=== PATIENT | female | born 1945 | race Caucasian/White ===

== ENCOUNTER 2020-10-09 14:30 | Inpatient (IN) | payer MEDICARE ==
[~2020-10-09] VITALS: Ht 160 cm; Wt 67.8 kg
[2020-10-09] MEDS ORDERED: tiZANidine 4 MG TABLET. PO PRN (15:30)
[2020-10-09] MEDS ORDERED: DENOSUMAB 60 MG/ML DISP.SYRIN. SQ SCH (15:30)
--- NOTE | 2020-10-09 15:45 | NUR ---
Admission Note with Justification for Admission to [facility] Patient admitted to [facility] for protective oversight for emergency stabilization of acute psychiatric crisis. Pt admitted from: Home via [place] [facility] Mode of arrival: EMS Accompanied By: EMS Precipitating behaviors that initiated intake and admission: Patient admitted from home via [place] [facility] for reportedly being paranoid, accusing of sleeping with daughter, eloping from home, stating family members holding her hostage, refusing to eat or bathe, picked up a hammer and made a tool out of wire to defend herself, and accusing family of lying to hospital staff. Description of failure of out patient attempts at stabilization in previous setting list behavior and medication trials: Medication changes and ED visit Behaviors and assessment findings upon admission: Patient is combative, agitated, disorganized, confused, and delusional. She attempted to kick staff during initial assessment and refused to answer questions. She called staff 'lying son of a bitch', 'sadistic pigs', and other names. When asked orientation questions she only answered 'Hell no'. Patient has small abrasions on each great toe, open to air. Plan: Admit for protective oversight for adjustment and stabilization of medications, behaviors and mood. Intense treatment regimen including groups, medication adjustments, therapy, consistent regimen for ADL's, self care, and sleep hygiene. Daily monitoring by Inpatient staff, Psychiatry, and Medical Physician.
[2020-10-09] MEDS ORDERED: CALC625T12 PO (17:04)
[2020-10-09] MEDS ORDERED: OMEP40CA7 PO (17:04)
[2020-10-09] MEDS ORDERED: PRAM0.255 PO (17:04)
[2020-10-09] MEDS ORDERED: LEVO25TA4 PO (17:04)
[2020-10-09] MEDS ORDERED: MULT-245 PO (17:04)
[2020-10-09] MEDS ORDERED: DILT30TA26 PO (17:04)
[2020-10-09] MEDS ORDERED: ASPI-889 PO (17:04)
[2020-10-09] MEDS ORDERED: CHOL10004 PO (17:04)
[2020-10-09] MEDS ORDERED: ATOR10TA60 PO (17:04)
[2020-10-09] MEDS ORDERED: SENN25TA PO (17:04)
[2020-10-09] MEDS ORDERED: TIZA4TAB2 PO (17:04)
[2020-10-09] MEDS ORDERED: DENO60DI SQ (17:04)
[2020-10-09 17:05] VITALS: BP 173/82
[2020-10-09] MEDS ORDERED: METHYL SALICYLATE/MENTHOL TOPICAL OINTMENT 57GM TUBE. TP PRN (17:30)
[2020-10-09] MEDS ORDERED: MAG HYDROX/AL HYDROX/SIMETH 30 ML ORAL.SUSP PO PRN (17:30)
[2020-10-09] MEDS ORDERED: MAGNESIUM HYDROXIDE 2,400 MG/30 ML ORAL.SUSP. PO PRN (17:30)
[2020-10-09] MEDS: dilTIAZem HCL 30 MG TABLET PO SCH (20:32)
[2020-10-09] MEDS: CALCIUM POLYCARBOPHIL 625 MG TABLET PO SCH (20:32)
[2020-10-09] MEDS: ATORVASTATIN CALCIUM 10 MG TABLET. PO SCH (20:32)
[2020-10-09] MEDS: PRAMIPEXOLE 0.5 MG TABLET. PO SCH (20:32)
[2020-10-09] MEDS: SENNOSIDES 8.6 MG TABLET PO SCH (20:32)
--- NOTE | 2020-10-09 22:01 | NUR ---
Nursing Note Pt in her room crying, states that her doesn't love her anymore, that he is cheating on her, that she never knows where he is. States he is sneaking off to cheat and sleep with another woman. I told her to please think rationally about the fact that her memory is failing and her brain is trying to fill in the blanks. She then got really angry telling me I don't know what I'm talking about! Pt spits her words at my angrily then starts crying stating he was the love of her life and now doesn't love her and how would I feel if the only thing I loved didn't love me back....I told her I would try to think things through rationally, she states there is not a rational thought in her head at this point, then cries hysterically. Pt takes po meds willingly. Isolates to room, refuses snacks.
--- NOTE | 2020-10-09 22:02 | PDOC ---
Exam Note: Tex Note: Please also refer to the separate dictated note~for this date of service dictated separately.~Patient seen individually. Discussed the patient with Nursing staff reviewed the chart.~Reviewed interim history and current functioning. Reviewed vital signs,~Labs/ Radiology~and current medications noted below. Continue current treatment with the changes noted in the dictated addendum note Assessment: Vital Signs/I&O: Vital Signs Date Time Temp Pulse Resp B/P (MAP) Pulse Ox O2 Delivery O2 Flow Rate FiO2 10/09/20 20:32 98 173/82 10/09/20 17:05 97.7 20 97 Room Air Current Medications: Meds: Current Medications Medications (Trade) Dose Ordered Sig/Chidi Route PRN Reason Start Time Stop Time Status Last Admin Dose Admin Atorvastatin Calcium (Lipitor) 10 mg QHS PO 10/09/20 21:00 10/09/20 20:32 Calcium Polycarbophil (Fibercon) 1,250 mg BID PO 10/09/20 21:00 10/09/20 20:32 Diltiazem HCl (Cardizem) 30 mg BID PO 10/09/20 21:00 10/09/20 20:32 Pramipexole Dihydrochloride (miraPEX) 1 mg [id number] PO 10/09/20 21:00 10/09/20 20:32 Sennosides (Senna) 25.8 mg HS PO 10/09/20 21:00 10/09/20 20:32 Olanzapine (ZyPREXA ZYDIS) 2.5 mg PRN Q2HRS PRN PO PSYCHOSIS 10/09/20 17:30 10/09/20 20:33 I have reviewed the current psychotropics carefully including drug interactions. Risk benefit ratio favors no change other than as noted in my dictated progress note. Diagnosis: Problems: (1) Major neurocognitive disorder (2) Dementia of the Alzheimer's type with early onset with behavioral disturbance SAEID NUNEZ MD Oct 09, 2020 22:02
[2020-10-10 05:43] VITALS: BP 130/83
[2020-10-10 06:21] LABS: BASO # 0.1 x10^3/uL (0.0-0.2); BASO % 1 % (0-3); EOS # 0.3 x10^3/uL (0.0-0.7); EOS % 4 % (0-3); HEMATOCRIT 42.8 % (36.0-47.0); HEMOGLOBIN 14.4 g/dL (12.0-15.5); LYMPH # 2.5 x10^3/uL (1.0-4.8); LYMPH % 38 % (24-48); MEAN CORPUSCULAR HEMOGLOBIN 31 pg (25-35); MEAN CORPUSCULAR HGB CONC 34 g/dL (31-37); MEAN CORPUSCULAR VOLUME 92 fL (79-100); MONO # 0.8 x10^3/uL (0.0-1.1); MONO % 12 % (0-9); NEUT # 2.9 x10^3uL (1.8-7.7); NEUT % 44 % (31-73); PLATELET COUNT 239 x10^3/uL (140-400); RED BLOOD COUNT 4.66 x10^6/uL (3.50-5.40); RED CELL DISTRIBUTION WIDTH 13.7 % (11.5-14.5); WHITE BLOOD COUNT 6.5 x10^3/uL (4.0-11.0)
[2020-10-10 06:33] LABS: BACTERIA,URINE FEW /HPF (0-FEW); BILIRUBIN,URINE NEG (NEG); CLARITY,URINE CLEAR; COLOR,URINE YELLOW; GLUCOSE,URINE NEG (NEG); NITRITE,URINE NEG (NEG); SQUAMOUS EPITHELIAL CELL,UR MOD /LPF; UROBILINOGEN,URINE 0.2 mg/dL (0.2 mg/dL)
[2020-10-10 06:34] LABS: RBC,URINE OCC /HPF (0-2)
[2020-10-10 06:44] LABS: ALBUMIN 3.8 g/dL (3.4-5.0); ALBUMIN/GLOBULIN RATIO 1.1 (1.0-1.7); CREATININE 0.9 mg/dL (0.6-1.0); GFR 60.9; MAGNESIUM 2.1 mg/dL (1.8-2.4); POTASSIUM 3.6 mmol/L (3.5-5.1); TOTAL BILIRUBIN 0.9 mg/dL (0.2-1.0); TOTAL PROTEIN 7.2 g/dL (6.4-8.2)
[2020-10-10] MEDS: CHOLECALCIFEROL (VITAMIN D3) 1,000 UNIT TABLET PO SCH (08:10)
[2020-10-10] MEDS: PANTOPRAZOLE 40 MG TABLET. PO SCH (08:10)
[2020-10-10] MEDS: LEVOTHYROXINE 25 MCG TABLET. PO SCH (08:11)
[2020-10-10] MEDS: CALCIUM POLYCARBOPHIL 625 MG TABLET PO SCH ×2 (08:11→21:03)
[2020-10-10] MEDS: dilTIAZem HCL 30 MG TABLET PO SCH ×2 (08:11→21:00)
[2020-10-10] MEDS: MULTIVITAMIN with MINERAL TABLET. PO SCH (08:11)
[2020-10-10] MEDS: ASPIRIN ENTERIC COATED 81 MG TABLET.DR. PO SCH (08:11)
[2020-10-10] MEDS: PRAMIPEXOLE 0.5 MG TABLET. PO SCH ×3 (08:11→21:03)
--- NOTE | 2020-10-10 10:47 | NUR ---
NSG NOTE; REFUSED BREAKFAST sat in front of her breakfast tray and wouldn't eat stating that she doesn't eat garbage and that the food looks like vomit
[2020-10-10 14:12] LABS: THYROXINE 6.8 ug/dL (4.5-12.0)
[2020-10-10 16:08] VITALS: BP 152/89
--- NOTE | 2020-10-10 16:54 | NUR ---
nsg note; shift summary pt sat at the meal table for breakfast and lunch, with her arms crossed, a frown on her face, and refused to eat, stating she the food looks like vomit and that she doesn't eat garbage. in the afternoon, she has been more content in the dayroom, talking pleasantly with other patients.
[2020-10-10 17:51] LABS: THYROID STIM HORMONE (TSH) 4.057 uIU/mL (0.358-3.740)
[2020-10-10] MEDS: SENNOSIDES 8.6 MG TABLET PO SCH ×2 (21:03→21:04)
[2020-10-10] MEDS: DOXYCYCLINE HYCLATE 100 MG TABLET PO SCH (21:03)
[2020-10-10] MEDS: ATORVASTATIN CALCIUM 10 MG TABLET. PO SCH (21:05)
--- NOTE | 2020-10-10 21:35 | NUR ---
NURSING NOTE Ambulates in hallway and dayroom without difficulty; pleasant and cooperative, smiling, talkative; takes PO medications without diff; denies any c/o or concerns; resting in bed with eyes closed; no voiced needs at present.
--- NOTE | 2020-10-10 22:39 | PDOC ---
Exam Note: Tex Note: Please also refer to the separate dictated note~for this date of service dictated separately.~Patient seen individually. Discussed the patient with Nursing staff reviewed the chart.~Reviewed interim history and current functioning. Reviewed vital signs,~Labs/ Radiology~and current medications noted below. Continue current treatment with the changes noted in the dictated addendum note Assessment: Vital Signs/I&O: Vital Signs Date Time Temp Pulse Resp B/P (MAP) Pulse Ox O2 Delivery O2 Flow Rate FiO2 10/10/20 21:00 81 152/89 10/10/20 16:08 98.1 16 95 Room Air I & O 10/09/20 10/09/20 10/10/20 14:59 22:59 06:59 Intake Total 360 ml Balance 360 ml Labs: Laboratory Tests Test 10/10/20 05:30 10/10/20 05:52 Urine Collection Type Unknown Urine Color Yellow Urine Clarity Clear Urine pH 5.5 Urine Specific Portal 1.015 Urine Protein Neg (NEG-TRACE) Urine Glucose (UA) Neg mg/dL (NEG) Urine Ketones (Stick) Neg mg/dL (NEG) Urine Blood Trace (NEG) Urine Nitrite Neg (NEG) Urine Bilirubin Neg (NEG) Urine Urobilinogen Dipstick 0.2 mg/dL (0.2 mg/dL) Urine Leukocyte Esterase Neg (NEG) Urine RBC Occ /HPF (0-2) Urine WBC 1-4 /HPF (0-4) Urine Squamous Epithelial Cells Mod /LPF Urine Transitional Epithelial Cells Occ /LPF Urine Bacteria Few /HPF (0-FEW) White Blood Count 6.5 x10^3/uL (4.0-11.0) Red Blood Count 4.66 x10^6/uL (3.50-5.40) Hemoglobin 14.4 g/dL (12.0-15.5) Hematocrit 42.8 % (36.0-47.0) Mean Corpuscular Volume 92 fL (79-100) Mean Corpuscular Hemoglobin 31 pg (25-35) Mean Corpuscular Hemoglobin Concent 34 g/dL (31-37) Red Cell Distribution Width 13.7 % (11.5-14.5) Platelet Count 239 x10^3/uL (140-400) Neutrophils (%) (Auto) 44 % (31-73) Lymphocytes (%) (Auto) 38 % (24-48) Monocytes (%) (Auto) 12 % (0-9) H Eosinophils (%) (Auto) 4 % (0-3) H Basophils (%) (Auto) 1 % (0-3) Neutrophils # (Auto) 2.9 x10^3uL (1.8-7.7) Lymphocytes # (Auto) 2.5 x10^3/uL (1.0-4.8) Monocytes # (Auto) 0.8 x10^3/uL (0.0-1.1) Eosinophils # (Auto) 0.3 x10^3/uL (0.0-0.7) Basophils # (Auto) 0.1 x10^3/uL (0.0-0.2) D-Dimer (Cristel) 1.41 mg/L (0.00-0.50) H Sodium Level 144 mmol/L (136-145) Potassium Level 3.6 mmol/L (3.5-5.1) Chloride Level 109 mmol/L (98-107) H Carbon Dioxide Level 23 mmol/L (21-32) Anion Gap 12 (6-14) Blood Urea Nitrogen 17 mg/dL (7-20) Creatinine 0.9 mg/dL (0.6-1.0) Estimated GFR (Cockcroft-Gault) 60.9 BUN/Creatinine Ratio 19 (6-20) Glucose Level 93 mg/dL (70-99) Calcium Level 9.0 mg/dL (8.5-10.1) Magnesium Level 2.1 mg/dL (1.8-2.4) Iron Level 92 ug/dL (50-170) Total Iron Binding Capacity 271 ug/dL (250-450) Iron Saturation 34 % (15-34) Total Bilirubin 0.9 mg/dL (0.2-1.0) Aspartate Amino Transferase (AST) 19 U/L (15-37) Alanine Aminotransferase (ALT) 23 U/L (14-59) Alkaline Phosphatase 94 U/L (46-116) Total Protein 7.2 g/dL (6.4-8.2) Albumin 3.8 g/dL (3.4-5.0) Albumin/Globulin Ratio 1.1 (1.0-1.7) Triglycerides Level 112 mg/dL (0-150) Cholesterol Level 177 mg/dL (0-200) LDL Cholesterol, Calculated 105 mg/dL (0-100) H VLDL Cholesterol, Calculated 22 mg/dL (0-40) Non-HDL Cholesterol Calculated 127 mg/dL (0-129) HDL Cholesterol 50 mg/dL (40-60) Cholesterol/HDL Ratio 3.0 Vitamin B12 Level 1323 pg/mL (247-911) H 25-Hydroxy Vitamin D Total 28.0 ng/mL (30-100) L Thyroid Stimulating Hormone (TSH) 4.057 uIU/mL (0.358-3.740) Thyroxine (T4) 6.8 ug/dL (4.5-12.0) Total Triiodothyronine (TT3) 72 ng/dL (71-180) Treponema pallidum Antibody Nonreactive (Nonreactive) Current Medications: Meds: Laboratory Tests Test 10/10/20 05:30 10/10/20 05:52 Urine Collection Type Unknown Urine Color Yellow Urine Clarity Clear Urine pH 5.5 Urine Specific Portal 1.015 Urine Protein Neg Urine Glucose (UA) Neg mg/dL Urine Ketones (Stick) Neg mg/dL Urine Blood Trace Urine Nitrite Neg Urine Bilirubin Neg Urine Urobilinogen Dipstick 0.2 mg/dL Urine Leukocyte Esterase Neg Urine RBC Occ /HPF Urine WBC 1-4 /HPF Urine Squamous Epithelial Cells Mod /LPF Urine Transitional Epithelial Cells Occ /LPF Urine Bacteria Few /HPF White Blood Count 6.5 x10^3/uL Red Blood Count 4.66 x10^6/uL Hemoglobin 14.4 g/dL Hematocrit 42.8 % Mean Corpuscular Volume 92 fL Mean Corpuscular Hemoglobin 31 pg Mean Corpuscular Hemoglobin Concent 34 g/dL Red Cell Distribution Width 13.7 % Platelet Count 239 x10^3/uL Neutrophils (%) (Auto) 44 % Lymphocytes (%) (Auto) 38 % Monocytes (%) (Auto) 12 % Eosinophils (%) (Auto) 4 % Basophils (%) (Auto) 1 % Neutrophils # (Auto) 2.9 x10^3uL Lymphocytes # (Auto) 2.5 x10^3/uL Monocytes # (Auto) 0.8 x10^3/uL Eosinophils # (Auto) 0.3 x10^3/uL Basophils # (Auto) 0.1 x10^3/uL D-Dimer (Cristel) 1.41 mg/L Sodium Level 144 mmol/L Potassium Level 3.6 mmol/L Chloride Level 109 mmol/L Carbon Dioxide Level 23 mmol/L Anion Gap 12 Blood Urea Nitrogen 17 mg/dL Creatinine 0.9 mg/dL Estimated GFR (Cockcroft-Gault) 60.9 BUN/Creatinine Ratio 19 Glucose Level 93 mg/dL Calcium Level 9.0 mg/dL Magnesium Level 2.1 mg/dL Iron Level 92 ug/dL Total Iron Binding Capacity 271 ug/dL Iron Saturation 34 % Total Bilirubin 0.9 mg/dL Aspartate Amino Transf (AST/SGOT) 19 U/L Alanine Aminotransferase (ALT/SGPT) 23 U/L Alkaline Phosphatase 94 U/L Total Protein 7.2 g/dL Albumin 3.8 g/dL Albumin/Globulin Ratio 1.1 Triglycerides Level 112 mg/dL Cholesterol Level 177 mg/dL LDL Cholesterol, Calculated 105 mg/dL VLDL Cholesterol, Calculated 22 mg/dL Non-HDL Cholesterol Calculated 127 mg/dL HDL Cholesterol 50 mg/dL Cholesterol/HDL Ratio 3.0 Vitamin B12 Level 1323 pg/mL 25-Hydroxy Vitamin D Total 28.0 ng/mL Thyroid Stimulating Hormone (TSH) 4.057 uIU/mL Thyroxine (T4) 6.8 ug/dL Total Triiodothyronine 72 ng/dL Treponema pallidum Antibody Nonreactive Current Medications Medications (Trade) Dose Ordered Sig/Chidi Route PRN Reason Start Time Stop Time Status Last Admin Dose Admin Aspirin (Aspirin Enteric Coated) 81 mg DAILY PO 10/10/20 09:00 10/10/20 08:11 Atorvastatin Calcium (Lipitor) 10 mg QHS PO 10/09/20 21:00 10/10/20 21:05 Calcium Polycarbophil (Fibercon) 1,250 mg BID PO 10/09/20 21:00 10/10/20 21:03 Vitamin D (Vitamin D3) 50,000 unit WEEKLY PO 10/16/20 09:00 Vitamin D (Vitamin D3) 2,000 unit DAILY PO 10/10/20 09:00 10/10/20 08:10 Denosumab (Prolia) 60 mg 1X SQ 10/09/20 15:30 UNV Diltiazem HCl (Cardizem) 30 mg BID PO 10/09/20 21:00 10/10/20 21:00 Levothyroxine Sodium (Synthroid) 25 mcg DAILY06 PO 10/10/20 07:30 10/10/20 08:11 Pramipexole Dihydrochloride (miraPEX) 1 mg [id number] PO 10/09/20 21:00 10/10/20 21:03 Tizanidine HCl (Zanaflex) 4 mg PRN Q8HRS PRN PO MUSCLE SPASMS 10/09/20 15:30 Multivitamins/ Calcium (Thera-M Plus) 1 tab DAILY PO 10/10/20 09:00 10/10/20 08:11 Pantoprazole Sodium (Protonix) 40 mg DAILY PO 10/10/20 09:00 10/10/20 08:10 Sennosides (Senna) 25.8 mg HS PO 10/09/20 21:00 10/10/20 21:04 Acetaminophen (Tylenol) 650 mg PRN Q6HRS PRN PO MILD PAIN / TEMP > 100.3'F 10/09/20 17:30 Multi-Ingredient Ointment (Analgesic Herrin) 1 ashanti PRN QID PRN TP MUSCLE PAIN 10/09/20 17:30 Al Hydroxide/Mg Hydroxide (Mylanta Plus Xs) 15 ml PRN AFTMEALHC PRN PO DYSPEPSIA 10/09/20 17:30 Magnesium Hydroxide (Milk Of Magnesia) 2,400 mg PRN QHS PRN PO CONSTIPATION 10/09/20 17:30 Olanzapine (ZyPREXA ZYDIS) 2.5 mg PRN Q2HRS PRN PO PSYCHOSIS 10/09/20 17:30 10/09/20 20:33 Doxycycline Hyclate (Vibra-Tab) 100 mg BID PO 10/10/20 21:00 10/19/20 22:00 10/10/20 21:03 Current Medications Medications (Trade) Dose Ordered Sig/Chidi Route PRN Reason Start Time Stop Time Status Last Admin Dose Admin Aspirin (Aspirin Enteric Coated) 81 mg DAILY PO 10/10/20 09:00 10/10/20 08:11 Vitamin D (Vitamin D3) 2,000 unit DAILY PO 10/10/20 09:00 10/10/20 08:10 Levothyroxine Sodium (Synthroid) 25 mcg DAILY06 PO 10/10/20 07:30 10/10/20 08:11 Multivitamins/ Calcium (Thera-M Plus) 1 tab DAILY PO 10/10/20 09:00 10/10/20 08:11 Pantoprazole Sodium (Protonix) 40 mg DAILY PO 10/10/20 09:00 10/10/20 08:10 Doxycycline Hyclate (Vibra-Tab) 100 mg BID PO 10/10/20 21:00 10/19/20 22:00 10/10/20 21:03 I have reviewed the current psychotropics carefully including drug interactions. Risk benefit ratio favors no change other than as noted in my dictated progress note. Diagnosis: Problems: (1) Dementia of the Alzheimer's type with early onset with behavioral disturb ance (2) Major neurocognitive disorder SAEID NUNEZ MD Oct 10, 2020 22:39
[2020-10-11 00:08] LABS: HEMOGLOBIN A1C 5.4 % (4.8-5.6)
[2020-10-11] MEDS: LEVOTHYROXINE 25 MCG TABLET. PO SCH (05:31)
[2020-10-11 06:05] VITALS: BP 154/88
[2020-10-11] MEDS: dilTIAZem HCL 30 MG TABLET PO SCH ×2 (08:41→20:46)
[2020-10-11] MEDS: ASPIRIN ENTERIC COATED 81 MG TABLET.DR. PO SCH (08:41)
[2020-10-11] MEDS: PRAMIPEXOLE 0.5 MG TABLET. PO SCH ×3 (08:41→20:46)
[2020-10-11] MEDS: DOXYCYCLINE HYCLATE 100 MG TABLET PO SCH ×2 (08:42→20:46)
[2020-10-11] MEDS: PANTOPRAZOLE 40 MG TABLET. PO SCH (08:42)
[2020-10-11] MEDS: CHOLECALCIFEROL (VITAMIN D3) 1,000 UNIT TABLET PO SCH (08:42)
[2020-10-11] MEDS: MULTIVITAMIN with MINERAL TABLET. PO SCH (08:42)
[2020-10-11] MEDS: CALCIUM POLYCARBOPHIL 625 MG TABLET PO SCH ×2 (08:42→20:46)
--- NOTE | 2020-10-11 09:24 | CONS ---
DATE OF CONSULTATION: 10/10/2020 HISTORY OF PRESENT ILLNESS: This is a 74-year-old female patient who was admitted to [facility] as a transfer from home via ____ Emergency Department on account of being paranoid, accusing of sleeping with daughter, eloping from home, stating family members holding her hostage, refusing to eat or bathe, picked up a hammer and made a tool out of wire to defend herself, accusing family of lying to the hospital staff, all this in a background of major neurocognitive disorder, vascular Alzheimer with delusion, depression, and behavioral disorder. PAST MEDICAL HISTORY: Significant for chronic obstructive pulmonary disease, DVT, gastroesophageal reflux disease, hypertension, hyperlipidemia, hypothyroidism, syphilis. PAST PSYCHIATRIC HISTORY: Significant for anxiety, depression, bipolar disorder, and personality disorder. PAST SURGICAL HISTORY: Significant for appendectomy, colposcopy, hysterectomy with bilateral oophorectomy, tonsillectomy, total knee arthroplasty, cholecystectomy, left hip replacement and inferior vena cava filter placement. ALLERGIES: She is allergic to SULFA DRUGS, AIR FRESHENER, CAT DANDER, EGGS AND GLUTEN. MEDICATIONS: She is currently on the following medications: She is on tizanidine 4 mg every 8 hours as needed, atorvastatin, calcium 10 mg at bedtime, diltiazem 30 mg twice a day, aspirin 81 mg once a day, Mirapex 0.25 mg 1 tablet 3 times a day, calcium polycarbophil 625 mg 2 tablets twice a day, senna, ____ or Ex-Lax Maximum Relief 25 mg at bedtime, omeprazole 40 mg daily, levothyroxine sodium 25 mcg once a day, cholecalciferol, vitamin D3 50,000 units once weekly and cholecalciferol 25 mcg daily, multivitamin one tablet once a day. She is also on Prolia 60 mg subcutaneously every 6 hours for osteoporosis. FAMILY HISTORY: Noncontributory. SOCIAL HISTORY: She is and lives with her . She has four children. She has never smoked, does not drink alcohol or recreational drugs. 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 PHYSICAL EXAMINATION: GENERAL: When I examined her this afternoon, she was sitting comfortably in chair in no apparent respiratory distress, slightly pale. Not jaundiced, cyanosed. No lymphadenopathy, no thyromegaly, no jugular venous distention. No lower limb edema. VITAL SIGNS: Her heart rate was 98, blood pressure 173/82, temperature was 97.7, respiratory rate 20, and oxygen saturation was 97% on room air. HEAD, EYES, EARS, NOSE, AND THROAT: Normocephalic, atraumatic. NECK: Supple. HEART: Showed normal first and second heart sounds, no gallop, rub or murmur. CHEST: Clear to auscultation, no crepitation or rhonchi. ABDOMEN: Distended, soft, nontender. NEUROLOGIC: She was awake, alert, responding appropriately. All cranial nerves intact. She moves extremities without difficulty. She ambulates without assistance or assistive devices. LABORATORY DATA: Her lab work showed white cell count 6500, hemoglobin 14.4, hematocrit 43.8, MCV 92 and platelet count of 139,000 with normal manual differential. Her D-dimer was 1.41. Her chemistry showed a serum sodium 144, potassium 3.6, chloride 109, bicarbonate 23, anion gap of 12, BUN 17, creatinine 0.9. Estimated GFR was 61 mL per minute. Her glucose was 93, calcium was 9, magnesium was 2.1. Total bilirubin, AST, ALT, alkaline phosphatase were normal. Total protein 7.2, albumin was 3.8. Her total T4 was 6.8, total T3 was 72. Urinalysis is essentially unremarkable. It was negative for nitrite, leukocyte esterase, occasional rbc's, 1-4 wbc's and very few bacteria. ASSESSMENT: In summary, this is a 74-year-old female patient who was admitted on account of being paranoid, accusing of sleeping with daughter, eloping from home, stating family members holding her hostage, refusing to eat or bathe, picked up a hammer and made a tool out of wire to defend herself, accusing family of lying to hospital staff. Medically, the patient has multiple medical problems including chronic obstructive pulmonary disease, deep venous thrombosis, gastroesophageal reflux disease, hypertension, hyperlipidemia, hypothyroidism, syphilis. All in all, the patient seems to be medically stable. She has labile blood pressure, but otherwise all her lab works are well within acceptable range. PLAN: My plan is to continue with all her current medications. I will follow her closely and make any necessary recommendation. Thank you, Dr. Parsons, for allowing me to participate in the care of this patient. AMM/EKT/CHRISTI DR: Colton TID: [id number]
--- NOTE | 2020-10-11 10:03 | HP ---
ADMIT DATE: 10/10/2020 PSYCHIATRIC ADMISSION HISTORY/EVALUATION This is a late entry for date of service 10/10, covers elements not covered in my initial note of 10/10. I met with the patient afternoon of 10/10 on Telehealth rounds due to COVID options. Previously, the day before, discussed the patient with nursing staff and Bethanie Motta, internship coordinator. IDENTIFYING DATA: The patient is a 74-year-old female referred to us from the emergency room at [facility], where she was brought by her family on account of an acute exacerbation of her bipolar disorder with psychotic features and worsening confusion. The patient seen individually on Telehealth rounds, discussed with nursing staff, GRACIA Mosqueda, Reviewed in the chart. CHIEF COMPLAINT: "Yes, I have bipolar disorder. All this has been happening. Maybe, I have been on Depakote in the past. No, I do not remember lithium. Maybe" The patient responded to my direct questioning as above. HISTORY OF PRESENT ILLNESS: The patient reportedly has a history of bipolar disorder, but has not been on any psychotropics for some time. Apparently, the family had gone on a trip to [place]. The patient was getting increasingly paranoid, psychotic. She was accusing her of sleeping with the daughter. She was eloping from the home, stating family members were holding her hostage. She was refusing to eat or bathe. She picked up a hammer and made a tool out of wire to defend herself, accusing family of lying to hospital staff. Reportedly, daughter is the patient's guardian and initiated the visit to the emergency room where she was found to be medically stable and then referred to us for psychiatric stabilization. The patient has had marked sleep disturbance, paranoia, psychosis. As psychotic symptoms worsened in [place], the drove her back in their car. She has been angry, refusing everything, frequently quite animated, grandiose, and agitated. As stated, she has been refusing to eat, stating that the food as "garbage." Reportedly, there has been no psychotropics for her moods, used for some time since she felt she was doing well enough and quite stable. PAST PSYCHIATRIC HISTORY: Past psychiatric records will be obtained including a CT head. Will be completed if not done in the past, but she has a history of bipolar disorder with significant mood swings and psychotic symptoms. Further details will be obtained from the family. PAST MEDICAL HISTORY: Positive for bronchitis, COPD, status post chickenpox, history of DVT, GERD, hypertension, hyperlipidemia, hypothyroidism, history of measles, vena cava filter, history of syphilis, status post appendectomy, colposcopy, hysterectomy, oophorectomy, tonsillectomy, total knee arthroplasty, cholecystectomy, left hip replacement. Accu-Cheks, none. CODE STATUS: Full code. ALLERGIES: CAT DANDER, SULFA, EGGS, GLUTEN, MYSTIC GLADE FRESHENER. DIET: Regular takes medication. Ambulates independently. UA 6:30 is negative. CURRENT PSYCHOTROPICS: Mirapex 1 mg t.i.d. for restless leg syndrome, Zanaflex 4 mg q. 8 hours p.r.n., Zyprexa p.r.n. was added at admission. FAMILY HISTORY: Noncontributory. SOCIAL HISTORY: No history of alcohol, drug abuse, physical, sexual or elder abuse. She is not known to be a perpetrator. REACTION TO HOSPITALIZATION: The patient reluctantly accepting it, but quite paranoid and psychotic. REVIEW OF SYSTEMS: No CV, , pulmonary, eye, ENT system symptoms on review. Reliability poor. MENTAL STATUS EXAM: The patient was seen individually on Telehealth rounds. She is awake, alert, oriented to herself at time and situation. Speech is coherent, somewhat pressured at times. Abstraction fair. Computation impaired. Language function intact. Attention span short. She is quite paranoid, suspicious and psychotic, but seem to remember she might have been on Depakote in the past. Attention span is short. Language function intact. LABORATORY DATA: Reviewed. IMPRESSION: Bipolar disorder, mixed with psychotic features, mild cognitive impairment, anxiety disorder, unspecified; impulse control disorder, unspecified. PLAN: Admit to geropsychiatry unit at [facility]. I will see the patient daily individually from a psychiatric standpoint, medical followup, Dr. Alberto/Dr. Patel. We will have a CT head done to rule out any intracranial lesion accounting for her psychosis, manic symptoms if not done recently and obtain past psychiatric records. We will use Zyprexa p.r.n. for psychosis. Consider Depakote as a mood stabilizer, Risperdal as an atypical antipsychotic. Make further determination post baseline assessment. ESTIMATED LENGTH OF STAY: 10-12 days. DISPOSITION: Discharge back home to outpatient treatment at the [facility] in [place] when stable. BERNY DR: Anusha TID: [id number]
--- NOTE | 2020-10-11 10:23 | NUR ---
Pt dtr, Filomena, participated in treatment team via phone. Pt is eating 100% of meals and sleeping on average 9 hours at night. Pt has displayed mood lability on the unit (e.g. tearfulness, delusional). Pt is being interactive with other peers. Pt knows that she is in the hospital, but does not know where and knows she's here for because she is not stable. Pt has not attend activities as of yet, but did attend one social work group. Pt dtr was able to give a history in which SW will call later this afternoon to get a better psychosocial assessment of pt. Pt has not been on medications for some time; despite previous diagnosis Bipolar D/O. Pt was doing all ADL's on her own with the exception of the cooking, cleaning and finances as pt cares for that. Pt was having some lability but the family felt it was more manageable. Pt confusion started years ago as pt. Pt will need records received from [facility] and the Head CT results at the hospital.
--- NOTE | 2020-10-11 11:55 | NUR ---
WEEKLY ACTIVITY THERAPY NOTE Date of Admission: 10/09/20 Date of AT Assessment: TBD Precipitating behaviors that initiated intake and admission: Patient admitted from home via [facility] for reportedly being paranoid, accusing of sleeping with daughter, eloping from home, stating family members holding her hostage, refusing to eat or bathe, picked up a hammer and made a tool out of wire to defend herself, and accusing family of lying to hospital staff. Goal aimed: TBD Initial Goal: TBD Weekly progress towards goal: NA Group participation level: new patient Weekly highlights: arrived on unit Behaviors observed: informs staff of peer needs Plan: meet/assess Pt Beneficial adaptations: TBD
--- NOTE | 2020-10-11 12:52 | RAD ---
Bilateral lower extremity venous duplex study 10/11/2020 11:19 AM Clinical History: Reason: swollen lower extremities and elevated D DIMER / Spl. Instructions: / Hist ory: Comparison: None Technique: Using a combination of real time ultrasound imaging and color-flow and pulse Doppler imagi ng techniques along with graded compression and augmentation, duplex evaluation of the deep venous sy stem of the both lower extremities was performed. Multiple images were obtained. Findings: There is eccentric, echogenic thrombus resulting in partial occlusion of the left peroneal vein. The appearance favors a chronic etiology. Remaining deep veins of the lower extremities demonst rate no evidence of acute deep venous thrombosis. Impression: 1. 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 Otherwise no evidence of acute deep venous thrombosis involving either lower extremity. Electronically signed by: Jeffrey Linton MD (10/11/2020 12:50 PM) [id number]
--- NOTE | 2020-10-11 13:40 | NUR ---
ACTIVITY THERAPY ASSESSMENT completed based on observation, notes, and interview. Pt was sitting in the day room amongst peers. Pt was willing to answer assessment questions. AT explained activities that are offered on [facility] and expressed interest. Pt said that she enjoys embroidery, making shirts, sewing, needlepoint, pete, arts/crafts and romance novels. 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 Pt was able to recall her birthday but could not determine the year or her age. Pt said that she has a strong mu-ism and it proud of her job. AT asked about her family and pt said that she was to the most handsome man. Pt said that they had not been very long and it was less than two years. AT asked if she had children and pt struggled to count the number of children she had. AT asked pt if she felt stress and she said no. Pt said to cope with stress she watches tv and does embroidery. Pt talked about making clothing items and tablecloths for her family and friends. AT asked pt if she ambulates well or had any pain. Pt said that she gets around great and has no pain. Pt said that she came from a facility prior to admission. Pt also talked about a trip to [place] last year and said that she loved it. Per notes pt has been name calling, refusing meals,and kicking at staff. Initial gaol aimed to increase stress management and relaxation skills. Pt will participate in at least five individual or group Activity Therapy session per week.
--- NOTE | 2020-10-11 14:05 | NUR ---
PSYCHOSOCIAL ASSESSMENT ADMISSION DATE: 10/09/20 CONTACT INFORMATION: DPOA/Guardian Contact Name: Filomena Armas Contact Address: [place] [address] Contact Phone #: ETHNIC ORIGIN: REASONS FOR ADMISSION: Confusion/Disoriented Suspicious/paranoid ADDITIONAL ADMISSION COMMENTS: According to the intake, pt is paranoid and accusing of sleeping with dtr in another room. Pt picked up a hammer to defend herself when she doesn't recognize people, poor self-care within the last week, running off, poor meal intake, wishing she was , delusional, anxious. REASON FOR ADMISSION IN PATIENT/FAMILY'S OWN WORDS: Can manage the mood swings but the paranoia and wandering is new PATIENT/FAMILY EXPECTATIONS FOR ADMISSION: Medication and behavioral management; goal is to return home. LIVING SITUATION: Patient lives with: Spouse Other living arrangements: Lives at home with Contact Name: Donnell Armas Contact Address: [address] [place] [address]; [place] [address] Contact Phone #: FAMILY RELATIONS: Marital Status: # of Marriages: 2 # of Children: 4 [facility] Family Support: Concerned Cooperative Involved in DC Planning Additional Comments r/t Family: Pt had been her first , Emre, right out of high school at 16 and shortly ended up . Pt and Emre had 3 children: Bibiana, Filomena and Gualberto. Pt and Emre as he was cheating on pt. Emre left pt for "the other woman", who was also the same time pt was. Pt then met her Donnell at [employer], where he was a Field Applications Specialist. Donnell "chased" pt who was reluctant as she could not understand how someone "could want a woman who had 3 kids". Pt and Donnell have been for 52 years. Donnell and pt had a dtr [place]; Donnell then went through the court system and adopted pt 3 children as his own. SIGNIFICANT PSYCHIATRIC/MEDICAL HISTORY: Psychiatric/Treatment History: This is pt [facility] psychiatric [facility]. Pt has had outpt services through the [facility] with a hx of Bipolar D/O. Pertinent Family History: There is a maternal history of Bipolar D/O as well as ADHD and Anxiety D/O. HISTORICAL DATA: Childhood Environment: Stressful Other-see below Childhood Environment Additional Comments: Pt was born and raised in [place]. Pt grew up in what started as a chicken shed and her father converted it to a cabin. Pt is one of 6 children: 3 brother (2 have passed) and 2 sisters (both living). Pt father moved them to [place] and pt has lived here since then. 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 service: N Adventist background: Pt grew up in the Worship restorationist. As of late, the family has been attending the [employer] in [place]. Sexual orientation: Heterosexual. Educational Level: Pt graduated high school (12th grade) Past/Present Interests/Hobbies: Sewing, needlepoint, pete, romance novels and Old Gospel Music Financial support/resources: Social Security Monthly income: Person handling finances: Pt handles all finances. Do you have a history of legal problems: N Cultural considerations: None SOCIAL RELATIONSHIPS-CURRENT/PAST: Psychiatrist: None currently PCP: Zabrina Pascual Counselor/Therapist: None Veterans[facility] Administration: None Support Group: None [employer]Hospital Sales Representative: None Other relationships: None STRENGTHS & WEAKNESSES: Patient's strengths: Good family support Good verbal skills Ambulatory Approachable Other patient strengths: Patient's weaknesses: Impulsive Health problems Verbally Aggressive Other patient weaknesses: PRELIMINARY PLAN OF TREATMENT: Preliminary plan: Dec. Hallucination/Delus Promote Coping Skill Medication Stabilization Dec. Outbursts Other preliminary treatment comments: DISCHARGE PLANNING: Discharge planning/disposition: Current Living Arrange. Additional discharge needs identified: continued psychiatric services ADDITIONAL INFORMATION: Other Pertinent Data: SW was able to complete PSA with pt mickierFilomena. Pt dtr reports that the paranoia and wandering is new for pt. They are used to seeing the amparo for pt and feels it can be handled at home. In the hospital pt was not able to remember their names and even mentioned a nice man visited her in the hospital, which was her . Pt dtr is very hopeful to have pt home if possible. They are open to all options for care at home unless it is recommended that it is not safe for pt to be there. SW did mention that Depakote was going to be started; however, [facility]. SW to continue to work with pt family re: discharge planning.
--- NOTE | 2020-10-11 14:25 | TX PLAN ---
Interdisciplinary Tx Plan Admission Information Oct 09, 2020 at 16:45 Legal Status (on Admission): Voluntary DPOA/Guardian Name: Filomena Armas Contact Other Contact Name: Donnell Armas Other Contact Verified Code Status: Full Code Allergies: Coded Allergies: Sulfa (Sulfonamide Antibiotics) (Verified Allergy, Unknown, 10/09/20) cat dander (Verified Allergy, Unknown, 10/09/20) egg (Verified Allergy, Unknown, 10/09/20) gluten (Verified Allergy, Unknown, 10/09/20) Uncoded Allergies: air freshener (Allergy, Severe, Rash, 10/09/20) Diagnoses Primary Diagnosis: Major Neurocognitive D/O, vascular Alzheimers with delusions, depression 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 Pt picked up a hammer to defend herself when she doesn't recognize people, poor self-care within the last week, running off, poor meal intake, wishing she was , delusional, anxious. Problems Active Problems: labile delusional Inactive Problems: medication compliant Pt Strengths/Limitations Ability for [place]: Fair Cognitive Functioning/Ability: Poor Communication Skills/Ability: Fair Financial Resources: Fair Insight/Judgement: Poor Intellectual Ability: Fair Physical Health: Poor Social Skills: Fair Stability in Family: Good Stability in School/Work: Poor Verbal Skills: Fair Discharge Criteria Discharge Criteria: Adequate arrangements @DC, Improved behavior, Improved mood/thought Preliminary Discharge Plan Preliminary DC Plan: Current Living Arrange. Special Precautions Fall Risk: Low Initial D/C Plan Pt to return back home with Identified Discharge Needs: continued psychiatric services Currently Utilized Resources Currently Utilized Resources/P: Primary Care Physician Referrals Community Resources: Psychiatric services Identified Problems/Hx/Goals Objectives/Short-Term Goals Short Term Goals: Dec. Hallucination/Delus, Dec. Outbursts, Medication Stabilization, Promote Coping Skill Short Term Goals in Patient's: N/A Interventions/Frequency Staff Interventions/Frequency&: Psychiatrist to assess pt at least 3x per week for medication management. Social Work to assess pt at least 2x per week to identify barriers to care and discharge planning goals. Nursing to assess medication effects, behavior modification and completion of 15 minute checks. Encourage participation in group activities (if applicable) or 1:1 interaction based off Activity Dept goals. 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 Education: Pt graduated high school (12th grade) Community Follow-up PCP Mental Health follow-up Treatment Plan Explained Patient/Blood Bank Booking Clerk had this treatment plan explained to him/her as indicated by the signature below and has been given the opportunity to ask questions and make suggestions: Date: Patient/Blood Bank Booking Clerk Signature: Patient/Blood Bank Booking Clerk Decline: No (Pt family active in pt care) INDER DANIEL Oct 11, 2020 14:25
--- NOTE | 2020-10-11 15:43 | NUR ---
Nursing note: Pt has been pleasant and med compliant this shift. PRN given this AM in preparation for ultrasound and pt had increased anxiety at that time and was refusing to cooperate. PRN had good effect. She has been social in the day room and has been walking around the unit with other pt's. She is currently sitting quietly in the day room. Will continue to monitor.
[2020-10-11 16:22] VITALS: BP 126/84
[2020-10-11] MEDS: DIVALPROEX ER 500 MG TAB.ER.24H PO SCH (20:46)
[2020-10-11] MEDS: ATORVASTATIN CALCIUM 10 MG TABLET. PO SCH (20:46)
--- NOTE | 2020-10-11 21:57 | PDOC ---
Exam Note: Tex Note: Please also refer to the separate dictated note~for this date of service dictated separately.~Patient seen individually. Discussed the patient with Nursing staff reviewed the chart.~Reviewed interim history and current functioning. Reviewed vital signs,~Labs/ Radiology~and current medications noted below. Continue current treatment with the changes noted in the dictated addendum note Assessment: Vital Signs/I&O: Vital Signs Date Time Temp Pulse Resp B/P (MAP) Pulse Ox O2 Delivery O2 Flow Rate FiO2 10/11/20 20:46 85 126/84 10/11/20 16:22 97.5 18 97 Room Air I & O 10/10/20 10/10/20 10/11/20 15:00 23:00 07:00 Intake Total 240 ml 360 ml Balance 240 ml 360 ml Current Medications: Meds: Current Medications Medications (Trade) Dose Ordered Sig/Cihdi Route PRN Reason Start Time Stop Time Status Last Admin Dose Admin Aspirin (Aspirin Enteric Coated) 81 mg DAILY PO 10/10/20 09:00 10/11/20 08:41 Atorvastatin Calcium (Lipitor) 10 mg QHS PO 10/09/20 21:00 10/11/20 20:46 Calcium Polycarbophil (Fibercon) 1,250 mg BID PO 10/09/20 21:00 10/11/20 20:46 Vitamin D (Vitamin D3) 50,000 unit WEEKLY PO 10/16/20 09:00 Vitamin D (Vitamin D3) 2,000 unit DAILY PO 10/10/20 09:00 10/11/20 08:42 Denosumab (Prolia) 60 mg 1X SQ 10/09/20 15:30 UNV Diltiazem HCl (Cardizem) 30 mg BID PO 10/09/20 21:00 10/11/20 20:46 Levothyroxine Sodium (Synthroid) 25 mcg DAILY06 PO 10/10/20 07:30 10/11/20 05:31 Pramipexole Dihydrochloride (miraPEX) 1 mg [id number] PO 10/09/20 21:00 10/11/20 20:46 Tizanidine HCl (Zanaflex) 4 mg PRN Q8HRS PRN PO MUSCLE SPASMS 10/09/20 15:30 Multivitamins/ Calcium (Thera-M Plus) 1 tab DAILY PO 10/10/20 09:00 10/11/20 08:42 Pantoprazole Sodium (Protonix) 40 mg DAILY PO 10/10/20 09:00 10/11/20 08:42 Sennosides (Senna) 25.8 mg HS PO 10/09/20 21:00 10/10/20 21:04 Acetaminophen (Tylenol) 650 mg PRN Q6HRS PRN PO MILD PAIN / TEMP > 100.3'F 10/09/20 17:30 Multi-Ingredient Ointment (Analgesic [place]) 1 ashanti PRN QID PRN TP MUSCLE PAIN 10/09/20 17:30 Al Hydroxide/Mg Hydroxide (Mylanta Plus Xs) 15 ml PRN AFTMEALHC PRN PO DYSPEPSIA 10/09/20 17:30 Magnesium Hydroxide (Milk Of Magnesia) 2,400 mg PRN QHS PRN PO CONSTIPATION 10/09/20 17:30 Olanzapine (ZyPREXA ZYDIS) 2.5 mg PRN Q2HRS PRN PO PSYCHOSIS 10/09/20 17:30 10/11/20 11:18 Doxycycline Hyclate (Vibra-Tab) 100 mg BID PO 10/10/20 21:00 10/19/20 22:00 10/11/20 20:46 Divalproex Sodium (Depakote Er) 500 mg QHS PO 10/11/20 21:00 10/11/20 20:46 Current Medications Medications (Trade) Dose Ordered Sig/Chidi Route PRN Reason Start Time Stop Time Status Last Admin Dose Admin Divalproex Sodium (Depakote Er) 500 mg QHS PO 10/11/20 21:00 10/11/20 20:46 I have reviewed the current psychotropics carefully including drug interactions. Risk benefit ratio favors no change other than as noted in my dictated progress note. Diagnosis: Problems: (1) Bipolar disorder, current episode mixed, severe, with psychotic features (2) Mild cognitive impairment (3) Anxiety disorder, unspecified (4) Impulse control disorder, unspecified SAEID NUNEZ MD Oct 11, 2020 21:57
[2020-10-12 05:58] VITALS: BP 159/94
[2020-10-12] MEDS: PANTOPRAZOLE 40 MG TABLET. PO SCH (06:15)
[2020-10-12] MEDS: LEVOTHYROXINE 25 MCG TABLET. PO SCH (06:15)
[2020-10-12] MEDS: DOXYCYCLINE HYCLATE 100 MG TABLET PO SCH ×2 (08:04→21:22)
[2020-10-12] MEDS: MULTIVITAMIN with MINERAL TABLET. PO SCH (08:04)
[2020-10-12] MEDS: ASPIRIN ENTERIC COATED 81 MG TABLET.DR. PO SCH (08:04)
[2020-10-12] MEDS: CHOLECALCIFEROL (VITAMIN D3) 1,000 UNIT TABLET PO SCH (08:04)
[2020-10-12] MEDS: CALCIUM POLYCARBOPHIL 625 MG TABLET PO SCH ×2 (08:05→21:21)
[2020-10-12] MEDS: dilTIAZem HCL 30 MG TABLET PO SCH ×2 (08:05→21:22)
[2020-10-12] MEDS: PRAMIPEXOLE 0.5 MG TABLET. PO SCH ×3 (08:05→21:21)
--- NOTE | 2020-10-12 14:56 | NUR ---
NURSING NOTE Alert to self et general location. Confused to all other. Ambulates independently. Denies pain in any location. Some wandering noted, but appears to prefer to nap in dayroom or patient room between meals. Does not exhibit exit seeking behaviors. Compliant with medication et cares today. Plays role of brilliandeer lopper/leader for a more confused patient. No disruptive behaviors this shift. Startles when woken, but settles quickly once becomes oriented to situation.
--- NOTE | 2020-10-12 14:59 | NUR ---
NURSING NOTE Alert to self et location, but not situation. She takes a leader role with a small group of ladies that follow her around the unit, et sit together at meals. She was very agitated this morning 2/2 petersen catheter bag and wheelchair use. After repeatedly disconnecting bag from indwelling portion of petersen, pt was changed to leg bag and has been more compliant. She has been encouraged to use wheelchair for mobility 2/2 very recent partial amputation of toes, but insists on walking and does not take appreciable periods of rest. She rates pain low, et declines any pain control for surgically altered areas of feet. Dressings are dry et intact. [facility] unit with group of women, but is not exit seeking. No disruptive behaviors exhibited this shift once catheter bag change made. Addendum: 10/12/20 at 1506 by CHERELLE SALAZAR RN DISREGARD THIS NOTE, MADE ON WRONG PATIENT
[2020-10-12 16:01] VITALS: BP 113/65
[2020-10-12 21:20] VITALS: BP 122/84
[2020-10-12] MEDS: ATORVASTATIN CALCIUM 10 MG TABLET. PO SCH (21:20)
[2020-10-12] MEDS: DIVALPROEX ER 500 MG TAB.ER.24H PO SCH (21:22)
[2020-10-12] MEDS: SENNOSIDES 8.6 MG TABLET PO SCH (21:23)
--- NOTE | 2020-10-12 22:27 | PDOC ---
Exam Note: Tex Note: This note is a late entry for 10/11/2020 covers elements not covered in my initial note. Subjective: The patient was reviewed on telehealth rounds in the morning of 10/11/2020 as an option during the COVID-19 pandemic period for a treatment team meeting with Bethanie Rain, Maria G Esteves (social media designer), Ifrah, activity therapy and Danya FAGAN, discussed and reviewed the chart. The patients daughter Lala attended the treatment team meeting. We discussed the patients diagnoses, progress, current psychotropics, reviewed drug interactions, risk-benefit ratio of current psychotropics. She slept 6 hours previous night. Appetite is 100%. She has a significant history of bipolar disorder, recent short-term memory deficits. No psychotropics for the bipolar disorder for quite some time. CT head was done at [facility] emergency room and report is awaited. At times she has had statements she wishes she was . No active suicidal ideation. Review of Systems: No CV, , pulmonary, eye, ENT system symptoms on review. Mental Status Exam: The patient is alert and oriented to herself and situation. Speech has some latency, coherent. Abstraction fair. Computation impaired, somewhat paranoid, dismissive as I met with her. Attention span short. Mood and affect labile. No suicidal or homicidal ideation. Laboratory Data: Reviewed. Impression: Bipolar disorder mixed with psychotic features. Anxiety disorder unspecified. Impulse control disorder unspecified. Mild cognitive impairment versus dementia Alzheimer, vascular with delusion and depression. Plan: Continue current psychotropics. Start Depakote ER 500 mg h.s. Check CBC, CMP, valproic acid level in 3 days. Rest unchanged for now. Assessment: Vital Signs/I&O: Vital Signs Date Time Temp Pulse Resp B/P (MAP) Pulse Ox O2 Delivery O2 Flow Rate FiO2 10/12/20 21:22 90 122/84 10/12/20 16:01 97.2 17 96 10/11/20 16:22 Room Air I & O 10/11/20 10/11/20 10/12/20 15:00 23:00 07:00 Intake Total 480 ml 480 ml Balance 480 ml 480 ml Current Medications: Meds: Current Medications Medications (Trade) Dose Ordered Sig/Chidi Route PRN Reason Start Time Stop Time Status Last Admin Dose Admin Aspirin (Aspirin Enteric Coated) 81 mg DAILY PO 10/10/20 09:00 10/12/20 08:04 Atorvastatin Calcium (Lipitor) 10 mg QHS PO 10/09/20 21:00 10/12/20 21:20 Calcium Polycarbophil (Fibercon) 1,250 mg BID PO 10/09/20 21:00 10/12/20 21:21 Vitamin D (Vitamin D3) 50,000 unit WEEKLY PO 10/16/20 09:00 Vitamin D (Vitamin D3) 2,000 unit DAILY PO 10/10/20 09:00 10/12/20 08:04 Denosumab (Prolia) 60 mg 1X SQ 10/09/20 15:30 UNV Diltiazem HCl (Cardizem) 30 mg BID PO 10/09/20 21:00 10/12/20 21:22 Levothyroxine Sodium (Synthroid) 25 mcg DAILY06 PO 10/10/20 07:30 10/12/20 06:15 Pramipexole Dihydrochloride (miraPEX) 1 mg [id number] PO 10/09/20 21:00 10/12/20 21:21 Tizanidine HCl (Zanaflex) 4 mg PRN Q8HRS PRN PO MUSCLE SPASMS 10/09/20 15:30 Multivitamins/ Calcium (Thera-M Plus) 1 tab DAILY PO 10/10/20 09:00 10/12/20 08:04 Pantoprazole Sodium (Protonix) 40 mg DAILY PO 10/10/20 09:00 10/12/20 06:15 Sennosides (Senna) 25.8 mg HS PO 10/09/20 21:00 10/12/20 21:23 Acetaminophen (Tylenol) 650 mg PRN Q6HRS PRN PO MILD PAIN / TEMP > 100.3'F 10/09/20 17:30 Multi-Ingredient Ointment (Analgesic [place]) 1 ashanti PRN QID PRN TP MUSCLE PAIN 10/09/20 17:30 Al Hydroxide/Mg Hydroxide (Mylanta Plus Xs) 15 ml PRN AFTMEALHC PRN PO DYSPEPSIA 10/09/20 17:30 Magnesium Hydroxide (Milk Of Magnesia) 2,400 mg PRN QHS PRN PO CONSTIPATION 10/09/20 17:30 Olanzapine (ZyPREXA ZYDIS) 2.5 mg PRN Q2HRS PRN PO PSYCHOSIS 10/09/20 17:30 10/11/20 11:18 Doxycycline Hyclate (Vibra-Tab) 100 mg BID PO 10/10/20 21:00 10/19/20 22:00 10/12/20 21:22 Divalproex Sodium (Depakote Er) 500 mg QHS PO 10/11/20 21:00 10/12/20 21:22 I have reviewed the current psychotropics carefully including drug interactions. Risk benefit ratio favors no change other than as noted in my dictated progress note. Diagnosis: Problems: (1) Dementia of the Alzheimer's type with early onset with behavioral disturbance (2) Major neurocognitive disorder (3) Impulse control disorder, unspecified (4) Mild cognitive impairment (5) Anxiety disorder, unspecified (6) Bipolar disorder, current episode mixed, severe, with psychotic features SAEID NUNEZ MD Oct 12, 2020 22:27
--- NOTE | 2020-10-12 22:39 | NUR ---
Nursing note: Pt alert to self and is aware she is in a hospital. Compliant and pleasant with cares. Believes roommate is her mother, was trying to assist with decreasing agitation/anxiety in roommate with staff.
--- NOTE | 2020-10-12 22:49 | PDOC ---
Exam Note: Tex Note: Please also refer to the separate dictated note~for this date of service dictated separately.~Patient seen individually. Discussed the patient with Nursing staff reviewed the chart.~Reviewed interim history and current functioning. Reviewed vital signs,~Labs/ Radiology~and current medications noted below. Continue current treatment with the changes noted in the dictated addendum note Assessment: Vital Signs/I&O: Vital Signs Date Time Temp Pulse Resp B/P (MAP) Pulse Ox O2 Delivery O2 Flow Rate FiO2 10/12/20 21:22 90 122/84 10/12/20 16:01 97.2 17 96 10/11/20 16:22 Room Air I & O 10/11/20 10/11/20 10/12/20 15:00 23:00 07:00 Intake Total 480 ml 480 ml Balance 480 ml 480 ml Current Medications: I have reviewed the current psychotropics carefully including drug interactions. Risk benefit ratio favors no change other than as noted in my dictated progress note. Diagnosis: Problems: (1) Dementia of the Alzheimer's type with early onset with behavioral disturbance (2) Major neurocognitive disorder (3) Impulse control disorder, unspecified (4) Mild cognitive impairment (5) Anxiety disorder, unspecified (6) Bipolar disorder, current episode mixed, severe, with psychotic features SAEID NUNEZ MD Oct 12, 2020 22:49
[2020-10-13 03:26] VITALS: BP 122/84
[2020-10-13] MEDS: LEVOTHYROXINE 25 MCG TABLET. PO SCH (05:09)
[2020-10-13 05:53] VITALS: BP 134/80
[2020-10-13] MEDS: ASPIRIN ENTERIC COATED 81 MG TABLET.DR. PO SCH (08:08)
[2020-10-13] MEDS: DOXYCYCLINE HYCLATE 100 MG TABLET PO SCH ×2 (08:08→20:19)
[2020-10-13] MEDS: CALCIUM POLYCARBOPHIL 625 MG TABLET PO SCH ×2 (08:08→20:18)
[2020-10-13] MEDS: MULTIVITAMIN with MINERAL TABLET. PO SCH (08:08)
[2020-10-13] MEDS: PANTOPRAZOLE 40 MG TABLET. PO SCH (08:08)
[2020-10-13] MEDS: PRAMIPEXOLE 0.5 MG TABLET. PO SCH ×3 (08:08→20:18)
[2020-10-13] MEDS: dilTIAZem HCL 30 MG TABLET PO SCH ×2 (08:08→20:18)
[2020-10-13] MEDS: CHOLECALCIFEROL (VITAMIN D3) 1,000 UNIT TABLET PO SCH (08:08)
[2020-10-13 15:36] VITALS: BP 127/81
[2020-10-13] MEDS: SENNOSIDES 8.6 MG TABLET PO SCH (20:19)
[2020-10-13] MEDS: DIVALPROEX ER 500 MG TAB.ER.24H PO SCH (20:19)
[2020-10-13] MEDS: ATORVASTATIN CALCIUM 10 MG TABLET. PO SCH (20:19)
--- NOTE | 2020-10-13 22:27 | PDOC ---
Exam Note: Tex Note: Please also refer to the separate dictated note~for this date of service dictated separately.~Patient seen individually. Discussed the patient with Nursing staff reviewed the chart.~Reviewed interim history and current functioning. Reviewed vital signs,~Labs/ Radiology~and current medications noted below. Continue current treatment with the changes noted in the dictated addendum note Assessment: Vital Signs/I&O: Vital Signs Date Time Temp Pulse Resp B/P (MAP) Pulse Ox O2 Delivery O2 Flow Rate FiO2 10/13/20 20:18 71 127/81 10/13/20 15:36 96.7 18 96 10/13/20 05:53 Room Air I & O 10/12/20 10/12/20 10/13/20 15:00 23:00 07:00 Intake Total 720 ml 360 ml Balance 720 ml 360 ml Current Medications: I have reviewed the current psychotropics carefully including drug interactions. Risk benefit ratio favors no change other than as noted in my dictated progress note. Diagnosis: Problems: (1) Impulse control disorder, unspecified (2) Mild cognitive impairment (3) Anxiety disorder, unspecified (4) Bipolar disorder, current episode mixed, severe, with psychotic features SAEID NUNEZ MD Oct 13, 2020 22:27
--- NOTE | 2020-10-13 23:28 | NUR ---
Pt sitting calmly in dayroom this evening interacting with female peers. A/O to name and . Pt became defensive and somewhat irritable when unable to answer remaining assessment questions. Compliant with whole medications.
[2020-10-14 05:43] VITALS: BP 114/66
[2020-10-14] MEDS: LEVOTHYROXINE 25 MCG TABLET. PO SCH (05:59)
[2020-10-14 07:24] LABS: BASO % 1 % (0-3); EOS # 0.2 x10^3/uL (0.0-0.7); EOS % 4 % (0-3); HEMATOCRIT 40.8 % (36.0-47.0); HEMOGLOBIN 13.7 g/dL (12.0-15.5); LYMPH # 2.3 x10^3/uL (1.0-4.8); LYMPH % 38 % (24-48); MEAN CORPUSCULAR HEMOGLOBIN 31 pg (25-35); MEAN CORPUSCULAR HGB CONC 34 g/dL (31-37); MEAN CORPUSCULAR VOLUME 92 fL (79-100); MONO # 0.8 x10^3/uL (0.0-1.1); MONO % 13 % (0-9); NEUT # 2.6 x10^3uL (1.8-7.7); NEUT % 44 % (31-73); PLATELET COUNT 226 x10^3/uL (140-400); RED BLOOD COUNT 4.46 x10^6/uL (3.50-5.40); RED CELL DISTRIBUTION WIDTH 14.2 % (11.5-14.5)
[2020-10-14 07:48] LABS: ALBUMIN 3.4 g/dL (3.4-5.0); ALK PHOS 85 U/L (46-116); ALT (SGPT) 18 U/L (14-59); ANION GAP 10 (6-14); AST (SGOT) 17 U/L (15-37); BLOOD UREA NITROGEN 19 mg/dL (7-20); BUN/CREATININE RATIO 19 (6-20); CARBON DIOXIDE 26 mmol/L (21-32); CHLORIDE 108 mmol/L (98-107); GFR 53.9; GLUCOSE 97 mg/dL (70-99); SODIUM 144 mmol/L (136-145); TOTAL BILIRUBIN 0.6 mg/dL (0.2-1.0); TOTAL PROTEIN 6.7 g/dL (6.4-8.2)
[2020-10-14 08:03] LABS: VAL ACID 55 mcg/mL (50-100)
[2020-10-14] MEDS: PANTOPRAZOLE 40 MG TABLET. PO SCH (08:42)
[2020-10-14] MEDS: dilTIAZem HCL 30 MG TABLET PO SCH ×2 (08:42→19:57)
[2020-10-14] MEDS: CHOLECALCIFEROL (VITAMIN D3) 1,000 UNIT TABLET PO SCH (08:42)
[2020-10-14] MEDS: PRAMIPEXOLE 0.5 MG TABLET. PO SCH ×3 (08:42→19:56)
[2020-10-14] MEDS: DOXYCYCLINE HYCLATE 100 MG TABLET PO SCH ×2 (08:43→19:56)
[2020-10-14] MEDS: MULTIVITAMIN with MINERAL TABLET. PO SCH (08:43)
[2020-10-14] MEDS: ASPIRIN ENTERIC COATED 81 MG TABLET.DR. PO SCH (08:43)
[2020-10-14] MEDS: CALCIUM POLYCARBOPHIL 625 MG TABLET PO SCH ×2 (08:43→19:56)
--- NOTE | 2020-10-14 09:15 | PDOC ---
Exam Note: Tex Note: This note is a late entry for 10/12/2020 covers elements not covered in my initial note. Subjective: The patient was seen on telehealth rounds in the afternoon of 10/12/2020 as an option during the COVID-19 pandemic period with Arcelia FAGAN, discussed and reviewed the chart. She slept 6-3/4 hours previous night. She has been confused. At times she gets a little agitated, was swinging at staff. Appetite is fair. She seems to take naps. Review of Systems: No CV, , pulmonary, eye, ENT system symptoms on review. Mental Status Exam: The patient is alert and oriented to herself and situation. Speech has some latency, coherent. Abstraction fair. Computation impaired Attention span short. Mood and affect labile. No suicidal or homicidal ideation. Laboratory Data: Reviewed. Impression: Bipolar disorder mixed with psychotic features. Anxiety disorder unspecified. Impulse control disorder unspecified. Mild cognitive impairment versus dementia Alzheimer, vascular with delusion and depression. Plan: Continue current psychotropics. We are adjusting her Depakote. Next set of labs are due on 10/14 with valproic acid level. We will adjust further as clinically indicated. Assessment: Vital Signs/I&O: Vital Signs Date Time Temp Pulse Resp B/P (MAP) Pulse Ox O2 Delivery O2 Flow Rate FiO2 10/14/20 08:42 77 114/66 10/14/20 05:43 97.8 16 95 10/13/20 05:53 Room Air I & O 10/13/20 10/13/20 10/14/20 15:00 23:00 07:00 Intake Total 840 ml 600 ml Balance 840 ml 600 ml Labs: Laboratory Tests Test 10/14/20 06:40 White Blood Count 6.0 x10^3/uL (4.0-11.0) Red Blood Count 4.46 x10^6/uL (3.50-5.40) Hemoglobin 13.7 g/dL (12.0-15.5) Hematocrit 40.8 % (36.0-47.0) Mean Corpuscular Volume 92 fL (79-100) Mean Corpuscular Hemoglobin 31 pg (25-35) Mean Corpuscular Hemoglobin Concent 34 g/dL (31-37) Red Cell Distribution Width 14.2 % (11.5-14.5) Platelet Count 226 x10^3/uL (140-400) Neutrophils (%) (Auto) 44 % (31-73) Lymphocytes (%) (Auto) 38 % (24-48) Monocytes (%) (Auto) 13 % (0-9) H Eosinophils (%) (Auto) 4 % (0-3) H Basophils (%) (Auto) 1 % (0-3) Neutrophils # (Auto) 2.6 x10^3uL (1.8-7.7) Lymphocytes # (Auto) 2.3 x10^3/uL (1.0-4.8) Monocytes # (Auto) 0.8 x10^3/uL (0.0-1.1) Eosinophils # (Auto) 0.2 x10^3/uL (0.0-0.7) Basophils # (Auto) 0.0 x10^3/uL (0.0-0.2) Sodium Level 144 mmol/L (136-145) Potassium Level 4.0 mmol/L (3.5-5.1) Chloride Level 108 mmol/L (98-107) H Carbon Dioxide Level 26 mmol/L (21-32) Anion Gap 10 (6-14) Blood Urea Nitrogen 19 mg/dL (7-20) Creatinine 1.0 mg/dL (0.6-1.0) Estimated GFR (Cockcroft-Gault) 53.9 BUN/Creatinine Ratio 19 (6-20) Glucose Level 97 mg/dL (70-99) Calcium Level 9.0 mg/dL (8.5-10.1) Total Bilirubin 0.6 mg/dL (0.2-1.0) Aspartate Amino Transferase (AST) 17 U/L (15-37) Alanine Aminotransferase (ALT) 18 U/L (14-59) Alkaline Phosphatase 85 U/L (46-116) Ammonia 12 mcmol/L (11-34) Total Protein 6.7 g/dL (6.4-8.2) Albumin 3.4 g/dL (3.4-5.0) Albumin/Globulin Ratio 1.0 (1.0-1.7) Valproic Acid Level 55 mcg/mL (50-100) Valproic Acid Last Dose Date 10/13/20 Valproic Acid Last Dose Time 2100 Current Medications: Meds: Laboratory Tests Test 10/14/20 06:40 White Blood Count 6.0 x10^3/uL Red Blood Count 4.46 x10^6/uL Hemoglobin 13.7 g/dL Hematocrit 40.8 % Mean Corpuscular Volume 92 fL Mean Corpuscular Hemoglobin 31 pg Mean Corpuscular Hemoglobin Concent 34 g/dL Red Cell Distribution Width 14.2 % Platelet Count 226 x10^3/uL Neutrophils (%) (Auto) 44 % Lymphocytes (%) (Auto) 38 % Monocytes (%) (Auto) 13 % Eosinophils (%) (Auto) 4 % Basophils (%) (Auto) 1 % Neutrophils # (Auto) 2.6 x10^3uL Lymphocytes # (Auto) 2.3 x10^3/uL Monocytes # (Auto) 0.8 x10^3/uL Eosinophils # (Auto) 0.2 x10^3/uL Basophils # (Auto) 0.0 x10^3/uL Sodium Level 144 mmol/L Potassium Level 4.0 mmol/L Chloride Level 108 mmol/L Carbon Dioxide Level 26 mmol/L Anion Gap 10 Blood Urea Nitrogen 19 mg/dL Creatinine 1.0 mg/dL Estimated GFR (Cockcroft-Gault) 53.9 BUN/Creatinine Ratio 19 Glucose Level 97 mg/dL Calcium Level 9.0 mg/dL Total Bilirubin 0.6 mg/dL Aspartate Amino Transf (AST/SGOT) 17 U/L Alanine Aminotransferase (ALT/SGPT) 18 U/L Alkaline Phosphatase 85 U/L Ammonia 12 mcmol/L Total Protein 6.7 g/dL Albumin 3.4 g/dL Albumin/Globulin Ratio 1.0 Valproic Acid (Depakene) Level 55 mcg/mL Valproic Acid Last Dose Date 10/13/20 Valproic Acid Last Dose Time 2100 Current Medications Medications (Trade) Dose Ordered Sig/Chidi Route PRN Reason Start Time Stop Time Status Last Admin Dose Admin Aspirin (Aspirin Enteric Coated) 81 mg DAILY PO 10/10/20 09:00 10/14/20 08:43 Atorvastatin Calcium (Lipitor) 10 mg QHS PO 10/09/20 21:00 10/13/20 20:19 Calcium Polycarbophil (Fibercon) 1,250 mg BID PO 10/09/20 21:00 10/14/20 08:43 Vitamin D (Vitamin D3) 50,000 unit WEEKLY PO 10/16/20 09:00 Vitamin D (Vitamin D3) 2,000 unit DAILY PO 10/10/20 09:00 10/14/20 08:42 Denosumab (Prolia) 60 mg 1X SQ 10/09/20 15:30 UNV Diltiazem HCl (Cardizem) 30 mg BID PO 10/09/20 21:00 10/14/20 08:42 Levothyroxine Sodium (Synthroid) 25 mcg DAILY06 PO 10/10/20 07:30 10/14/20 05:59 Pramipexole Dihydrochloride (miraPEX) 1 mg [id number] PO 10/09/20 21:00 10/14/20 08:42 Tizanidine HCl (Zanaflex) 4 mg PRN Q8HRS PRN PO MUSCLE SPASMS 10/09/20 15:30 Multivitamins/ Calcium (Thera-M Plus) 1 tab DAILY PO 10/10/20 09:00 10/14/20 08:43 Pantoprazole Sodium (Protonix) 40 mg DAILY PO 10/10/20 09:00 10/14/20 08:42 Sennosides (Senna) 25.8 mg HS PO 10/09/20 21:00 10/13/20 20:19 Acetaminophen (Tylenol) 650 mg PRN Q6HRS PRN PO MILD PAIN / TEMP > 100.3'F 10/09/20 17:30 Multi-Ingredient Ointment (Analgesic [place]) 1 ashanti PRN QID PRN TP MUSCLE PAIN 10/09/20 17:30 Al Hydroxide/Mg Hydroxide (Mylanta Plus Xs) 15 ml PRN AFTMEALHC PRN PO DYSPEPSIA 10/09/20 17:30 Magnesium Hydroxide (Milk Of Magnesia) 2,400 mg PRN QHS PRN PO CONSTIPATION 10/09/20 17:30 Olanzapine (ZyPREXA ZYDIS) 2.5 mg PRN Q2HRS PRN PO PSYCHOSIS 10/09/20 17:30 10/11/20 11:18 Doxycycline Hyclate (Vibra-Tab) 100 mg BID PO 10/10/20 21:00 10/19/20 22:00 10/14/20 08:43 Divalproex Sodium (Depakote Er) 500 mg QHS PO 10/11/20 21:00 10/13/20 20:19 Lactobacillus Rhamnosus (Culturelle) 1 cap BID PO 10/14/20 21:00 I have reviewed the current psychotropics carefully including drug interactions. Risk benefit ratio favors no change other than as noted in my dictated progress note. Diagnosis: Problems: (1) Impulse control disorder, unspecified (2) Mild cognitive impairment (3) Anxiety disorder, unspecified (4) Bipolar disorder, current episode mixed, severe, with psychotic features SAEID NUNEZ MD Oct 14, 2020 09:15
--- NOTE | 2020-10-14 09:43 | PDOC ---
Exam Note: Tex Note: This note is a late entry for 10/13/2020 covers elements not covered in my initial note. Subjective: The patient was seen on telehealth rounds in the afternoon of 10/13/2020 as an option during the COVID-19 pandemic period with Jaylin FAGAN, discussed and reviewed the chart. She slept 6 hours previous night. The patient had a nap after breakfast. She has been trying to lovingly console some of the other patients. She seems oriented to her name and that she is in the hospital and her date but when I questioned her during telehealth rounds about where she had gone on recent vacation with her family she was unable to recount this for me. She was unable to tell me what kind of work her does and does seem more confused than can be explained by her bipolar disorder with psychotic features. Nevertheless we will continue to stabilize her bipolar disorder and then reassess her cognition at that stage. Labs are due for Depakote in the morning. Review of Systems: No CV, , pulmonary, eye, ENT system symptoms on review. Mental Status Exam: The patient is oriented to herself and situation. Speech has some latency, coherent. Abstraction fair. Computation impaired. Language function intact. Attention span short. Mood and affect somewhat withdrawn. Laboratory Data: Reviewed. Impression: Bipolar disorder mixed with psychotic features. Anxiety disorder unspecified. Impulse control disorder unspecified. Mild cognitive impairment. Plan: We will check labs and valproic acid level on 10/14. Adjust Depakote thereafter. Assessment: Vital Signs/I&O: Vital Signs Date Time Temp Pulse Resp B/P (MAP) Pulse Ox O2 Delivery O2 Flow Rate FiO2 10/14/20 08:42 77 114/66 10/14/20 05:43 97.8 16 95 10/13/20 05:53 Room Air I & O 10/13/20 10/13/20 10/14/20 15:00 23:00 07:00 Intake Total 840 ml 600 ml Balance 840 ml 600 ml Labs: Laboratory Tests Test 10/14/20 06:40 White Blood Count 6.0 x10^3/uL (4.0-11.0) Red Blood Count 4.46 x10^6/uL (3.50-5.40) Hemoglobin 13.7 g/dL (12.0-15.5) Hematocrit 40.8 % (36.0-47.0) Mean Corpuscular Volume 92 fL (79-100) Mean Corpuscular Hemoglobin 31 pg (25-35) Mean Corpuscular Hemoglobin Concent 34 g/dL (31-37) Red Cell Distribution Width 14.2 % (11.5-14.5) Platelet Count 226 x10^3/uL (140-400) Neutrophils (%) (Auto) 44 % (31-73) Lymphocytes (%) (Auto) 38 % (24-48) Monocytes (%) (Auto) 13 % (0-9) H Eosinophils (%) (Auto) 4 % (0-3) H Basophils (%) (Auto) 1 % (0-3) Neutrophils # (Auto) 2.6 x10^3uL (1.8-7.7) Lymphocytes # (Auto) 2.3 x10^3/uL (1.0-4.8) Monocytes # (Auto) 0.8 x10^3/uL (0.0-1.1) Eosinophils # (Auto) 0.2 x10^3/uL (0.0-0.7) Basophils # (Auto) 0.0 x10^3/uL (0.0-0.2) Sodium Level 144 mmol/L (136-145) Potassium Level 4.0 mmol/L (3.5-5.1) Chloride Level 108 mmol/L (98-107) H Carbon Dioxide Level 26 mmol/L (21-32) Anion Gap 10 (6-14) Blood Urea Nitrogen 19 mg/dL (7-20) Creatinine 1.0 mg/dL (0.6-1.0) Estimated GFR (Cockcroft-Gault) 53.9 BUN/Creatinine Ratio 19 (6-20) Glucose Level 97 mg/dL (70-99) Calcium Level 9.0 mg/dL (8.5-10.1) Total Bilirubin 0.6 mg/dL (0.2-1.0) Aspartate Amino Transferase (AST) 17 U/L (15-37) Alanine Aminotransferase (ALT) 18 U/L (14-59) Alkaline Phosphatase 85 U/L (46-116) Ammonia 12 mcmol/L (11-34) Total Protein 6.7 g/dL (6.4-8.2) Albumin 3.4 g/dL (3.4-5.0) Albumin/Globulin Ratio 1.0 (1.0-1.7) Valproic Acid Level 55 mcg/mL (50-100) Valproic Acid Last Dose Date 10/13/20 Valproic Acid Last Dose Time 2100 Current Medications: Meds: Laboratory Tests Test 10/14/20 06:40 White Blood Count 6.0 x10^3/uL Red Blood Count 4.46 x10^6/uL Hemoglobin 13.7 g/dL Hematocrit 40.8 % Mean Corpuscular Volume 92 fL Mean Corpuscular Hemoglobin 31 pg Mean Corpuscular Hemoglobin Concent 34 g/dL Red Cell Distribution Width 14.2 % Platelet Count 226 x10^3/uL Neutrophils (%) (Auto) 44 % Lymphocytes (%) (Auto) 38 % Monocytes (%) (Auto) 13 % Eosinophils (%) (Auto) 4 % Basophils (%) (Auto) 1 % Neutrophils # (Auto) 2.6 x10^3uL Lymphocytes # (Auto) 2.3 x10^3/uL Monocytes # (Auto) 0.8 x10^3/uL Eosinophils # (Auto) 0.2 x10^3/uL Basophils # (Auto) 0.0 x10^3/uL Sodium Level 144 mmol/L Potassium Level 4.0 mmol/L Chloride Level 108 mmol/L Carbon Dioxide Level 26 mmol/L Anion Gap 10 Blood Urea Nitrogen 19 mg/dL Creatinine 1.0 mg/dL Estimated GFR (Cockcroft-Gault) 53.9 BUN/Creatinine Ratio 19 Glucose Level 97 mg/dL Calcium Level 9.0 mg/dL Total Bilirubin 0.6 mg/dL Aspartate Amino Transf (AST/SGOT) 17 U/L Alanine Aminotransferase (ALT/SGPT) 18 U/L Alkaline Phosphatase 85 U/L Ammonia 12 mcmol/L Total Protein 6.7 g/dL Albumin 3.4 g/dL Albumin/Globulin Ratio 1.0 Valproic Acid (Depakene) Level 55 mcg/mL Valproic Acid Last Dose Date 10/13/20 Valproic Acid Last Dose Time 2100 Current Medications Medications (Trade) Dose Ordered Sig/Chidi Route PRN Reason Start Time Stop Time Status Last Admin Dose Admin Aspirin (Aspirin Enteric Coated) 81 mg DAILY PO 10/10/20 09:00 10/14/20 08:43 Atorvastatin Calcium (Lipitor) 10 mg QHS PO 10/09/20 21:00 10/13/20 20:19 Calcium Polycarbophil (Fibercon) 1,250 mg BID PO 10/09/20 21:00 10/14/20 08:43 Vitamin D (Vitamin D3) 50,000 unit WEEKLY PO 10/16/20 09:00 Vitamin D (Vitamin D3) 2,000 unit DAILY PO 10/10/20 09:00 10/14/20 08:42 Denosumab (Prolia) 60 mg 1X SQ 10/09/20 15:30 UNV Diltiazem HCl (Cardizem) 30 mg BID PO 10/09/20 21:00 10/14/20 08:42 Levothyroxine Sodium (Synthroid) 25 mcg DAILY06 PO 10/10/20 07:30 10/14/20 05:59 Pramipexole Dihydrochloride (miraPEX) 1 mg [id number] PO 10/09/20 21:00 10/14/20 08:42 Tizanidine HCl (Zanaflex) 4 mg PRN Q8HRS PRN PO MUSCLE SPASMS 10/09/20 15:30 Multivitamins/ Calcium (Thera-M Plus) 1 tab DAILY PO 10/10/20 09:00 10/14/20 08:43 Pantoprazole Sodium (Protonix) 40 mg DAILY PO 10/10/20 09:00 10/14/20 08:42 Sennosides (Senna) 25.8 mg HS PO 10/09/20 21:00 10/13/20 20:19 Acetaminophen (Tylenol) 650 mg PRN Q6HRS PRN PO MILD PAIN / TEMP > 100.3'F 10/09/20 17:30 Multi-Ingredient Ointment (Analgesic [place]) 1 ashanti PRN QID PRN TP MUSCLE PAIN 10/09/20 17:30 Al Hydroxide/Mg Hydroxide (Mylanta Plus Xs) 15 ml PRN AFTMEALHC PRN PO DYSPEPSIA 10/09/20 17:30 Magnesium Hydroxide (Milk Of Magnesia) 2,400 mg PRN QHS PRN PO CONSTIPATION 10/09/20 17:30 Olanzapine (ZyPREXA ZYDIS) 2.5 mg PRN Q2HRS PRN PO PSYCHOSIS 10/09/20 17:30 10/11/20 11:18 Doxycycline Hyclate (Vibra-Tab) 100 mg BID PO 10/10/20 21:00 10/19/20 22:00 10/14/20 08:43 Divalproex Sodium (Depakote Er) 500 mg QHS PO 10/11/20 21:00 10/13/20 20:19 Lactobacillus Rhamnosus (Culturelle) 1 cap BID PO 10/14/20 21:00 I have reviewed the current psychotropics carefully including drug interactions. Risk benefit ratio favors no change other than as noted in my dictated progress note. Diagnosis: Problems: (1) Impulse control disorder, unspecified (2) Mild cognitive impairment (3) Anxiety disorder, unspecified (4) Bipolar disorder, current episode mixed, severe, with psychotic features SAEID NUNEZ MD Oct 14, 2020 09:43
--- NOTE | 2020-10-14 10:16 | EKG ---
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
--- NOTE | 2020-10-14 11:20 | NUR ---
Nursing Note Pt pleasantly confused, but cooperative and compliant. Smiles on approach, social at breakfast with peers.
[2020-10-14 16:32] VITALS: BP 120/79
[2020-10-14] MEDS: SENNOSIDES 8.6 MG TABLET PO SCH (19:55)
[2020-10-14] MEDS: LACTOBACILLUS RHAMNOSUS GG 1 CAPSULE. PO SCH (19:55)
[2020-10-14] MEDS: DIVALPROEX ER 500 MG TAB.ER.24H PO SCH (19:56)
[2020-10-14] MEDS: ATORVASTATIN CALCIUM 10 MG TABLET. PO SCH (19:56)
--- NOTE | 2020-10-14 21:56 | PDOC ---
Exam Note: Tex Note: Please also refer to the separate dictated note~for this date of service dictated separately.~Patient seen individually. Discussed the patient with Nursing staff reviewed the chart.~Reviewed interim history and current functioning. Reviewed vital signs,~Labs/ Radiology~and current medications noted below. Continue current treatment with the changes noted in the dictated addendum note Assessment: Vital Signs/I&O: Vital Signs Date Time Temp Pulse Resp B/P (MAP) Pulse Ox O2 Delivery O2 Flow Rate FiO2 10/14/20 19:57 77 120/79 10/14/20 16:32 97.6 18 97 10/13/20 05:53 Room Air I & O 10/13/20 10/13/20 10/14/20 15:00 23:00 07:00 Intake Total 840 ml 600 ml Balance 840 ml 600 ml Labs: Laboratory Tests Test 10/14/20 06:40 White Blood Count 6.0 x10^3/uL (4.0-11.0) Red Blood Count 4.46 x10^6/uL (3.50-5.40) Hemoglobin 13.7 g/dL (12.0-15.5) Hematocrit 40.8 % (36.0-47.0) Mean Corpuscular Volume 92 fL (79-100) Mean Corpuscular Hemoglobin 31 pg (25-35) Mean Corpuscular Hemoglobin Concent 34 g/dL (31-37) Red Cell Distribution Width 14.2 % (11.5-14.5) Platelet Count 226 x10^3/uL (140-400) Neutrophils (%) (Auto) 44 % (31-73) Lymphocytes (%) (Auto) 38 % (24-48) Monocytes (%) (Auto) 13 % (0-9) H Eosinophils (%) (Auto) 4 % (0-3) H Basophils (%) (Auto) 1 % (0-3) Neutrophils # (Auto) 2.6 x10^3uL (1.8-7.7) Lymphocytes # (Auto) 2.3 x10^3/uL (1.0-4.8) Monocytes # (Auto) 0.8 x10^3/uL (0.0-1.1) Eosinophils # (Auto) 0.2 x10^3/uL (0.0-0.7) Basophils # (Auto) 0.0 x10^3/uL (0.0-0.2) Sodium Level 144 mmol/L (136-145) Potassium Level 4.0 mmol/L (3.5-5.1) Chloride Level 108 mmol/L (98-107) H Carbon Dioxide Level 26 mmol/L (21-32) Anion Gap 10 (6-14) Blood Urea Nitrogen 19 mg/dL (7-20) Creatinine 1.0 mg/dL (0.6-1.0) Estimated GFR (Cockcroft-Gault) 53.9 BUN/Creatinine Ratio 19 (6-20) Glucose Level 97 mg/dL (70-99) Calcium Level 9.0 mg/dL (8.5-10.1) Total Bilirubin 0.6 mg/dL (0.2-1.0) Aspartate Amino Transferase (AST) 17 U/L (15-37) Alanine Aminotransferase (ALT) 18 U/L (14-59) Alkaline Phosphatase 85 U/L (46-116) Ammonia 12 mcmol/L (11-34) Total Protein 6.7 g/dL (6.4-8.2) Albumin 3.4 g/dL (3.4-5.0) Albumin/Globulin Ratio 1.0 (1.0-1.7) Valproic Acid Level 55 mcg/mL (50-100) Valproic Acid Last Dose Date 10/13/20 Valproic Acid Last Dose Time 2100 Current Medications: Meds: Laboratory Tests Test 10/14/20 06:40 White Blood Count 6.0 x10^3/uL Red Blood Count 4.46 x10^6/uL Hemoglobin 13.7 g/dL Hematocrit 40.8 % Mean Corpuscular Volume 92 fL Mean Corpuscular Hemoglobin 31 pg Mean Corpuscular Hemoglobin Concent 34 g/dL Red Cell Distribution Width 14.2 % Platelet Count 226 x10^3/uL Neutrophils (%) (Auto) 44 % Lymphocytes (%) (Auto) 38 % Monocytes (%) (Auto) 13 % Eosinophils (%) (Auto) 4 % Basophils (%) (Auto) 1 % Neutrophils # (Auto) 2.6 x10^3uL Lymphocytes # (Auto) 2.3 x10^3/uL Monocytes # (Auto) 0.8 x10^3/uL Eosinophils # (Auto) 0.2 x10^3/uL Basophils # (Auto) 0.0 x10^3/uL Sodium Level 144 mmol/L Potassium Level 4.0 mmol/L Chloride Level 108 mmol/L Carbon Dioxide Level 26 mmol/L Anion Gap 10 Blood Urea Nitrogen 19 mg/dL Creatinine 1.0 mg/dL Estimated GFR (Cockcroft-Gault) 53.9 BUN/Creatinine Ratio 19 Glucose Level 97 mg/dL Calcium Level 9.0 mg/dL Total Bilirubin 0.6 mg/dL Aspartate Amino Transf (AST/SGOT) 17 U/L Alanine Aminotransferase (ALT/SGPT) 18 U/L Alkaline Phosphatase 85 U/L Ammonia 12 mcmol/L Total Protein 6.7 g/dL Albumin 3.4 g/dL Albumin/Globulin Ratio 1.0 Valproic Acid (Depakene) Level 55 mcg/mL Valproic Acid Last Dose Date 10/13/20 Valproic Acid Last Dose Time 2100 Current Medications Medications (Trade) Dose Ordered Sig/Chidi Route PRN Reason Start Time Stop Time Status Last Admin Dose Admin Aspirin (Aspirin Enteric Coated) 81 mg DAILY PO 10/10/20 09:00 10/14/20 08:43 Atorvastatin Calcium (Lipitor) 10 mg QHS PO 10/09/20 21:00 10/14/20 19:56 Calcium Polycarbophil (Fibercon) 1,250 mg BID PO 10/09/20 21:00 10/14/20 19:56 Vitamin D (Vitamin D3) 50,000 unit WEEKLY PO 10/16/20 09:00 Vitamin D (Vitamin D3) 2,000 unit DAILY PO 10/10/20 09:00 10/14/20 08:42 Denosumab (Prolia) 60 mg 1X SQ 10/09/20 15:30 UNV Diltiazem HCl (Cardizem) 30 mg BID PO 10/09/20 21:00 10/14/20 19:57 Levothyroxine Sodium (Synthroid) 25 mcg DAILY06 PO 10/10/20 07:30 10/14/20 05:59 Pramipexole Dihydrochloride (miraPEX) 1 mg [id number] PO 10/09/20 21:00 10/14/20 19:56 Tizanidine HCl (Zanaflex) 4 mg PRN Q8HRS PRN PO MUSCLE SPASMS 10/09/20 15:30 Multivitamins/ Calcium (Thera-M Plus) 1 tab DAILY PO 10/10/20 09:00 10/14/20 08:43 Pantoprazole Sodium (Protonix) 40 mg DAILY PO 10/10/20 09:00 10/14/20 08:42 Sennosides (Senna) 25.8 mg HS PO 10/09/20 21:00 10/14/20 19:55 Acetaminophen (Tylenol) 650 mg PRN Q6HRS PRN PO MILD PAIN / TEMP > 100.3'F 10/09/20 17:30 Multi-Ingredient Ointment (Analgesic [place]) 1 ashanti PRN QID PRN TP MUSCLE PAIN 10/09/20 17:30 Al Hydroxide/Mg Hydroxide (Mylanta Plus Xs) 15 ml PRN AFTMEALHC PRN PO DYSPEPSIA 10/09/20 17:30 Magnesium Hydroxide (Milk Of Magnesia) 2,400 mg PRN QHS PRN PO CONSTIPATION 10/09/20 17:30 Olanzapine (ZyPREXA ZYDIS) 2.5 mg PRN Q2HRS PRN PO PSYCHOSIS 10/09/20 17:30 10/11/20 11:18 Doxycycline Hyclate (Vibra-Tab) 100 mg BID PO 10/10/20 21:00 10/19/20 22:00 10/14/20 19:56 Divalproex Sodium (Depakote Er) 500 mg QHS PO 10/11/20 21:00 10/14/20 19:56 Lactobacillus Rhamnosus (Culturelle) 1 cap BID PO 10/14/20 21:00 10/14/20 19:55 Current Medications Medications (Trade) Dose Ordered Sig/Chidi Route PRN Reason Start Time Stop Time Status Last Admin Dose Admin Lactobacillus Rhamnosus (Culturelle) 1 cap BID PO 10/14/20 21:00 10/14/20 19:55 I have reviewed the current psychotropics carefully including drug interactions. Risk benefit ratio favors no change other than as noted in my dictated progress note. Diagnosis: Problems: (1) Impulse control disorder, unspecified (2) Mild cognitive impairment (3) Anxiety disorder, unspecified (4) Bipolar disorder, current episode mixed, severe, with psychotic features SAEID NUNEZ MD Oct 14, 2020 21:56
--- NOTE | 2020-10-14 22:55 | NUR ---
Pt located in dayroom interacting with female peers. Pt labile; calm one minute and then angry/irritable the next. Pt compliant with whole medications but stated "I hope this is poison and kills me" as she swallowed the medications. Pt tearful at times this evening.
[2020-10-15 05:23] VITALS: BP 130/88
[2020-10-15] MEDS: LEVOTHYROXINE 25 MCG TABLET. PO SCH (05:32)
[2020-10-15] MEDS: dilTIAZem HCL 30 MG TABLET PO SCH ×2 (07:56→20:29)
[2020-10-15] MEDS: PRAMIPEXOLE 0.5 MG TABLET. PO SCH ×3 (07:56→20:29)
[2020-10-15] MEDS: PANTOPRAZOLE 40 MG TABLET. PO SCH (07:57)
[2020-10-15] MEDS: MULTIVITAMIN with MINERAL TABLET. PO SCH (07:57)
[2020-10-15] MEDS: ASPIRIN ENTERIC COATED 81 MG TABLET.DR. PO SCH (07:57)
[2020-10-15] MEDS: CALCIUM POLYCARBOPHIL 625 MG TABLET PO SCH ×2 (07:57→20:29)
[2020-10-15] MEDS: CHOLECALCIFEROL (VITAMIN D3) 1,000 UNIT TABLET PO SCH (07:57)
[2020-10-15] MEDS: LACTOBACILLUS RHAMNOSUS GG 1 CAPSULE. PO SCH ×2 (07:57→20:29)
[2020-10-15] MEDS: DOXYCYCLINE HYCLATE 100 MG TABLET PO SCH ×2 (07:57→20:29)
--- NOTE | 2020-10-15 08:40 | PDOC ---
Exam Note: Tex Note: This note is a late entry for 10/14/2020 covers elements not covered in my initial note. Subjective: The patient was seen individually in the evening of 10/14/2020 with Valery FAGAN, discussed and reviewed the chart. She slept 7-1/2 hours previous night. The patient appeared somewhat manic previous evening, wandering. Valproic acid level is 55, therapeutic. We will repeat it in 2 days. Medically she is managed by Dr. Alberto, started on doxycycline and Doppler has been ordered. The patient was in bed, not very verbally interactive as I met with her. Review of Systems: No CV, , pulmonary, eye, ENT system symptoms on review. Mental Status Exam: The patient is oriented to herself and situation. Speech has some latency, coherent. Abstraction fair. Computation impaired. Language function intact. Attention span short. Mood and affect somewhat withdrawn. Laboratory Data: Reviewed. Impression: Bipolar disorder mixed with psychotic features. Anxiety disorder unspecified. Impulse control disorder unspecified. Mild cognitive impairment. Plan: Continue current psychotropics. Follow labs and Depakote but maintain at current dosage since level is therapeutic. Adjust further as clinically indicated. Assessment: Vital Signs/I&O: Vital Signs Date Time Temp Pulse Resp B/P (MAP) Pulse Ox O2 Delivery O2 Flow Rate FiO2 10/15/20 07:56 89 130/88 10/15/20 05:23 97.9 16 97 10/13/20 05:53 Room Air I & O 10/14/20 10/14/20 10/15/20 15:00 23:00 07:00 Intake Total 480 ml 360 ml Balance 480 ml 360 ml Current Medications: Meds: Current Medications Medications (Trade) Dose Ordered Sig/Chidi Route PRN Reason Start Time Stop Time Status Last Admin Dose Admin Aspirin (Aspirin Enteric Coated) 81 mg DAILY PO 10/10/20 09:00 10/15/20 07:57 Atorvastatin Calcium (Lipitor) 10 mg QHS PO 10/09/20 21:00 10/14/20 19:56 Calcium Polycarbophil (Fibercon) 1,250 mg BID PO 10/09/20 21:00 10/15/20 07:57 Vitamin D (Vitamin D3) 50,000 unit WEEKLY PO 10/16/20 09:00 Vitamin D (Vitamin D3) 2,000 unit DAILY PO 10/10/20 09:00 10/15/20 07:57 Denosumab (Prolia) 60 mg 1X SQ 10/09/20 15:30 UNV Diltiazem HCl (Cardizem) 30 mg BID PO 10/09/20 21:00 10/15/20 07:56 Levothyroxine Sodium (Synthroid) 25 mcg DAILY06 PO 10/10/20 07:30 10/15/20 05:32 Pramipexole Dihydrochloride (miraPEX) 1 mg [id number] PO 10/09/20 21:00 10/15/20 07:56 Tizanidine HCl (Zanaflex) 4 mg PRN Q8HRS PRN PO MUSCLE SPASMS 10/09/20 15:30 Multivitamins/ Calcium (Thera-M Plus) 1 tab DAILY PO 10/10/20 09:00 10/15/20 07:57 Pantoprazole Sodium (Protonix) 40 mg DAILY PO 10/10/20 09:00 10/15/20 07:57 Sennosides (Senna) 25.8 mg HS PO 10/09/20 21:00 10/14/20 19:55 Acetaminophen (Tylenol) 650 mg PRN Q6HRS PRN PO MILD PAIN / TEMP > 100.3'F 10/09/20 17:30 Multi-Ingredient Ointment (Analgesic [place]) 1 ashanti PRN QID PRN TP MUSCLE PAIN 10/09/20 17:30 Al Hydroxide/Mg Hydroxide (Mylanta Plus Xs) 15 ml PRN AFTMEALHC PRN PO DYSPEPSIA 10/09/20 17:30 Magnesium Hydroxide (Milk Of Magnesia) 2,400 mg PRN QHS PRN PO CONSTIPATION 10/09/20 17:30 Olanzapine (ZyPREXA ZYDIS) 2.5 mg PRN Q2HRS PRN PO PSYCHOSIS 10/09/20 17:30 10/11/20 11:18 Doxycycline Hyclate (Vibra-Tab) 100 mg BID PO 10/10/20 21:00 10/19/20 22:00 10/15/20 07:57 Divalproex Sodium (Depakote Er) 500 mg QHS PO 10/11/20 21:00 10/14/20 19:56 Lactobacillus Rhamnosus (Culturelle) 1 cap BID PO 10/14/20 21:00 10/15/20 07:57 Current Medications Medications (Trade) Dose Ordered Sig/Chidi Route PRN Reason Start Time Stop Time Status Last Admin Dose Admin Lactobacillus Rhamnosus (Culturelle) 1 cap BID PO 10/14/20 21:00 7 07:57 I have reviewed the current psychotropics carefully including drug interactions. Risk benefit ratio favors no change other than as noted in my dictated progress note. Diagnosis: Problems: (1) Impulse control disorder, unspecified (2) Mild cognitive impairment (3) Anxiety disorder, unspecified (4) Bipolar disorder, current episode mixed, severe, with psychotic features SAEID NUNEZ MD Oct 15, 2020 08:40
--- NOTE | 2020-10-15 14:27 | NUR ---
nsg note; an has been calm, pleasant and med compliant today. she is awake and alert and spends her time between meals in the dayroom where she converses with staff and other patients. she is very soothing and reassuring to other patients, especially when they are upset.
[2020-10-15 16:07] VITALS: BP 85/64
[2020-10-15 19:42] VITALS: BP 128/69
[2020-10-15] MEDS: ATORVASTATIN CALCIUM 10 MG TABLET. PO SCH (20:29)
[2020-10-15] MEDS: DIVALPROEX ER 500 MG TAB.ER.24H PO SCH (20:29)
[2020-10-15] MEDS: SENNOSIDES 8.6 MG TABLET PO SCH (20:30)
--- NOTE | 2020-10-15 21:55 | PDOC ---
Exam Note: Tex Note: Please also refer to the separate dictated note~for this date of service dictated separately.~Patient seen individually. Discussed the patient with Nursing staff reviewed the chart.~Reviewed interim history and current functioning. Reviewed vital signs,~Labs/ Radiology~and current medications noted below. Continue current treatment with the changes noted in the dictated addendum note Assessment: Vital Signs/I&O: Vital Signs Date Time Temp Pulse Resp B/P (MAP) Pulse Ox O2 Delivery O2 Flow Rate FiO2 10/15/20 20:29 73 128/69 10/15/20 16:07 98.4 16 97 10/13/20 05:53 Room Air I & O 10/14/20 10/14/20 10/15/20 15:00 23:00 07:00 Intake Total 480 ml 360 ml Balance 480 ml 360 ml Current Medications: Meds: Current Medications Medications (Trade) Dose Ordered Sig/Chidi Route PRN Reason Start Time Stop Time Status Last Admin Dose Admin Aspirin (Aspirin Enteric Coated) 81 mg DAILY PO 10/10/20 09:00 10/15/20 07:57 Atorvastatin Calcium (Lipitor) 10 mg QHS PO 10/09/20 21:00 10/15/20 20:29 Calcium Polycarbophil (Fibercon) 1,250 mg BID PO 10/09/20 21:00 10/15/20 20:29 Vitamin D (Vitamin D3) 50,000 unit WEEKLY PO 10/16/20 09:00 Vitamin D (Vitamin D3) 2,000 unit DAILY PO 10/10/20 09:00 10/15/20 07:57 Denosumab (Prolia) 60 mg 1X SQ 10/09/20 15:30 UNV Diltiazem HCl (Cardizem) 30 mg BID PO 10/09/20 21:00 10/15/20 20:29 Levothyroxine Sodium (Synthroid) 25 mcg DAILY06 PO 10/10/20 07:30 10/15/20 05:32 Pramipexole Dihydrochloride (miraPEX) 1 mg [id number] PO 10/09/20 21:00 10/15/20 20:29 Tizanidine HCl (Zanaflex) 4 mg PRN Q8HRS PRN PO MUSCLE SPASMS 10/09/20 15:30 Multivitamins/ Calcium (Thera-M Plus) 1 tab DAILY PO 10/10/20 09:00 10/15/20 07:57 Pantoprazole Sodium (Protonix) 40 mg DAILY PO 10/10/20 09:00 10/15/20 07:57 Sennosides (Senna) 25.8 mg HS PO 10/09/20 21:00 10/15/20 20:30 Acetaminophen (Tylenol) 650 mg PRN Q6HRS PRN PO MILD PAIN / TEMP > 100.3'F 10/09/20 17:30 Multi-Ingredient Ointment (Analgesic [place]) 1 ashanti PRN QID PRN TP MUSCLE PAIN 10/09/20 17:30 Al Hydroxide/Mg Hydroxide (Mylanta Plus Xs) 15 ml PRN AFTMEALHC PRN PO DYSPEPSIA 10/09/20 17:30 Magnesium Hydroxide (Milk Of Magnesia) 2,400 mg PRN QHS PRN PO CONSTIPATION 10/09/20 17:30 Olanzapine (ZyPREXA ZYDIS) 2.5 mg PRN Q2HRS PRN PO PSYCHOSIS 10/09/20 17:30 10/11/20 11:18 Doxycycline Hyclate (Vibra-Tab) 100 mg BID PO 10/10/20 21:00 10/19/20 22:00 10/15/20 20:29 Divalproex Sodium (Depakote Er) 500 mg QHS PO 10/11/20 21:00 10/15/20 20:29 Lactobacillus Rhamnosus (Culturelle) 1 cap BID PO 10/14/20 21:00 10/15/20 20:29 I have reviewed the current psychotropics carefully including drug interactions. Risk benefit ratio favors no change other than as noted in my dictated progress note. Diagnosis: Problems: (1) Impulse control disorder, unspecified (2) Mild cognitive impairment (3) Anxiety disorder, unspecified (4) Bipolar disorder, current episode mixed, severe, with psychotic features SAEID NUNEZ MD Oct 15, 2020 21:55
--- NOTE | 2020-10-15 23:57 | NUR ---
Pt located in her room this evening. Pleasantly confused, becomes tearful when discussing how much she misses her . Compliant with whole medications.
[2020-10-16] MEDS: LEVOTHYROXINE 25 MCG TABLET. PO SCH (05:45)
[2020-10-16 05:49] VITALS: BP 128/69
--- NOTE | 2020-10-16 06:21 | PDOC ---
Exam Note: Tex Note: This note is a late entry for 10/15/2020 covers elements not covered in my initial note. Subjective: The patient was seen individually in the evening of 10/15/2020 with Jaylin FAGAN, discussed and reviewed the chart. She slept 6-3/4 hours previous night. Intake is 75%. Previous evening she was quite labile in her mood, paranoid, sarcastic but doing better today. CBC, CMP, valproic acid level will be checked tomorrow morning. Review of Systems: No CV, , pulmonary, eye, ENT system symptoms on review. Mental Status Exam: The patient is oriented to herself and situation. Speech has some latency, coherent. Abstraction fair. Computation impaired. Language function intact. Attention span short. Mood and affect somewhat withdrawn. Laboratory Data: Reviewed. Impression: Bipolar disorder mixed with psychotic features. Anxiety disorder unspecified. Impulse control disorder unspecified. Mild cognitive impairment. Plan: Continue current psychotropics. We will check labs and valproic acid level in the morning, then adjust Depakote as clinically indicated. Assessment: Vital Signs/I&O: Vital Signs Date Time Temp Pulse Resp B/P (MAP) Pulse Ox O2 Delivery O2 Flow Rate FiO2 10/16/20 05:49 97.4 81 18 128/69 (88) 96 Room Air I & O 0 10/15/20 10/15/20 10/16/20 15:00 23:00 07:00 Intake Total 720 ml 360 ml Balance 720 ml 360 ml Current Medications: Meds: Current Medications Medications (Trade) Dose Ordered Sig/Chidi Route PRN Reason Start Time Stop Time Status Last Admin Dose Admin Aspirin (Aspirin Enteric Coated) 81 mg DAILY PO 10/10/20 09:00 10/15/20 07:57 Atorvastatin Calcium (Lipitor) 10 mg QHS PO 10/09/20 21:00 10/15/20 20:29 Calcium Polycarbophil (Fibercon) 1,250 mg BID PO 10/09/20 21:00 10/15/20 20:29 Vitamin D (Vitamin D3) 50,000 unit WEEKLY PO 10/16/20 09:00 Vitamin D (Vitamin D3) 2,000 unit DAILY PO 10/10/20 09:00 10/15/20 07:57 Denosumab (Prolia) 60 mg 1X SQ 10/09/20 15:30 UNV Diltiazem HCl (Cardizem) 30 mg BID PO 10/09/20 21:00 10/15/20 20:29 Levothyroxine Sodium (Synthroid) 25 mcg DAILY06 PO 10/10/20 07:30 10/16/20 05:45 Pramipexole Dihydrochloride (miraPEX) 1 mg [id number] PO 10/09/20 21:00 10/15/20 20:29 Tizanidine HCl (Zanaflex) 4 mg PRN Q8HRS PRN PO MUSCLE SPASMS 10/09/20 15:30 Multivitamins/ Calcium (Thera-M Plus) 1 tab DAILY PO 10/10/20 09:00 10/15/20 07:57 Pantoprazole Sodium (Protonix) 40 mg DAILY PO 10/10/20 09:00 10/15/20 07:57 Sennosides (Senna) 25.8 mg HS PO 10/09/20 21:00 10/15/20 20:30 Acetaminophen (Tylenol) 650 mg PRN Q6HRS PRN PO MILD PAIN / TEMP > 100.3'F 10/09/20 17:30 Multi-Ingredient Ointment (Analgesic [place]) 1 ashanti PRN QID PRN TP MUSCLE PAIN 10/09/20 17:30 Al Hydroxide/Mg Hydroxide (Mylanta Plus Xs) 15 ml PRN AFTMEALHC PRN PO DYSPEPSIA 10/09/20 17:30 Magnesium Hydroxide (Milk Of Magnesia) 2,400 mg PRN QHS PRN PO CONSTIPATION 10/09/20 17:30 Olanzapine (ZyPREXA ZYDIS) 2.5 mg PRN Q2HRS PRN PO PSYCHOSIS 10/09/20 17:30 10/11/20 11:18 Doxycycline Hyclate (Vibra-Tab) 100 mg BID PO 10/10/20 21:00 10/19/20 22:00 10/15/20 20:29 Divalproex Sodium (Depakote Er) 500 mg QHS PO 10/11/20 21:00 10/15/20 20:29 Lactobacillus Rhamnosus (Culturelle) 1 cap BID PO 10/14/20 21:00 10/15/20 20:29 I have reviewed the current psychotropics carefully including drug interactions. Risk benefit ratio favors no change other than as noted in my dictated progress note. Diagnosis: Problems: (1) Mild cognitive impairment (2) Impulse control disorder, unspecified (3) Anxiety disorder, unspecified (4) Bipolar disorder, current episode mixed, severe, with psychotic features SAEID NUNEZ MD Oct 16, 2020 06:21
[2020-10-16 08:02] LABS: ALBUMIN 3.3 g/dL (3.4-5.0); ALK PHOS 81 U/L (46-116); ALT (SGPT) 18 U/L (14-59); ANION GAP 8 (6-14); AST (SGOT) 16 U/L (15-37); BLOOD UREA NITROGEN 16 mg/dL (7-20); BUN/CREATININE RATIO 16 (6-20); CALCIUM 8.8 mg/dL (8.5-10.1); CARBON DIOXIDE 29 mmol/L (21-32); CHLORIDE 108 mmol/L (98-107); GFR 53.9; GLUCOSE 82 mg/dL (70-99); POTASSIUM 4.1 mmol/L (3.5-5.1); SODIUM 145 mmol/L (136-145); TOTAL BILIRUBIN 0.6 mg/dL (0.2-1.0); TOTAL PROTEIN 6.5 g/dL (6.4-8.2)
[2020-10-16 08:08] LABS: BASO % 1 % (0-3); EOS # 0.2 x10^3/uL (0.0-0.7); EOS % 4 % (0-3); HEMATOCRIT 40.8 % (36.0-47.0); HEMOGLOBIN 13.9 g/dL (12.0-15.5); LYMPH # 2.4 x10^3/uL (1.0-4.8); LYMPH % 43 % (24-48); MEAN CORPUSCULAR HEMOGLOBIN 31 pg (25-35); MEAN CORPUSCULAR HGB CONC 34 g/dL (31-37); MEAN CORPUSCULAR VOLUME 91 fL (79-100); MONO # 0.6 x10^3/uL (0.0-1.1); MONO % 11 % (0-9); NEUT # 2.3 x10^3uL (1.8-7.7); NEUT % 41 % (31-73); PLATELET COUNT 226 x10^3/uL (140-400); RED BLOOD COUNT 4.48 x10^6/uL (3.50-5.40); WHITE BLOOD COUNT 5.5 x10^3/uL (4.0-11.0)
[2020-10-16 08:10] LABS: VAL ACID 64 mcg/mL (50-100)
[2020-10-16] MEDS: ASPIRIN ENTERIC COATED 81 MG TABLET.DR. PO SCH (08:51)
[2020-10-16] MEDS: CALCIUM POLYCARBOPHIL 625 MG TABLET PO SCH ×2 (08:51→20:10)
[2020-10-16] MEDS: PRAMIPEXOLE 0.5 MG TABLET. PO SCH ×3 (08:51→20:11)
[2020-10-16] MEDS: ACETAMINOPHEN 325 MG TABLET PO PRN (08:51)
[2020-10-16] MEDS: CHOLECALCIFEROL (VITAMIN D3) 50,000 UNIT CAPSULE PO SCH (08:51)
[2020-10-16] MEDS: LACTOBACILLUS RHAMNOSUS GG 1 CAPSULE. PO SCH ×2 (08:52→20:11)
[2020-10-16] MEDS: MULTIVITAMIN with MINERAL TABLET. PO SCH (08:52)
[2020-10-16] MEDS: CHOLECALCIFEROL (VITAMIN D3) 1,000 UNIT TABLET PO SCH (08:52)
[2020-10-16] MEDS: PANTOPRAZOLE 40 MG TABLET. PO SCH (08:52)
[2020-10-16] MEDS: dilTIAZem HCL 30 MG TABLET PO SCH ×2 (08:52→20:10)
[2020-10-16] MEDS: DOXYCYCLINE HYCLATE 100 MG TABLET PO SCH ×2 (08:52→20:10)
[2020-10-16 15:48] VITALS: BP 103/64
[2020-10-16] MEDS ORDERED: CHOL500021 PO (17:04)
[2020-10-16] MEDS: DIVALPROEX ER 500 MG TAB.ER.24H PO SCH (20:10)
[2020-10-16] MEDS: SENNOSIDES 8.6 MG TABLET PO SCH (20:11)
[2020-10-16] MEDS: ATORVASTATIN CALCIUM 10 MG TABLET. PO SCH (20:11)
--- NOTE | 2020-10-16 21:58 | PDOC ---
Exam Note: Tex Note: Please also refer to the separate dictated note~for this date of service dictated separately.~Patient seen individually. Discussed the patient with Nursing staff reviewed the chart.~Reviewed interim history and current functioning. Reviewed vital signs,~Labs/ Radiology~and current medications noted below. Continue current treatment with the changes noted in the dictated addendum note Assessment: Vital Signs/I&O: Vital Signs Date Time Temp Pulse Resp B/P (MAP) Pulse Ox O2 Delivery O2 Flow Rate FiO2 10/16/20 20:10 86 103/64 10/16/20 15:48 97.4 16 94 Room Air I & O 10/15/20 10/15/20 10/16/20 15:00 23:00 07:00 Intake Total 720 ml 360 ml Balance 720 ml 360 ml Labs: Laboratory Tests Test 10/16/20 07:00 White Blood Count 5.5 x10^3/uL (4.0-11.0) Red Blood Count 4.48 x10^6/uL (3.50-5.40) Hemoglobin 13.9 g/dL (12.0-15.5) Hematocrit 40.8 % (36.0-47.0) Mean Corpuscular Volume 91 fL (79-100) Mean Corpuscular Hemoglobin 31 pg (25-35) Mean Corpuscular Hemoglobin Concent 34 g/dL (31-37) Red Cell Distribution Width 14.0 % (11.5-14.5) Platelet Count 226 x10^3/uL (140-400) Neutrophils (%) (Auto) 41 % (31-73) Lymphocytes (%) (Auto) 43 % (24-48) Monocytes (%) (Auto) 11 % (0-9) H Eosinophils (%) (Auto) 4 % (0-3) H Basophils (%) (Auto) 1 % (0-3) Neutrophils # (Auto) 2.3 x10^3uL (1.8-7.7) Lymphocytes # (Auto) 2.4 x10^3/uL (1.0-4.8) Monocytes # (Auto) 0.6 x10^3/uL (0.0-1.1) Eosinophils # (Auto) 0.2 x10^3/uL (0.0-0.7) Basophils # (Auto) 0.0 x10^3/uL (0.0-0.2) Sodium Level 145 mmol/L (136-145) Potassium Level 4.1 mmol/L (3.5-5.1) Chloride Level 108 mmol/L (98-107) H Carbon Dioxide Level 29 mmol/L (21-32) Anion Gap 8 (6-14) Blood Urea Nitrogen 16 mg/dL (7-20) Creatinine 1.0 mg/dL (0.6-1.0) Estimated GFR (Cockcroft-Gault) 53.9 BUN/Creatinine Ratio 16 (6-20) Glucose Level 82 mg/dL (70-99) Calcium Level 8.8 mg/dL (8.5-10.1) Total Bilirubin 0.6 mg/dL (0.2-1.0) Aspartate Amino Transferase (AST) 16 U/L (15-37) Alanine Aminotransferase (ALT) 18 U/L (14-59) Alkaline Phosphatase 81 U/L (46-116) Total Protein 6.5 g/dL (6.4-8.2) Albumin 3.3 g/dL (3.4-5.0) L Albumin/Globulin Ratio 1.0 (1.0-1.7) Valproic Acid Level 64 mcg/mL (50-100) Valproic Acid Last Dose Date 10/15/20 Valproic Acid Last Dose Time 2100 Current Medications: Meds: Laboratory Tests Test 10/16/20 07:00 White Blood Count 5.5 x10^3/uL Red Blood Count 4.48 x10^6/uL Hemoglobin 13.9 g/dL Hematocrit 40.8 % Mean Corpuscular Volume 91 fL Mean Corpuscular Hemoglobin 31 pg Mean Corpuscular Hemoglobin Concent 34 g/dL Red Cell Distribution Width 14.0 % Platelet Count 226 x10^3/uL Neutrophils (%) (Auto) 41 % Lymphocytes (%) (Auto) 43 % Monocytes (%) (Auto) 11 % Eosinophils (%) (Auto) 4 % Basophils (%) (Auto) 1 % Neutrophils # (Auto) 2.3 x10^3uL Lymphocytes # (Auto) 2.4 x10^3/uL Monocytes # (Auto) 0.6 x10^3/uL Eosinophils # (Auto) 0.2 x10^3/uL Basophils # (Auto) 0.0 x10^3/uL Sodium Level 145 mmol/L Potassium Level 4.1 mmol/L Chloride Level 108 mmol/L Carbon Dioxide Level 29 mmol/L Anion Gap 8 Blood Urea Nitrogen 16 mg/dL Creatinine 1.0 mg/dL Estimated GFR (Cockcroft-Gault) 53.9 BUN/Creatinine Ratio 16 Glucose Level 82 mg/dL Calcium Level 8.8 mg/dL Total Bilirubin 0.6 mg/dL Aspartate Amino Transf (AST/SGOT) 16 U/L Alanine Aminotransferase (ALT/SGPT) 18 U/L Alkaline Phosphatase 81 U/L Total Protein 6.5 g/dL Albumin 3.3 g/dL Albumin/Globulin Ratio 1.0 Valproic Acid (Depakene) Level 64 mcg/mL Valproic Acid Last Dose Date 10/15/20 Valproic Acid Last Dose Time 2100 Current Medications Medications (Trade) Dose Ordered Sig/Chidi Route PRN Reason Start Time Stop Time Status Last Admin Dose Admin Aspirin (Aspirin Enteric Coated) 81 mg DAILY PO 10/10/20 09:00 10/16/20 08:51 Atorvastatin Calcium (Lipitor) 10 mg QHS PO 10/09/20 21:00 10/16/20 20:11 Calcium Polycarbophil (Fibercon) 1,250 mg BID PO 10/09/20 21:00 10/16/20 20:10 Vitamin D (Vitamin D3) 50,000 unit WEEKLY PO 10/16/20 09:00 10/16/20 08:51 Vitamin D (Vitamin D3) 2,000 unit DAILY PO 10/10/20 09:00 10/16/20 08:52 Denosumab (Prolia) 60 mg 1X SQ 10/09/20 15:30 UNV Diltiazem HCl (Cardizem) 30 mg BID PO 10/09/20 21:00 10/16/20 20:10 Levothyroxine Sodium (Synthroid) 25 mcg DAILY06 PO 10/10/20 07:30 10/16/20 05:45 Pramipexole Dihydrochloride (miraPEX) 1 mg [id number] PO 10/09/20 21:00 10/16/20 20:11 Tizanidine HCl (Zanaflex) 4 mg PRN Q8HRS PRN PO MUSCLE SPASMS 10/09/20 15:30 Multivitamins/ Calcium (Thera-M Plus) 1 tab DAILY PO 10/10/20 09:00 10/16/20 08:52 Pantoprazole Sodium (Protonix) 40 mg DAILY PO 10/10/20 09:00 10/16/20 08:52 Sennosides (Senna) 25.8 mg HS PO 10/09/20 21:00 10/16/20 20:11 Acetaminophen (Tylenol) 650 mg PRN Q6HRS PRN PO MILD PAIN / TEMP > 100.3'F 10/09/20 17:30 10/16/20 08:51 Multi-Ingredient Ointment (Analgesic [place]) 1 ashanti PRN QID PRN TP MUSCLE PAIN 10/09/20 17:30 Al Hydroxide/Mg Hydroxide (Mylanta Plus Xs) 15 ml PRN AFTMEALHC PRN PO DYSPEPSIA 10/09/20 17:30 Magnesium Hydroxide (Milk Of Magnesia) 2,400 mg PRN QHS PRN PO CONSTIPATION 10/09/20 17:30 Olanzapine (ZyPREXA ZYDIS) 2.5 mg PRN Q2HRS PRN PO PSYCHOSIS 10/09/20 17:30 10/16/20 08:51 Doxycycline Hyclate (Vibra-Tab) 100 mg BID PO 10/10/20 21:00 10/19/20 22:00 10/16/20 20:10 Divalproex Sodium (Depakote Er) 500 mg QHS PO 10/11/20 21:00 10/16/20 20:10 Lactobacillus Rhamnosus (Culturelle) 1 cap BID PO 10/14/20 21:00 10/16/20 20:11 Current Medications Medications (Trade) Dose Ordered Sig/Chidi Route PRN Reason Start Time Stop Time Status Last Admin Dose Admin Vitamin D (Vitamin D3) 50,000 unit WEEKLY PO 10/16/20 09:00 10/16/20 08:51 I have reviewed the current psychotropics carefully including drug interactions. Risk benefit ratio favors no change other than as noted in my dictated progress note. Diagnosis: Problems: (1) Impulse control disorder, unspecified (2) Mild cognitive impairment (3) Anxiety disorder, unspecified (4) Bipolar disorder, current episode mixed, severe, with psychotic features SAEID NUNEZ MD Oct 16, 2020 21:58
--- NOTE | 2020-10-16 23:22 | NUR ---
Pt sitting calmly in dayroom all evening interacting with staff and peers. Pt pleasantly confused. Compliant with whole medications.
[2020-10-17 05:52] VITALS: BP 121/74
[2020-10-17] MEDS: LEVOTHYROXINE 25 MCG TABLET. PO SCH (06:16)
[2020-10-17] MEDS: PRAMIPEXOLE 0.5 MG TABLET. PO SCH ×3 (08:16→21:14)
[2020-10-17] MEDS: DOXYCYCLINE HYCLATE 100 MG TABLET PO SCH ×2 (08:16→21:14)
[2020-10-17] MEDS: LACTOBACILLUS RHAMNOSUS GG 1 CAPSULE. PO SCH ×2 (08:16→21:15)
[2020-10-17] MEDS: PANTOPRAZOLE 40 MG TABLET. PO SCH (08:17)
[2020-10-17] MEDS: CALCIUM POLYCARBOPHIL 625 MG TABLET PO SCH ×2 (08:17→21:14)
[2020-10-17] MEDS: CHOLECALCIFEROL (VITAMIN D3) 1,000 UNIT TABLET PO SCH (08:17)
[2020-10-17] MEDS: MULTIVITAMIN with MINERAL TABLET. PO SCH (08:17)
[2020-10-17] MEDS: ASPIRIN ENTERIC COATED 81 MG TABLET.DR. PO SCH (08:17)
[2020-10-17] MEDS: dilTIAZem HCL 30 MG TABLET PO SCH ×2 (08:17→21:15)
--- NOTE | 2020-10-17 08:46 | PDOC ---
Exam Note: Tex Note: This note is a late entry for 10/16/2020 covers elements not covered in my initial note. Subjective: The patient was seen individually in the evening of 10/16/2020 with Fan FAGAN, discussed and reviewed the chart. She slept 6-1/4 hours previous night. Valproic acid level therapeutic at 64. The patient has been fairly appropriate on the unit. She does seem to have short-term memory deficits. Review of Systems: No CV, , pulmonary, eye, ENT system symptoms on review. Mental Status Exam: The patient is oriented to herself and situation. I met with the patient initial outside her room and later when I was in the dayroom she was back and had further questions but when I got to her she stated she had forgotten the questions. Speech has some latency, coherent. Abstraction fair. Computation impaired. Language function intact. Attention span short. Mood and affect somewhat withdrawn. Laboratory Data: Reviewed. Impression: Bipolar disorder mixed with psychotic features. Anxiety disorder unspecified. Impulse control disorder unspecified. Mild cognitive impairment. Plan: Continue current psychotropics. Assessment: Vital Signs/I&O: Vital Signs Date Time Temp Pulse Resp B/P (MAP) Pulse Ox O2 Delivery O2 Flow Rate FiO2 10/17/20 08:17 79 121/74 10/17/20 05:52 97.8 18 94 Room Air I & O 10/16/20 10/16/20 10/17/20 15:00 23:00 07:00 Intake Total 720 ml 480 ml 120 ml Balance 720 ml 480 ml 120 ml Current Medications: Meds: Current Medications Medications (Trade) Dose Ordered Sig/Chidi Route PRN Reason Start Time Stop Time Status Last Admin Dose Admin Aspirin (Aspirin Enteric Coated) 81 mg DAILY PO 10/10/20 09:00 10/17/20 08:17 Atorvastatin Calcium (Lipitor) 10 mg QHS PO 10/09/20 21:00 10/16/20 20:11 Calcium Polycarbophil (Fibercon) 1,250 mg BID PO 10/09/20 21:00 10/17/20 08:17 Vitamin D (Vitamin D3) 50,000 unit WEEKLY PO 10/16/20 09:00 10/16/20 08:51 Vitamin D (Vitamin D3) 2,000 unit DAILY PO 10/10/20 09:00 10/17/20 08:17 Denosumab (Prolia) 60 mg 1X SQ 10/09/20 15:30 UNV Diltiazem HCl (Cardizem) 30 mg BID PO 10/09/20 21:00 10/17/20 08:17 Levothyroxine Sodium (Synthroid) 25 mcg DAILY06 PO 10/10/20 07:30 10/17/20 06:16 Pramipexole Dihydrochloride (miraPEX) 1 mg [id number] PO 10/09/20 21:00 10/17/20 08:16 Tizanidine HCl (Zanaflex) 4 mg PRN Q8HRS PRN PO MUSCLE SPASMS 10/09/20 15:30 Multivitamins/ Calcium (Thera-M Plus) 1 tab DAILY PO 10/10/20 09:00 10/17/20 08:17 Pantoprazole Sodium (Protonix) 40 mg DAILY PO 10/10/20 09:00 10/17/20 08:17 Sennosides (Senna) 25.8 mg HS PO 10/09/20 21:00 10/16/20 20:11 Acetaminophen (Tylenol) 650 mg PRN Q6HRS PRN PO MILD PAIN / TEMP > 100.3'F 10/09/20 17:30 10/16/20 08:51 Multi-Ingredient Ointment (Analgesic [place]) 1 ashanti PRN QID PRN TP MUSCLE PAIN 10/09/20 17:30 Al Hydroxide/Mg Hydroxide (Mylanta Plus Xs) 15 ml PRN AFTMEALHC PRN PO DYSPEPSIA 10/09/20 17:30 Magnesium Hydroxide (Milk Of Magnesia) 2,400 mg PRN QHS PRN PO CONSTIPATION 10/09/20 17:30 Olanzapine (ZyPREXA ZYDIS) 2.5 mg PRN Q2HRS PRN PO PSYCHOSIS 10/09/20 17:30 10/16/20 08:51 Doxycycline Hyclate (Vibra-Tab) 100 mg BID PO 10/10/20 21:00 10/19/20 22:00 10/17/20 08:16 Divalproex Sodium (Depakote Er) 500 mg QHS PO 10/11/20 21:00 10/16/20 20:10 Lactobacillus Rhamnosus (Culturelle) 1 cap BID PO 10/14/20 21:00 10/17/20 08:16 Current Medications Medications (Trade) Dose Ordered Sig/Chidi Route PRN Reason Start Time Stop Time Status Last Admin Dose Admin Vitamin D (Vitamin D3) 50,000 unit WEEKLY PO 10/16/20 09:00 10/16/20 08:51 I have reviewed the current psychotropics carefully including drug interactions. Risk benefit ratio favors no change other than as noted in my dictated progress note. Diagnosis: Problems: (1) Impulse control disorder, unspecified (2) Mild cognitive impairment (3) Anxiety disorder, unspecified (4) Bipolar disorder, current episode mixed, severe, with psychotic features SAEID NUNEZ MD Oct 17, 2020 08:46
[2020-10-17 16:15] VITALS: BP 118/83
[2020-10-17] MEDS: SENNOSIDES 8.6 MG TABLET PO SCH (21:14)
[2020-10-17] MEDS: ATORVASTATIN CALCIUM 10 MG TABLET. PO SCH (21:14)
[2020-10-17] MEDS: DIVALPROEX ER 500 MG TAB.ER.24H PO SCH (21:15)
--- NOTE | 2020-10-17 21:40 | PDOC ---
Exam Note: Tex Note: Please also refer to the separate dictated note~for this date of service dictated separately.~Patient seen individually. Discussed the patient with Nursing staff reviewed the chart.~Reviewed interim history and current functioning. Reviewed vital signs,~Labs/ Radiology~and current medications noted below. Continue current treatment with the changes noted in the dictated addendum note Assessment: Vital Signs/I&O: Vital Signs Date Time Temp Pulse Resp B/P (MAP) Pulse Ox O2 Delivery O2 Flow Rate FiO2 10/17/20 21:15 92 118/83 10/17/20 16:15 97.8 16 97 10/17/20 05:52 Room Air I & O 10/16/20 10/16/20 10/17/20 14:59 22:59 06:59 Intake Total 720 ml 480 ml 120 ml Balance 720 ml 480 ml 120 ml Current Medications: Meds: Current Medications Medications (Trade) Dose Ordered Sig/Chidi Route PRN Reason Start Time Stop Time Status Last Admin Dose Admin Aspirin (Aspirin Enteric Coated) 81 mg DAILY PO 10/10/20 09:00 10/17/20 08:17 Atorvastatin Calcium (Lipitor) 10 mg QHS PO 10/09/20 21:00 10/17/20 21:14 Calcium Polycarbophil (Fibercon) 1,250 mg BID PO 10/09/20 21:00 10/17/20 21:14 Vitamin D (Vitamin D3) 50,000 unit WEEKLY PO 10/16/20 09:00 10/16/20 08:51 Vitamin D (Vitamin D3) 2,000 unit DAILY PO 10/10/20 09:00 10/17/20 14:27 DC 10/17/20 08:17 Denosumab (Prolia) 60 mg 1X SQ 10/09/20 15:30 10/17/20 17:10 DC Diltiazem HCl (Cardizem) 30 mg BID PO 10/09/20 21:00 10/17/20 21:15 Levothyroxine Sodium (Synthroid) 25 mcg DAILY06 PO 10/10/20 07:30 10/17/20 06:16 Pramipexole Dihydrochloride (miraPEX) 1 mg [id number] PO 10/09/20 21:00 10/17/20 21:14 Tizanidine HCl (Zanaflex) 4 mg PRN Q8HRS PRN PO MUSCLE SPASMS 10/09/20 15:30 Multivitamins/ Calcium (Thera-M Plus) 1 tab DAILY PO 10/10/20 09:00 10/17/20 08:17 Pantoprazole Sodium (Protonix) 40 mg DAILY PO 10/10/20 09:00 10/17/20 08:17 Sennosides (Senna) 25.8 mg HS PO 10/09/20 21:00 10/17/20 21:14 Acetaminophen (Tylenol) 650 mg PRN Q6HRS PRN PO MILD PAIN / TEMP > 100.3'F 10/09/20 17:30 10/16/20 08:51 Multi-Ingredient Ointment (Analgesic [place]) 1 ashanti PRN QID PRN TP MUSCLE PAIN 10/09/20 17:30 Al Hydroxide/Mg Hydroxide (Mylanta Plus Xs) 15 ml PRN AFTMEALHC PRN PO DYSPEPSIA 10/09/20 17:30 Magnesium Hydroxide (Milk Of Magnesia) 2,400 mg PRN QHS PRN PO CONSTIPATION 10/09/20 17:30 Olanzapine (ZyPREXA ZYDIS) 2.5 mg PRN Q2HRS PRN PO PSYCHOSIS 10/09/20 17:30 10/16/20 08:51 Doxycycline Hyclate (Vibra-Tab) 100 mg BID PO 10/10/20 21:00 10/19/20 22:00 10/17/20 21:14 Divalproex Sodium (Depakote Er) 500 mg QHS PO 10/11/20 21:00 10/17/20 21:15 Lactobacillus Rhamnosus (Culturelle) 1 cap BID PO 10/14/20 21:00 10/17/20 21:15 Bupropion HCl (Wellbutrin Xl) 150 mg DAILY PO 10/18/20 09:00 I have reviewed the current psychotropics carefully including drug interactions. Risk benefit ratio favors no change other than as noted in my dictated progress note. Diagnosis: Problems: (1) Impulse control disorder, unspecified (2) Mild cognitive impairment (3) Anxiety disorder, unspecified (4) Bipolar disorder, current episode mixed, severe, with psychotic features SAEID NUNEZ MD Oct 17, 2020 21:40
--- NOTE | 2020-10-18 03:34 | NUR ---
Nursing Note The patient was located in her room and out about on the unit this shift. The patient was pleasant during interactions with staff and peers. The patient was pleasantly confused and was able to answer name only. The patient was compliant with medications and took them whole. The patient slept initially this shift but awoke later in the shift. This nurse talked to the patient and provided a snack and the patient was able to lay down after and fall back to sleep. The patient is currently sleeping in her room.
[2020-10-18 05:51] VITALS: BP 163/88
[2020-10-18] MEDS: LEVOTHYROXINE 25 MCG TABLET. PO SCH (05:59)
--- NOTE | 2020-10-18 06:26 | PDOC ---
Exam Note: Tex Note: This note is a late entry for 10/17/2020 covers elements not covered in my initial note. Subjective: The patient was seen individually in the evening of 10/17/2020 with Fan FAGAN, discussed and reviewed the chart. She slept 7-1/4 hours previous night. The patient has had some mood lability, tearful, crying, at times stating she wants her old life back. At one point she was consoling herself by singing to herself. I met with her individually. Review of Systems: No CV, , pulmonary, eye, ENT system symptoms on review. Mental Status Exam: The patient is awake, alert, oriented to herself and situation. Speech has some latency, coherent. Abstraction fair. Computation impaired. Language function intact. Short term memory is impaired. Mood and affect somewhat depressed. No suicidal ideation. Laboratory Data: Reviewed. Impression: Bipolar disorder mixed with psychotic features. Anxiety disorder unspecified. Impulse control disorder unspecified. Mild cognitive impairment. Plan: Continue current psychotropics. Start Wellbutrin XL 150 mg in the morni ng for her depressive symptoms. Valproic acid level is therapeutic at 64. Continue rest of the psychotropics unchanged. Assessment: Vital Signs/I&O: Vital Signs Date Time Temp Pulse Resp B/P (MAP) Pulse Ox O2 Delivery O2 Flow Rate FiO2 10/18/20 05:51 97.6 95 22 163/88 (113) 98 Room Air I & O 10/17/20 10/17/20 10/18/20 15:00 23:00 07:00 Intake Total 480 ml 360 ml Balance 480 ml 360 ml Current Medications: Meds: Current Medications Medications (Trade) Dose Ordered Sig/Chidi Route PRN Reason Start Time Stop Time Status Last Admin Dose Admin Aspirin (Aspirin Enteric Coated) 81 mg DAILY PO 10/10/20 09:00 10/17/20 08:17 Atorvastatin Calcium (Lipitor) 10 mg QHS PO 10/09/20 21:00 10/17/20 21:14 Calcium Polycarbophil (Fibercon) 1,250 mg BID PO 10/09/20 21:00 10/17/20 21:14 Vitamin D (Vitamin D3) 50,000 unit WEEKLY PO 10/16/20 09:00 10/16/20 08:51 Vitamin D (Vitamin D3) 2,000 unit DAILY PO 10/10/20 09:00 10/17/20 14:27 DC 10/17/20 08:17 Denosumab (Prolia) 60 mg 1X SQ 10/09/20 15:30 10/17/20 17:10 DC Diltiazem HCl (Cardizem) 30 mg BID PO 10/09/20 21:00 10/17/20 21:15 Levothyroxine Sodium (Synthroid) 25 mcg DAILY06 PO 10/10/20 07:30 10/18/20 05:59 Pramipexole Dihydrochloride (miraPEX) 1 mg [id number] PO 10/09/20 21:00 10/17/20 21:14 Tizanidine HCl (Zanaflex) 4 mg PRN Q8HRS PRN PO MUSCLE SPASMS 10/09/20 15:30 Multivitamins/ Calcium (Thera-M Plus) 1 tab DAILY PO 10/10/20 09:00 10/17/20 08:17 Pantoprazole Sodium (Protonix) 40 mg DAILY PO 10/10/20 09:00 10/17/20 08:17 Sennosides (Senna) 25.8 mg HS PO 10/09/20 21:00 10/17/20 21:14 Acetaminophen (Tylenol) 650 mg PRN Q6HRS PRN PO MILD PAIN / TEMP > 100.3'F 10/09/20 17:30 10/16/20 08:51 Multi-Ingredient Ointment (Analgesic [place]) 1 ashanti PRN QID PRN TP MUSCLE PAIN 10/09/20 17:30 Al Hydroxide/Mg Hydroxide (Mylanta Plus Xs) 15 ml PRN AFTMEALHC PRN PO DYSPEPSIA 10/09/20 17:30 Magnesium Hydroxide (Milk Of Magnesia) 2,400 mg PRN QHS PRN PO CONSTIPATION 10/09/20 17:30 Olanzapine (ZyPREXA ZYDIS) 2.5 mg PRN Q2HRS PRN PO PSYCHOSIS 10/09/20 17:30 10/16/20 08:51 Doxycycline Hyclate (Vibra-Tab) 100 mg BID PO 10/10/20 21:00 10/19/20 22:00 10/17/20 21:14 Divalproex Sodium (Depakote Er) 500 mg QHS PO 10/11/20 21:00 10/17/20 21:15 Lactobacillus Rhamnosus (Culturelle) 1 cap BID PO 10/14/20 21:00 10/17/20 21:15 Bupropion HCl (Wellbutrin Xl) 150 mg DAILY PO 10/18/20 09:00 I have reviewed the current psychotropics carefully including drug interactions. Risk benefit ratio favors no change other than as noted in my dictated progress note. Diagnosis: Problems: (1) Impulse control disorder, unspecified (2) Mild cognitive impairment (3) Anxiety disorder, unspecified (4) Bipolar disorder, current episode mixed, severe, with psychotic features SAEID NUNEZ MD Oct 18, 2020 06:26
[2020-10-18] MEDS: DOXYCYCLINE HYCLATE 100 MG TABLET PO SCH ×2 (08:54→19:22)
[2020-10-18] MEDS: PRAMIPEXOLE 0.5 MG TABLET. PO SCH ×3 (08:54→19:24)
[2020-10-18] MEDS: LACTOBACILLUS RHAMNOSUS GG 1 CAPSULE. PO SCH ×2 (08:55→19:22)
[2020-10-18] MEDS: PANTOPRAZOLE 40 MG TABLET. PO SCH (08:55)
[2020-10-18] MEDS: buPROPion XL 150 MG TAB.ER.24H PO SCH (08:55)
[2020-10-18] MEDS: dilTIAZem HCL 30 MG TABLET PO SCH ×2 (08:55→19:23)
[2020-10-18] MEDS: ASPIRIN ENTERIC COATED 81 MG TABLET.DR. PO SCH (08:55)
[2020-10-18] MEDS: MULTIVITAMIN with MINERAL TABLET. PO SCH (08:55)
[2020-10-18] MEDS: CALCIUM POLYCARBOPHIL 625 MG TABLET PO SCH ×2 (08:56→19:21)
--- NOTE | 2020-10-18 10:48 | NUR ---
This patient is ambulating in hallway an day room. Alert, socialize with staff and peers. Patient likes to comfort other patients by singing, praying or patting them on their back.Compliant with taking medication whole.
--- NOTE | 2020-10-18 12:27 | NUR ---
WEEKLY ACTIVITY THERAPY NOTE Date of Admission: 10/09/20 Date of AT Assessment: 10/11 Precipitating behaviors that initiated intake and admission: Patient admitted from home via [facility] for reportedly being paranoid, accusing of sleeping with daughter, eloping from home, stating family members holding her hostage, refusing to eat or bathe, picked up a hammer and made a tool out of wire to defend herself, and accusing family of lying to hospital staff. Goal aimed: increase stress management and relaxation skills Initial Goal: Pt will participate in at least five individual or group Activity Therapy session per week. Weekly progress towards goal: did not achieve, 4/5 Group participation level: 2 min, 1 mod, 1 full Weekly highlights: patio time and danced in group Thursday, milkshake Thursday afternoon Behaviors observed: pleasant, consoled a peer Plan: no change to goal Beneficial adaptations: music
--- NOTE | 2020-10-18 12:47 | NUR ---
Treatment team note: Pt is eating on average 75% of meals and sleeping 6.75 hours per night. Pt is calm and compliant with staff interaction; pt does exhibit some mood lability and tearfulness but can be redirected. Pt is independent with cares and compliant with medications whole. Pt has attended four groups within the last week and has been interactive with her peers. Pt primary plan is to return home to family as long as her psychosis has appeared to decrease/more manageable. SW will contact pt to see if he feels he is able to maintain pt at home and make arrangements for the beginning to middle of next week.
--- NOTE | 2020-10-18 12:51 | TX PLAN ---
Interdisciplinary Tx Plan Admission Information Oct 09, 2020 at 16:45 Legal Status (on Admission): Voluntary DPOA/Guardian Name: Filomena Armas Contact Other Contact Name: Donnell Armas Other Contact Verified Code Status: Full Code Allergies: Coded Allergies: Sulfa (Sulfonamide Antibiotics) (Verified Allergy, Unknown, 10/09/20) cat dander (Verified Allergy, Unknown, 10/09/20) egg (Verified Allergy, Unknown, 10/09/20) gluten (Verified Allergy, Unknown, 10/09/20) Uncoded Allergies: air freshener (Allergy, Severe, Rash, 10/09/20) Diagnoses Primary Diagnosis: Major Neurocognitive D/O, vascular Alzheimers with delusions, depression 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 Pt picked up a hammer to defend herself when she doesn't recognize people, poor self-care within the last week, running off, poor meal intake, wishing she was , delusional, anxious. Problems Active Problems: labile delusional Inactive Problems: medication compliant Pt Strengths/Limitations Ability for [place]: Fair Cognitive Functioning/Ability: Poor Communication Skills/Ability: Fair Financial Resources: Fair Insight/Judgement: Poor Intellectual Ability: Fair Physical Health: Poor Social Skills: Fair Stability in Family: Good Stability in School/Work: Poor Verbal Skills: Fair Discharge Criteria Discharge Criteria: Adequate arrangements @DC, Improved behavior, Improved mood/thought Preliminary Discharge Plan Preliminary DC Plan: Current Living Arrange. Special Precautions Fall Risk: Low Initial D/C Plan Pt to return back home with Identified Discharge Needs: continued psychiatric services Currently Utilized Resources Currently Utilized Resources/P: Primary Care Physician Referrals Community Resources: Psychiatric services Identified Problems/Hx/Goals Objectives/Short-Term Goals Short Term Goals: Dec. Hallucination/Delus, Dec. Outbursts, Medication Stabilization, Promote Coping Skill Short Term Goals in Patient's: N/A Interventions/Frequency Staff Interventions/Frequency&: Psychiatrist to assess pt at least 3x per week for medication management. Social Work to assess pt at least 2x per week to identify barriers to care and discharge planning goals. Nursing to assess medication effects, behavior modification and completion of 15 minute checks. Encourage participation in group activities (if applicable) or 1:1 interaction based off Activity Dept goals. 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 Pt is calm and compliant with staff interaction; pt does exhibit some mood lability and tearfulness but can be redirected. Pt is independent with cares and c ompliant with medications whole. Pt has attended four groups within the last week and has been interactive with her peers. Pt primary plan is to return home to family as long as her psychosis has appeared to decrease/more manageable. SW will contact pt to see if he feels he is able to maintain pt at home and make arrangements for the beginning to middle of next week. INDER DANIEL Oct 18, 2020 12:51
[2020-10-18 16:03] VITALS: BP 139/75
[2020-10-18] MEDS: ATORVASTATIN CALCIUM 10 MG TABLET. PO SCH (19:22)
[2020-10-18] MEDS: DIVALPROEX ER 500 MG TAB.ER.24H PO SCH (19:22)
[2020-10-18] MEDS: SENNOSIDES 8.6 MG TABLET PO SCH (19:23)
--- NOTE | 2020-10-18 22:12 | PDOC ---
Exam Note: Tex Note: Please also refer to the separate dictated note~for this date of service dictated separately.~Patient seen individually. Discussed the patient with Nursing staff reviewed the chart.~Reviewed interim history and current functioning. Reviewed vital signs,~Labs/ Radiology~and current medications noted below. Continue current treatment with the changes noted in the dictated addendum note Assessment: Vital Signs/I&O: Vital Signs Date Time Temp Pulse Resp B/P (MAP) Pulse Ox O2 Delivery O2 Flow Rate FiO2 10/18/20 19:23 91 139/79 10/18/20 16:03 97.9 18 98 10/18/20 05:51 Room Air I & O 10/17/20 10/17/20 10/18/20 15:00 23:00 07:00 Intake Total 480 ml 360 ml Balance 480 ml 360 ml Current Medications: Meds: Current Medications Medications (Trade) Dose Ordered Sig/Chidi Route PRN Reason Start Time Stop Time Status Last Admin Dose Admin Aspirin (Aspirin Enteric Coated) 81 mg DAILY PO 10/10/20 09:00 10/18/20 08:55 Atorvastatin Calcium (Lipitor) 10 mg QHS PO 10/09/20 21:00 10/18/20 19:22 Calcium Polycarbophil (Fibercon) 1,250 mg BID PO 10/09/20 21:00 10/18/20 19:21 Vitamin D (Vitamin D3) 50,000 unit WEEKLY PO 10/16/20 09:00 10/16/20 08:51 Vitamin D (Vitamin D3) 2,000 unit DAILY PO 10/10/20 09:00 10/17/20 14:27 DC 10/17/20 08:17 Denosumab (Prolia) 60 mg 1X SQ 10/09/20 15:30 10/17/20 17:10 DC Diltiazem HCl (Cardizem) 30 mg BID PO 10/09/20 21:00 10/18/20 19:23 Levothyroxine Sodium (Synthroid) 25 mcg DAILY06 PO 10/10/20 07:30 10/18/20 05:59 Pramipexole Dihydrochloride (miraPEX) 1 mg [id number] PO 10/09/20 21:00 10/18/20 19:24 Tizanidine HCl (Zanaflex) 4 mg PRN Q8HRS PRN PO MUSCLE SPASMS 10/09/20 15:30 Multivitamins/ Calcium (Thera-M Plus) 1 tab DAILY PO 10/10/20 09:00 10/18/20 08:55 Pantoprazole Sodium (Protonix) 40 mg DAILY PO 10/10/20 09:00 10/18/20 08:55 Sennosides (Senna) 25.8 mg HS PO 10/09/20 21:00 10/18/20 19:23 Acetaminophen (Tylenol) 650 mg PRN Q6HRS PRN PO MILD PAIN / TEMP > 100.3'F 10/09/20 17:30 10/16/20 08:51 Multi-Ingredient Ointment (Analgesic [place]) 1 ashanti PRN QID PRN TP MUSCLE PAIN 10/09/20 17:30 Al Hydroxide/Mg Hydroxide (Mylanta Plus Xs) 15 ml PRN AFTMEALHC PRN PO DYSPEPSIA 10/09/20 17:30 Magnesium Hydroxide (Milk Of Magnesia) 2,400 mg PRN QHS PRN PO CONSTIPATION 10/09/20 17:30 Olanzapine (ZyPREXA ZYDIS) 2.5 mg PRN Q2HRS PRN PO PSYCHOSIS 10/09/20 17:30 10/16/20 08:51 Doxycycline Hyclate (Vibra-Tab) 100 mg BID PO 10/10/20 21:00 10/19/20 22:00 10/18/20 19:22 Divalproex Sodium (Depakote Er) 500 mg QHS PO 10/11/20 21:00 10/18/20 19:22 Lactobacillus Rhamnosus (Culturelle) 1 cap BID PO 10/14/20 21:00 10/18/20 19:22 Bupropion HCl (Wellbutrin Xl) 150 mg DAILY PO 10/18/20 09:00 10/18/20 08:55 Current Medications Medications (Trade) Dose Ordered Sig/Chidi Route PRN Reason Start Time Stop Time Status Last Admin Dose Admin Bupropion HCl (Wellbutrin Xl) 150 mg DAILY PO 10/18/20 09:00 10/18/20 08:55 I have reviewed the current psychotropics carefully including drug interactions. Risk benefit ratio favors no change other than as noted in my dictated progress note. Diagnosis: Problems: (1) Impulse control disorder, unspecified (2) Mild cognitive impairment (3) Anxiety disorder, unspecified (4) Bipolar disorder, current episode mixed, severe, with psychotic features SAEID NUNEZ MD Oct 18, 2020 22:12
--- NOTE | 2020-10-18 23:10 | NUR ---
Calm this evening, no noted anxiety or distress; takes all medications without difficulty; denies any c/o or concerns; sleeping soundly with no apparent distress by 2029; will continue to monitor.
[2020-10-19] MEDS: LEVOTHYROXINE 25 MCG TABLET. PO SCH (05:00)
[2020-10-19 06:13] VITALS: BP 120/70
--- NOTE | 2020-10-19 06:53 | PDOC ---
Exam Note: Tex Note: This note is a late entry for 10/18/2020 covers elements not covered in my initial note. Subjective: The patient was seen individually in the morning of 10/18/2020 for a treatment team meeting with Bethanie Rain, Maria G Esteves (social sciences research scientist), Ifrah, activity therapy and Franky FAGAN, discussed and reviewed the chart. She slept 6 hours previous night. Appetite is 75%. Compliant with medications. She has attended 4 groups in the past one week. 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 Review of Systems: No CV, , pulmonary, eye, ENT system symptoms on review. Mental Status Exam: The patient is oriented to herself and situation. I met with her at length in her room this evening. Speech coherent. She was singing to herself as I entered the room and said she was sad and trying to comfort herself. She stated it feels bad that the person you love does not care for you. She seemed to be referring to her and I had a lengthy discussion with her how her cares for her and thats the reason he cut short the vacation and drove back to [place] from [place] and brought her to the hospital for stabilization of her bipolar disorder. At the end of the lengthy discussion she seemed to show some insight, albeit limited in this. Speech coherent. Abstraction fair. Computation impaired. Language function intact. Short term memory is impaired, less paranoid. Mood is somewhat dysphoric. No suicidal or homicidal ideation. Laboratory Data: Reviewed. Impression: Bipolar disorder mixed with psychotic features. Anxiety disorder unspecified. Impulse control disorder unspecified. Mild cognitive impairment. Plan: Continue current psychotropics. Assessment: Vital Signs/I&O: Vital Signs Date Time Temp Pulse Resp B/P (MAP) Pulse Ox O2 Delivery O2 Flow Rate FiO2 10/19/20 06:13 97.4 72 16 120/70 (87) 97 10/18/20 05:51 Room Air I & O 10/18/20 10/18/20 10/19/20 15:00 23:00 07:00 Intake Total 720 ml 360 ml Balance 720 ml 360 ml Current Medications: Meds: Current Medications Medications (Trade) Dose Ordered Sig/Chidi Route PRN Reason Start Time Stop Time Status Last Admin Dose Admin Aspirin (Aspirin Enteric Coated) 81 mg DAILY PO 10/10/20 09:00 10/18/20 08:55 Atorvastatin Calcium (Lipitor) 10 mg QHS PO 10/09/20 21:00 10/18/20 19:22 Calcium Polycarbophil (Fibercon) 1,250 mg BID PO 10/09/20 21:00 10/18/20 19:21 Vitamin D (Vitamin D3) 50,000 unit WEEKLY PO 10/16/20 09:00 10/16/20 08:51 Vitamin D (Vitamin D3) 2,000 unit DAILY PO 10/10/20 09:00 10/17/20 14:27 DC 10/17/20 08:17 Denosumab (Prolia) 60 mg 1X SQ 10/09/20 15:30 10/17/20 17:10 DC Diltiazem HCl (Cardizem) 30 mg BID PO 10/09/20 21:00 10/18/20 19:23 Levothyroxine Sodium (Synthroid) 25 mcg DAILY06 PO 10/10/20 07:30 10/19/20 05:00 Pramipexole Dihydrochloride (miraPEX) 1 mg [id number] PO 10/09/20 21:00 10/18/20 19:24 Tizanidine HCl (Zanaflex) 4 mg PRN Q8HRS PRN PO MUSCLE SPASMS 10/09/20 15:30 Multivitamins/ Calcium (Thera-M Plus) 1 tab DAILY PO 10/10/20 09:00 10/18/20 08:55 Pantoprazole Sodium (Protonix) 40 mg DAILY PO 10/10/20 09:00 10/18/20 08:55 Sennosides (Senna) 25.8 mg HS PO 10/09/20 21:00 10/18/20 19:23 Acetaminophen (Tylenol) 650 mg PRN Q6HRS PRN PO MILD PAIN / TEMP > 100.3'F 10/09/20 17:30 10/16/20 08:51 Multi-Ingredient Ointment (Analgesic [place]) 1 ashanti PRN QID PRN TP MUSCLE PAIN 10/09/20 17:30 Al Hydroxide/Mg Hydroxide (Mylanta Plus Xs) 15 ml PRN AFTMEALHC PRN PO DYSPEPSIA 10/09/20 17:30 Magnesium Hydroxide (Milk Of Magnesia) 2,400 mg PRN QHS PRN PO CONSTIPATION 10/09/20 17:30 Olanzapine (ZyPREXA ZYDIS) 2.5 mg PRN Q2HRS PRN PO PSYCHOSIS 10/09/20 17:30 10/16/20 08:51 Doxycycline Hyclate (Vibra-Tab) 100 mg BID PO 10/10/20 21:00 10/19/20 22:00 10/18/20 19:22 Divalproex Sodium (Depakote Er) 500 mg QHS PO 10/11/20 21:00 10/18/20 19:22 Lactobacillus Rhamnosus (Culturelle) 1 cap BID PO 10/14/20 21:00 10/18/20 19:22 Bupropion HCl (Wellbutrin Xl) 150 mg DAILY PO 10/18/20 09:00 10/18/20 08:55 Current Medications Medications (Trade) Dose Ordered Sig/Chidi Route PRN Reason Start Time Stop Time Status Last Admin Dose Admin Bupropion HCl (Wellbutrin Xl) 150 mg DAILY PO 10/18/20 09:00 10/18/20 08:55 I have reviewed the current psychotropics carefully including drug interactions. Risk benefit ratio favors no change other than as noted in my dictated progress note. Diagnosis: Problems: (1) Impulse control disorder, unspecified (2) Mild cognitive impairment (3) Anxiety disorder, unspecified (4) Bipolar disorder, current episode mixed, severe, with psychotic features SAEID NUNEZ MD Oct 19, 2020 06:53
[2020-10-19] MEDS: PANTOPRAZOLE 40 MG TABLET. PO SCH (08:22)
[2020-10-19] MEDS: LACTOBACILLUS RHAMNOSUS GG 1 CAPSULE. PO SCH ×2 (08:22→20:36)
[2020-10-19] MEDS: buPROPion XL 150 MG TAB.ER.24H PO SCH (08:22)
[2020-10-19] MEDS: dilTIAZem HCL 30 MG TABLET PO SCH ×2 (08:22→20:36)
[2020-10-19] MEDS: MULTIVITAMIN with MINERAL TABLET. PO SCH (08:22)
[2020-10-19] MEDS: CALCIUM POLYCARBOPHIL 625 MG TABLET PO SCH ×2 (08:22→20:35)
[2020-10-19] MEDS: DOXYCYCLINE HYCLATE 100 MG TABLET PO SCH ×2 (08:22→20:35)
[2020-10-19] MEDS: ASPIRIN ENTERIC COATED 81 MG TABLET.DR. PO SCH (08:23)
[2020-10-19] MEDS: PRAMIPEXOLE 0.5 MG TABLET. PO SCH ×3 (08:23→20:35)
--- NOTE | 2020-10-19 14:06 | NUR ---
NSG NOTE; Leatha was calm, interactive with other pts, and med compliant this morning, though at times she looked sad. she would deny she is sad and sing a song. after lunch, she was looking more sad and when I asked what is wrong, she started crying, saying she missed her who is the love of her life. she went to her room to lay down
[2020-10-19 15:52] VITALS: BP 136/68
[2020-10-19] MEDS: SENNOSIDES 8.6 MG TABLET PO SCH (20:35)
[2020-10-19] MEDS: ATORVASTATIN CALCIUM 10 MG TABLET. PO SCH (20:36)
[2020-10-19] MEDS: DIVALPROEX ER 500 MG TAB.ER.24H PO SCH (20:36)
--- NOTE | 2020-10-19 21:55 | PDOC ---
Exam Note: Tex Note: Please also refer to the separate dictated note~for this date of service dictated separately.~Patient seen individually. Discussed the patient with Nursing staff reviewed the chart.~Reviewed interim history and current functioning. Reviewed vital signs,~Labs/ Radiology~and current medications noted below. Continue current treatment with the changes noted in the dictated addendum note Assessment: Vital Signs/I&O: Vital Signs Date Time Temp Pulse Resp B/P (MAP) Pulse Ox O2 Delivery O2 Flow Rate FiO2 10/19/20 20:36 88 136/68 10/19/20 15:52 97.8 18 96 10/18/20 05:51 Room Air I & O 10/18/20 10/18/20 10/19/20 15:00 23:00 07:00 Intake Total 720 ml 360 ml Balance 720 ml 360 ml Current Medications: Meds: Current Medications Medications (Trade) Dose Ordered Sig/Chidi Route PRN Reason Start Time Stop Time Status Last Admin Dose Admin Aspirin (Aspirin Enteric Coated) 81 mg DAILY PO 10/10/20 09:00 10/19/20 08:23 Atorvastatin Calcium (Lipitor) 10 mg QHS PO 10/09/20 21:00 10/19/20 20:36 Calcium Polycarbophil (Fibercon) 1,250 mg BID PO 10/09/20 21:00 10/19/20 20:35 Vitamin D (Vitamin D3) 50,000 unit WEEKLY PO 10/16/20 09:00 10/16/20 08:51 Vitamin D (Vitamin D3) 2,000 unit DAILY PO 10/10/20 09:00 10/17/20 14:27 DC 10/17/20 08:17 Denosumab (Prolia) 60 mg 1X SQ 10/09/20 15:30 10/17/20 17:10 DC Diltiazem HCl (Cardizem) 30 mg BID PO 10/09/20 21:00 10/19/20 20:36 Levothyroxine Sodium (Synthroid) 25 mcg DAILY06 PO 10/10/20 07:30 10/19/20 05:00 Pramipexole Dihydrochloride (miraPEX) 1 mg [id number] PO 10/09/20 21:00 10/19/20 20:35 Tizanidine HCl (Zanaflex) 4 mg PRN Q8HRS PRN PO MUSCLE SPASMS 10/09/20 15:30 Multivitamins/ Calcium (Thera-M Plus) 1 tab DAILY PO 10/10/20 09:00 10/19/20 08:22 Pantoprazole Sodium (Protonix) 40 mg DAILY PO 10/10/20 09:00 10/19/20 08:22 Sennosides (Senna) 25.8 mg HS PO 10/09/20 21:00 10/19/20 20:35 Acetaminophen (Tylenol) 650 mg PRN Q6HRS PRN PO MILD PAIN / TEMP > 100.3'F 10/09/20 17:30 10/16/20 08:51 Multi-Ingredient Ointment (Analgesic [place]) 1 ashanti PRN QID PRN TP MUSCLE PAIN 10/09/20 17:30 Al Hydroxide/Mg Hydroxide (Mylanta Plus Xs) 15 ml PRN AFTMEALHC PRN PO DYSPEPSIA 10/09/20 17:30 Magnesium Hydroxide (Milk Of Magnesia) 2,400 mg PRN QHS PRN PO CONSTIPATION 10/09/20 17:30 Olanzapine (ZyPREXA ZYDIS) 2.5 mg PRN Q2HRS PRN PO PSYCHOSIS 10/09/20 17:30 10/16/20 08:51 Doxycycline Hyclate (Vibra-Tab) 100 mg BID PO 10/10/20 21:00 10/19/20 22:00 10/19/20 20:35 Divalproex Sodium (Depakote Er) 500 mg QHS PO 10/11/20 21:00 10/19/20 20:36 Lactobacillus Rhamnosus (Culturelle) 1 cap BID PO 10/14/20 21:00 10/19/20 20:36 Bupropion HCl (Wellbutrin Xl) 150 mg DAILY PO 10/18/20 09:00 10/19/20 17:07 DC 10/19/20 08:22 Bupropion HCl (Wellbutrin Xl) 300 mg DAILY PO 10/20/20 09:00 I have reviewed the current psychotropics carefully including drug interactions. Risk benefit ratio favors no change other than as noted in my dictated progress note. Diagnosis: Problems: (1) Impulse control disorder, unspecified (2) Mild cognitive impairment (3) Anxiety disorder, unspecified (4) Bipolar disorder, current episode mixed, severe, with psychotic features MAYRA,MAN M MD Oct 19, 2020 21:55
--- NOTE | 2020-10-20 02:40 | NUR ---
Nursing Note The patient was interactive with peers and staff this shift. The patient was compliant with her assessment and medication pass. The patient was alert to name only. The patient took her medication whole. The patient is currently sleeping in her room.
[2020-10-20 06:09] VITALS: BP 124/74
[2020-10-20] MEDS: LEVOTHYROXINE 25 MCG TABLET. PO SCH (06:15)
[2020-10-20] MEDS: dilTIAZem HCL 30 MG TABLET PO SCH ×2 (08:37→19:56)
[2020-10-20] MEDS: CALCIUM POLYCARBOPHIL 625 MG TABLET PO SCH ×2 (08:37→19:55)
[2020-10-20] MEDS: ASPIRIN ENTERIC COATED 81 MG TABLET.DR. PO SCH (08:37)
[2020-10-20] MEDS: PANTOPRAZOLE 40 MG TABLET. PO SCH (08:37)
[2020-10-20] MEDS: MULTIVITAMIN with MINERAL TABLET. PO SCH (08:37)
[2020-10-20] MEDS: LACTOBACILLUS RHAMNOSUS GG 1 CAPSULE. PO SCH ×2 (08:37→19:56)
[2020-10-20] MEDS: PRAMIPEXOLE 0.5 MG TABLET. PO SCH ×3 (08:38→19:55)
[2020-10-20] MEDS: buPROPion XL 300 MG TAB.ER.24H. PO SCH (08:38)
--- NOTE | 2020-10-20 14:03 | NUR ---
Nursing note: Patient in dinning room at time of AM med pass and assessment, medication taken whole. She is oriented to self. Patient is calm, interacts with peers, and medication compliant. Client denies pain or discomfort at this time. She is currently walking in the [place]. Will continue to monitor.
[2020-10-20 15:53] VITALS: BP 151/86
[2020-10-20] MEDS: SENNOSIDES 8.6 MG TABLET PO SCH (19:56)
[2020-10-20] MEDS: DIVALPROEX ER 500 MG TAB.ER.24H PO SCH (19:56)
[2020-10-20] MEDS: ATORVASTATIN CALCIUM 10 MG TABLET. PO SCH (19:56)
--- NOTE | 2020-10-20 22:11 | PDOC ---
Exam Note: Tex Note: Please also refer to the separate dictated note~for this date of service dictated separately.~Patient seen individually. Discussed the patient with Nursing staff reviewed the chart.~Reviewed interim history and current functioning. Reviewed vital signs,~Labs/ Radiology~and current medications noted below. Continue current treatment with the changes noted in the dictated addendum note Assessment: Vital Signs/I&O: Vital Signs Date Time Temp Pulse Resp B/P (MAP) Pulse Ox O2 Delivery O2 Flow Rate FiO2 10/20/20 19:56 86 151/86 10/20/20 15:53 97.8 16 97 10/18/20 05:51 Room Air I & O 10/19/20 10/19/20 10/20/20 15:00 23:00 07:00 Intake Total 480 ml 720 ml Balance 480 ml 720 ml Current Medications: Meds: Current Medications Medications (Trade) Dose Ordered Sig/Chidi Route PRN Reason Start Time Stop Time Status Last Admin Dose Admin Aspirin (Aspirin Enteric Coated) 81 mg DAILY PO 10/10/20 09:00 10/20/20 08:37 Atorvastatin Calcium (Lipitor) 10 mg QHS PO 10/09/20 21:00 10/20/20 19:56 Calcium Polycarbophil (Fibercon) 1,250 mg BID PO 10/09/20 21:00 10/20/20 19:55 Vitamin D (Vitamin D3) 50,000 unit WEEKLY PO 10/16/20 09:00 10/16/20 08:51 Vitamin D (Vitamin D3) 2,000 unit DAILY PO 10/10/20 09:00 10/17/20 14:27 DC 10/17/20 08:17 Denosumab (Prolia) 60 mg 1X SQ 10/09/20 15:30 10/17/20 17:10 DC Diltiazem HCl (Cardizem) 30 mg BID PO 10/09/20 21:00 10/20/20 19:56 Levothyroxine Sodium (Synthroid) 25 mcg DAILY06 PO 10/10/20 07:30 10/20/20 06:15 Pramipexole Dihydrochloride (miraPEX) 1 mg [id number] PO 10/09/20 21:00 10/20/20 19:55 Tizanidine HCl (Zanaflex) 4 mg PRN Q8HRS PRN PO MUSCLE SPASMS 10/09/20 15:30 Multivitamins/ Calcium (Thera-M Plus) 1 tab DAILY PO 10/10/20 09:00 10/20/20 08:37 Pantoprazole Sodium (Protonix) 40 mg DAILY PO 10/10/20 09:00 10/20/20 08:37 Sennosides (Senna) 25.8 mg HS PO 10/09/20 21:00 10/20/20 19:56 Acetaminophen (Tylenol) 650 mg PRN Q6HRS PRN PO MILD PAIN / TEMP > 100.3'F 10/09/20 17:30 10/16/20 08:51 Multi-Ingredient Ointment (Analgesic [place]) 1 ashanti PRN QID PRN TP MUSCLE PAIN 10/09/20 17:30 Al Hydroxide/Mg Hydroxide (Mylanta Plus Xs) 15 ml PRN AFTMEALHC PRN PO DYSPEPSIA 10/09/20 17:30 Magnesium Hydroxide (Milk Of Magnesia) 2,400 mg PRN QHS PRN PO CONSTIPATION 10/09/20 17:30 Olanzapine (ZyPREXA ZYDIS) 2.5 mg PRN Q2HRS PRN PO PSYCHOSIS 10/09/20 17:30 10/20/20 19:56 Doxycycline Hyclate (Vibra-Tab) 100 mg BID PO 10/10/20 21:00 10/19/20 22:00 DC 10/19/20 20:35 Divalproex Sodium (Depakote Er) 500 mg QHS PO 10/11/20 21:00 10/20/20 19:56 Lactobacillus Rhamnosus (Culturelle) 1 cap BID PO 10/14/20 21:00 10/20/20 19:56 Bupropion HCl (Wellbutrin Xl) 150 mg DAILY PO 10/18/20 09:00 10/19/20 17:07 DC 10/19/20 08:22 Bupropion HCl (Wellbutrin Xl) 300 mg DAILY PO 10/20/20 09:00 10/20/20 08:38 Current Medications Medications (Trade) Dose Ordered Sig/Chidi Route PRN Reason Start Time Stop Time Status Last Admin Dose Admin Bupropion HCl (Wellbutrin Xl) 300 mg DAILY PO 10/20/20 09:00 10/20/20 08:38 I have reviewed the current psychotropics carefully including drug interactions. Risk benefit ratio favors no change other than as noted in my dictated progress note. Diagnosis: Problems: (1) Impulse control disorder, unspecified (2) Mild cognitive impairment (3) Anxiety disorder, unspecified (4) Bipolar disorder, current episode mixed, severe, with psychotic features SAEID NUNEZ MD Oct 20, 2020 22:11
--- NOTE | 2020-10-20 22:40 | NUR ---
Pt anxious and tearful this evening. Pt singing songs in the dayroom and appeared to become overstimulated as she started crying, stating "she's never good enough." Pt taken to her room for de-escalation. Matthias given to pt. Pt disorganized this evening, A/O to self only. Compliant with whole medications. PRN Zyprexa administered with HS medications.
[2020-10-21] MEDS: LEVOTHYROXINE 25 MCG TABLET. PO SCH (05:16)
[2020-10-21 05:39] VITALS: BP 165/79
--- NOTE | 2020-10-21 08:05 | PDOC ---
Exam Note: Txe Note: This note is a late entry for 10/19/2020 covers elements not covered in my initial note. Subjective: The patient was seen individually in the evening of 10/19/2020 with Jaylin FAGAN, discussed and reviewed the chart. She slept 7 hours previous night. Appetite is 50-75%. The patient has appeared somewhat sad and tearful earlier but was quite animated in the evening as I met with her in the dayroom. Review of Systems: No CV, , pulmonary, eye, ENT system symptoms on review. Mental Status Exam: The patient is oriented to herself and situation. She was pleasant, cooperative. She was quite animated, verbal, felt her family did not know where she was and I reassured her that they did. Speech coherent. Abstraction fair. Computation impaired. Language function intact. Short term memory is impaired, less paranoid. Mood is somewhat dysphoric. No suicidal or homicidal ideation. Laboratory Data: Reviewed. Impression: Bipolar disorder mixed with psychotic features. Anxiety disorder unspecified. Impulse control disorder unspecified. Mild cognitive impairment. Plan: Continue current psychotropics. Increase the patients Wellbutrin XL from 150 mg a day to 300 mg a day given some of her depressive symptoms. Maintain Depakote ER 500 mg h.s., level therapeutic at 64. Continue Zyprexa p.r.n. Rest unchanged for now. Assessment: Vital Signs/I&O: Vital Signs Date Time Temp Pulse Resp B/P (MAP) Pulse Ox O2 Delivery O2 Flow Rate FiO2 10/21/20 05:39 97.3 65 20 165/79 (107) 96 10/18/20 05:51 Room Air I & O 10/20/20 10/20/20 10/21/20 15:00 23:00 07:00 Intake Total 570 ml 480 ml Balance 570 ml 480 ml Current Medications: Meds: Current Medications Medications (Trade) Dose Ordered Sig/Chidi Route PRN Reason Start Time Stop Time Status Last Admin Dose Admin Aspirin (Aspirin Enteric Coated) 81 mg DAILY PO 10/10/20 09:00 10/20/20 08:37 Atorvastatin Calcium (Lipitor) 10 mg QHS PO 10/09/20 21:00 10/20/20 19:56 Calcium Polycarbophil (Fibercon) 1,250 mg BID PO 10/09/20 21:00 10/20/20 19:55 Vitamin D (Vitamin D3) 50,000 unit WEEKLY PO 10/16/20 09:00 10/16/20 08:51 Vitamin D (Vitamin D3) 2,000 unit DAILY PO 10/10/20 09:00 10/17/20 14:27 DC 10/17/20 08:17 Denosumab (Prolia) 60 mg 1X SQ 10/09/20 15:30 10/17/20 17:10 DC Diltiazem HCl (Cardizem) 30 mg BID PO 10/09/20 21:00 10/20/20 19:56 Levothyroxine Sodium (Synthroid) 25 mcg DAILY06 PO 10/10/20 07:30 10/21/20 05:16 Pramipexole Dihydrochloride (miraPEX) 1 mg [id number] PO 10/09/20 21:00 10/20/20 19:55 Tizanidine HCl (Zanaflex) 4 mg PRN Q8HRS PRN PO MUSCLE SPASMS 10/09/20 15:30 Multivitamins/ Calcium (Thera-M Plus) 1 tab DAILY PO 10/10/20 09:00 10/20/20 08:37 Pantoprazole Sodium (Protonix) 40 mg DAILY PO 10/10/20 09:00 10/20/20 08:37 Sennosides (Senna) 25.8 mg HS PO 10/09/20 21:00 10/20/20 19:56 Acetaminophen (Tylenol) 650 mg PRN Q6HRS PRN PO MILD PAIN / TEMP > 100.3'F 10/09/20 17:30 10/16/20 08:51 Multi-Ingredient Ointment (Analgesic [place]) 1 ashanti PRN QID PRN TP MUSCLE PAIN 10/09/20 17:30 Al Hydroxide/Mg Hydroxide (Mylanta Plus Xs) 15 ml PRN AFTMEALHC PRN PO DYSPEPSIA 10/09/20 17:30 Magnesium Hydroxide (Milk Of Magnesia) 2,400 mg PRN QHS PRN PO CONSTIPATION 10/09/20 17:30 Olanzapine (ZyPREXA ZYDIS) 2.5 mg PRN Q2HRS PRN PO PSYCHOSIS 10/09/20 17:30 10/20/20 19:56 Doxycycline Hyclate (Vibra-Tab) 100 mg BID PO 10/10/20 21:00 10/19/20 22:00 DC 10/19/20 20:35 Divalproex Sodium (Depakote Er) 500 mg QHS PO 10/11/20 21:00 10/20/20 19:56 Lactobacillus Rhamnosus (Culturelle) 1 cap BID PO 10/14/20 21:00 10/20/20 19:56 Bupropion HCl (Wellbutrin Xl) 150 mg DAILY PO 10/18/20 09:00 10/19/20 17:07 DC 10/19/20 08:22 Bupropion HCl (Wellbutrin Xl) 300 mg DAILY PO 10/20/20 09:00 10/20/20 08:38 Current Medications Medications (Trade) Dose Ordered Sig/Chidi Route PRN Reason Start Time Stop Time Status Last Admin Dose Admin Bupropion HCl (Wellbutrin Xl) 300 mg DAILY PO 10/20/20 09:00 10/20/20 08:38 I have reviewed the current psychotropics carefully including drug interactions. Risk benefit ratio favors no change other than as noted in my dictated progress note. Diagnosis: Problems: (1) Impulse control disorder, unspecified (2) Mild cognitive impairment (3) Anxiety disorder, unspecified (4) Bipolar disorder, current episode mixed, severe, with psychotic features SAEID NUNEZ MD Oct 21, 2020 08:05
--- NOTE | 2020-10-21 08:27 | PDOC ---
Exam Note: Tex Note: This note is a late entry for 10/20/2020 covers elements not covered in my initial note. Subjective: The patient was seen individually in the evening of 10/20/2020 with Cherie FAGAN, discussed and reviewed the chart. She slept 6-1/4 hours previous night. The patient had a visit from her family. She has been socializing with peers somewhat more, somewhat tearful this evening as I met with her individually. Review of Systems: No CV, , pulmonary, eye, ENT system symptoms on review. Mental Status Exam: The patient is oriented to herself and situation. She is somewhat tearful, anxious, dysphoric, and her mood would not discuss why she felt the way she appeared. Speech coherent. Abstraction fair. Computation impaired. Language function intact. Short term memory is impaired. No suicidal or homicidal ideation. Laboratory Data: Reviewed. Impression: Bipolar disorder mixed with psychotic features. Anxiety disorder unspecified. Impulse control disorder unspecified. Mild cognitive impairment. Plan: Continue current psychotropics. Assessment: Vital Signs/I&O: Vital Signs Date Time Temp Pulse Resp B/P (MAP) Pulse Ox O2 Delivery O2 Flow Rate FiO2 10/21/20 05:39 97.3 65 20 165/79 (107) 96 10/18/20 05:51 Room Air I & O 10/20/20 10/20/20 10/21/20 15:00 23:00 07:00 Intake Total 570 ml 480 ml Balance 570 ml 480 ml Current Medications: Meds: Current Medications Medications (Trade) Dose Ordered Sig/Chidi Route PRN Reason Start Time Stop Time Status Last Admin Dose Admin Aspirin (Aspirin Enteric Coated) 81 mg DAILY PO 10/10/20 09:00 10/20/20 08:37 Atorvastatin Calcium (Lipitor) 10 mg QHS PO 10/09/20 21:00 10/20/20 19:56 Calcium Polycarbophil (Fibercon) 1,250 mg BID PO 10/09/20 21:00 10/20/20 19:55 Vitamin D (Vitamin D3) 50,000 unit WEEKLY PO 10/16/20 09:00 10/16/20 08:51 Vitamin D (Vitamin D3) 2,000 unit DAILY PO 10/10/20 09:00 10/17/20 14:27 DC 10/17/20 08:17 Denosumab (Prolia) 60 mg 1X SQ 10/09/20 15:30 10/17/20 17:10 DC Diltiazem HCl (Cardizem) 30 mg BID PO 10/09/20 21:00 10/20/20 19:56 Levothyroxine Sodium (Synthroid) 25 mcg DAILY06 PO 10/10/20 07:30 10/21/20 05:16 Pramipexole Dihydrochloride (miraPEX) 1 mg [id number] PO 10/09/20 21:00 10/20/20 19:55 Tizanidine HCl (Zanaflex) 4 mg PRN Q8HRS PRN PO MUSCLE SPASMS 10/09/20 15:30 Multivitamins/ Calcium (Thera-M Plus) 1 tab DAILY PO 10/10/20 09:00 10/20/20 08:37 Pantoprazole Sodium (Protonix) 40 mg DAILY PO 10/10/20 09:00 10/20/20 08:37 Sennosides (Senna) 25.8 mg HS PO 10/09/20 21:00 10/20/20 19:56 Acetaminophen (Tylenol) 650 mg PRN Q6HRS PRN PO MILD PAIN / TEMP > 100.3'F 10/09/20 17:30 10/16/20 08:51 Multi-Ingredient Ointment (Analgesic [place]) 1 ashanti PRN QID PRN TP MUSCLE PAIN 10/09/20 17:30 Al Hydroxide/Mg Hydroxide (Mylanta Plus Xs) 15 ml PRN AFTMEALHC PRN PO DYSPEPSIA 10/09/20 17:30 Magnesium Hydroxide (Milk Of Magnesia) 2,400 mg PRN QHS PRN PO CONSTIPATION 10/09/20 17:30 Olanzapine (ZyPREXA ZYDIS) 2.5 mg PRN Q2HRS PRN PO PSYCHOSIS 10/09/20 17:30 10/20/20 19:56 Doxycycline Hyclate (Vibra-Tab) 100 mg BID PO 10/10/20 21:00 10/19/20 22:00 DC 10/19/20 20:35 Divalproex Sodium (Depakote Er) 500 mg QHS PO 10/11/20 21:00 10/20/20 19:56 Lactobacillus Rhamnosus (Culturelle) 1 cap BID PO 10/14/20 21:00 10/20/20 19:56 Bupropion HCl (Wellbutrin Xl) 150 mg DAILY PO 10/18/20 09:00 10/19/20 17:07 DC 10/19/20 08:22 Bupropion HCl (Wellbutrin Xl) 300 mg DAILY PO 10/20/20 09:00 10/20/20 08:38 Current Medications Medications (Trade) Dose Ordered Sig/Chidi Route PRN Reason Start Time Stop Time Status Last Admin Dose Admin Bupropion HCl (Wellbutrin Xl) 300 mg DAILY PO 10/20/20 09:00 10/20/20 08:38 I have reviewed the current psychotropics carefully including drug interactions. Risk benefit ratio favors no change other than as noted in my dictated progress note. Diagnosis: Problems: (1) Impulse control disorder, unspecified (2) Mild cognitive impairment (3) Anxiety disorder, unspecified (4) Bipolar disorder, current episode mixed, severe, with psychotic features SAEID NUNEZ MD Oct 21, 2020 08:27
[2020-10-21] MEDS: ASPIRIN ENTERIC COATED 81 MG TABLET.DR. PO SCH (08:34)
[2020-10-21] MEDS: LACTOBACILLUS RHAMNOSUS GG 1 CAPSULE. PO SCH ×2 (08:34→20:06)
[2020-10-21] MEDS: dilTIAZem HCL 30 MG TABLET PO SCH ×2 (08:34→20:06)
[2020-10-21] MEDS: MULTIVITAMIN with MINERAL TABLET. PO SCH (08:34)
[2020-10-21] MEDS: PANTOPRAZOLE 40 MG TABLET. PO SCH (08:34)
[2020-10-21] MEDS: PRAMIPEXOLE 0.5 MG TABLET. PO SCH ×3 (08:34→20:07)
[2020-10-21] MEDS: buPROPion XL 300 MG TAB.ER.24H. PO SCH (08:34)
[2020-10-21] MEDS: CALCIUM POLYCARBOPHIL 625 MG TABLET PO SCH ×2 (08:35→20:07)
--- NOTE | 2020-10-21 13:30 | NUR ---
Nursing note: Patient in dinning room at time of AM med pass and assessment, medication taken whole. She is oriented to self. Patient is calm, forgets frequently, interacts with peers, and medication compliant. Patient denies pain or discomfort at this time. She is currently sitting or walking in the day room. Will continue to monitor.
[2020-10-21 16:00] VITALS: BP 152/88
[2020-10-21] MEDS: DIVALPROEX ER 500 MG TAB.ER.24H PO SCH (20:07)
[2020-10-21] MEDS: SENNOSIDES 8.6 MG TABLET PO SCH (20:07)
[2020-10-21] MEDS: ATORVASTATIN CALCIUM 10 MG TABLET. PO SCH (20:07)
--- NOTE | 2020-10-21 22:05 | PDOC ---
Exam Note: Tex Note: Please also refer to the separate dictated note~for this date of service dictated separately.~Patient seen individually. Discussed the patient with Nursing staff reviewed the chart.~Reviewed interim history and current functioning. Reviewed vital signs,~Labs/ Radiology~and current medications noted below. Continue current treatment with the changes noted in the dictated addendum note Assessment: Vital Signs/I&O: Vital Signs Date Time Temp Pulse Resp B/P (MAP) Pulse Ox O2 Delivery O2 Flow Rate FiO2 10/21/20 20:06 95 152/88 10/21/20 16:00 98.4 18 96 10/18/20 05:51 Room Air I & O 10/20/20 10/20/20 10/21/20 15:00 23:00 07:00 Intake Total 570 ml 480 ml Balance 570 ml 480 ml Current Medications: Meds: Current Medications Medications (Trade) Dose Ordered Sig/Chidi Route PRN Reason Start Time Stop Time Status Last Admin Dose Admin Aspirin (Aspirin Enteric Coated) 81 mg DAILY PO 10/10/20 09:00 10/21/20 08:34 Atorvastatin Calcium (Lipitor) 10 mg QHS PO 10/09/20 21:00 10/21/20 20:07 Calcium Polycarbophil (Fibercon) 1,250 mg BID PO 10/09/20 21:00 10/21/20 20:07 Vitamin D (Vitamin D3) 50,000 unit WEEKLY PO 10/16/20 09:00 10/16/20 08:51 Vitamin D (Vitamin D3) 2,000 unit DAILY PO 10/10/20 09:00 10/17/20 14:27 DC 10/17/20 08:17 Denosumab (Prolia) 60 mg 1X SQ 10/09/20 15:30 10/17/20 17:10 DC Diltiazem HCl (Cardizem) 30 mg BID PO 10/09/20 21:00 10/21/20 20:06 Levothyroxine Sodium (Synthroid) 25 mcg DAILY06 PO 10/10/20 07:30 10/21/20 05:16 Pramipexole Dihydrochloride (miraPEX) 1 mg [id number] PO 10/09/20 21:00 10/21/20 20:07 Tizanidine HCl (Zanaflex) 4 mg PRN Q8HRS PRN PO MUSCLE SPASMS 10/09/20 15:30 Multivitamins/ Calcium (Thera-M Plus) 1 tab DAILY PO 10/10/20 09:00 10/21/20 08:34 Pantoprazole Sodium (Protonix) 40 mg DAILY PO 10/10/20 09:00 10/21/20 08:34 Sennosides (Senna) 25.8 mg HS PO 10/09/20 21:00 10/21/20 20:07 Acetaminophen (Tylenol) 650 mg PRN Q6HRS PRN PO MILD PAIN / TEMP > 100.3'F 10/09/20 17:30 10/16/20 08:51 Multi-Ingredient Ointment (Analgesic [place]) 1 ashanti PRN QID PRN TP MUSCLE PAIN 10/09/20 17:30 Al Hydroxide/Mg Hydroxide (Mylanta Plus Xs) 15 ml PRN AFTMEALHC PRN PO DYSPEPSIA 10/09/20 17:30 Magnesium Hydroxide (Milk Of Magnesia) 2,400 mg PRN QHS PRN PO CONSTIPATION 10/09/20 17:30 Olanzapine (ZyPREXA ZYDIS) 2.5 mg PRN Q2HRS PRN PO PSYCHOSIS 10/09/20 17:30 10/21/20 20:07 Doxycycline Hyclate (Vibra-Tab) 100 mg BID PO 10/10/20 21:00 10/19/20 22:00 DC 10/19/20 20:35 Divalproex Sodium (Depakote Er) 500 mg QHS PO 10/11/20 21:00 10/21/20 20:07 Lactobacillus Rhamnosus (Culturelle) 1 cap BID PO 10/14/20 21:00 10/21/20 20:06 Bupropion HCl (Wellbutrin Xl) 150 mg DAILY PO 10/18/20 09:00 10/19/20 17:07 DC 10/19/20 08:22 Bupropion HCl (Wellbutrin Xl) 300 mg DAILY PO 10/20/20 09:00 10/21/20 08:34 I have reviewed the current psychotropics carefully including drug interactions. Risk benefit ratio favors no change other than as noted in my dictated progress note. Diagnosis: Problems: (1) Impulse control disorder, unspecified (2) Mild cognitive impairment (3) Anxiety disorder, unspecified (4) Bipolar disorder, current episode mixed, severe, with psychotic features SAEID NUNEZ MD Oct 21, 2020 22:05
--- NOTE | 2020-10-21 22:05 | NUR ---
Pt disorganized, restless and anxious this evening. Pt tearful; stating that she needs to leave. Compliant with whole medications. PRN Zyprexa administered with HS medications.
--- NOTE | 2020-10-22 00:08 | NUR ---
Pt up and down numerous times this evening setting off her bed alarm and repeatedly waking up her roommate. Pt non compliant with PRN medications, stating "I do not want you to take my blood and kill me. I am sorry I killed your mother." PRN administered sublingually with resistance. Staff currently sitting 1:1 with pt in room. Addendum: 10/22/20 at 0233 by AZUL BARRERA RN Pt continued to be restless and was taken to the [facility] (with one door open.) Pt door checking, cursing and combative with staff. Pt delusional; repeatedly making statements that we were trying to kill her. Pt attempting to leave through the open door, hitting at staff. Pt currently sitting in chair in hallway within sight of staff. Addendum: 10/22/20 at 0556 by AZUL BARRERA RN During morning ADLs pt apologized to this RN. Pt stated that she remembered most of what happened last night, stating that she did it because of "sin." Pt stated that she "hates how much sin is in the world." Pt then stated "you win" with a smirk.
[2020-10-22 05:58] VITALS: BP 155/85
[2020-10-22] MEDS: LEVOTHYROXINE 25 MCG TABLET. PO SCH (06:16)
--- NOTE | 2020-10-22 06:43 | PDOC ---
Exam Note: Tex Note: This note is a late entry for 10/21/2020 covers elements not covered in my initial note. Subjective: The patient was seen individually in the evening of 10/21/2020 with Cherie FAGAN, discussed and reviewed the chart. She slept 7 hours previous night. The patient has overall done better but seems to get little anxious with some mood lability, but no tearfulness. She seemed a little more confused evening of 10/21 as I met with her in the dayroom. Review of Systems: No CV, , pulmonary, eye, ENT system symptoms on review. Mental Status Exam: The patient is oriented to herself and situation. Patient seemed little more confused, then seemed to recognize that her house was in [place], [place]. Speech coherent. Abstraction fair. Computation impaired. Language function intact. Short term memory is impaired. No suicidal or homicidal ideation. Laboratory Data: Reviewed. Impression: Bipolar disorder mixed with psychotic features. Anxiety disorder unspecified. Impulse control disorder unspecified. Mild cognitive impairment. Plan: Continue current psychotropics. Assessment: Vital Signs/I&O: Vital Signs Date Time Temp Pulse Resp B/P (MAP) Pulse Ox O2 Delivery O2 Flow Rate FiO2 10/22/20 05:58 98.4 99 18 155/85 (108) 95 10/18/20 05:51 Room Air I & O 10/21/20 10/21/20 10/22/20 14:59 22:59 06:59 Intake Total 600 ml 360 ml Balance 600 ml 360 ml Current Medications: Meds: Current Medications Medications (Trade) Dose Ordered Sig/Chidi Route PRN Reason Start Time Stop Time Status Last Admin Dose Admin Aspirin (Aspirin Enteric Coated) 81 mg DAILY PO 10/10/20 09:00 10/21/20 08:34 Atorvastatin Calcium (Lipitor) 10 mg QHS PO 10/09/20 21:00 10/21/20 20:07 Calcium Polycarbophil (Fibercon) 1,250 mg BID PO 10/09/20 21:00 10/21/20 20:07 Vitamin D (Vitamin D3) 50,000 unit WEEKLY PO 10/16/20 09:00 10/16/20 08:51 Vitamin D (Vitamin D3) 2,000 unit DAILY PO 10/10/20 09:00 10/17/20 14:27 DC 10/17/20 08:17 Denosumab (Prolia) 60 mg 1X SQ 10/09/20 15:30 10/17/20 17:10 DC Diltiazem HCl (Cardizem) 30 mg BID PO 10/09/20 21:00 10/21/20 20:06 Levothyroxine Sodium (Synthroid) 25 mcg DAILY06 PO 10/10/20 07:30 10/22/20 06:16 Pramipexole Dihydrochloride (miraPEX) 1 mg [id number] PO 10/09/20 21:00 10/21/20 20:07 Tizanidine HCl (Zanaflex) 4 mg PRN Q8HRS PRN PO MUSCLE SPASMS 10/09/20 15:30 10/21/20 23:58 Multivitamins/ Calcium (Thera-M Plus) 1 tab DAILY PO 10/10/20 09:00 10/21/20 08:34 Pantoprazole Sodium (Protonix) 40 mg DAILY PO 10/10/20 09:00 10/21/20 08:34 Sennosides (Senna) 25.8 mg HS PO 10/09/20 21:00 10/21/20 20:07 Acetaminophen (Tylenol) 650 mg PRN Q6HRS PRN PO MILD PAIN / TEMP > 100.3'F 10/09/20 17:30 10/16/20 08:51 Multi-Ingredient Ointment (Analgesic [place]) 1 ashanti PRN QID PRN TP MUSCLE PAIN 10/09/20 17:30 Al Hydroxide/Mg Hydroxide (Mylanta Plus Xs) 15 ml PRN AFTMEALHC PRN PO DYSPEPSIA 10/09/20 17:30 Magnesium Hydroxide (Milk Of Magnesia) 2,400 mg PRN QHS PRN PO CONSTIPATION 10/09/20 17:30 Olanzapine (ZyPREXA ZYDIS) 2.5 mg PRN Q2HRS PRN PO PSYCHOSIS 10/09/20 17:30 10/21/20 23:58 Doxycycline Hyclate (Vibra-Tab) 100 mg BID PO 10/10/20 21:00 10/19/20 22:00 DC 10/19/20 20:35 Divalproex Sodium (Depakote Er) 500 mg QHS PO 10/11/20 21:00 10/21/20 20:07 Lactobacillus Rhamnosus (Culturelle) 1 cap BID PO 10/14/20 21:00 10/21/20 20:06 Bupropion HCl (Wellbutrin Xl) 150 mg DAILY PO 10/18/20 09:00 10/19/20 17:07 DC 10/19/20 08:22 Bupropion HCl (Wellbutrin Xl) 300 mg DAILY PO 10/20/20 09:00 10/21/20 08:34 Trazodone HCl (Desyrel) 50 mg PRN QHS PRN PO INSOMNIA, MAY REPEAT X1 10/22/20 06:00 I have reviewed the current psychotropics carefully including drug interactions. Risk benefit ratio favors no change other than as noted in my dictated progress note. Diagnosis: Problems: (1) Impulse control disorder, unspecified (2) Mild cognitive impairment (3) Anxiety disorder, unspecified (4) Bipolar disorder, current episode mixed, severe, with psychotic features SAEID NUNEZ MD Oct 22, 2020 06:43
[2020-10-22 07:00] LABS: BASO % 1 % (0-3); EOS # 0.2 x10^3/uL (0.0-0.7); EOS % 3 % (0-3); HEMATOCRIT 42.9 % (36.0-47.0); HEMOGLOBIN 14.5 g/dL (12.0-15.5); LYMPH # 1.5 x10^3/uL (1.0-4.8); LYMPH % 29 % (24-48); MEAN CORPUSCULAR HEMOGLOBIN 31 pg (25-35); MEAN CORPUSCULAR HGB CONC 34 g/dL (31-37); MEAN CORPUSCULAR VOLUME 91 fL (79-100); MONO # 0.8 x10^3/uL (0.0-1.1); MONO % 15 % (0-9); NEUT # 2.9 x10^3uL (1.8-7.7); NEUT % 53 % (31-73); PLATELET COUNT 226 x10^3/uL (140-400); RED BLOOD COUNT 4.69 x10^6/uL (3.50-5.40); RED CELL DISTRIBUTION WIDTH 14.3 % (11.5-14.5); WHITE BLOOD COUNT 5.4 x10^3/uL (4.0-11.0)
[2020-10-22 07:24] LABS: ALBUMIN 3.6 g/dL (3.4-5.0); CREATININE 1.2 mg/dL (0.6-1.0); GFR 43.7; POTASSIUM 3.8 mmol/L (3.5-5.1); TOTAL BILIRUBIN 0.6 mg/dL (0.2-1.0); TOTAL PROTEIN 7.1 g/dL (6.4-8.2)
[2020-10-22] MEDS: CALCIUM POLYCARBOPHIL 625 MG TABLET PO SCH ×2 (08:28→19:53)
[2020-10-22] MEDS: MULTIVITAMIN with MINERAL TABLET. PO SCH (08:29)
[2020-10-22] MEDS: PANTOPRAZOLE 40 MG TABLET. PO SCH (08:29)
[2020-10-22] MEDS: LACTOBACILLUS RHAMNOSUS GG 1 CAPSULE. PO SCH ×2 (08:29→19:53)
[2020-10-22] MEDS: buPROPion XL 300 MG TAB.ER.24H. PO SCH (08:29)
[2020-10-22] MEDS: dilTIAZem HCL 30 MG TABLET PO SCH ×2 (08:29→19:53)
[2020-10-22] MEDS: PRAMIPEXOLE 0.5 MG TABLET. PO SCH ×3 (08:29→19:52)
[2020-10-22] MEDS: ASPIRIN ENTERIC COATED 81 MG TABLET.DR. PO SCH (08:29)
--- NOTE | 2020-10-22 14:13 | NUR ---
Nursing note: Patient in dinning room at time of AM med pass and assessment, medication taken whole. She is oriented to self. Patient is stating that the male peers all believe they are her boyfriend, she doesn't want them to be her boyfriend. She is reporting that someone is following her as well. Patient is frequently tearful, forgets frequently, interacts with peers, and medication compliant. Patient denies pain or discomfort at this time. She is currently sitting in the day room. Will continue to monitor.
[2020-10-22 15:41] VITALS: BP 189/96
[2020-10-22] MEDS: risperiDONE 0.5 MG TABLET. PO SCH ×2 (18:46→19:46)
[2020-10-22] MEDS: SENNOSIDES 8.6 MG TABLET PO SCH (19:52)
[2020-10-22] MEDS: traZODone 50 MG TABLET. PO PRN ×2 (19:52→22:12)
[2020-10-22] MEDS: DIVALPROEX ER 500 MG TAB.ER.24H PO SCH (19:53)
[2020-10-22] MEDS: ATORVASTATIN CALCIUM 10 MG TABLET. PO SCH (19:53)
--- NOTE | 2020-10-22 22:02 | PDOC ---
Exam Note: Tex Note: Please also refer to the separate dictated note~for this date of service dictated separately.~Patient seen individually. Discussed the patient with Nursing staff reviewed the chart.~Reviewed interim history and current functioning. Reviewed vital signs,~Labs/ Radiology~and current medications noted below. Continue current treatment with the changes noted in the dictated addendum note Assessment: Vital Signs/I&O: Vital Signs Date Time Temp Pulse Resp B/P (MAP) Pulse Ox O2 Delivery O2 Flow Rate FiO2 10/22/20 19:53 92 189/96 10/22/20 15:41 97.2 16 98 10/18/20 05:51 Room Air I & O 10/21/20 10/21/20 10/22/20 15:00 23:00 07:00 Intake Total 600 ml 360 ml Balance 600 ml 360 ml Labs: Laboratory Tests Test 10/22/20 06:10 White Blood Count 5.4 x10^3/uL (4.0-11.0) Red Blood Count 4.69 x10^6/uL (3.50-5.40) Hemoglobin 14.5 g/dL (12.0-15.5) Hematocrit 42.9 % (36.0-47.0) Mean Corpuscular Volume 91 fL (79-100) Mean Corpuscular Hemoglobin 31 pg (25-35) Mean Corpuscular Hemoglobin Concent 34 g/dL (31-37) Red Cell Distribution Width 14.3 % (11.5-14.5) Platelet Count 226 x10^3/uL (140-400) Neutrophils (%) (Auto) 53 % (31-73) Lymphocytes (%) (Auto) 29 % (24-48) Monocytes (%) (Auto) 15 % (0-9) H Eosinophils (%) (Auto) 3 % (0-3) Basophils (%) (Auto) 1 % (0-3) Neutrophils # (Auto) 2.9 x10^3uL (1.8-7.7) Lymphocytes # (Auto) 1.5 x10^3/uL (1.0-4.8) Monocytes # (Auto) 0.8 x10^3/uL (0.0-1.1) Eosinophils # (Auto) 0.2 x10^3/uL (0.0-0.7) Basophils # (Auto) 0.0 x10^3/uL (0.0-0.2) Sodium Level 147 mmol/L (136-145) H Potassium Level 3.8 mmol/L (3.5-5.1) Chloride Level 108 mmol/L (98-107) H Carbon Dioxide Level 27 mmol/L (21-32) Anion Gap 12 (6-14) Blood Urea Nitrogen 16 mg/dL (7-20) Creatinine 1.2 mg/dL (0.6-1.0) H Estimated GFR (Cockcroft-Gault) 43.7 BUN/Creatinine Ratio 13 (6-20) Glucose Level 99 mg/dL (70-99) Calcium Level 9.0 mg/dL (8.5-10.1) Total Bilirubin 0.6 mg/dL (0.2-1.0) Aspartate Amino Transferase (AST) 24 U/L (15-37) Alanine Aminotransferase (ALT) 25 U/L (14-59) Alkaline Phosphatase 87 U/L (46-116) Total Protein 7.1 g/dL (6.4-8.2) Albumin 3.6 g/dL (3.4-5.0) Albumin/Globulin Ratio 1.0 (1.0-1.7) Current Medications: Meds: Laboratory Tests Test 10/22/20 06:10 White Blood Count 5.4 x10^3/uL Red Blood Count 4.69 x10^6/uL Hemoglobin 14.5 g/dL Hematocrit 42.9 % Mean Corpuscular Volume 91 fL Mean Corpuscular Hemoglobin 31 pg Mean Corpuscular Hemoglobin Concent 34 g/dL Red Cell Distribution Width 14.3 % Platelet Count 226 x10^3/uL Neutrophils (%) (Auto) 53 % Lymphocytes (%) (Auto) 29 % Monocytes (%) (Auto) 15 % Eosinophils (%) (Auto) 3 % Basophils (%) (Auto) 1 % Neutrophils # (Auto) 2.9 x10^3uL Lymphocytes # (Auto) 1.5 x10^3/uL Monocytes # (Auto) 0.8 x10^3/uL Eosinophils # (Auto) 0.2 x10^3/uL Basophils # (Auto) 0.0 x10^3/uL Sodium Level 147 mmol/L Potassium Level 3.8 mmol/L Chloride Level 108 mmol/L Carbon Dioxide Level 27 mmol/L Anion Gap 12 Blood Urea Nitrogen 16 mg/dL Creatinine 1.2 mg/dL Estimated GFR (Cockcroft-Gault) 43.7 BUN/Creatinine Ratio 13 Glucose Level 99 mg/dL Calcium Level 9.0 mg/dL Total Bilirubin 0.6 mg/dL Aspartate Amino Transf (AST/SGOT) 24 U/L Alanine Aminotransferase (ALT/SGPT) 25 U/L Alkaline Phosphatase 87 U/L Total Protein 7.1 g/dL Albumin 3.6 g/dL Albumin/Globulin Ratio 1.0 Current Medications Medications (Trade) Dose Ordered Sig/Chidi Route PRN Reason Start Time Stop Time Status Last Admin Dose Admin Aspirin (Aspirin Enteric Coated) 81 mg DAILY PO 10/10/20 09:00 10/22/20 08:29 Atorvastatin Calcium (Lipitor) 10 mg QHS PO 10/09/20 21:00 10/22/20 19:53 Calcium Polycarbophil (Fibercon) 1,250 mg BID PO 10/09/20 21:00 10/22/20 19:53 Vitamin D (Vitamin D3) 50,000 unit WEEKLY PO 10/16/20 09:00 10/16/20 08:51 Vitamin D (Vitamin D3) 2,000 unit DAILY PO 10/10/20 09:00 10/17/20 14:27 DC 10/17/20 08:17 Denosumab (Prolia) 60 mg 1X SQ 10/09/20 15:30 10/17/20 17:10 DC Diltiazem HCl (Cardizem) 30 mg BID PO 10/09/20 21:00 10/22/20 19:53 Levothyroxine Sodium (Synthroid) 25 mcg DAILY06 PO 10/10/20 07:30 10/22/20 06:16 Pramipexole Dihydrochloride (miraPEX) 1 mg [id number] PO 10/09/20 21:00 10/22/20 19:52 Tizanidine HCl (Zanaflex) 4 mg PRN Q8HRS PRN PO MUSCLE SPASMS 10/09/20 15:30 10/21/20 23:58 Multivitamins/ Calcium (Thera-M Plus) 1 tab DAILY PO 10/10/20 09:00 10/22/20 08:29 Pantoprazole Sodium (Protonix) 40 mg DAILY PO 10/10/20 09:00 10/22/20 08:29 Sennosides (Senna) 25.8 mg HS PO 10/09/20 21:00 10/22/20 19:52 Acetaminophen (Tylenol) 650 mg PRN Q6HRS PRN PO MILD PAIN / TEMP > 100.3'F 10/09/20 17:30 10/16/20 08:51 Multi-Ingredient Ointment (Analgesic [place]) 1 ashanti PRN QID PRN TP MUSCLE PAIN 10/09/20 17:30 Al Hydroxide/Mg Hydroxide (Mylanta Plus Xs) 15 ml PRN AFTMEALHC PRN PO DYSPEPSIA 10/09/20 17:30 Magnesium Hydroxide (Milk Of Magnesia) 2,400 mg PRN QHS PRN PO CONSTIPATION 10/09/20 17:30 Olanzapine (ZyPREXA ZYDIS) 2.5 mg PRN Q2HRS PRN PO PSYCHOSIS 10/09/20 17:30 10/21/20 23:58 Doxycycline Hyclate (Vibra-Tab) 100 mg BID PO 10/10/20 21:00 10/19/20 22:00 DC 10/19/20 20:35 Divalproex Sodium (Depakote Er) 500 mg QHS PO 10/11/20 21:00 10/22/20 19:53 Lactobacillus Rhamnosus (Culturelle) 1 cap BID PO 10/14/20 21:00 10/22/20 19:53 Bupropion HCl (Wellbutrin Xl) 150 mg DAILY PO 10/18/20 09:00 10/19/20 17:07 DC 10/19/20 08:22 Bupropion HCl (Wellbutrin Xl) 300 mg DAILY PO 10/20/20 09:00 10/22/20 08:29 Trazodone HCl (Desyrel) 50 mg PRN QHS PRN PO INSOMNIA, MAY REPEAT X1 10/22/20 06:00 10/22/20 19:52 Risperidone (RisperDAL) 0.5 mg QHS PO 10/22/20 18:00 10/22/20 18:46 Current Medications Medications (Trade) Dose Ordered Sig/Chidi Route PRN Reason Start Time Stop Time Status Last Admin Dose Admin Trazodone HCl (Desyrel) 50 mg PRN QHS PRN PO INSOMNIA, MAY REPEAT X1 10/22/20 06:00 10/22/20 19:52 Risperidone (RisperDAL) 0.5 mg QHS PO 10/22/20 18:00 10/22/20 18:46 I have reviewed the current psychotropics carefully including drug interactions. Risk benefit ratio favors no change other than as noted in my dictated progress note. Diagnosis: Problems: (1) Impulse control disorder, unspecified (2) Mild cognitive impairment (3) Anxiety disorder, unspecified (4) Bipolar disorder, current episode mixed, severe, with psychotic features SAEID NUNEZ MD Oct 22, 2020 22:02
--- NOTE | 2020-10-22 23:29 | NUR ---
Pt irritable and argumentative this evening. Pt making paranoid/ suspicious statements. Resistive with whole medications but eventually compliant. Pt disorganized, stating we are in her house. Pt calling staff names and cursing at staff. When attempting to escort pt to bed, pt became combative and weighted, attempting to hit, kick, pinch and bite staff. Pt restless in bed and started wandering unit. Pt found in another pt's room hiding behind the door holding a hair pick. When approached, pt held the pick out as if she was going to stab staff. Pt taken to [facility] (with one door open) where she proceeded to yell, curse, sing hindu hymns and attempted to preach in gibberish/"tongues." Pt making statements like "you are beyond the devil. I hope when you go to hell, the devil cuts you up inch by inch." Multiple PRNs administered throughout the night. Pt currently awake wandering the [facility] door checking. Staff 1:1 with pt in [facility].
[2020-10-23] MEDS: LEVOTHYROXINE 25 MCG TABLET. PO SCH (06:00)
--- NOTE | 2020-10-23 07:03 | PDOC ---
Exam Note: Tex Note: This note is a late entry for 10/22/2020 covers elements not covered in my initial note. Subjective: The patient was seen individually in the evening of 10/22/2020 with Jennifer FAGAN, discussed and reviewed the chart. She slept poorly for 4 hours previous night. She was quite delusional previous night stating that two of the female nurses were lovers. She was at times combative and said some of the male peers were saying things about her. At times she was tearful, quite paranoid, little more confused. Review of Systems: No CV, , pulmonary, eye, ENT system symptoms on review. Mental Status Exam: The patient is awake, alert, oriented to herself and at times situation. I met with him in the dayroom. Speech coherent, low in volume. Abstraction fair. Computation impaired. Language function intact, quite delusional as I met with her. Laboratory Data: Reviewed. Impression: Bipolar disorder mixed with psychotic features. Anxiety disorder unspecified. Impulse control disorder unspecified. Mild cognitive impairment. Plan: Continue current psychotropics but given her psychotic symptoms, start Risperdal 0.5 mg h.s. Adjust as indicated. Assessment: Vital Signs/I&O: Vital Signs Date Time Temp Pulse Resp B/P (MAP) Pulse Ox O2 Delivery O2 Flow Rate FiO2 10/22/20 19:53 92 189/96 10/22/20 15:41 97.2 16 98 10/18/20 05:51 Room Air I & O 10/22/20 10/22/20 10/23/20 15:00 23:00 07:00 Intake Total 480 ml 360 ml Balance 480 ml 360 ml Current Medications: Meds: Current Medications Medications (Trade) Dose Ordered Sig/Chidi Route PRN Reason Start Time Stop Time Status Last Admin Dose Admin Aspirin (Aspirin Enteric Coated) 81 mg DAILY PO 10/10/20 09:00 10/22/20 08:29 Atorvastatin Calcium (Lipitor) 10 mg QHS PO 10/09/20 21:00 10/22/20 19:53 Calcium Polycarbophil (Fibercon) 1,250 mg BID PO 10/09/20 21:00 10/22/20 19:53 Vitamin D (Vitamin D3) 50,000 unit WEEKLY PO 10/16/20 09:00 10/16/20 08:51 Vitamin D (Vitamin D3) 2,000 unit DAILY PO 10/10/20 09:00 10/17/20 14:27 DC 10/17/20 08:17 Denosumab (Prolia) 60 mg 1X SQ 10/09/20 15:30 10/17/20 17:10 DC Diltiazem HCl (Cardizem) 30 mg BID PO 10/09/20 21:00 10/22/20 19:53 Levothyroxine Sodium (Synthroid) 25 mcg DAILY06 PO 10/10/20 07:30 10/22/20 06:16 Pramipexole Dihydrochloride (miraPEX) 1 mg [id number] PO 10/09/20 21:00 10/22/20 19:52 Tizanidine HCl (Zanaflex) 4 mg PRN Q8HRS PRN PO MUSCLE SPASMS 10/09/20 15:30 10/21/20 23:58 Multivitamins/ Calcium (Thera-M Plus) 1 tab DAILY PO 10/10/20 09:00 10/22/20 08:29 Pantoprazole Sodium (Protonix) 40 mg DAILY PO 10/10/20 09:00 10/22/20 08:29 Sennosides (Senna) 25.8 mg HS PO 10/09/20 21:00 10/22/20 19:52 Acetaminophen (Tylenol) 650 mg PRN Q6HRS PRN PO MILD PAIN / TEMP > 100.3'F 10/09/20 17:30 10/16/20 08:51 Multi-Ingredient Ointment (Analgesic [place]) 1 ashanti PRN QID PRN TP MUSCLE PAIN 10/09/20 17:30 Al Hydroxide/Mg Hydroxide (Mylanta Plus Xs) 15 ml PRN AFTMEALHC PRN PO DYSPEPSIA 10/09/20 17:30 Magnesium Hydroxide (Milk Of Magnesia) 2,400 mg PRN QHS PRN PO CONSTIPATION 10/09/20 17:30 Olanzapine (ZyPREXA ZYDIS) 2.5 mg PRN Q2HRS PRN PO PSYCHOSIS 10/09/20 17:30 10/22/20 22:12 Doxycycline Hyclate (Vibra-Tab) 100 mg BID PO 10/10/20 21:00 10/19/20 22:00 DC 10/19/20 20:35 Divalproex Sodium (Depakote Er) 500 mg QHS PO 10/11/20 21:00 10/22/20 19:53 Lactobacillus Rhamnosus (Culturelle) 1 cap BID PO 10/14/20 21:00 10/22/20 19:53 Bupropion HCl (Wellbutrin Xl) 150 mg DAILY PO 10/18/20 09:00 10/19/20 17:07 DC 10/19/20 08:22 Bupropion HCl (Wellbutrin Xl) 300 mg DAILY PO 10/20/20 09:00 10/22/20 08:29 Trazodone HCl (Desyrel) 50 mg PRN QHS PRN PO INSOMNIA, MAY REPEAT X1 10/22/20 06:00 10/22/20 22:12 Risperidone (RisperDAL) 0.5 mg QHS PO 10/22/20 18:00 10/22/20 18:46 Current Medications Medications (Trade) Dose Ordered Sig/Chidi Route PRN Reason Start Time Stop Time Status Last Admin Dose Admin Risperidone (RisperDAL) 0.5 mg QHS PO 10/22/20 18:00 10/22/20 18:46 I have reviewed the current psychotropics carefully including drug interactions. Risk benefit ratio favors no change other than as noted in my dictated progress note. Diagnosis: Problems: (1) Impulse control disorder, unspecified (2) Mild cognitive impairment (3) Anxiety disorder, unspecified (4) Bipolar disorder, current episode mixed, severe, with psychotic features SAEID NUNEZ MD Oct 23, 2020 07:03
[2020-10-23] MEDS: MULTIVITAMIN with MINERAL TABLET. PO SCH (08:31)
[2020-10-23] MEDS: PRAMIPEXOLE 0.5 MG TABLET. PO SCH ×3 (08:31→20:10)
[2020-10-23] MEDS: PANTOPRAZOLE 40 MG TABLET. PO SCH (08:32)
[2020-10-23] MEDS: buPROPion XL 300 MG TAB.ER.24H. PO SCH (08:32)
[2020-10-23] MEDS: dilTIAZem HCL 30 MG TABLET PO SCH ×2 (08:32→20:09)
[2020-10-23] MEDS: LACTOBACILLUS RHAMNOSUS GG 1 CAPSULE. PO SCH ×2 (08:32→20:10)
[2020-10-23] MEDS: CHOLECALCIFEROL (VITAMIN D3) 50,000 UNIT CAPSULE PO SCH (08:32)
[2020-10-23] MEDS: CALCIUM POLYCARBOPHIL 625 MG TABLET PO SCH ×2 (08:32→20:08)
[2020-10-23] MEDS: ASPIRIN ENTERIC COATED 81 MG TABLET.DR. PO SCH (08:32)
--- NOTE | 2020-10-23 09:10 | NUR ---
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 He wanted to meet with pt and see how she was doing. SW reported that pt is doing okay but does have a decline in cognition as noted by the family. NICA placed pt and her pile driver engineer in the group room to meet. Meeting lasted roughly 30 minutes.
[2020-10-23 09:13] VITALS: BP 116/87
--- NOTE | 2020-10-23 13:23 | NUR ---
Nursing note: Patient in dinning room at time of AM med pass and assessment, medication taken whole. She is oriented to self. Patient is reporting she is looking for the kids. Patient is tearful at times, forgets frequently, interacts with peers, and medication compliant. Patient denies pain or discomfort at this time. She is currently sitting in the day room. Will continue to monitor.
[2020-10-23 16:02] VITALS: BP 146/80
[2020-10-23] MEDS: ATORVASTATIN CALCIUM 10 MG TABLET. PO SCH (20:09)
[2020-10-23] MEDS: DIVALPROEX ER 500 MG TAB.ER.24H PO SCH (20:09)
[2020-10-23] MEDS: MIRTAZAPINE 7.5 MG TABLET. PO SCH (20:09)
[2020-10-23] MEDS: SENNOSIDES 8.6 MG TABLET PO SCH (20:09)
[2020-10-23] MEDS: risperiDONE 0.5 MG TABLET. PO SCH (20:10)
--- NOTE | 2020-10-23 22:01 | PDOC ---
Exam Note: Tex Note: Please also refer to the separate dictated note~for this date of service dictated separately.~Patient seen individually. Discussed the patient with Nursing staff reviewed the chart.~Reviewed interim history and current functioning. Reviewed vital signs,~Labs/ Radiology~and current medications noted below. Continue current treatment with the changes noted in the dictated addendum note Assessment: Vital Signs/I&O: Vital Signs Date Time Temp Pulse Resp B/P (MAP) Pulse Ox O2 Delivery O2 Flow Rate FiO2 10/23/20 20:09 101 146/80 10/23/20 16:02 97.8 20 97 10/18/20 05:51 Room Air I & O 10/22/20 10/22/20 10/23/20 15:00 23:00 07:00 Intake Total 480 ml 360 ml Balance 480 ml 360 ml Current Medications: Meds: Current Medications Medications (Trade) Dose Ordered Sig/Chidi Route PRN Reason Start Time Stop Time Status Last Admin Dose Admin Aspirin (Aspirin Enteric Coated) 81 mg DAILY PO 10/10/20 09:00 10/23/20 08:32 Atorvastatin Calcium (Lipitor) 10 mg QHS PO 10/09/20 21:00 10/23/20 20:09 Calcium Polycarbophil (Fibercon) 1,250 mg BID PO 10/09/20 21:00 10/23/20 20:08 Vitamin D (Vitamin D3) 50,000 unit WEEKLY PO 10/16/20 09:00 10/23/20 08:32 Vitamin D (Vitamin D3) 2,000 unit DAILY PO 10/10/20 09:00 10/17/20 14:27 DC 10/17/20 08:17 Denosumab (Prolia) 60 mg 1X SQ 10/09/20 15:30 10/17/20 17:10 DC Diltiazem HCl (Cardizem) 30 mg BID PO 10/09/20 21:00 10/23/20 20:09 Levothyroxine Sodium (Synthroid) 25 mcg DAILY06 PO 10/10/20 07:30 10/23/20 06:00 Pramipexole Dihydrochloride (miraPEX) 1 mg [id number] PO 10/09/20 21:00 10/23/20 20:10 Tizanidine HCl (Zanaflex) 4 mg PRN Q8HRS PRN PO MUSCLE SPASMS 10/09/20 15:30 10/21/20 23:58 Multivitamins/ Calcium (Thera-M Plus) 1 tab DAILY PO 10/10/20 09:00 10/23/20 08:31 Pantoprazole Sodium (Protonix) 40 mg DAILY PO 10/10/20 09:00 10/23/20 08:32 Sennosides (Senna) 25.8 mg HS PO 10/09/20 21:00 10/23/20 20:09 Acetaminophen (Tylenol) 650 mg PRN Q6HRS PRN PO MILD PAIN / TEMP > 100.3'F 10/09/20 17:30 10/16/20 08:51 Multi-Ingredient Ointment (Analgesic [place]) 1 ashanti PRN QID PRN TP MUSCLE PAIN 10/09/20 17:30 Al Hydroxide/Mg Hydroxide (Mylanta Plus Xs) 15 ml PRN AFTMEALHC PRN PO DYSPEPSIA 10/09/20 17:30 Magnesium Hydroxide (Milk Of Magnesia) 2,400 mg PRN QHS PRN PO CONSTIPATION 10/09/20 17:30 Olanzapine (ZyPREXA ZYDIS) 2.5 mg PRN Q2HRS PRN PO PSYCHOSIS 10/09/20 17:30 10/23/20 18:00 Doxycycline Hyclate (Vibra-Tab) 100 mg BID PO 10/10/20 21:00 10/19/20 22:00 DC 10/19/20 20:35 Divalproex Sodium (Depakote Er) 500 mg QHS PO 10/11/20 21:00 10/23/20 20:09 Lactobacillus Rhamnosus (Culturelle) 1 cap BID PO 10/14/20 21:00 10/23/20 20:10 Bupropion HCl (Wellbutrin Xl) 150 mg DAILY PO 10/18/20 09:00 10/19/20 17:07 DC 10/19/20 08:22 Bupropion HCl (Wellbutrin Xl) 300 mg DAILY PO 10/20/20 09:00 10/23/20 08:32 Trazodone HCl (Desyrel) 50 mg PRN QHS PRN PO INSOMNIA, MAY REPEAT X1 10/22/20 06:00 10/22/20 22:12 Risperidone (RisperDAL) 0.5 mg QHS PO 10/22/20 18:00 10/23/20 20:10 Mirtazapine (Remeron) 7.5 mg QHS PO 10/23/20 21:00 10/23/20 20:09 Current Medications Medications (Trade) Dose Ordered Sig/Chidi Route PRN Reason Start Time Stop Time Status Last Admin Dose Admin Mirtazapine (Remeron) 7.5 mg QHS PO 10/23/20 21:00 10/23/20 20:09 I have reviewed the current psychotropics carefully including drug interactions. Risk benefit ratio favors no change other than as noted in my dictated progress note. Diagnosis: Problems: (1) Impulse control disorder, unspecified (2) Mild cognitive impairment (3) Anxiety disorder, unspecified (4) Bipolar disorder, current episode mixed, severe, with psychotic features SAEID NUNEZ MD Oct 23, 2020 22:01
--- NOTE | 2020-10-24 02:14 | NUR ---
Last evening pt was in day room and was very confused thinking peers wer out to get her. She was redirected to talking about her dog then took meds whole with some prompting. She was cooperative with cares and has been sleeping.
[2020-10-24] MEDS: LEVOTHYROXINE 25 MCG TABLET. PO SCH (05:50)
[2020-10-24 06:14] VITALS: BP 98/63
--- NOTE | 2020-10-24 06:55 | PDOC ---
Exam Note: Tex Note: This note is a late entry for 10/23/2020 covers elements not covered in my initial note. Subjective: The patient was seen individually in the evening of 10/23/2020 with Cherie FAGAN, discussed and reviewed the chart. She slept 3 hours previous night. She had a very difficult previous night. She slept poorly, has been irritable, refusing medications. Previous night, hitting kicking, biting staff and then hiding behind the door, quite paranoid. Received Zyprexa at 6 a.m. We will add Remeron 7.5 mg h.s. to help with her insomnia and we are adjusting rest of the psychotropics. Valproic acid level therapeutic at 64. Review of Systems: No CV, , pulmonary, eye, ENT system symptoms on review. Mental Status Exam: The patient is awake, alert, oriented to herself and at times situation. She seems a little more confused, but no active suicidal or homicidal ideation. Speech coherent, low in volume. Abstraction fair. Computation impaired. Language function intact. Mood and affect paranoid, anxious. Laboratory Data: Reviewed. Impression: Bipolar disorder mixed with psychotic features. Anxiety disorder unspecified. Impulse control disorder unspecified. Mild cognitive impairment. Plan: Continue current psychotropics. Start Remeron 7.5 mg h.s. Rest unchanged for now. Assessment: Vital Signs/I&O: Vital Signs Date Time Temp Pulse Resp B/P (MAP) Pulse Ox O2 Delivery O2 Flow Rate FiO2 10/24/20 06:14 96.7 94 18 98/63 (75) 96 I & O 10/23/20 10/23/20 10/24/20 15:00 23:00 07:00 Intake Total 480 ml 240 ml Balance 480 ml 240 ml Current Medications: Meds: Current Medications Medications (Trade) Dose Ordered Sig/Chidi Route PRN Reason Start Time Stop Time Status Last Admin Dose Admin Aspirin (Aspirin Enteric Coated) 81 mg DAILY PO 10/10/20 09:00 10/23/20 08:32 Atorvastatin Calcium (Lipitor) 10 mg QHS PO 10/09/20 21:00 10/23/20 20:09 Calcium Polycarbophil (Fibercon) 1,250 mg BID PO 10/09/20 21:00 10/23/20 20:08 Vitamin D (Vitamin D3) 50,000 unit WEEKLY PO 10/16/20 09:00 10/23/20 08:32 Vitamin D (Vitamin D3) 2,000 unit DAILY PO 10/10/20 09:00 10/17/20 14:27 DC 10/17/20 08:17 Denosumab (Prolia) 60 mg 1X SQ 10/09/20 15:30 10/17/20 17:10 DC Diltiazem HCl (Cardizem) 30 mg BID PO 10/09/20 21:00 10/23/20 20:09 Levothyroxine Sodium (Synthroid) 25 mcg DAILY06 PO 10/10/20 07:30 10/24/20 05:50 Pramipexole Dihydrochloride (miraPEX) 1 mg [id number] PO 10/09/20 21:00 10/23/20 20:10 Tizanidine HCl (Zanaflex) 4 mg PRN Q8HRS PRN PO MUSCLE SPASMS 10/09/20 15:30 10/21/20 23:58 Multivitamins/ Calcium (Thera-M Plus) 1 tab DAILY PO 10/10/20 09:00 10/23/20 08:31 Pantoprazole Sodium (Protonix) 40 mg DAILY PO 10/10/20 09:00 10/23/20 08:32 Sennosides (Senna) 25.8 mg HS PO 10/09/20 21:00 10/23/20 20:09 Acetaminophen (Tylenol) 650 mg PRN Q6HRS PRN PO MILD PAIN / TEMP > 100.3'F 10/09/20 17:30 10/16/20 08:51 Multi-Ingredient Ointment (Analgesic [place]) 1 ashanti PRN QID PRN TP MUSCLE PAIN 10/09/20 17:30 Al Hydroxide/Mg Hydroxide (Mylanta Plus Xs) 15 ml PRN AFTMEALHC PRN PO DYSPEPSIA 10/09/20 17:30 Magnesium Hydroxide (Milk Of Magnesia) 2,400 mg PRN QHS PRN PO CONSTIPATION 10/09/20 17:30 Olanzapine (ZyPREXA ZYDIS) 2.5 mg PRN Q2HRS PRN PO PSYCHOSIS 10/09/20 17:30 10/23/20 18:00 Doxycycline Hyclate (Vibra-Tab) 100 mg BID PO 10/10/20 21:00 10/19/20 22:00 DC 10/19/20 20:35 Divalproex Sodium (Depakote Er) 500 mg QHS PO 10/11/20 21:00 10/23/20 20:09 Lactobacillus Rhamnosus (Culturelle) 1 cap BID PO 10/14/20 21:00 10/23/20 20:10 Bupropion HCl (Wellbutrin Xl) 150 mg DAILY PO 10/18/20 09:00 10/19/20 17:07 DC 10/19/20 08:22 Bupropion HCl (Wellbutrin Xl) 300 mg DAILY PO 10/20/20 09:00 10/23/20 08:32 Trazodone HCl (Desyrel) 50 mg PRN QHS PRN PO INSOMNIA, MAY REPEAT X1 10/22/20 06:00 10/22/20 22:12 Risperidone (RisperDAL) 0.5 mg QHS PO 10/22/20 18:00 10/23/20 20:10 Mirtazapine (Remeron) 7.5 mg QHS PO 10/23/20 21:00 10/23/20 20:09 Current Medications Medications (Trade) Dose Ordered Sig/Chidi Route PRN Reason Start Time Stop Time Status Last Admin Dose Admin Mirtazapine (Remeron) 7.5 mg QHS PO 10/23/20 21:00 10/23/20 20:09 I have reviewed the current psychotropics carefully including drug interactions. Risk benefit ratio favors no change other than as noted in my dictated progress note. Diagnosis: Problems: (1) Impulse control disorder, unspecified (2) Mild cognitive impairment (3) Anxiety disorder, unspecified (4) Bipolar disorder, current episode mixed, severe, with psychotic features SAEID NUNEZ MD Oct 24, 2020 06:55
[2020-10-24] MEDS: PRAMIPEXOLE 0.5 MG TABLET. PO SCH ×3 (08:35→19:34)
[2020-10-24] MEDS: ASPIRIN ENTERIC COATED 81 MG TABLET.DR. PO SCH (08:36)
[2020-10-24] MEDS: buPROPion XL 300 MG TAB.ER.24H. PO SCH (08:36)
[2020-10-24] MEDS: MULTIVITAMIN with MINERAL TABLET. PO SCH (08:36)
[2020-10-24] MEDS: CALCIUM POLYCARBOPHIL 625 MG TABLET PO SCH ×2 (08:36→19:32)
[2020-10-24] MEDS: LACTOBACILLUS RHAMNOSUS GG 1 CAPSULE. PO SCH ×2 (08:36→19:34)
[2020-10-24] MEDS: PANTOPRAZOLE 40 MG TABLET. PO SCH (08:36)
[2020-10-24] MEDS: dilTIAZem HCL 30 MG TABLET PO SCH ×2 (08:43→19:32)
--- NOTE | 2020-10-24 13:57 | NUR ---
[facility] NOTE; Leatha has been confused but calm and cooperative today. she stays in the dayroom between meals and participates in groups
[2020-10-24 15:57] VITALS: BP 106/70
--- NOTE | 2020-10-24 17:41 | NUR ---
[facility] [place]....After dinner, Leatha started door checking and came to the [facility] [place] [place] station window. when I went out to see her, she was very suspicious of me and refused to take AMBROSE Vasquez from me. She called me a "daughter of the devil" and told me to shut up and leave her alone.
[2020-10-24] MEDS: SENNOSIDES 8.6 MG TABLET PO SCH (19:32)
[2020-10-24] MEDS: ATORVASTATIN CALCIUM 10 MG TABLET. PO SCH (19:32)
[2020-10-24] MEDS: DIVALPROEX ER 500 MG TAB.ER.24H PO SCH (19:34)
[2020-10-24] MEDS: MIRTAZAPINE 7.5 MG TABLET. PO SCH (19:34)
[2020-10-24] MEDS ORDERED: risperiDONE 0.5 MG TABLET. PO SCH (21:00)
--- NOTE | 2020-10-24 22:10 | PDOC ---
Exam Note: Tex Note: Please also refer to the separate dictated note~for this date of service dictated separately.~Patient seen individually. Discussed the patient with Nursing staff reviewed the chart.~Reviewed interim history and current functioning. Reviewed vital signs,~Labs/ Radiology~and current medications noted below. Continue current treatment with the changes noted in the dictated addendum note Assessment: Vital Signs/I&O: Vital Signs Date Time Temp Pulse Resp B/P (MAP) Pulse Ox O2 Delivery O2 Flow Rate FiO2 10/24/20 19:32 103 106/70 10/24/20 15:57 97.1 18 94 I & O 10/23/20 10/23/20 10/24/20 15:00 23:00 07:00 Intake Total 480 ml 240 ml Balance 480 ml 240 ml Current Medications: Meds: Current Medications Medications (Trade) Dose Ordered Sig/Chidi Route PRN Reason Start Time Stop Time Status Last Admin Dose Admin Aspirin (Aspirin Enteric Coated) 81 mg DAILY PO 10/10/20 09:00 10/24/20 08:36 Atorvastatin Calcium (Lipitor) 10 mg QHS PO 10/09/20 21:00 10/24/20 19:32 Calcium Polycarbophil (Fibercon) 1,250 mg BID PO 10/09/20 21:00 10/24/20 19:32 Vitamin D (Vitamin D3) 50,000 unit WEEKLY PO 10/16/20 09:00 10/23/20 08:32 Vitamin D (Vitamin D3) 2,000 unit DAILY PO 10/10/20 09:00 10/17/20 14:27 DC 10/17/20 08:17 Denosumab (Prolia) 60 mg 1X SQ 10/09/20 15:30 10/17/20 17:10 DC Diltiazem HCl (Cardizem) 30 mg BID PO 10/09/20 21:00 10/24/20 19:32 Levothyroxine Sodium (Synthroid) 25 mcg DAILY06 PO 10/10/20 07:30 10/24/20 05:50 Pramipexole Dihydrochloride (miraPEX) 1 mg [id number] PO 10/09/20 21:00 10/24/20 19:34 Tizanidine HCl (Zanaflex) 4 mg PRN Q8HRS PRN PO MUSCLE SPASMS 10/09/20 15:30 10/21/20 23:58 Multivitamins/ Calcium (Thera-M Plus) 1 tab DAILY PO 10/10/20 09:00 10/24/20 08:36 Pantoprazole Sodium (Protonix) 40 mg DAILY PO 10/10/20 09:00 10/24/20 08:36 Sennosides (Senna) 25.8 mg HS PO 10/09/20 21:00 10/24/20 19:32 Acetaminophen (Tylenol) 650 mg PRN Q6HRS PRN PO MILD PAIN / TEMP > 100.3'F 10/09/20 17:30 10/16/20 08:51 Multi-Ingredient Ointment (Analgesic [place]) 1 ashanti PRN QID PRN TP MUSCLE PAIN 10/09/20 17:30 Al Hydroxide/Mg Hydroxide (Mylanta Plus Xs) 15 ml PRN AFTMEALHC PRN PO DYSPEPSIA 10/09/20 17:30 Magnesium Hydroxide (Milk Of Magnesia) 2,400 mg PRN QHS PRN PO CONSTIPATION 10/09/20 17:30 Olanzapine (ZyPREXA ZYDIS) 2.5 mg PRN Q2HRS PRN PO PSYCHOSIS 10/09/20 17:30 10/23/20 18:00 Doxycycline Hyclate (Vibra-Tab) 100 mg BID PO 10/10/20 21:00 10/19/20 22:00 DC 10/19/20 20:35 Divalproex Sodium (Depakote Er) 500 mg QHS PO 10/11/20 21:00 10/24/20 19:34 Lactobacillus Rhamnosus (Culturelle) 1 cap BID PO 10/14/20 21:00 10/24/20 19:34 Bupropion HCl (Wellbutrin Xl) 150 mg DAILY PO 10/18/20 09:00 10/19/20 17:07 DC 10/19/20 08:22 Bupropion HCl (Wellbutrin Xl) 300 mg DAILY PO 10/20/20 09:00 10/24/20 08:36 Trazodone HCl (Desyrel) 50 mg PRN QHS PRN PO INSOMNIA, MAY REPEAT X1 10/22/20 06:00 10/22/20 22:12 Risperidone (RisperDAL) 0.5 mg QHS PO 10/22/20 18:00 10/24/20 16:15 DC 10/23/20 20:10 Mirtazapine (Remeron) 7.5 mg QHS PO 10/23/20 21:00 10/24/20 19:34 Risperidone (RisperDAL) 0.75 mg QHS PO 10/24/20 21:00 10/24/20 19:34 Current Medications Medications (Trade) Dose Ordered Sig/Chidi Route PRN Reason Start Time Stop Time Status Last Admin Dose Admin Risperidone (RisperDAL) 0.75 mg QHS PO 10/24/20 21:00 10/24/20 19:34 I have reviewed the current psychotropics carefully including drug interactions. Risk benefit ratio favors no change other than as noted in my dictated progress note. Diagnosis: Problems: (1) Impulse control disorder, unspecified (2) Mild cognitive impairment (3) Anxiety disorder, unspecified (4) Bipolar disorder, current episode mixed, severe, with psychotic features SAEID NUNEZ MD Oct 24, 2020 22:10
--- NOTE | 2020-10-25 01:03 | NUR ---
Pt has been in her room tonight. She has been hallucinating and delusional. She was pulling unseen leaves from her fingers and was asking Donnell, who was not in the room questions. She took meds whole with some prompting and has been sleeping tonight.
[2020-10-25] MEDS: LEVOTHYROXINE 25 MCG TABLET. PO SCH (05:39)
[2020-10-25 06:16] VITALS: BP 109/70
--- NOTE | 2020-10-25 08:05 | PDOC ---
Exam Note: Tex Note: This note is a late entry for 10/24/2020 covers elements not covered in my initial note. Subjective: The patient was seen individually in the evening of 10/24/2020 with Jaylin FAGAN, discussed and reviewed the chart. She slept 6-3/4 hours previous night. Previous night the patient was quite paranoid, believed people were out to get her. This morning she was calm, later anxious. This evening as I met with her she was quite paranoid, confused. She was obsessively praying repeatedly this evening, difficult to redirect, compliant with medications. Appetite is fair. Review of Systems: No CV, , pulmonary, eye, ENT system symptoms on review. Mental Status Exam: The patient is oriented to herself and situation. Speech has some latency, low in volume, coherent. Abstraction fair. Computation impaired. Language function intact. Attention span short. Mood and affect somewhat withdrawn. Laboratory Data: Reviewed. Impression: Bipolar disorder mixed with psychotic features. Anxiety disorder unspecified. Impulse control disorder unspecified. Mild cognitive impairment. Plan: Continue current psychotropics. Maintain Risperdal 0.5 mg h.s. but we may need to increase this. Continue Depakote current dosage along with Wellbutrin, trazodone, Remeron. Assessment: Vital Signs/I&O: Vital Signs Date Time Temp Pulse Resp B/P (MAP) Pulse Ox O2 Delivery O2 Flow Rate FiO2 10/25/20 06:16 97.9 81 16 109/70 (83) 98 Room Air I & O 10/24/20 10/24/20 10/25/20 15:00 23:00 07:00 Intake Total 240 ml 240 ml Output Total 1 ml Balance 240 ml 240 ml -1 ml Current Medications: Meds: Current Medications Medications (Trade) Dose Ordered Sig/Chidi Route PRN Reason Start Time Stop Time Status Last Admin Dose Admin Aspirin (Aspirin Enteric Coated) 81 mg DAILY PO 10/10/20 09:00 10/24/20 08:36 Atorvastatin Calcium (Lipitor) 10 mg QHS PO 10/09/20 21:00 10/24/20 19:32 Calcium Polycarbophil (Fibercon) 1,250 mg BID PO 10/09/20 21:00 10/24/20 19:32 Vitamin D (Vitamin D3) 50,000 unit WEEKLY PO 10/16/20 09:00 10/23/20 08:32 Vitamin D (Vitamin D3) 2,000 unit DAILY PO 10/10/20 09:00 10/17/20 14:27 DC 10/17/20 08:17 Denosumab (Prolia) 60 mg 1X SQ 10/09/20 15:30 10/17/20 17:10 DC Diltiazem HCl (Cardizem) 30 mg BID PO 10/09/20 21:00 10/24/20 19:32 Levothyroxine Sodium (Synthroid) 25 mcg DAILY06 PO 10/10/20 07:30 10/25/20 05:39 Pramipexole Dihydrochloride (miraPEX) 1 mg [id number] PO 10/09/20 21:00 10/24/20 19:34 Tizanidine HCl (Zanaflex) 4 mg PRN Q8HRS PRN PO MUSCLE SPASMS 10/09/20 15:30 10/21/20 23:58 Multivitamins/ Calcium (Thera-M Plus) 1 tab DAILY PO 10/10/20 09:00 10/24/20 08:36 Pantoprazole Sodium (Protonix) 40 mg DAILY PO 10/10/20 09:00 10/24/20 08:36 Sennosides (Senna) 25.8 mg HS PO 10/09/20 21:00 10/24/20 19:32 Acetaminophen (Tylenol) 650 mg PRN Q6HRS PRN PO MILD PAIN / TEMP > 100.3'F 10/09/20 17:30 10/16/20 08:51 Multi-Ingredient Ointment (Analgesic [place]) 1 ashanti PRN QID PRN TP MUSCLE PAIN 10/09/20 17:30 Al Hydroxide/Mg Hydroxide (Mylanta Plus Xs) 15 ml PRN AFTMEALHC PRN PO DYSPEPSIA 10/09/20 17:30 Magnesium Hydroxide (Milk Of Magnesia) 2,400 mg PRN QHS PRN PO CONSTIPATION 10/09/20 17:30 Olanzapine (ZyPREXA ZYDIS) 2.5 mg PRN Q2HRS PRN PO PSYCHOSIS 10/09/20 17:30 10/23/20 18:00 Doxycycline Hyclate (Vibra-Tab) 100 mg BID PO 10/10/20 21:00 10/19/20 22:00 DC 10/19/20 20:35 Divalproex Sodium (Depakote Er) 500 mg QHS PO 10/11/20 21:00 10/24/20 19:34 Lactobacillus Rhamnosus (Culturelle) 1 cap BID PO 10/14/20 21:00 10/24/20 19:34 Bupropion HCl (Wellbutrin Xl) 150 mg DAILY PO 10/18/20 09:00 10/19/20 17:07 DC 10/19/20 08:22 Bupropion HCl (Wellbutrin Xl) 300 mg DAILY PO 10/20/20 09:00 10/24/20 08:36 Trazodone HCl (Desyrel) 50 mg PRN QHS PRN PO INSOMNIA, MAY REPEAT X1 10/22/20 06:00 10/22/20 22:12 Risperidone (RisperDAL) 0.5 mg QHS PO 10/22/20 18:00 10/24/20 16:15 DC 10/23/20 20:10 Mirtazapine (Remeron) 7.5 mg QHS PO 10/23/20 21:00 10/24/20 19:34 Risperidone (RisperDAL) 0.75 mg QHS PO 10/24/20 21:00 10/24/20 19:34 Current Medications Medications (Trade) Dose Ordered Sig/Chidi Route PRN Reason Start Time Stop Time Status Last Admin Dose Admin Risperidone (RisperDAL) 0.75 mg QHS PO 10/24/20 21:00 10/24/20 19:34 I have reviewed the current psychotropics carefully including drug interactions. Risk benefit ratio favors no change other than as noted in my dictated progress note. Diagnosis: Problems: (1) Impulse control disorder, unspecified (2) Mild cognitive impairment (3) Anxiety disorder, unspecified (4) Bipolar disorder, current episode mixed, severe, with psychotic features SAEID NUNEZ MD Oct 25, 2020 08:05
[2020-10-25] MEDS: ASPIRIN ENTERIC COATED 81 MG TABLET.DR. PO SCH (08:22)
[2020-10-25] MEDS: PANTOPRAZOLE 40 MG TABLET. PO SCH (08:22)
[2020-10-25] MEDS: PRAMIPEXOLE 0.5 MG TABLET. PO SCH ×3 (08:22→20:21)
[2020-10-25] MEDS: CALCIUM POLYCARBOPHIL 625 MG TABLET PO SCH ×2 (08:22→20:21)
[2020-10-25] MEDS: buPROPion XL 300 MG TAB.ER.24H. PO SCH (08:22)
[2020-10-25] MEDS: MULTIVITAMIN with MINERAL TABLET. PO SCH (08:22)
[2020-10-25] MEDS: LACTOBACILLUS RHAMNOSUS GG 1 CAPSULE. PO SCH ×2 (08:22→20:21)
[2020-10-25] MEDS: dilTIAZem HCL 30 MG TABLET PO SCH ×2 (08:23→20:22)
--- NOTE | 2020-10-25 12:20 | NUR ---
WEEKLY ACTIVITY THERAPY NOTE Date of Admission: 10/09/20 Date of AT Assessment: 10/11 Precipitating behaviors that initiated intake and admission: Patient admitted from home via [facility] for reportedly being paranoid, accusing of sleeping with daughter, eloping from home, stating family members holding her hostage, refusing to eat or bathe, picked up a hammer and made a tool out of wire to defend herself, and accusing family of lying to hospital staff. Goal aimed: increase stress management and relaxation skills Initial Goal: Pt will participate in at least five individual or group Activity Therapy session per week. Weekly progress towards goal: Group participation level: 2 min, 1 full Weekly highlights: horseshoes and music , tribonds and music styles Thursday Behaviors observed: social and laughing with peers , hard to redirect Thursday, hard time focusing Thursday Plan: no change to goal Beneficial adaptations: music, socialization
[2020-10-25] MEDS: risperiDONE 0.25 MG TABLET. PO SCH ×2 (13:00→17:32)
--- NOTE | 2020-10-25 14:08 | NUR ---
NICA contacted pt , Donnell, to schedule a visit for . In talking to pt SW questioned if pt would be coming home or if they made the decision to have her go to placement. Pt reports that he would really like to take pt home. He is retired and can be there 03/11; if he cannot, one of their dtr lives in the home with them and can help. NICA explained that pt may want to have the visit with pt on before making the final decision as there are concerns with pt wandering and cognition. NICA will follow up with Donnell and their dtr/DPOA, Filomena after the visit.
--- NOTE | 2020-10-25 14:59 | NUR ---
Nursing Note: Pt. started off the morning in a calm and pleasant mood. She was medication compliant and friendly at breakfast. Pt. became agitated after breakfast and started to wander the unit. She was pacing and then was on her knees and was heard praying out loud "Lord, please just take me from this place." and then she got up and continued to walk throughout the unit loudly belligerently praying. When it was time for her afternoon medications the nurse asked if her bracelet could be scanned for medication and she stated she would not take any medications from anyone here, because we are all possessed by the devil and have the devil inside of us.
--- NOTE | 2020-10-25 15:37 | NUR ---
Treatment team note: Pt is eating between 75-100% of meals and sleeping on average 5.5 hours per night. In the morning, pt is mostly calm and cooperative, compliant with medication whole. As the day progresses, pt appears to be anxious/restless with delusions and hallucinations. Pt reports seeing her on the unit and needing to get her medications from him, as well as reported pulling leaves from her fingers. Yesterday evening pt was noted to be yelling and screaming "God take me, I can't do it anymore". Pt has poor focus, wanders the hallways and needs redirection during the times staff can get her to attend group activities. Pt family wants to bring her home and SW will continue to work with pt family on making safe discharge arrangements; WARNER for the latter part of next week.
[2020-10-25 15:45] VITALS: BP 119/71
--- NOTE | 2020-10-25 16:27 | TX PLAN ---
Interdisciplinary Tx Plan Admission Information Oct 09, 2020 at 16:45 Legal Status (on Admission): Voluntary DPOA/Guardian Name: Filomena Armas Contact Other Contact Name: Donnell Armas Other Contact Verified Code Status: Full Code Allergies: Coded Allergies: Sulfa (Sulfonamide Antibiotics) (Verified Allergy, Unknown, 10/09/20) cat dander (Verified Allergy, Unknown, 10/09/20) egg (Verified Allergy, Unknown, 10/09/20) gluten (Verified Allergy, Unknown, 10/09/20) Uncoded Allergies: air freshener (Allergy, Severe, Rash, 10/09/20) Diagnoses Primary Diagnosis: Major Neurocognitive D/O, vascular Alzheimers with delusions, depression 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 Pt picked up a hammer to defend herself when she doesn't recognize people, poor self-care within the last week, running off, poor meal intake, wishing she was , delusional, anxious. Problems Active Problems: labile delusional Inactive Problems: medication compliant Pt Strengths/Limitations Ability for [place]: Fair Cognitive Functioning/Ability: Poor Communication Skills/Ability: Fair Financial Resources: Fair Insight/Judgement: Poor Intellectual Ability: Fair Physical Health: Poor Social Skills: Fair Stability in Family: Good Stability in School/Work: Poor Verbal Skills: Fair Discharge Criteria Discharge Criteria: Adequate arrangements @DC, Improved behavior, Improved mood/thought Preliminary Discharge Plan Preliminary DC Plan: Current Living Arrange. Special Precautions Fall Risk: Low Initial D/C Plan Pt to return back home with Identified Discharge Needs: continued psychiatric services Currently Utilized Resources Currently Utilized Resources/P: Primary Care Physician Referrals Community Resources: Psychiatric services Identified Problems/Hx/Goals Objectives/Short-Term Goals Short Term Goals: Dec. Hallucination/Delus, Dec. Outbursts, Medication Stabilization, Promote Coping Skill Short Term Goals in Patient's: N/A Interventions/Frequency Staff Interventions/Frequency&: Psychiatrist to assess pt at least 3x per week for medication management. Social Work to assess pt at least 2x per week to identify barriers to care and discharge planning goals. Nursing to assess medication effects, behavior modification and completion of 15 minute checks. Encourage participation in group activities (if applicable) or 1:1 interaction based off Activity Dept goals. 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 Education: Pt graduated high school (12th grade) Community Follow-up PCP Mental Health follow-up Treatment Plan Explained Patient/Group Exercise Instructor had this treatment plan explained to him/her as indicated by the signature below and has been given the opportunity to ask questions and make suggestions: Date: Patient/Group Exercise Instructor Signature: Status Update Update Pt is eating between 75-100% of meals and sleeping on average 5.5 hours per night. In the morning, pt is mostly calm and cooperative, compliant with medication whole. As the day progresses, pt appears to be anxious/restless with delusions and hallucinations. Pt reports seeing her on the unit and needing to get her medications from him, as well as reported pulling leaves from her fingers. Yesterday evening pt was noted to be yelling and screaming "God take me, I can't do it anymore". Pt has poor focus, wanders the hallways and needs redirection during the times staff can get her to attend group activities. Pt family wants to bring her home and SW will continue to work with pt family on making safe discharge arrangements; WARNER for the latter part of next week. INDER DANIEL Oct 25, 2020 16:27
[2020-10-25 16:57] LABS: BILIRUBIN,URINE NEG (NEG); CLARITY,URINE CLEAR; COLOR,URINE YELLOW; GLUCOSE,URINE NEG (NEG); NITRITE,URINE NEG (NEG); UROBILINOGEN,URINE 0.2 mg/dL (0.2 mg/dL)
[2020-10-25 16:58] LABS: BACTERIA,URINE 0 /HPF (0-FEW); RBC,URINE 0 /HPF (0-2); SQUAMOUS EPITHELIAL CELL,UR FEW /LPF; WBC,URINE RARE /HPF (0-4)
[2020-10-25] MEDS: MIRTAZAPINE 7.5 MG TABLET. PO SCH (20:20)
[2020-10-25] MEDS: DIVALPROEX ER 500 MG TAB.ER.24H PO SCH (20:20)
[2020-10-25] MEDS: ATORVASTATIN CALCIUM 10 MG TABLET. PO SCH (20:21)
[2020-10-25] MEDS: SENNOSIDES 8.6 MG TABLET PO SCH (20:21)
--- NOTE | 2020-10-25 22:02 | PDOC ---
Exam Note: Tex Note: Please also refer to the separate dictated note~for this date of service dictated separately.~Patient seen individually. Discussed the patient with Nursing staff reviewed the chart.~Reviewed interim history and current functioning. Reviewed vital signs,~Labs/ Radiology~and current medications noted below. Continue current treatment with the changes noted in the dictated addendum note Assessment: Vital Signs/I&O: Vital Signs Date Time Temp Pulse Resp B/P (MAP) Pulse Ox O2 Delivery O2 Flow Rate FiO2 10/25/20 20:22 101 119/71 10/25/20 15:45 98.2 16 94 10/25/20 06:16 Room Air I & O 10/24/20 10/24/20 10/25/20 15:00 23:00 07:00 Intake Total 240 ml 240 ml Output Total 1 ml Balance 240 ml 240 ml -1 ml Labs: Laboratory Tests Test 10/25/20 15:58 Urine Collection Type Unknown Urine Color Yellow Urine Clarity Clear Urine pH 6.5 Urine Specific [place] 1.020 Urine Protein Neg (NEG-TRACE) Urine Glucose (UA) Neg mg/dL (NEG) Urine Ketones (Stick) 15 mg/dL (NEG) Urine Blood Neg (NEG) Urine Nitrite Neg (NEG) Urine Bilirubin Neg (NEG) Urine Urobilinogen Dipstick 0.2 mg/dL (0.2 mg/dL) Urine Leukocyte Esterase Trace (NEG) Urine RBC 0 /HPF (0-2) Urine WBC Rare /HPF (0-4) Urine Squamous Epithelial Cells Few /LPF Urine Bacteria 0 /HPF (0-FEW) Current Medications: Meds: Laboratory Tests Test 10/25/20 15:58 Urine Collection Type Unknown Urine Color Yellow Urine Clarity Clear Urine pH 6.5 Urine Specific [place] 1.020 Urine Protein Neg Urine Glucose (UA) Neg mg/dL Urine Ketones (Stick) 15 mg/dL Urine Blood Neg Urine Nitrite Neg Urine Bilirubin Neg Urine Urobilinogen Dipstick 0.2 mg/dL Urine Leukocyte Esterase Trace Urine RBC 0 /HPF Urine WBC Rare /HPF Urine Squamous Epithelial Cells Few /LPF Urine Bacteria 0 /HPF Current Medications Medications (Trade) Dose Ordered Sig/Chidi Route PRN Reason Start Time Stop Time Status Last Admin Dose Admin Aspirin (Aspirin Enteric Coated) 81 mg DAILY PO 10/10/20 09:00 10/25/20 08:22 Atorvastatin Calcium (Lipitor) 10 mg QHS PO 10/09/20 21:00 10/25/20 20:21 Calcium Polycarbophil (Fibercon) 1,250 mg BID PO 10/09/20 21:00 10/25/20 20:21 Vitamin D (Vitamin D3) 50,000 unit WEEKLY PO 10/16/20 09:00 10/23/20 08:32 Vitamin D (Vitamin D3) 2,000 unit DAILY PO 10/10/20 09:00 10/17/20 14:27 DC 10/17/20 08:17 Denosumab (Prolia) 60 mg 1X SQ 10/09/20 15:30 10/17/20 17:10 DC Diltiazem HCl (Cardizem) 30 mg BID PO 10/09/20 21:00 10/25/20 20:22 Levothyroxine Sodium (Synthroid) 25 mcg DAILY06 PO 10/10/20 07:30 10/25/20 05:39 Pramipexole Dihydrochloride (miraPEX) 1 mg [id number] PO 10/09/20 21:00 10/25/20 20:21 Tizanidine HCl (Zanaflex) 4 mg PRN Q8HRS PRN PO MUSCLE SPASMS 10/09/20 15:30 10/21/20 23:58 Multivitamins/ Calcium (Thera-M Plus) 1 tab DAILY PO 10/10/20 09:00 10/25/20 08:22 Pantoprazole Sodium (Protonix) 40 mg DAILY PO 10/10/20 09:00 10/25/20 08:22 Sennosides (Senna) 25.8 mg HS PO 10/09/20 21:00 10/25/20 20:21 Acetaminophen (Tylenol) 650 mg PRN Q6HRS PRN PO MILD PAIN / TEMP > 100.3'F 10/09/20 17:30 10/16/20 08:51 Multi-Ingredient Ointment (Analgesic [place]) 1 ashanti PRN QID PRN TP MUSCLE PAIN 10/09/20 17:30 Al Hydroxide/Mg Hydroxide (Mylanta Plus Xs) 15 ml PRN AFTMEALHC PRN PO DYSPEPSIA 10/09/20 17:30 Magnesium Hydroxide (Milk Of Magnesia) 2,400 mg PRN QHS PRN PO CONSTIPATION 10/09/20 17:30 Olanzapine (ZyPREXA ZYDIS) 2.5 mg PRN Q2HRS PRN PO PSYCHOSIS 10/09/20 17:30 10/23/20 18:00 Doxycycline Hyclate (Vibra-Tab) 100 mg BID PO 10/10/20 21:00 10/19/20 22:00 DC 10/19/20 20:35 Divalproex Sodium (Depakote Er) 500 mg QHS PO 10/11/20 21:00 10/25/20 20:20 Lactobacillus Rhamnosus (Culturelle) 1 cap BID PO 10/14/20 21:00 10/25/20 20:21 Bupropion HCl (Wellbutrin Xl) 150 mg DAILY PO 10/18/20 09:00 10/19/20 17:07 DC 10/19/20 08:22 Bupropion HCl (Wellbutrin Xl) 300 mg DAILY PO 10/20/20 09:00 10/25/20 08:22 Trazodone HCl (Desyrel) 50 mg PRN QHS PRN PO INSOMNIA, MAY REPEAT X1 10/22/20 06:00 10/22/20 22:12 Risperidone (RisperDAL) 0.5 mg QHS PO 10/22/20 18:00 10/24/20 16:15 DC 10/23/20 20:10 Mirtazapine (Remeron) 7.5 mg QHS PO 10/23/20 21:00 10/25/20 20:20 Risperidone (RisperDAL) 0.75 mg QHS PO 10/24/20 21:00 10/25/20 11:50 DC 10/24/20 19:34 Risperidone (RisperDAL) 0.25 mg 0900,1300,1700 PO 10/25/20 13:00 10/25/20 17:32 Current Medications Medications (Trade) Dose Ordered Sig/Chidi Route PRN Reason Start Time Stop Time Status Last Admin Dose Admin Risperidone (RisperDAL) 0.25 mg 0900,1300,1700 PO 10/25/20 13:00 10/25/20 17:32 I have reviewed the current psychotropics carefully including drug interactions. Risk benefit ratio favors no change other than as noted in my dictated progress note. Diagnosis: Problems: (1) Impulse control disorder, unspecified (2) Mild cognitive impairment (3) Anxiety disorder, unspecified (4) Bipolar disorder, current episode mixed, severe, with psychotic features SAEID NUNEZ MD Oct 25, 2020 22:02
--- NOTE | 2020-10-26 02:44 | NUR ---
Last evening pt was very social with a peer and has been in good spirits and cooperative with staff. She took meds whole has been cooperative with care and has had no behaviors tonight.
[2020-10-26] MEDS: LEVOTHYROXINE 25 MCG TABLET. PO SCH (05:39)
[2020-10-26 06:14] VITALS: BP 130/74
[2020-10-26] MEDS: risperiDONE 0.25 MG TABLET. PO SCH ×3 (08:29→17:16)
[2020-10-26] MEDS: CALCIUM POLYCARBOPHIL 625 MG TABLET PO SCH ×2 (08:29→21:06)
[2020-10-26] MEDS: LACTOBACILLUS RHAMNOSUS GG 1 CAPSULE. PO SCH ×2 (08:29→21:07)
[2020-10-26] MEDS: ASPIRIN ENTERIC COATED 81 MG TABLET.DR. PO SCH (08:29)
[2020-10-26] MEDS: dilTIAZem HCL 30 MG TABLET PO SCH ×2 (08:29→21:07)
[2020-10-26] MEDS: MULTIVITAMIN with MINERAL TABLET. PO SCH (08:29)
[2020-10-26] MEDS: buPROPion XL 300 MG TAB.ER.24H. PO SCH (08:29)
[2020-10-26] MEDS: PRAMIPEXOLE 0.5 MG TABLET. PO SCH ×3 (08:30→21:07)
[2020-10-26] MEDS: PANTOPRAZOLE 40 MG TABLET. PO SCH (08:30)
--- NOTE | 2020-10-26 11:16 | NUR ---
NSG NOTE; delusional religiosity Leatha became more irritable, hostile and delusional about staff this am telling us that we are evil, spawn of the devil, liars and trying to kill all the patients. she stood behind the door in another pt's room and held it shut. we were able to use the murillo to the inside door to get her out. she was angry at me and stood telling another pt that we are evil and will try to kill her too. she told the pt that if we kill Leatha, that it will be that pt's fault. that pt started to cry. she then started quoting bible verse and talking in tongues while staring at me. she refused to take a PRN zydis so it was given to her SL. she went to the dayroom and was talking to other patients, then became distracted by the group going on, and so calmed down.
[2020-10-26 15:53] VITALS: BP 122/73
[2020-10-26] MEDS: MIRTAZAPINE 7.5 MG TABLET. PO SCH (21:06)
[2020-10-26] MEDS: ATORVASTATIN CALCIUM 10 MG TABLET. PO SCH (21:06)
[2020-10-26] MEDS: DIVALPROEX ER 500 MG TAB.ER.24H PO SCH (21:07)
[2020-10-26] MEDS: SENNOSIDES 8.6 MG TABLET PO SCH (21:08)
--- NOTE | 2020-10-26 21:56 | PDOC ---
Exam Note: Tex Note: Please also refer to the separate dictated note~for this date of service dictated separately.~Patient seen individually. Discussed the patient with Nursing staff reviewed the chart.~Reviewed interim history and current functioning. Reviewed vital signs,~Labs/ Radiology~and current medications noted below. Continue current treatment with the changes noted in the dictated addendum note Assessment: Vital Signs/I&O: Vital Signs Date Time Temp Pulse Resp B/P (MAP) Pulse Ox O2 Delivery O2 Flow Rate FiO2 10/26/20 21:07 69 122/73 10/26/20 15:53 97.8 16 98 10/25/20 06:16 Room Air I & O 10/25/20 10/25/20 10/26/20 15:00 23:00 07:00 Intake Total 600 ml 440 ml Balance 600 ml 440 ml Current Medications: Meds: Current Medications Medications (Trade) Dose Ordered Sig/Chidi Route PRN Reason Start Time Stop Time Status Last Admin Dose Admin Aspirin (Aspirin Enteric Coated) 81 mg DAILY PO 10/10/20 09:00 10/26/20 08:29 Atorvastatin Calcium (Lipitor) 10 mg QHS PO 10/09/20 21:00 10/26/20 21:06 Calcium Polycarbophil (Fibercon) 1,250 mg BID PO 10/09/20 21:00 10/26/20 21:06 Vitamin D (Vitamin D3) 50,000 unit WEEKLY PO 10/16/20 09:00 10/23/20 08:32 Vitamin D (Vitamin D3) 2,000 unit DAILY PO 10/10/20 09:00 10/17/20 14:27 DC 10/17/20 08:17 Denosumab (Prolia) 60 mg 1X SQ 10/09/20 15:30 10/17/20 17:10 DC Diltiazem HCl (Cardizem) 30 mg BID PO 10/09/20 21:00 10/26/20 21:07 Levothyroxine Sodium (Synthroid) 25 mcg DAILY06 PO 10/10/20 07:30 10/26/20 05:39 Pramipexole Dihydrochloride (miraPEX) 1 mg [id number] PO 10/09/20 21:00 10/26/20 21:07 Tizanidine HCl (Zanaflex) 4 mg PRN Q8HRS PRN PO MUSCLE SPASMS 10/09/20 15:30 10/21/20 23:58 Multivitamins/ Calcium (Thera-M Plus) 1 tab DAILY PO 10/10/20 09:00 10/26/20 08:29 Pantoprazole Sodium (Protonix) 40 mg DAILY PO 10/10/20 09:00 10/26/20 08:30 Sennosides (Senna) 25.8 mg HS PO 10/09/20 21:00 10/26/20 21:08 Acetaminophen (Tylenol) 650 mg PRN Q6HRS PRN PO MILD PAIN / TEMP > 100.3'F 10/09/20 17:30 10/16/20 08:51 Multi-Ingredient Ointment (Analgesic [place]) 1 ashanti PRN QID PRN TP MUSCLE PAIN 10/09/20 17:30 Al Hydroxide/Mg Hydroxide (Mylanta Plus Xs) 15 ml PRN AFTMEALHC PRN PO DYSPEPSIA 10/09/20 17:30 Magnesium Hydroxide (Milk Of Magnesia) 2,400 mg PRN QHS PRN PO CONSTIPATION 10/09/20 17:30 Olanzapine (ZyPREXA ZYDIS) 2.5 mg PRN Q2HRS PRN PO PSYCHOSIS 10/09/20 17:30 10/26/20 10:55 Doxycycline Hyclate (Vibra-Tab) 100 mg BID PO 10/10/20 21:00 10/19/20 22:00 DC 10/19/20 20:35 Divalproex Sodium (Depakote Er) 500 mg QHS PO 10/11/20 21:00 10/26/20 21:07 Lactobacillus Rhamnosus (Culturelle) 1 cap BID PO 10/14/20 21:00 10/26/20 21:07 Bupropion HCl (Wellbutrin Xl) 150 mg DAILY PO 10/18/20 09:00 10/19/20 17:07 DC 10/19/20 08:22 Bupropion HCl (Wellbutrin Xl) 300 mg DAILY PO 10/20/20 09:00 10/26/20 08:29 Trazodone HCl (Desyrel) 50 mg PRN QHS PRN PO INSOMNIA, MAY REPEAT X1 10/22/20 06:00 10/22/20 22:12 Risperidone (RisperDAL) 0.5 mg QHS PO 10/22/20 18:00 10/24/20 16:15 DC 10/23/20 20:10 Mirtazapine (Remeron) 7.5 mg QHS PO 10/23/20 21:00 10/26/20 21:06 Risperidone (RisperDAL) 0.75 mg QHS PO 10/24/20 21:00 10/25/20 11:50 DC 10/24/20 19:34 Risperidone (RisperDAL) 0.25 mg 0900,1300,1700 PO 10/25/20 13:00 10/26/20 18:31 DC 10/26/20 17:16 Risperidone (RisperDAL) 0.25 mg 0900,1300 PO 10/27/20 09:00 Risperidone (RisperDAL) 0.5 mg DAILYWSUP PO 10/27/20 17:00 I have reviewed the current psychotropics carefully including drug interactions. Risk benefit ratio favors no change other than as noted in my dictated progress note. Diagnosis: Problems: (1) Impulse control disorder, unspecified (2) Mild cognitive impairment (3) Anxiety disorder, unspecified (4) Bipolar disorder, current episode mixed, severe, with psychotic features SAEID NUNEZ MD Oct 26, 2020 21:56
--- NOTE | 2020-10-27 03:32 | NUR ---
Patient was calm and alternated between moments of speech and moments of withdrawal and quietness. She interacted normally and was pleasant with some staff and peers, was compliant with bedtime medications without any complaints or indications of nausea, vomiting or pain. She had snacks and watched a movie with everyone else in the day room, retiring to her room and getting into bed after a few hours, where she has remained resting with eyes closed, breathing normally. Will continue to monitor.
[2020-10-27] MEDS: LEVOTHYROXINE 25 MCG TABLET. PO SCH (05:29)
[2020-10-27 05:49] VITALS: BP 149/76
[2020-10-27] MEDS: PANTOPRAZOLE 40 MG TABLET. PO SCH (08:07)
[2020-10-27] MEDS: ASPIRIN ENTERIC COATED 81 MG TABLET.DR. PO SCH (08:07)
[2020-10-27] MEDS: buPROPion XL 300 MG TAB.ER.24H. PO SCH (08:07)
[2020-10-27] MEDS: MULTIVITAMIN with MINERAL TABLET. PO SCH (08:07)
[2020-10-27] MEDS: dilTIAZem HCL 30 MG TABLET PO SCH ×2 (08:07→20:26)
[2020-10-27] MEDS: LACTOBACILLUS RHAMNOSUS GG 1 CAPSULE. PO SCH ×2 (08:08→20:26)
[2020-10-27] MEDS: CALCIUM POLYCARBOPHIL 625 MG TABLET PO SCH ×2 (08:08→20:26)
[2020-10-27] MEDS: risperiDONE 0.25 MG TABLET. PO SCH ×2 (08:08→13:28)
--- NOTE | 2020-10-27 08:40 | PDOC ---
Exam Note: Tex Note: This note is a late entry for 10/25/2020 covers elements not covered in my initial note. Subjective: The patient was seen individually in the morning of 10/25/2020 for a treatment team meeting with Bethanie Rain, Maria G Esteves (social sciences chair), Ifrah, activity therapy and Alfredo FAGAN, discussed and reviewed the chart. Discussed her progress, current psychotropics, reviewed drug interactions, risk-benefit ratio. She slept 7-1/4 hours previous night. Average sleep is 5-1/2 hours. The patient has appeared little more confused and agitated. We will check a UA to make sure she does not have a UTI to explain her symptoms. She is doing better in the morning. In the afternoon and evening time she was quite irritable, calling the nurses by the B word. Her Donnell visits her. At times when she gets agitated, she was screaming for God to take her but on specific close questioning she denied suicidal ideation as I met with her at some length evening of October 25. Reportedly there is going to be a court hearing on 10/26 regarding guardianship and visited her around 6 p.m. Review of Systems: No CV, , pulmonary, eye, ENT system symptoms on review. Mental Status Exam: The patient is oriented to herself and situation. Patient is quite verbal, animated as I met with her in the evening at some length. She talked about how much she liked the tie I was wearing and stated she could stitch it in silk. She talked about how she would stitch all the school dresses for her children and quite animated and appropriate in this discussion. Speech has some latency, low in volume, coherent. Abstraction fair. Computation impaired. Language function intact. Attention span short. Mood and affect somewhat withdrawn. Laboratory Data: Reviewed. Impression: Bipolar disorder mixed with psychotic features. Anxiety disorder unspecified. Impulse control disorder unspecified. Mild cognitive impairment. Plan: Continue current psychotropics. Currently she is on Risperdal 0.75 mg h.s. Given the fact that she gets somewhat agitated at different times of the day we will change it to 0.25 mg 3 times a day. Maintain rest of the psychotropics unchanged. Assessment: Vital Signs/I&O: Vital Signs Date Time Temp Pulse Resp B/P (MAP) Pulse Ox O2 Delivery O2 Flow Rate FiO2 10/27/20 08:07 104 149/76 10/27/20 05:49 97.2 20 95 Room Air I & O 10/26/20 10/26/20 10/27/20 15:00 23:00 07:00 Intake Total 600 ml 480 ml Balance 600 ml 480 ml Current Medications: Meds: Current Medications Medications (Trade) Dose Ordered Sig/Chidi Route PRN Reason Start Time Stop Time Status Last Admin Dose Admin Aspirin (Aspirin Enteric Coated) 81 mg DAILY PO 10/10/20 09:00 10/27/20 08:07 Atorvastatin Calcium (Lipitor) 10 mg QHS PO 10/09/20 21:00 10/26/20 21:06 Calcium Polycarbophil (Fibercon) 1,250 mg BID PO 10/09/20 21:00 10/27/20 08:08 Vitamin D (Vitamin D3) 50,000 unit WEEKLY PO 10/16/20 09:00 10/23/20 08:32 Vitamin D (Vitamin D3) 2,000 unit DAILY PO 10/10/20 09:00 10/17/20 14:27 DC 10/17/20 08:17 Denosumab (Prolia) 60 mg 1X SQ 10/09/20 15:30 10/17/20 17:10 DC Diltiazem HCl (Cardizem) 30 mg BID PO 10/09/20 21:00 10/27/20 08:07 Levothyroxine Sodium (Synthroid) 25 mcg DAILY06 PO 10/10/20 07:30 10/27/20 05:29 Pramipexole Dihydrochloride (miraPEX) 1 mg [id number] PO 10/09/20 21:00 10/26/20 21:07 Tizanidine HCl (Zanaflex) 4 mg PRN Q8HRS PRN PO MUSCLE SPASMS 10/09/20 15:30 10/21/20 23:58 Multivitamins/ Calcium (Thera-M Plus) 1 tab DAILY PO 10/10/20 09:00 10/27/20 08:07 Pantoprazole Sodium (Protonix) 40 mg DAILY PO 10/10/20 09:00 10/27/20 08:07 Sennosides (Senna) 25.8 mg HS PO 10/09/20 21:00 10/26/20 21:08 Acetaminophen (Tylenol) 650 mg PRN Q6HRS PRN PO MILD PAIN / TEMP > 100.3'F 10/09/20 17:30 10/16/20 08:51 Multi-Ingredient Ointment (Analgesic [place]) 1 ashanti PRN QID PRN TP MUSCLE PAIN 10/09/20 17:30 Al Hydroxide/Mg Hydroxide (Mylanta Plus Xs) 15 ml PRN AFTMEALHC PRN PO DYSPEPSIA 10/09/20 17:30 Magnesium Hydroxide (Milk Of Magnesia) 2,400 mg PRN QHS PRN PO CONSTIPATION 10/09/20 17:30 Olanzapine (ZyPREXA ZYDIS) 2.5 mg PRN Q2HRS PRN PO PSYCHOSIS 10/09/20 17:30 10/26/20 10:55 Doxycycline Hyclate (Vibra-Tab) 100 mg BID PO 10/10/20 21:00 10/19/20 22:00 DC 10/19/20 20:35 Divalproex Sodium (Depakote Er) 500 mg QHS PO 10/11/20 21:00 10/26/20 21:07 Lactobacillus Rhamnosus (Culturelle) 1 cap BID PO 10/14/20 21:00 10/27/20 08:08 Bupropion HCl (Wellbutrin Xl) 150 mg DAILY PO 10/18/20 09:00 10/19/20 17:07 DC 10/19/20 08:22 Bupropion HCl (Wellbutrin Xl) 300 mg DAILY PO 10/20/20 09:00 10/27/20 08:07 Trazodone HCl (Desyrel) 50 mg PRN QHS PRN PO INSOMNIA, MAY REPEAT X1 10/22/20 06:00 10/22/20 22:12 Risperidone (RisperDAL) 0.5 mg QHS PO 10/22/20 18:00 10/24/20 16:15 DC 10/23/20 20:10 Mirtazapine (Remeron) 7.5 mg QHS PO 10/23/20 21:00 10/26/20 21:06 Risperidone (RisperDAL) 0.75 mg QHS PO 10/24/20 21:00 10/25/20 11:50 DC 10/24/20 19:34 Risperidone (RisperDAL) 0.25 mg 0900,1300,1700 PO 10/25/20 13:00 10/26/20 18:31 DC 10/26/20 17:16 Risperidone (RisperDAL) 0.25 mg 0900,1300 PO 10/27/20 09:00 10/27/20 08:08 Risperidone (RisperDAL) 0.5 mg DAILYWSUP PO 10/27/20 17:00 Current Medications Medications (Trade) Dose Ordered Sig/Chidi Route PRN Reason Start Time Stop Time Status Last Admin Dose Admin Risperidone (RisperDAL) 0.25 mg 0900,1300 PO 10/27/20 09:00 10/27/20 08:08 I have reviewed the current psychotropics carefully including drug interactions. Risk benefit ratio favors no change other than as noted in my dictated progress note. Diagnosis: Problems: (1) Impulse control disorder, unspecified (2) Mild cognitive impairment (3) Anxiety disorder, unspecified (4) Bipolar disorder, current episode mixed, severe, with psychotic features SAEID NUNEZ MD Oct 27, 2020 08:40
[2020-10-27] MEDS: PRAMIPEXOLE 0.5 MG TABLET. PO SCH ×3 (09:00→20:25)
[2020-10-27 16:10] VITALS: BP 132/89
[2020-10-27] MEDS: risperiDONE 0.5 MG TABLET. PO SCH (18:02)
--- NOTE | 2020-10-27 18:09 | NUR ---
NSG NOTE; Leatha has been calm, cooperative and pleasant today. she has interacted with peers and staff appropriately
[2020-10-27] MEDS: ATORVASTATIN CALCIUM 10 MG TABLET. PO SCH (20:25)
[2020-10-27] MEDS: DIVALPROEX ER 500 MG TAB.ER.24H PO SCH (20:25)
[2020-10-27] MEDS: MIRTAZAPINE 7.5 MG TABLET. PO SCH (20:25)
[2020-10-27] MEDS: SENNOSIDES 8.6 MG TABLET PO SCH (20:26)
--- NOTE | 2020-10-27 21:58 | PDOC ---
Exam Note: Tex Note: Please also refer to the separate dictated note~for this date of service dictated separately.~Patient seen individually. Discussed the patient with Nursing staff reviewed the chart.~Reviewed interim history and current functioning. Reviewed vital signs,~Labs/ Radiology~and current medications noted below. Continue current treatment with the changes noted in the dictated addendum note Assessment: Vital Signs/I&O: Vital Signs Date Time Temp Pulse Resp B/P (MAP) Pulse Ox O2 Delivery O2 Flow Rate FiO2 10/27/20 20:26 101 132/89 10/27/20 16:10 98.8 18 97 10/27/20 05:49 Room Air I & O 10/26/20 10/26/20 10/27/20 14:59 22:59 06:59 Intake Total 600 ml 480 ml Balance 600 ml 480 ml Current Medications: Meds: Current Medications Medications (Trade) Dose Ordered Sig/Chidi Route PRN Reason Start Time Stop Time Status Last Admin Dose Admin Aspirin (Aspirin Enteric Coated) 81 mg DAILY PO 10/10/20 09:00 10/27/20 08:07 Atorvastatin Calcium (Lipitor) 10 mg QHS PO 10/09/20 21:00 10/27/20 20:25 Calcium Polycarbophil (Fibercon) 1,250 mg BID PO 10/09/20 21:00 10/27/20 20:26 Vitamin D (Vitamin D3) 50,000 unit WEEKLY PO 10/16/20 09:00 10/23/20 08:32 Vitamin D (Vitamin D3) 2,000 unit DAILY PO 10/10/20 09:00 10/17/20 14:27 DC 10/17/20 08:17 Denosumab (Prolia) 60 mg 1X SQ 10/09/20 15:30 10/17/20 17:10 DC Diltiazem HCl (Cardizem) 30 mg BID PO 10/09/20 21:00 10/27/20 20:26 Levothyroxine Sodium (Synthroid) 25 mcg DAILY06 PO 10/10/20 07:30 10/27/20 05:29 Pramipexole Dihydrochloride (miraPEX) 1 mg [id number] PO 10/09/20 21:00 10/27/20 20:25 Tizanidine HCl (Zanaflex) 4 mg PRN Q8HRS PRN PO MUSCLE SPASMS 10/09/20 15:30 10/21/20 23:58 Multivitamins/ Calcium (Thera-M Plus) 1 tab DAILY PO 10/10/20 09:00 10/27/20 08:07 Pantoprazole Sodium (Protonix) 40 mg DAILY PO 10/10/20 09:00 10/27/20 08:07 Sennosides (Senna) 25.8 mg HS PO 10/09/20 21:00 10/27/20 20:26 Acetaminophen (Tylenol) 650 mg PRN Q6HRS PRN PO MILD PAIN / TEMP > 100.3'F 10/09/20 17:30 10/16/20 08:51 Multi-Ingredient Ointment (Analgesic [place]) 1 ashanti PRN QID PRN TP MUSCLE PAIN 10/09/20 17:30 Al Hydroxide/Mg Hydroxide (Mylanta Plus Xs) 15 ml PRN AFTMEALHC PRN PO DYSPEPSIA 10/09/20 17:30 Magnesium Hydroxide (Milk Of Magnesia) 2,400 mg PRN QHS PRN PO CONSTIPATION 10/09/20 17:30 Olanzapine (ZyPREXA ZYDIS) 2.5 mg PRN Q2HRS PRN PO PSYCHOSIS 10/09/20 17:30 10/27/20 20:26 Doxycycline Hyclate (Vibra-Tab) 100 mg BID PO 10/10/20 21:00 10/19/20 22:00 DC 10/19/20 20:35 Divalproex Sodium (Depakote Er) 500 mg QHS PO 10/11/20 21:00 10/27/20 20:25 Lactobacillus Rhamnosus (Culturelle) 1 cap BID PO 10/14/20 21:00 10/27/20 20:26 Bupropion HCl (Wellbutrin Xl) 150 mg DAILY PO 10/18/20 09:00 10/19/20 17:07 DC 10/19/20 08:22 Bupropion HCl (Wellbutrin Xl) 300 mg DAILY PO 10/20/20 09:00 10/27/20 08:07 Trazodone HCl (Desyrel) 50 mg PRN QHS PRN PO INSOMNIA, MAY REPEAT X1 10/22/20 06:00 10/22/20 22:12 Risperidone (RisperDAL) 0.5 mg QHS PO 10/22/20 18:00 10/24/20 16:15 DC 10/23/20 20:10 Mirtazapine (Remeron) 7.5 mg QHS PO 10/23/20 21:00 10/27/20 20:25 Risperidone (RisperDAL) 0.75 mg QHS PO 10/24/20 21:00 10/25/20 11:50 DC 10/24/20 19:34 Risperidone (RisperDAL) 0.25 mg 0900,1300,1700 PO 10/25/20 13:00 10/26/20 18:31 DC 10/26/20 17:16 Risperidone (RisperDAL) 0.25 mg 0900,1300 PO 10/27/20 09:00 10/27/20 13:28 Risperidone (RisperDAL) 0.5 mg DAILYWSUP PO 10/27/20 17:00 10/27/20 18:02 Current Medications Medications (Trade) Dose Ordered Sig/Chidi Route PRN Reason Start Time Stop Time Status Last Admin Dose Admin Risperidone (RisperDAL) 0.25 mg 0900,1300 PO 10/27/20 09:00 10/27/20 13:28 Risperidone (RisperDAL) 0.5 mg DAILYWSUP PO 10/27/20 17:00 10/27/20 18:02 I have reviewed the current psychotropics carefully including drug interactions. Risk benefit ratio favors no change other than as noted in my dictated progress note. Diagnosis: Problems: (1) Impulse control disorder, unspecified (2) Mild cognitive impairment (3) Anxiety disorder, unspecified (4) Bipolar disorder, current episode mixed, severe, with psychotic features SAEID NUNEZ MD Oct 27, 2020 21:58
--- NOTE | 2020-10-27 23:24 | NUR ---
Pt located in the dayroom this evening. Pt labile; calm one minute and then tearful/ anxious the next. Compliant with whole medications. PRN Zyprexa administered with HS medications. Pt currently sleeping in bed.
[2020-10-28 05:31] VITALS: BP 115/74
[2020-10-28] MEDS: LEVOTHYROXINE 25 MCG TABLET. PO SCH (05:55)
--- NOTE | 2020-10-28 06:05 | NUR ---
Pt awake this morning and very upset. Pt crying/ sobbing stating that she is sorry for what she did to her mother. Redirection unsuccessful. PRN Zyprexa given.
--- NOTE | 2020-10-28 08:48 | PDOC ---
Exam Note: Tex Note: This note is a late entry for 10/26/2020 covers elements not covered in my initial note. Subjective: The patient was seen individually in the evening of 10/26/2020 with Jaylin FAGAN, discussed and reviewed the chart. She slept 6-3/4 hours previous night. Appetite 75%. The patient did well in the morning. Around lunch time she was more paranoid, hyper-restoration, grandiose, making bizarre statements that nursing staff are the agents of the devil and was telling other demented patients that the nursing staff was going to kill them. She did receive Zyprexa Zydis 2.5 mg p.r.n. and then did better after that. She appears sad at times, compliant with medications. She seems quite confused evening of 10/26. Review of Systems: No CV, , pulmonary, eye, ENT system symptoms on review. Mental Status Exam: The patient is oriented to herself and situation. Speech has some latency, coherent, at times a little pressured, hyper-restoration even as I met with her in the evening. Abstraction fair. Computation impaired. Language function intact. Attention span short. Mood and affect somewhat anxious, labile. Laboratory Data: Reviewed. Impression: Bipolar disorder mixed with psychotic features. Anxiety disorder unspecified. Impulse control disorder unspecified. Mild cognitive impairment. Plan: Currently she is on Risperdal 0.25 mg t.i.d. We will increase to 0.25 mg a.m. and 1 p.m. and 0.5 mg at 5 p.m. instead of 0.25 mg. Maintain rest of the psychotropics unchanged. Assessment: Vital Signs/I&O: Vital Signs Date Time Temp Pulse Resp B/P (MAP) Pulse Ox O2 Delivery O2 Flow Rate FiO2 10/28/20 05:31 97.8 85 18 115/74 (88) 95 Room Air I & O 10/27/20 10/27/20 10/28/20 15:00 23:00 07:00 Intake Total 720 ml 480 ml Balance 720 ml 480 ml Current Medications: Meds: Current Medications Medications (Trade) Dose Ordered Sig/Chidi Route PRN Reason Start Time Stop Time Status Last Admin Dose Admin Aspirin (Aspirin Enteric Coated) 81 mg DAILY PO 10/10/20 09:00 10/27/20 08:07 Atorvastatin Calcium (Lipitor) 10 mg QHS PO 10/09/20 21:00 10/27/20 20:25 Calcium Polycarbophil (Fibercon) 1,250 mg BID PO 10/09/20 21:00 10/27/20 20:26 Vitamin D (Vitamin D3) 50,000 unit WEEKLY PO 10/16/20 09:00 10/23/20 08:32 Vitamin D (Vitamin D3) 2,000 unit DAILY PO 10/10/20 09:00 10/17/20 14:27 DC 10/17/20 08:17 Denosumab (Prolia) 60 mg 1X SQ 10/09/20 15:30 10/17/20 17:10 DC Diltiazem HCl (Cardizem) 30 mg BID PO 10/09/20 21:00 10/27/20 20:26 Levothyroxine Sodium (Synthroid) 25 mcg DAILY06 PO 10/10/20 07:30 10/28/20 05:55 Pramipexole Dihydrochloride (miraPEX) 1 mg [id number] PO 10/09/20 21:00 10/27/20 20:25 Tizanidine HCl (Zanaflex) 4 mg PRN Q8HRS PRN PO MUSCLE SPASMS 10/09/20 15:30 10/21/20 23:58 Multivitamins/ Calcium (Thera-M Plus) 1 tab DAILY PO 10/10/20 09:00 10/27/20 08:07 Pantoprazole Sodium (Protonix) 40 mg DAILY PO 10/10/20 09:00 10/27/20 08:07 Sennosides (Senna) 25.8 mg HS PO 10/09/20 21:00 10/27/20 20:26 Acetaminophen (Tylenol) 650 mg PRN Q6HRS PRN PO MILD PAIN / TEMP > 100.3'F 10/09/20 17:30 10/16/20 08:51 Multi-Ingredient Ointment (Analgesic [place]) 1 ashanti PRN QID PRN TP MUSCLE PAIN 10/09/20 17:30 Al Hydroxide/Mg Hydroxide (Mylanta Plus Xs) 15 ml PRN AFTMEALHC PRN PO DYSPEPSIA 10/09/20 17:30 Magnesium Hydroxide (Milk Of Magnesia) 2,400 mg PRN QHS PRN PO CONSTIPATION 10/09/20 17:30 Olanzapine (ZyPREXA ZYDIS) 2.5 mg PRN Q2HRS PRN PO PSYCHOSIS 10/09/20 17:30 10/28/20 05:59 Doxycycline Hyclate (Vibra-Tab) 100 mg BID PO 10/10/20 21:00 10/19/20 22:00 DC 10/19/20 20:35 Divalproex Sodium (Depakote Er) 500 mg QHS PO 10/11/20 21:00 10/27/20 20:25 Lactobacillus Rhamnosus (Culturelle) 1 cap BID PO 10/14/20 21:00 10/27/20 20:26 Bupropion HCl (Wellbutrin Xl) 150 mg DAILY PO 10/18/20 09:00 10/19/20 17:07 DC 10/19/20 08:22 Bupropion HCl (Wellbutrin Xl) 300 mg DAILY PO 10/20/20 09:00 10/27/20 08:07 Trazodone HCl (Desyrel) 50 mg PRN QHS PRN PO INSOMNIA, MAY REPEAT X1 10/22/20 06:00 10/22/20 22:12 Risperidone (RisperDAL) 0.5 mg QHS PO 10/22/20 18:00 10/24/20 16:15 DC 10/23/20 20:10 Mirtazapine (Remeron) 7.5 mg QHS PO 10/23/20 21:00 10/27/20 20:25 Risperidone (RisperDAL) 0.75 mg QHS PO 10/24/20 21:00 10/25/20 11:50 DC 10/24/20 19:34 Risperidone (RisperDAL) 0.25 mg 0900,1300,1700 PO 10/25/20 13:00 10/26/20 18:31 DC 10/26/20 17:16 Risperidone (RisperDAL) 0.25 mg 0900,1300 PO 10/27/20 09:00 10/27/20 13:28 Risperidone (RisperDAL) 0.5 mg DAILYWSUP PO 10/27/20 17:00 10/27/20 18:02 Current Medications Medications (Trade) Dose Ordered Sig/Chidi Route PRN Reason Start Time Stop Time Status Last Admin Dose Admin Risperidone (RisperDAL) 0.25 mg 0900,1300 PO 10/27/20 09:00 10/27/20 13:28 Risperidone (RisperDAL) 0.5 mg DAILYWSUP PO 10/27/20 17:00 10/27/20 18:02 I have reviewed the current psychotropics carefully including drug interactions. Risk benefit ratio favors no change other than as noted in my dictated progress note. Diagnosis: Problems: (1) Impulse control disorder, unspecified (2) Mild cognitive impairment (3) Anxiety disorder, unspecified (4) Bipolar disorder, current episode mixed, severe, with psychotic features SAEID NUNEZ MD Oct 28, 2020 08:48
[2020-10-28] MEDS: dilTIAZem HCL 30 MG TABLET PO SCH ×2 (08:55→20:19)
[2020-10-28] MEDS: MULTIVITAMIN with MINERAL TABLET. PO SCH (08:55)
[2020-10-28] MEDS: CALCIUM POLYCARBOPHIL 625 MG TABLET PO SCH ×2 (08:55→20:20)
[2020-10-28] MEDS: PRAMIPEXOLE 0.5 MG TABLET. PO SCH ×3 (08:55→20:19)
[2020-10-28] MEDS: buPROPion XL 300 MG TAB.ER.24H. PO SCH (08:55)
[2020-10-28] MEDS: ASPIRIN ENTERIC COATED 81 MG TABLET.DR. PO SCH (08:55)
[2020-10-28] MEDS: risperiDONE 0.25 MG TABLET. PO SCH ×2 (08:56→12:23)
[2020-10-28] MEDS: PANTOPRAZOLE 40 MG TABLET. PO SCH (08:56)
[2020-10-28] MEDS: LACTOBACILLUS RHAMNOSUS GG 1 CAPSULE. PO SCH ×2 (08:56→20:19)
[2020-10-28 11:00] LABS: ALBUMIN 3.2 g/dL (3.4-5.0); CALCIUM 8.6 mg/dL (8.5-10.1); GFR 53.9; POTASSIUM 3.8 mmol/L (3.5-5.1); TOTAL BILIRUBIN 0.5 mg/dL (0.2-1.0); TOTAL PROTEIN 6.4 g/dL (6.4-8.2)
--- NOTE | 2020-10-28 15:42 | NUR ---
Nurses note Patient has had an uneventful shift, withdrawn to room majority of shift. Did come out to day room in the afternoon. Patient is pleasant and med compliant.
[2020-10-28 16:00] VITALS: BP 127/84
[2020-10-28] MEDS: risperiDONE 0.5 MG TABLET. PO SCH (17:34)
[2020-10-28] MEDS: MIRTAZAPINE 7.5 MG TABLET. PO SCH (20:19)
[2020-10-28] MEDS: DIVALPROEX ER 500 MG TAB.ER.24H PO SCH (20:19)
[2020-10-28] MEDS: SENNOSIDES 8.6 MG TABLET PO SCH (20:20)
[2020-10-28] MEDS: ATORVASTATIN CALCIUM 10 MG TABLET. PO SCH (20:20)
--- NOTE | 2020-10-28 21:57 | PDOC ---
Exam Note: Tex Note: Please also refer to the separate dictated note~for this date of service dictated separately.~Patient seen individually. Discussed the patient with Nursing staff reviewed the chart.~Reviewed interim history and current functioning. Reviewed vital signs,~Labs/ Radiology~and current medications noted below. Continue current treatment with the changes noted in the dictated addendum note Assessment: Vital Signs/I&O: Vital Signs Date Time Temp Pulse Resp B/P (MAP) Pulse Ox O2 Delivery O2 Flow Rate FiO2 10/28/20 20:19 97 127/84 10/28/20 16:00 98.2 18 98 Room Air I & O 10/27/20 10/27/20 10/28/20 15:00 23:00 07:00 Intake Total 720 ml 480 ml Balance 720 ml 480 ml Labs: Laboratory Tests Test 10/28/20 10:30 Sodium Level 143 mmol/L (136-145) Potassium Level 3.8 mmol/L (3.5-5.1) Chloride Level 109 mmol/L (98-107) H Carbon Dioxide Level 25 mmol/L (21-32) Anion Gap 9 (6-14) Blood Urea Nitrogen 13 mg/dL (7-20) Creatinine 1.0 mg/dL (0.6-1.0) Estimated GFR (Cockcroft-Gault) 53.9 BUN/Creatinine Ratio 13 (6-20) Glucose Level 118 mg/dL (70-99) H Calcium Level 8.6 mg/dL (8.5-10.1) Total Bilirubin 0.5 mg/dL (0.2-1.0) Aspartate Amino Transferase (AST) 23 U/L (15-37) Alanine Aminotransferase (ALT) 21 U/L (14-59) Alkaline Phosphatase 78 U/L (46-116) Total Protein 6.4 g/dL (6.4-8.2) Albumin 3.2 g/dL (3.4-5.0) L Albumin/Globulin Ratio 1.0 (1.0-1.7) Current Medications: Meds: Laboratory Tests Test 10/28/20 10:30 Sodium Level 143 mmol/L Potassium Level 3.8 mmol/L Chloride Level 109 mmol/L Carbon Dioxide Level 25 mmol/L Anion Gap 9 Blood Urea Nitrogen 13 mg/dL Creatinine 1.0 mg/dL Estimated GFR (Cockcroft-Gault) 53.9 BUN/Creatinine Ratio 13 Glucose Level 118 mg/dL Calcium Level 8.6 mg/dL Total Bilirubin 0.5 mg/dL Aspartate Amino Transf (AST/SGOT) 23 U/L Alanine Aminotransferase (ALT/SGPT) 21 U/L Alkaline Phosphatase 78 U/L Total Protein 6.4 g/dL Albumin 3.2 g/dL Albumin/Globulin Ratio 1.0 Current Medications Medications (Trade) Dose Ordered Sig/Chidi Route PRN Reason Start Time Stop Time Status Last Admin Dose Admin Aspirin (Aspirin Enteric Coated) 81 mg DAILY PO 10/10/20 09:00 10/28/20 08:55 Atorvastatin Calcium (Lipitor) 10 mg QHS PO 10/09/20 21:00 10/28/20 20:20 Calcium Polycarbophil (Fibercon) 1,250 mg BID PO 10/09/20 21:00 10/28/20 20:20 Vitamin D (Vitamin D3) 50,000 unit WEEKLY PO 10/16/20 09:00 10/23/20 08:32 Vitamin D (Vitamin D3) 2,000 unit DAILY PO 10/10/20 09:00 10/17/20 14:27 DC 10/17/20 08:17 Denosumab (Prolia) 60 mg 1X SQ 10/09/20 15:30 10/17/20 17:10 DC Diltiazem HCl (Cardizem) 30 mg BID PO 10/09/20 21:00 10/28/20 20:19 Levothyroxine Sodium (Synthroid) 25 mcg DAILY06 PO 10/10/20 07:30 10/28/20 05:55 Pramipexole Dihydrochloride (miraPEX) 1 mg [id number] PO 10/09/20 21:00 10/28/20 20:19 Tizanidine HCl (Zanaflex) 4 mg PRN Q8HRS PRN PO MUSCLE SPASMS 10/09/20 15:30 10/21/20 23:58 Multivitamins/ Calcium (Thera-M Plus) 1 tab DAILY PO 10/10/20 09:00 10/28/20 08:55 Pantoprazole Sodium (Protonix) 40 mg DAILY PO 10/10/20 09:00 10/28/20 08:56 Sennosides (Senna) 25.8 mg HS PO 10/09/20 21:00 10/28/20 20:20 Acetaminophen (Tylenol) 650 mg PRN Q6HRS PRN PO MILD PAIN / TEMP > 100.3'F 10/09/20 17:30 10/16/20 08:51 Multi-Ingredient Ointment (Analgesic [place]) 1 ashanti PRN QID PRN TP MUSCLE PAIN 10/09/20 17:30 Al Hydroxide/Mg Hydroxide (Mylanta Plus Xs) 15 ml PRN AFTMEALHC PRN PO DYSPEPSIA 10/09/20 17:30 Magnesium Hydroxide (Milk Of Magnesia) 2,400 mg PRN QHS PRN PO CONSTIPATION 10/09/20 17:30 Olanzapine (ZyPREXA ZYDIS) 2.5 mg PRN Q2HRS PRN PO PSYCHOSIS 10/09/20 17:30 10/28/20 21:13 Doxycycline Hyclate (Vibra-Tab) 100 mg BID PO 10/10/20 21:00 10/19/20 22:00 DC 10/19/20 20:35 Divalproex Sodium (Depakote Er) 500 mg QHS PO 10/11/20 21:00 10/28/20 20:19 Lactobacillus Rhamnosus (Culturelle) 1 cap BID PO 10/14/20 21:00 10/28/20 20:19 Bupropion HCl (Wellbutrin Xl) 150 mg DAILY PO 10/18/20 09:00 10/19/20 17:07 DC 10/19/20 08:22 Bupropion HCl (Wellbutrin Xl) 300 mg DAILY PO 10/20/20 09:00 10/28/20 08:55 Trazodone HCl (Desyrel) 50 mg PRN QHS PRN PO INSOMNIA, MAY REPEAT X1 10/22/20 06:00 10/22/20 22:12 Risperidone (RisperDAL) 0.5 mg QHS PO 10/22/20 18:00 10/24/20 16:15 DC 10/23/20 20:10 Mirtazapine (Remeron) 7.5 mg QHS PO 10/23/20 21:00 10/28/20 20:19 Risperidone (RisperDAL) 0.75 mg QHS PO 10/24/20 21:00 10/25/20 11:50 DC 10/24/20 19:34 Risperidone (RisperDAL) 0.25 mg 0900,1300,1700 PO 10/25/20 13:00 10/26/20 18:31 DC 10/26/20 17:16 Risperidone (RisperDAL) 0.25 mg 0900,1300 PO 10/27/20 09:00 10/28/20 12:23 Risperidone (RisperDAL) 0.5 mg DAILYWSUP PO 10/27/20 17:00 10/28/20 17:34 I have reviewed the current psychotropics carefully including drug interactions. Risk benefit ratio favors no change other than as noted in my dictated progress note. Diagnosis: Problems: (1) Impulse control disorder, unspecified (2) Mild cognitive impairment (3) Anxiety disorder, unspecified (4) Bipolar disorder, current episode mixed, severe, with psychotic features SAEID NUNEZ MD Oct 28, 2020 21:57
[2020-10-28] MEDS: traZODone 50 MG TABLET. PO PRN (23:17)
--- NOTE | 2020-10-29 03:00 | NUR ---
Pt started out the shift calm and cooperative. Compliant with whole medications. Once placed in bed, pt was restless. PRN Zyprexa administered. Pt woke up to use the bathroom and became combative when taken back to bed. Pt yelling and attempting to hit and kick staff. Pt taken to the west hallway (with one door open) where she proceeded to curse, rattle door handles, bang on doors/windows, and began speaking in "tongue." PRN Zyprexa and Trazodone administered sublingually with resistance. Staff 1:1 with pt in the hallway. Pt awake all night and eventually taken to the dayroom to sit with staff. Pt restless, door checking, highly disorganized and hallucinating. Pt witnessed attempting to bean picker items off of the floor and moving her hands as if she was sewing. Pt currently awake with staff in dayroom. Will continue to monitor.
[2020-10-29 05:37] VITALS: BP 119/82
[2020-10-29] MEDS: LEVOTHYROXINE 25 MCG TABLET. PO SCH (06:02)
[2020-10-29 07:19] LABS: BASO % 1 % (0-3); EOS # 0.2 x10^3/uL (0.0-0.7); EOS % 2 % (0-3); HEMATOCRIT 42.6 % (36.0-47.0); HEMOGLOBIN 14.2 g/dL (12.0-15.5); LYMPH # 1.6 x10^3/uL (1.0-4.8); LYMPH % 25 % (24-48); MEAN CORPUSCULAR HEMOGLOBIN 31 pg (25-35); MEAN CORPUSCULAR HGB CONC 33 g/dL (31-37); MEAN CORPUSCULAR VOLUME 92 fL (79-100); MONO # 0.9 x10^3/uL (0.0-1.1); MONO % 15 % (0-9); NEUT # 3.6 x10^3uL (1.8-7.7); NEUT % 57 % (31-73); PLATELET COUNT 202 x10^3/uL (140-400); RED BLOOD COUNT 4.62 x10^6/uL (3.50-5.40); RED CELL DISTRIBUTION WIDTH 14.1 % (11.5-14.5); WHITE BLOOD COUNT 6.3 x10^3/uL (4.0-11.0)
[2020-10-29 07:39] LABS: ALBUMIN 3.6 g/dL (3.4-5.0); GFR 53.9; POTASSIUM 3.7 mmol/L (3.5-5.1); TOTAL BILIRUBIN 0.5 mg/dL (0.2-1.0); TOTAL PROTEIN 7.3 g/dL (6.4-8.2)
[2020-10-29] MEDS: ASPIRIN ENTERIC COATED 81 MG TABLET.DR. PO SCH (08:07)
[2020-10-29] MEDS: PANTOPRAZOLE 40 MG TABLET. PO SCH (08:08)
[2020-10-29] MEDS: risperiDONE 0.25 MG TABLET. PO SCH ×2 (08:08→13:35)
[2020-10-29] MEDS: PRAMIPEXOLE 0.5 MG TABLET. PO SCH ×3 (08:08→20:13)
[2020-10-29] MEDS: MULTIVITAMIN with MINERAL TABLET. PO SCH (08:08)
[2020-10-29] MEDS: dilTIAZem HCL 30 MG TABLET PO SCH ×2 (08:08→20:14)
[2020-10-29] MEDS: CALCIUM POLYCARBOPHIL 625 MG TABLET PO SCH ×2 (08:08→20:13)
[2020-10-29] MEDS: LACTOBACILLUS RHAMNOSUS GG 1 CAPSULE. PO SCH ×2 (08:08→20:13)
[2020-10-29] MEDS: buPROPion XL 300 MG TAB.ER.24H. PO SCH (08:08)
--- NOTE | 2020-10-29 09:01 | PDOC ---
Exam Note: Tex Note: This note is a late entry for 10/27/2020 covers elements not covered in my initial note. Subjective: The patient was seen individually in the evening of 10/27/2020 with Jaylin FAGAN, discussed and reviewed the chart. She slept 6-1/2 hours previous night. The patient has had a good day on 10/27. Prior day she had been quite agitated, paranoid, more confused in the evening. On the 10/27 she has been pleasant, compliant with medications, more alert, verbally interactive as I met with her at some length in the dayroom. Review of Systems: No CV, , pulmonary, eye, ENT system symptoms on review. Mental Status Exam: The patient is oriented to herself and situation. During the individual visit the patient was able to talk about her family and , seems less paranoid. Speech has some latency, coherent. Abstraction fair. Computation impaired. Language function intact. Attention span short. Mood and affect somewhat anxious. Laboratory Data: Reviewed. Impression: Bipolar disorder mixed with psychotic features. Anxiety disorder unspecified. Impulse control disorder unspecified. Mild cognitive impairment. Plan: Maintain rest of the psychotropics unchanged. Assessment: Vital Signs/I&O: Vital Signs Date Time Temp Pulse Resp B/P (MAP) Pulse Ox O2 Delivery O2 Flow Rate FiO2 10/29/20 08:08 98 119/82 10/29/20 05:37 97.9 18 97 10/28/20 16:00 Room Air l I & O 10/28/20 10/28/20 10/29/20 14:59 22:59 06:59 Intake Total 480 ml 200 ml 120 ml Balance 480 ml 200 ml 120 ml Labs: Laboratory Tests Test 10/28/20 10:30 10/29/20 06:44 Sodium Level 143 mmol/L (136-145) 146 mmol/L (136-145) H Potassium Level 3.8 mmol/L (3.5-5.1) 3.7 mmol/L (3.5-5.1) Chloride Level 109 mmol/L (98-107) H 107 mmol/L (98-107) Carbon Dioxide Level 25 mmol/L (21-32) 29 mmol/L (21-32) Anion Gap 9 (6-14) 10 (6-14) Blood Urea Nitrogen 13 mg/dL (7-20) 12 mg/dL (7-20) Creatinine 1.0 mg/dL (0.6-1.0) 1.0 mg/dL (0.6-1.0) Estimated GFR (Cockcroft-Gault) 53.9 53.9 BUN/Creatinine Ratio 13 (6-20) 12 (6-20) Glucose Level 118 mg/dL (70-99) H 103 mg/dL (70-99) H Calcium Level 8.6 mg/dL (8.5-10.1) 9.0 mg/dL (8.5-10.1) Total Bilirubin 0.5 mg/dL (0.2-1.0) 0.5 mg/dL (0.2-1.0) Aspartate Amino Transferase (AST) 23 U/L (15-37) 22 U/L (15-37) Alanine Aminotransferase (ALT) 21 U/L (14-59) 28 U/L (14-59) Alkaline Phosphatase 78 U/L (46-116) 89 U/L (46-116) Total Protein 6.4 g/dL (6.4-8.2) 7.3 g/dL (6.4-8.2) Albumin 3.2 g/dL (3.4-5.0) L 3.6 g/dL (3.4-5.0) Albumin/Globulin Ratio 1.0 (1.0-1.7) 1.0 (1.0-1.7) White Blood Count 6.3 x10^3/uL (4.0-11.0) Red Blood Count 4.62 x10^6/uL (3.50-5.40) Hemoglobin 14.2 g/dL (12.0-15.5) Hematocrit 42.6 % (36.0-47.0) Mean Corpuscular Volume 92 fL (79-100) Mean Corpuscular Hemoglobin 31 pg (25-35) Mean Corpuscular Hemoglobin Concent 33 g/dL (31-37) Red Cell Distribution Width 14.1 % (11.5-14.5) Platelet Count 202 x10^3/uL (140-400) Neutrophils (%) (Auto) 57 % (31-73) Lymphocytes (%) (Auto) 25 % (24-48) Monocytes (%) (Auto) 15 % (0-9) H Eosinophils (%) (Auto) 2 % (0-3) Basophils (%) (Auto) 1 % (0-3) Neutrophils # (Auto) 3.6 x10^3uL (1.8-7.7) Lymphocytes # (Auto) 1.6 x10^3/uL (1.0-4.8) Monocytes # (Auto) 0.9 x10^3/uL (0.0-1.1) Eosinophils # (Auto) 0.2 x10^3/uL (0.0-0.7) Basophils # (Auto) 0.0 x10^3/uL (0.0-0.2) Current Medications: Meds: Laboratory Tests Test 10/28/20 10:30 10/29/20 06:44 Sodium Level 143 mmol/L 146 mmol/L Potassium Level 3.8 mmol/L 3.7 mmol/L Chloride Level 109 mmol/L 107 mmol/L Carbon Dioxide Level 25 mmol/L 29 mmol/L Anion Gap 9 10 Blood Urea Nitrogen 13 mg/dL 12 mg/dL Creatinine 1.0 mg/dL 1.0 mg/dL Estimated GFR (Cockcroft-Gault) 53.9 53.9 BUN/Creatinine Ratio 13 12 Glucose Level 118 mg/dL 103 mg/dL Calcium Level 8.6 mg/dL 9.0 mg/dL Total Bilirubin 0.5 mg/dL 0.5 mg/dL Aspartate Amino Transf (AST/SGOT) 23 U/L 22 U/L Alanine Aminotransferase (ALT/SGPT) 21 U/L 28 U/L Alkaline Phosphatase 78 U/L 89 U/L Total Protein 6.4 g/dL 7.3 g/dL Albumin 3.2 g/dL 3.6 g/dL Albumin/Globulin Ratio 1.0 1.0 White Blood Count 6.3 x10^3/uL Red Blood Count 4.62 x10^6/uL Hemoglobin 14.2 g/dL Hematocrit 42.6 % Mean Corpuscular Volume 92 fL Mean Corpuscular Hemoglobin 31 pg Mean Corpuscular Hemoglobin Concent 33 g/dL Red Cell Distribution Width 14.1 % Platelet Count 202 x10^3/uL Neutrophils (%) (Auto) 57 % Lymphocytes (%) (Auto) 25 % Monocytes (%) (Auto) 15 % Eosinophils (%) (Auto) 2 % Basophils (%) (Auto) 1 % Neutrophils # (Auto) 3.6 x10^3uL Lymphocytes # (Auto) 1.6 x10^3/uL Monocytes # (Auto) 0.9 x10^3/uL Eosinophils # (Auto) 0.2 x10^3/uL Basophils # (Auto) 0.0 x10^3/uL Current Medications Medications (Trade) Dose Ordered Sig/Chidi Route PRN Reason Start Time Stop Time Status Last Admin Dose Admin Aspirin (Aspirin Enteric Coated) 81 mg DAILY PO 10/10/20 09:00 10/29/20 08:07 Atorvastatin Calcium (Lipitor) 10 mg QHS PO 10/09/20 21:00 10/28/20 20:20 Calcium Polycarbophil (Fibercon) 1,250 mg BID PO 10/09/20 21:00 10/29/20 08:08 Vitamin D (Vitamin D3) 50,000 unit WEEKLY PO 10/16/20 09:00 10/23/20 08:32 Vitamin D (Vitamin D3) 2,000 unit DAILY PO 10/10/20 09:00 10/17/20 14:27 DC 10/17/20 08:17 Denosumab (Prolia) 60 mg 1X SQ 10/09/20 15:30 10/17/20 17:10 DC Diltiazem HCl (Cardizem) 30 mg BID PO 10/09/20 21:00 10/29/20 08:08 Levothyroxine Sodium (Synthroid) 25 mcg DAILY06 PO 10/10/20 07:30 10/29/20 06:02 Pramipexole Dihydrochloride (miraPEX) 1 mg [id number] PO 10/09/20 21:00 10/29/20 08:08 Tizanidine HCl (Zanaflex) 4 mg PRN Q8HRS PRN PO MUSCLE SPASMS 10/09/20 15:30 10/21/20 23:58 Multivitamins/ Calcium (Thera-M Plus) 1 tab DAILY PO 10/10/20 09:00 10/29/20 08:08 Pantoprazole Sodium (Protonix) 40 mg DAILY PO 10/10/20 09:00 10/29/20 08:08 Sennosides (Senna) 25.8 mg HS PO 10/09/20 21:00 10/28/20 20:20 Acetaminophen (Tylenol) 650 mg PRN Q6HRS PRN PO MILD PAIN / TEMP > 100.3'F 10/09/20 17:30 10/16/20 08:51 Multi-Ingredient Ointment (Analgesic [place]) 1 ashanti PRN QID PRN TP MUSCLE PAIN 10/09/20 17:30 Al Hydroxide/Mg Hydroxide (Mylanta Plus Xs) 15 ml PRN AFTMEALHC PRN PO DYSPEPSIA 10/09/20 17:30 Magnesium Hydroxide (Milk Of Magnesia) 2,400 mg PRN QHS PRN PO CONSTIPATION 10/09/20 17:30 Olanzapine (ZyPREXA ZYDIS) 2.5 mg PRN Q2HRS PRN PO PSYCHOSIS 10/09/20 17:30 10/28/20 23:17 Doxycycline Hyclate (Vibra-Tab) 100 mg BID PO 10/10/20 21:00 10/19/20 22:00 DC 10/19/20 20:35 Divalproex Sodium (Depakote Er) 500 mg QHS PO 10/11/20 21:00 10/28/20 20:19 Lactobacillus Rhamnosus (Culturelle) 1 cap BID PO 10/14/20 21:00 10/29/20 08:08 Bupropion HCl (Wellbutrin Xl) 150 mg DAILY PO 10/18/20 09:00 10/19/20 17:07 DC 10/19/20 08:22 Bupropion HCl (Wellbutrin Xl) 300 mg DAILY PO 10/20/20 09:00 10/29/20 08:08 Trazodone HCl (Desyrel) 50 mg PRN QHS PRN PO INSOMNIA, MAY REPEAT X1 10/22/20 06:00 10/28/20 23:17 Risperidone (RisperDAL) 0.5 mg QHS PO 10/22/20 18:00 10/24/20 16:15 DC 10/23/20 20:10 Mirtazapine (Remeron) 7.5 mg QHS PO 10/23/20 21:00 10/28/20 20:19 Risperidone (RisperDAL) 0.75 mg QHS PO 10/24/20 21:00 10/25/20 11:50 DC 7/14/21 19:34 Risperidone (RisperDAL) 0.25 mg 0900,1300,1700 PO 10/25/20 13:00 10/26/20 18:31 DC 10/26/20 17:16 Risperidone (RisperDAL) 0.25 mg 0900,1300 PO 10/27/20 09:00 10/29/20 08:08 Risperidone (RisperDAL) 0.5 mg DAILYWSUP PO 10/27/20 17:00 10/28/20 17:34 I have reviewed the current psychotropics carefully including drug interactions. Risk benefit ratio favors no change other than as noted in my dictated progress note. Diagnosis: Problems: (1) Impulse control disorder, unspecified (2) Mild cognitive impairment (3) Anxiety disorder, unspecified (4) Bipolar disorder, current episode mixed, severe, with psychotic features SAEID NUNEZ MD Oct 29, 2020 09:01
--- NOTE | 2020-10-29 09:32 | PDOC ---
Exam Note: Tex Note: This note is a late entry for 10/28/2020 covers elements not covered in my initial note. Subjective: The patient was seen individually in the evening of 10/28/2020 with Chava FAGAN, discussed and reviewed the chart. She slept 7-3/4 hours previous night. She spent more time in the dayroom which is where I met with her. She is pleasant, less psychotic, less confused even in the evening. Review of Systems: No CV, , pulmonary, eye, ENT system symptoms on review. Mental Status Exam: The patient is oriented to herself and situation. Speech has some latency, coherent. Abstraction fair. Computation impaired. Language function intact. Attention span short. Mood and affect somewhat anxious, labile. Laboratory Data: Reviewed. Impression: Bipolar disorder mixed with psychotic features. Anxiety disorder unspecified. Impulse control disorder unspecified. Mild cognitive impairment. Plan: No change from initial note. Assessment: Vital Signs/I&O: Vital Signs Date Time Temp Pulse Resp B/P (MAP) Pulse Ox O2 Delivery O2 Flow Rate FiO2 10/29/20 08:08 98 119/82 10/29/20 05:37 97.9 18 97 10/28/20 16:00 Room Air I & O 10/28/20 10/28/20 10/29/20 15:00 23:00 07:00 Intake Total 480 ml 200 ml 120 ml Balance 480 ml 200 ml 120 ml Labs: Laboratory Tests Test 10/28/20 10:30 10/29/20 06:44 Sodium Level 143 mmol/L (136-145) 146 mmol/L (136-145) H Potassium Level 3.8 mmol/L (3.5-5.1) 3.7 mmol/L (3.5-5.1) Chloride Level 109 mmol/L (98-107) H 107 mmol/L (98-107) Carbon Dioxide Level 25 mmol/L (21-32) 29 mmol/L (21-32) Anion Gap 9 (6-14) 10 (6-14) Blood Urea Nitrogen 13 mg/dL (7-20) 12 mg/dL (7-20) Creatinine 1.0 mg/dL (0.6-1.0) 1.0 mg/dL (0.6-1.0) Estimated GFR (Cockcroft-Gault) 53.9 53.9 BUN/Creatinine Ratio 13 (6-20) 12 (6-20) Glucose Level 118 mg/dL (70-99) H 103 mg/dL (70-99) H Calcium Level 8.6 mg/dL (8.5-10.1) 9.0 mg/dL (8.5-10.1) Total Bilirubin 0.5 mg/dL (0.2-1.0) 0.5 mg/dL (0.2-1.0) Aspartate Amino Transferase (AST) 23 U/L (15-37) 22 U/L (15-37) Alanine Aminotransferase (ALT) 21 U/L (14-59) 28 U/L (14-59) Alkaline Phosphatase 78 U/L (46-116) 89 U/L (46-116) Total Protein 6.4 g/dL (6.4-8.2) 7.3 g/dL (6.4-8.2) Albumin 3.2 g/dL (3.4-5.0) L 3.6 g/dL (3.4-5.0) Albumin/Globulin Ratio 1.0 (1.0-1.7) 1.0 (1.0-1.7) White Blood Count 6.3 x10^3/uL (4.0-11.0) Red Blood Count 4.62 x10^6/uL (3.50-5.40) Hemoglobin 14.2 g/dL (12.0-15.5) Hematocrit 42.6 % (36.0-47.0) Mean Corpuscular Volume 92 fL (79-100) Mean Corpuscular Hemoglobin 31 pg (25-35) Mean Corpuscular Hemoglobin Concent 33 g/dL (31-37) Red Cell Distribution Width 14.1 % (11.5-14.5) Platelet Count 202 x10^3/uL (140-400) Neutrophils (%) (Auto) 57 % (31-73) Lymphocytes (%) (Auto) 25 % (24-48) Monocytes (%) (Auto) 15 % (0-9) H Eosinophils (%) (Auto) 2 % (0-3) Basophils (%) (Auto) 1 % (0-3) Neutrophils # (Auto) 3.6 x10^3uL (1.8-7.7) Lymphocytes # (Auto) 1.6 x10^3/uL (1.0-4.8) Monocytes # (Auto) 0.9 x10^3/uL (0.0-1.1) Eosinophils # (Auto) 0.2 x10^3/uL (0.0-0.7) Basophils # (Auto) 0.0 x10^3/uL (0.0-0.2) Current Medications: Meds: Laboratory Tests Test 10/28/20 10:30 10/29/20 06:44 Sodium Level 143 mmol/L 146 mmol/L Potassium Level 3.8 mmol/L 3.7 mmol/L Chloride Level 109 mmol/L 107 mmol/L Carbon Dioxide Level 25 mmol/L 29 mmol/L Anion Gap 9 10 Blood Urea Nitrogen 13 mg/dL 12 mg/dL Creatinine 1.0 mg/dL 1.0 mg/dL Estimated GFR (Cockcroft-Gault) 53.9 53.9 BUN/Creatinine Ratio 13 12 Glucose Level 118 mg/dL 103 mg/dL Calcium Level 8.6 mg/dL 9.0 mg/dL Total Bilirubin 0.5 mg/dL 0.5 mg/dL Aspartate Amino Transf (AST/SGOT) 23 U/L 22 U/L Alanine Aminotransferase (ALT/SGPT) 21 U/L 28 U/L Alkaline Phosphatase 78 U/L 89 U/L Total Protein 6.4 g/dL 7.3 g/dL Albumin 3.2 g/dL 3.6 g/dL Albumin/Globulin Ratio 1.0 1.0 White Blood Count 6.3 x10^3/uL Red Blood Count 4.62 x10^6/uL Hemoglobin 14.2 g/dL Hematocrit 42.6 % Mean Corpuscular Volume 92 fL Mean Corpuscular Hemoglobin 31 pg Mean Corpuscular Hemoglobin Concent 33 g/dL Red Cell Distribution Width 14.1 % Platelet Count 202 x10^3/uL Neutrophils (%) (Auto) 57 % Lymphocytes (%) (Auto) 25 % Monocytes (%) (Auto) 15 % Eosinophils (%) (Auto) 2 % Basophils (%) (Auto) 1 % Neutrophils # (Auto) 3.6 x10^3uL Lymphocytes # (Auto) 1.6 x10^3/uL Monocytes # (Auto) 0.9 x10^3/uL Eosinophils # (Auto) 0.2 x10^3/uL Basophils # (Auto) 0.0 x10^3/uL Current Medications Medications (Trade) Dose Ordered Sig/Chidi Route PRN Reason Start Time Stop Time Status Last Admin Dose Admin Aspirin (Aspirin Enteric Coated) 81 mg DAILY PO 10/10/20 09:00 10/29/20 08:07 Atorvastatin Calcium (Lipitor) 10 mg QHS PO 10/09/20 21:00 10/28/20 20:20 Calcium Polycarbophil (Fibercon) 1,250 mg BID PO 10/09/20 21:00 10/29/20 08:08 Vitamin D (Vitamin D3) 50,000 unit WEEKLY PO 10/16/20 09:00 10/23/20 08:32 Vitamin D (Vitamin D3) 2,000 unit DAILY PO 10/10/20 09:00 10/17/20 14:27 DC 10/17/20 08:17 Denosumab (Prolia) 60 mg 1X SQ 10/09/20 15:30 10/17/20 17:10 DC Diltiazem HCl (Cardizem) 30 mg BID PO 10/09/20 21:00 10/29/20 08:08 Levothyroxine Sodium (Synthroid) 25 mcg DAILY06 PO 10/10/20 07:30 10/29/20 06:02 Pramipexole Dihydrochloride (miraPEX) 1 mg [id number] PO 10/09/20 21:00 10/29/20 08:08 Tizanidine HCl (Zanaflex) 4 mg PRN Q8HRS PRN PO MUSCLE SPASMS 10/09/20 15:30 10/21/20 23:58 Multivitamins/ Calcium (Thera-M Plus) 1 tab DAILY PO 10/10/20 09:00 10/29/20 08:08 Pantoprazole Sodium (Protonix) 40 mg DAILY PO 10/10/20 09:00 10/29/20 08:08 Sennosides (Senna) 25.8 mg HS PO 10/09/20 21:00 10/28/20 20:20 Acetaminophen (Tylenol) 650 mg PRN Q6HRS PRN PO MILD PAIN / TEMP > 100.3'F 10/09/20 17:30 10/16/20 08:51 Multi-Ingredient Ointment (Analgesic [place]) 1 ashanti PRN QID PRN TP MUSCLE PAIN 10/09/20 17:30 Al Hydroxide/Mg Hydroxide (Mylanta Plus Xs) 15 ml PRN AFTMEALHC PRN PO DYSPEPSIA 10/09/20 17:30 Magnesium Hydroxide (Milk Of Magnesia) 2,400 mg PRN QHS PRN PO CONSTIPATION 10/09/20 17:30 Olanzapine (ZyPREXA ZYDIS) 2.5 mg PRN Q2HRS PRN PO PSYCHOSIS 10/09/20 17:30 10/28/20 23:17 Doxycycline Hyclate (Vibra-Tab) 100 mg BID PO 10/10/20 21:00 10/19/20 22:00 DC 10/19/20 20:35 Divalproex Sodium (Depakote Er) 500 mg QHS PO 10/11/20 21:00 10/28/20 20:19 Lactobacillus Rhamnosus (Culturelle) 1 cap BID PO 10/14/20 21:00 10/29/20 08:08 Bupropion HCl (Wellbutrin Xl) 150 mg DAILY PO 10/18/20 09:00 10/19/20 17:07 DC 10/19/20 08:22 Bupropion HCl (Wellbutrin Xl) 300 mg DAILY PO 10/20/20 09:00 10/29/20 08:08 Trazodone HCl (Desyrel) 50 mg PRN QHS PRN PO INSOMNIA, MAY REPEAT X1 10/22/20 06:00 10/28/20 23:17 Risperidone (RisperDAL) 0.5 mg QHS PO 10/22/20 18:00 10/24/20 16:15 DC 10/23/20 20:10 Mirtazapine (Remeron) 7.5 mg QHS PO 10/23/20 21:00 10/28/20 20:19 Risperidone (RisperDAL) 0.75 mg QHS PO 10/24/20 21:00 10/25/20 11:50 DC 10/24/20 19:34 Risperidone (RisperDAL) 0.25 mg 0900,1300,1700 PO 10/25/20 13:00 10/26/20 18:31 DC 10/26/20 17:16 Risperidone (RisperDAL) 0.25 mg 0900,1300 PO 10/27/20 09:00 10/29/20 08:08 Risperidone (RisperDAL) 0.5 mg DAILYWSUP PO 10/27/20 17:00 10/28/20 17:34 I have reviewed the current psychotropics carefully including drug interactions. Risk benefit ratio favors no change other than as noted in my dictated progress note. Diagnosis: Problems: (1) Impulse control disorder, unspecified (2) Mild cognitive impairment (3) Anxiety disorder, unspecified (4) Bipolar disorder, current episode mixed, severe, with psychotic features SAEID NUNEZ MD Oct 29, 2020 09:32
--- NOTE | 2020-10-29 13:57 | NUR ---
nsg note; an has not slept today. she has been calm, confused, med compliant and withdrawn to her room where she wanders around rearranging the linens on the beds. she was talking about "them not being here" and asking why all the children are here. tacho was given with her afternoon meds.
[2020-10-29 16:10] VITALS: BP 126/64
[2020-10-29] MEDS: risperiDONE 0.5 MG TABLET. PO SCH (17:57)
[2020-10-29] MEDS: MIRTAZAPINE 15 MG TABLET PO SCH (20:13)
[2020-10-29] MEDS: ATORVASTATIN CALCIUM 10 MG TABLET. PO SCH (20:13)
[2020-10-29] MEDS: SENNOSIDES 8.6 MG TABLET PO SCH (20:13)
[2020-10-29] MEDS: traZODone 50 MG TABLET. PO PRN ×2 (20:13→21:56)
[2020-10-29] MEDS: DIVALPROEX ER 500 MG TAB.ER.24H PO SCH (20:14)
[2020-10-29] MEDS: MELATONIN 3 MG TABLET PO PRN (21:56)
--- NOTE | 2020-10-29 22:04 | PDOC ---
Exam Note: Tex Note: Please also refer to the separate dictated note~for this date of service dictated separately.~Patient seen individually. Discussed the patient with Nursing staff reviewed the chart.~Reviewed interim history and current functioning. Reviewed vital signs,~Labs/ Radiology~and current medications noted below. Continue current treatment with the changes noted in the dictated addendum note Assessment: Vital Signs/I&O: Vital Signs Date Time Temp Pulse Resp B/P (MAP) Pulse Ox O2 Delivery O2 Flow Rate FiO2 10/29/20 20:14 102 126/64 10/29/20 16:10 98.5 18 96 10/28/20 16:00 Room Air I & O 10/28/20 10/28/20 10/29/20 14:59 22:59 06:59 Intake Total 480 ml 200 ml 120 ml Balance 480 ml 200 ml 120 ml Labs: Laboratory Tests Test 10/29/20 06:44 White Blood Count 6.3 x10^3/uL (4.0-11.0) Red Blood Count 4.62 x10^6/uL (3.50-5.40) Hemoglobin 14.2 g/dL (12.0-15.5) Hematocrit 42.6 % (36.0-47.0) Mean Corpuscular Volume 92 fL (79-100) Mean Corpuscular Hemoglobin 31 pg (25-35) Mean Corpuscular Hemoglobin Concent 33 g/dL (31-37) Red Cell Distribution Width 14.1 % (11.5-14.5) Platelet Count 202 x10^3/uL (140-400) Neutrophils (%) (Auto) 57 % (31-73) Lymphocytes (%) (Auto) 25 % (24-48) Monocytes (%) (Auto) 15 % (0-9) H Eosinophils (%) (Auto) 2 % (0-3) Basophils (%) (Auto) 1 % (0-3) Neutrophils # (Auto) 3.6 x10^3uL (1.8-7.7) Lymphocytes # (Auto) 1.6 x10^3/uL (1.0-4.8) Monocytes # (Auto) 0.9 x10^3/uL (0.0-1.1) Eosinophils # (Auto) 0.2 x10^3/uL (0.0-0.7) Basophils # (Auto) 0.0 x10^3/uL (0.0-0.2) Sodium Level 146 mmol/L (136-145) H Potassium Level 3.7 mmol/L (3.5-5.1) Chloride Level 107 mmol/L (98-107) Carbon Dioxide Level 29 mmol/L (21-32) Anion Gap 10 (6-14) Blood Urea Nitrogen 12 mg/dL (7-20) Creatinine 1.0 mg/dL (0.6-1.0) Estimated GFR (Cockcroft-Gault) 53.9 BUN/Creatinine Ratio 12 (6-20) Glucose Level 103 mg/dL (70-99) H Calcium Level 9.0 mg/dL (8.5-10.1) Total Bilirubin 0.5 mg/dL (0.2-1.0) Aspartate Amino Transferase (AST) 22 U/L (15-37) Alanine Aminotransferase (ALT) 28 U/L (14-59) Alkaline Phosphatase 89 U/L (46-116) Total Protein 7.3 g/dL (6.4-8.2) Albumin 3.6 g/dL (3.4-5.0) Albumin/Globulin Ratio 1.0 (1.0-1.7) Current Medications: Meds: Laboratory Tests Test 10/29/20 06:44 White Blood Count 6.3 x10^3/uL Red Blood Count 4.62 x10^6/uL Hemoglobin 14.2 g/dL Hematocrit 42.6 % Mean Corpuscular Volume 92 fL Mean Corpuscular Hemoglobin 31 pg Mean Corpuscular Hemoglobin Concent 33 g/dL Red Cell Distribution Width 14.1 % Platelet Count 202 x10^3/uL Neutrophils (%) (Auto) 57 % Lymphocytes (%) (Auto) 25 % Monocytes (%) (Auto) 15 % Eosinophils (%) (Auto) 2 % Basophils (%) (Auto) 1 % Neutrophils # (Auto) 3.6 x10^3uL Lymphocytes # (Auto) 1.6 x10^3/uL Monocytes # (Auto) 0.9 x10^3/uL Eosinophils # (Auto) 0.2 x10^3/uL Basophils # (Auto) 0.0 x10^3/uL Sodium Level 146 mmol/L Potassium Level 3.7 mmol/L Chloride Level 107 mmol/L Carbon Dioxide Level 29 mmol/L Anion Gap 10 Blood Urea Nitrogen 12 mg/dL Creatinine 1.0 mg/dL Estimated GFR (Cockcroft-Gault) 53.9 BUN/Creatinine Ratio 12 Glucose Level 103 mg/dL Calcium Level 9.0 mg/dL Total Bilirubin 0.5 mg/dL Aspartate Amino Transf (AST/SGOT) 22 U/L Alanine Aminotransferase (ALT/SGPT) 28 U/L Alkaline Phosphatase 89 U/L Total Protein 7.3 g/dL Albumin 3.6 g/dL Albumin/Globulin Ratio 1.0 Current Medications Medications (Trade) Dose Ordered Sig/Chidi Route PRN Reason Start Time Stop Time Status Last Admin Dose Admin Aspirin (Aspirin Enteric Coated) 81 mg DAILY PO 10/10/20 09:00 10/29/20 08:07 Atorvastatin Calcium (Lipitor) 10 mg QHS PO 10/09/20 21:00 10/29/20 20:13 Calcium Polycarbophil (Fibercon) 1,250 mg BID PO 10/09/20 21:00 10/29/20 20:13 Vitamin D (Vitamin D3) 50,000 unit WEEKLY PO 10/16/20 09:00 10/23/20 08:32 Vitamin D (Vitamin D3) 2,000 unit DAILY PO 10/10/20 09:00 10/17/20 14:27 DC 10/17/20 08:17 Denosumab (Prolia) 60 mg 1X SQ 10/09/20 15:30 10/17/20 17:10 DC Diltiazem HCl (Cardizem) 30 mg BID PO 10/09/20 21:00 10/29/20 20:14 Levothyroxine Sodium (Synthroid) 25 mcg DAILY06 PO 10/10/20 07:30 10/29/20 06:02 Pramipexole Dihydrochloride (miraPEX) 1 mg [id number] PO 10/09/20 21:00 10/29/20 20:13 Tizanidine HCl (Zanaflex) 4 mg PRN Q8HRS PRN PO MUSCLE SPASMS 10/09/20 15:30 10/21/20 23:58 Multivitamins/ Calcium (Thera-M Plus) 1 tab DAILY PO 10/10/20 09:00 10/29/20 08:08 Pantoprazole Sodium (Protonix) 40 mg DAILY PO 10/10/20 09:00 10/29/20 08:08 Sennosides (Senna) 25.8 mg HS PO 10/09/20 21:00 10/29/20 20:13 Acetaminophen (Tylenol) 650 mg PRN Q6HRS PRN PO MILD PAIN / TEMP > 100.3'F 10/09/20 17:30 10/16/20 08:51 Multi-Ingredient Ointment (Analgesic [place]) 1 ashanti PRN QID PRN TP MUSCLE PAIN 10/09/20 17:30 Al Hydroxide/Mg Hydroxide (Mylanta Plus Xs) 15 ml PRN AFTMEALHC PRN PO DYSPEPSIA 10/09/20 17:30 Magnesium Hydroxide (Milk Of Magnesia) 2,400 mg PRN QHS PRN PO CONSTIPATION 10/09/20 17:30 Olanzapine (ZyPREXA ZYDIS) 2.5 mg PRN Q2HRS PRN PO PSYCHOSIS 10/09/20 17:30 10/29/20 13:32 Doxycycline Hyclate (Vibra-Tab) 100 mg BID PO 10/10/20 21:00 10/19/20 22:00 DC 10/19/20 20:35 Divalproex Sodium (Depakote Er) 500 mg QHS PO 10/11/20 21:00 10/29/20 20:14 Lactobacillus Rhamnosus (Culturelle) 1 cap BID PO 10/14/20 21:00 10/29/20 20:13 Bupropion HCl (Wellbutrin Xl) 150 mg DAILY PO 10/18/20 09:00 10/19/20 17:07 DC 10/19/20 08:22 Bupropion HCl (Wellbutrin Xl) 300 mg DAILY PO 10/20/20 09:00 10/29/20 08:08 Trazodone HCl (Desyrel) 50 mg PRN QHS PRN PO INSOMNIA, MAY REPEAT X1 10/22/20 06:00 10/29/20 21:56 Risperidone (RisperDAL) 0.5 mg QHS PO 10/22/20 18:00 10/24/20 16:15 DC 10/23/20 20:10 Mirtazapine (Remeron) 7.5 mg QHS PO 10/23/20 21:00 7/19/21 18:20 DC 10/28/20 20:19 Risperidone (RisperDAL) 0.75 mg QHS PO 10/24/20 21:00 10/25/20 11:50 DC 10/24/20 19:34 Risperidone (RisperDAL) 0.25 mg 0900,1300,1700 PO 10/25/20 13:00 10/26/20 18:31 DC 10/26/20 17:16 Risperidone (RisperDAL) 0.25 mg 0900,1300 PO 10/27/20 09:00 10/29/20 13:35 Risperidone (RisperDAL) 0.5 mg DAILYWSUP PO 10/27/20 17:00 10/29/20 17:57 Mirtazapine (Remeron) 15 mg QHS PO 10/29/20 21:00 10/29/20 20:13 Melatonin (Melatonin) 3 mg PRN QHS PRN PO INSOMNIA 10/29/20 18:30 10/29/20 21:56 Current Medications Medications (Trade) Dose Ordered Sig/Chidi Route PRN Reason Start Time Stop Time Status Last Admin Dose Admin Mirtazapine (Remeron) 15 mg QHS PO 10/29/20 21:00 10/29/20 20:13 Melatonin (Melatonin) 3 mg PRN QHS PRN PO INSOMNIA 10/29/20 18:30 10/29/20 21:56 I have reviewed the current psychotropics carefully including drug interactions. Risk benefit ratio favors no change other than as noted in my dictated progress note. Diagnosis: Problems: (1) Impulse control disorder, unspecified (2) Mild cognitive impairment (3) Anxiety disorder, unspecified (4) Bipolar disorder, current episode mixed, severe, with psychotic features SAEID NUNEZ MD Oct 29, 2020 22:04
--- NOTE | 2020-10-29 22:54 | NUR ---
Pt in her room all evening. Pt irritable and angry; refusing to answer or acknowledge this RN. Pt had removed her pants and was attempting to put her blanket on as her pants. Pt very resistive to medications, spitting them out repeatedly. Pt eventually compliant with medications, taking a few at a time and chewing them. Pt refused water after chewing the pills, but was trying to "drink" her blanket. PRN Trazodone administered with HS medications. Once in bed, pt was restless repeatedly setting off her alarm. Repeat Trazodone and Melatonin administered at 2200. Staff 1:1 at bedside for approximately one hour. Pt currently sleeping in bed. Will continue to monitor.
[2020-10-30 05:10] VITALS: BP 118/60
[2020-10-30] MEDS: PRAMIPEXOLE 0.5 MG TABLET. PO SCH ×3 (08:16→20:07)
[2020-10-30] MEDS: CHOLECALCIFEROL (VITAMIN D3) 50,000 UNIT CAPSULE PO SCH (08:16)
[2020-10-30] MEDS: ASPIRIN ENTERIC COATED 81 MG TABLET.DR. PO SCH (08:16)
[2020-10-30] MEDS: PANTOPRAZOLE 40 MG TABLET. PO SCH (08:16)
[2020-10-30] MEDS: buPROPion XL 300 MG TAB.ER.24H. PO SCH (08:17)
[2020-10-30] MEDS: dilTIAZem HCL 30 MG TABLET PO SCH ×2 (08:17→20:06)
[2020-10-30] MEDS: LACTOBACILLUS RHAMNOSUS GG 1 CAPSULE. PO SCH ×2 (08:17→20:06)
[2020-10-30] MEDS: risperiDONE 0.25 MG TABLET. PO SCH ×2 (08:17→13:00)
[2020-10-30] MEDS: CALCIUM POLYCARBOPHIL 625 MG TABLET PO SCH ×2 (08:17→20:07)
[2020-10-30] MEDS: LEVOTHYROXINE 25 MCG TABLET. PO SCH (08:17)
[2020-10-30] MEDS: MULTIVITAMIN with MINERAL TABLET. PO SCH (08:18)
[2020-10-30 15:33] VITALS: BP 100/66
[2020-10-30] MEDS: risperiDONE 0.5 MG TABLET. PO SCH (17:19)
[2020-10-30 20:00] VITALS: BP 125/78
[2020-10-30] MEDS: SENNOSIDES 8.6 MG TABLET PO SCH (20:05)
[2020-10-30] MEDS: MIRTAZAPINE 15 MG TABLET PO SCH (20:05)
[2020-10-30] MEDS: traZODone 50 MG TABLET. PO PRN (20:05)
[2020-10-30] MEDS: DIVALPROEX ER 500 MG TAB.ER.24H PO SCH (20:06)
[2020-10-30] MEDS: ATORVASTATIN CALCIUM 10 MG TABLET. PO SCH (20:06)
[2020-10-30] MEDS: MELATONIN 3 MG TABLET PO PRN (20:06)
--- NOTE | 2020-10-30 21:54 | PDOC ---
Exam Note: Tex Note: Please also refer to the separate dictated note~for this date of service dictated separately.~Patient seen individually. Discussed the patient with Nursing staff reviewed the chart.~Reviewed interim history and current functioning. Reviewed vital signs,~Labs/ Radiology~and current medications noted below. Continue current treatment with the changes noted in the dictated addendum note Assessment: Vital Signs/I&O: Vital Signs Date Time Temp Pulse Resp B/P (MAP) Pulse Ox O2 Delivery O2 Flow Rate FiO2 10/30/20 20:06 103 125/78 10/30/20 15:33 98.0 16 93 10/28/20 16:00 Room Air I & O 10/29/20 10/29/20 10/30/20 15:00 23:00 07:00 Intake Total 240 ml 200 ml Balance 240 ml 200 ml Current Medications: Meds: Current Medications Medications (Trade) Dose Ordered Sig/Chidi Route PRN Reason Start Time Stop Time Status Last Admin Dose Admin Aspirin (Aspirin Enteric Coated) 81 mg DAILY PO 10/10/20 09:00 10/30/20 08:16 Atorvastatin Calcium (Lipitor) 10 mg QHS PO 10/09/20 21:00 10/30/20 20:06 Calcium Polycarbophil (Fibercon) 1,250 mg BID PO 10/09/20 21:00 10/30/20 20:07 Vitamin D (Vitamin D3) 50,000 unit WEEKLY PO 10/16/20 09:00 10/30/20 08:16 Vitamin D (Vitamin D3) 2,000 unit DAILY PO 10/10/20 09:00 10/17/20 14:27 DC 10/17/20 08:17 Denosumab (Prolia) 60 mg 1X SQ 10/09/20 15:30 10/17/20 17:10 DC Diltiazem HCl (Cardizem) 30 mg BID PO 10/09/20 21:00 10/30/20 20:06 Levothyroxine Sodium (Synthroid) 25 mcg DAILY06 PO 10/10/20 07:30 10/30/20 08:17 Pramipexole Dihydrochloride (miraPEX) 1 mg [id number] PO 10/09/20 21:00 10/30/20 20:07 Tizanidine HCl (Zanaflex) 4 mg PRN Q8HRS PRN PO MUSCLE SPASMS 10/09/20 15:30 10/21/20 23:58 Multivitamins/ Calcium (Thera-M Plus) 1 tab DAILY PO 10/10/20 09:00 10/30/20 08:18 Pantoprazole Sodium (Protonix) 40 mg DAILY PO 10/10/20 09:00 10/30/20 08:16 Sennosides (Senna) 25.8 mg HS PO 10/09/20 21:00 10/30/20 20:05 Acetaminophen (Tylenol) 650 mg PRN Q6HRS PRN PO MILD PAIN / TEMP > 100.3'F 10/09/20 17:30 10/16/20 08:51 Multi-Ingredient Ointment (Analgesic [place]) 1 ashanti PRN QID PRN TP MUSCLE PAIN 10/09/20 17:30 Al Hydroxide/Mg Hydroxide (Mylanta Plus Xs) 15 ml PRN AFTMEALHC PRN PO DYSPEPSIA 10/09/20 17:30 Magnesium Hydroxide (Milk Of Magnesia) 2,400 mg PRN QHS PRN PO CONSTIPATION 10/09/20 17:30 Olanzapine (ZyPREXA ZYDIS) 2.5 mg PRN Q2HRS PRN PO PSYCHOSIS 10/09/20 17:30 10/29/20 13:32 Doxycycline Hyclate (Vibra-Tab) 100 mg BID PO 10/10/20 21:00 10/19/20 22:00 DC 10/19/20 20:35 Divalproex Sodium (Depakote Er) 500 mg QHS PO 10/11/20 21:00 10/30/20 20:06 Lactobacillus Rhamnosus (Culturelle) 1 cap BID PO 10/14/20 21:00 10/30/20 20:06 Bupropion HCl (Wellbutrin Xl) 150 mg DAILY PO 10/18/20 09:00 10/19/20 17:07 DC 10/19/20 08:22 Bupropion HCl (Wellbutrin Xl) 300 mg DAILY PO 10/20/20 09:00 10/30/20 08:17 Trazodone HCl (Desyrel) 50 mg PRN QHS PRN PO INSOMNIA, MAY REPEAT X1 10/22/20 06:00 10/30/20 20:05 Risperidone (RisperDAL) 0.5 mg QHS PO 10/22/20 18:00 10/24/20 16:15 DC 10/23/20 20:10 Mirtazapine (Remeron) 7.5 mg QHS PO 10/23/20 21:00 10/29/20 18:20 DC 10/28/20 20:19 Risperidone (RisperDAL) 0.75 mg QHS PO 10/24/20 21:00 10/25/20 11:50 DC 10/24/20 19:34 Risperidone (RisperDAL) 0.25 mg 0900,1300,1700 PO 10/25/20 13:00 10/26/20 18:31 DC 10/26/20 17:16 Risperidone (RisperDAL) 0.25 mg 0900,1300 PO 10/27/20 09:00 10/30/20 13:00 Risperidone (RisperDAL) 0.5 mg DAILYWSUP PO 10/27/20 17:00 10/30/20 17:19 Mirtazapine (Remeron) 15 mg QHS PO 10/29/20 21:00 10/30/20 20:05 Melatonin (Melatonin) 3 mg PRN QHS PRN PO INSOMNIA 10/29/20 18:30 10/30/20 20:06 I have reviewed the current psychotropics carefully including drug interactions. Risk benefit ratio favors no change other than as noted in my dictated progress note. Diagnosis: Problems: (1) Impulse control disorder, unspecified (2) Mild cognitive impairment (3) Anxiety disorder, unspecified (4) Bipolar disorder, current episode mixed, severe, with psychotic features SAEID NUNEZ MD Oct 30, 2020 21:54
--- NOTE | 2020-10-30 23:37 | NUR ---
Pt calmer this evening. Compliant with whole medications. Continues to be disorganized and hallucinating. PRN Trazodone and Melatonin administered with HS medications.
[2020-10-31 04:58] VITALS: BP 129/73
[2020-10-31] MEDS: LEVOTHYROXINE 25 MCG TABLET. PO SCH (05:51)
--- NOTE | 2020-10-31 08:20 | PDOC ---
Exam Note: Tex Note: This note is a late entry for 10/29/2020 covers elements not covered in my initial note. Subjective: The patient was seen individually in the evening of 10/29/2020 with Jaylin FAGAN, discussed and reviewed the chart. She did not sleep at all hours previous night. She was agitated at night, hallucinating, hitting, kicking the staff member. Today during the day she has been calm, cooperative. Received Zyprexa at 2100 hours and again at 2300 hours. I met with her initially. She was seated in the room of another male demented patient and with the assistance of nursing aids we directed her back to her room. She was accepting of it. Review of Systems: No CV, , pulmonary, eye, ENT system symptoms on review. Mental Status Exam: The patient is oriented to herself and situation. She is not very verbally interactive. Speech moderate latency. Often response is monosyllabic. Abstraction fair. Computation impaired. Short-term memory has s ome impairment. Language function intact. Attention span short. No suicidal or homicidal ideation. Laboratory Data: Reviewed. Impression: Bipolar disorder mixed with psychotic features. Anxiety disorder unspecified. Impulse control disorder unspecified. Mild cognitive impairment. Plan: Increase Remeron to 15 mg h.s. to help with insomnia. Start melatonin 3 mg h.s. p.r.n. insomnia. Maintain Risperdal current dosage, Wellbutrin, trazodone and Remeron as noted. Assessment: Vital Signs/I&O: Vital Signs Date Time Temp Pulse Resp B/P (MAP) Pulse Ox O2 Delivery O2 Flow Rate FiO2 10/31/20 04:58 97.2 83 16 129/73 (91) 96 10/28/20 16:00 Room Air I & O 10/30/20 10/30/20 10/31/20 15:00 23:00 07:00 Intake Total 880 ml 360 ml Balance 880 ml 360 ml Current Medications: Meds: Current Medications Medications (Trade) Dose Ordered Sig/Chidi Route PRN Reason Start Time Stop Time Status Last Admin Dose Admin Aspirin (Aspirin Enteric Coated) 81 mg DAILY PO 10/10/20 09:00 10/30/20 08:16 Atorvastatin Calcium (Lipitor) 10 mg QHS PO 10/09/20 21:00 10/30/20 20:06 Calcium Polycarbophil (Fibercon) 1,250 mg BID PO 10/09/20 21:00 10/30/20 20:07 Vitamin D (Vitamin D3) 50,000 unit WEEKLY PO 10/16/20 09:00 10/30/20 08:16 Vitamin D (Vitamin D3) 2,000 unit DAILY PO 10/10/20 09:00 10/17/20 14:27 DC 10/17/20 08:17 Denosumab (Prolia) 60 mg 1X SQ 10/09/20 15:30 10/17/20 17:10 DC Diltiazem HCl (Cardizem) 30 mg BID PO 10/09/20 21:00 10/30/20 20:06 Levothyroxine Sodium (Synthroid) 25 mcg DAILY06 PO 10/10/20 07:30 10/31/20 05:51 Pramipexole Dihydrochloride (miraPEX) 1 mg [id number] PO 10/09/20 21:00 10/30/20 20:07 Tizanidine HCl (Zanaflex) 4 mg PRN Q8HRS PRN PO MUSCLE SPASMS 10/09/20 15:30 10/21/20 23:58 Multivitamins/ Calcium (Thera-M Plus) 1 tab DAILY PO 10/10/20 09:00 10/30/20 08:18 Pantoprazole Sodium (Protonix) 40 mg DAILY PO 10/10/20 09:00 10/30/20 08:16 Sennosides (Senna) 25.8 mg HS PO 10/09/20 21:00 10/30/20 20:05 Acetaminophen (Tylenol) 650 mg PRN Q6HRS PRN PO MILD PAIN / TEMP > 100.3'F 10/09/20 17:30 10/16/20 08:51 Multi-Ingredient Ointment (Analgesic [place]) 1 ashanti PRN QID PRN TP MUSCLE PAIN 10/09/20 17:30 Al Hydroxide/Mg Hydroxide (Mylanta Plus Xs) 15 ml PRN AFTMEALHC PRN PO DYSPEPSIA 10/09/20 17:30 Magnesium Hydroxide (Milk Of Magnesia) 2,400 mg PRN QHS PRN PO CONSTIPATION 10/09/20 17:30 Olanzapine (ZyPREXA ZYDIS) 2.5 mg PRN Q2HRS PRN PO PSYCHOSIS 10/09/20 17:30 10/29/20 13:32 Doxycycline Hyclate (Vibra-Tab) 100 mg BID PO 10/10/20 21:00 10/19/20 22:00 DC 10/19/20 20:35 Divalproex Sodium (Depakote Er) 500 mg QHS PO 10/11/20 21:00 10/30/20 20:06 Lactobacillus Rhamnosus (Culturelle) 1 cap BID PO 10/14/20 21:00 10/30/20 20:06 Bupropion HCl (Wellbutrin Xl) 150 mg DAILY PO 10/18/20 09:00 10/19/20 17:07 DC 10/19/20 08:22 Bupropion HCl (Wellbutrin Xl) 300 mg DAILY PO 10/20/20 09:00 10/30/20 08:17 Trazodone HCl (Desyrel) 50 mg PRN QHS PRN PO INSOMNIA, MAY REPEAT X1 10/22/20 06:00 10/30/20 20:05 Risperidone (RisperDAL) 0.5 mg QHS PO 10/22/20 18:00 10/24/20 16:15 DC 10/23/20 20:10 Mirtazapine (Remeron) 7.5 mg QHS PO 10/23/20 21:00 10/29/20 18:20 DC 10/28/20 20:19 Risperidone (RisperDAL) 0.75 mg QHS PO 10/24/20 21:00 10/25/20 11:50 DC 10/24/20 19:34 Risperidone (RisperDAL) 0.25 mg 0900,1300,1700 PO 10/25/20 13:00 10/26/20 18:31 DC 10/26/20 17:16 Risperidone (RisperDAL) 0.25 mg 0900,1300 PO 10/27/20 09:00 10/30/20 13:00 Risperidone (RisperDAL) 0.5 mg DAILYWSUP PO 10/27/20 17:00 10/30/20 17:19 Mirtazapine (Remeron) 15 mg QHS PO 10/29/20 21:00 10/30/20 20:05 Melatonin (Melatonin) 3 mg PRN QHS PRN PO INSOMNIA 10/29/20 18:30 10/30/20 20:06 I have reviewed the current psychotropics carefully including drug interactions. Risk benefit ratio favors no change other than as noted in my dictated progress note. Diagnosis: Problems: (1) Impulse control disorder, unspecified (2) Mild cognitive impairment (3) Anxiety disorder, unspecified (4) Bipolar disorder, current episode mixed, severe, with psychotic features SAEID NUNEZ MD Oct 31, 2020 08:20
[2020-10-31] MEDS: buPROPion XL 300 MG TAB.ER.24H. PO SCH (08:39)
[2020-10-31] MEDS: LACTOBACILLUS RHAMNOSUS GG 1 CAPSULE. PO SCH ×2 (08:40→20:03)
[2020-10-31] MEDS: PRAMIPEXOLE 0.5 MG TABLET. PO SCH ×3 (08:40→20:03)
[2020-10-31] MEDS: MULTIVITAMIN with MINERAL TABLET. PO SCH (08:40)
[2020-10-31] MEDS: CALCIUM POLYCARBOPHIL 625 MG TABLET PO SCH ×2 (08:40→20:03)
[2020-10-31] MEDS: ASPIRIN ENTERIC COATED 81 MG TABLET.DR. PO SCH (08:40)
[2020-10-31] MEDS: PANTOPRAZOLE 40 MG TABLET. PO SCH (08:40)
[2020-10-31] MEDS: risperiDONE 0.25 MG TABLET. PO SCH ×2 (08:40→12:02)
[2020-10-31] MEDS: dilTIAZem HCL 30 MG TABLET PO SCH ×2 (08:40→20:02)
--- NOTE | 2020-10-31 08:49 | PDOC ---
Exam Note: Tex Note: This note is a late entry for 10/30/2020 covers elements not covered in my initial note. Subjective: The patient was seen individually in the evening of 10/30/2020 with Jennifer FAGAN, discussed and reviewed the chart. She slept for 5-1/4 hours previous night. She received trazodone x2 and melatonin x1. Active hallucinations are less and she is less delusional and less agitated. I met with her in her room. Review of Systems: No CV, , pulmonary, eye, ENT system symptoms on review. Mental Status Exam: The patient is oriented to herself and situation. Speech m oderate latency. Often response is monosyllabic. Abstraction fair. Computation impaired. Short-term memory has some impairment. Language function intact. Attention span short. No suicidal or homicidal ideation. Laboratory Data: Reviewed. Impression: Bipolar disorder mixed with psychotic features. Anxiety disorder unspecified. Impulse control disorder unspecified. Mild cognitive impairment. Plan: No change from initial note. Assessment: Vital Signs/I&O: Vital Signs Date Time Temp Pulse Resp B/P (MAP) Pulse Ox O2 Delivery O2 Flow Rate FiO2 10/31/20 08:40 83 129/73 10/31/20 04:58 97.2 16 96 10/28/20 16:00 Room Air I & O 10/30/20 10/30/20 10/31/20 15:00 23:00 07:00 Intake Total 880 ml 360 ml Balance 880 ml 360 ml Current Medications: Meds: Current Medications Medications (Trade) Dose Ordered Sig/Chidi Route PRN Reason Start Time Stop Time Status Last Admin Dose Admin Aspirin (Aspirin Enteric Coated) 81 mg DAILY PO 10/10/20 09:00 10/31/20 08:40 Atorvastatin Calcium (Lipitor) 10 mg QHS PO 10/09/20 21:00 10/30/20 20:06 Calcium Polycarbophil (Fibercon) 1,250 mg BID PO 10/09/20 21:00 10/31/20 08:40 Vitamin D (Vitamin D3) 50,000 unit WEEKLY PO 10/16/20 09:00 10/30/20 08:16 Vitamin D (Vitamin D3) 2,000 unit DAILY PO 10/10/20 09:00 10/17/20 14:27 DC 10/17/20 08:17 Denosumab (Prolia) 60 mg 1X SQ 10/09/20 15:30 10/17/20 17:10 DC Diltiazem HCl (Cardizem) 30 mg BID PO 10/09/20 21:00 10/31/20 08:40 Levothyroxine Sodium (Synthroid) 25 mcg DAILY06 PO 10/10/20 07:30 10/31/20 05:51 Pramipexole Dihydrochloride (miraPEX) 1 mg [id number] PO 10/09/20 21:00 10/31/20 08:40 Tizanidine HCl (Zanaflex) 4 mg PRN Q8HRS PRN PO MUSCLE SPASMS 10/09/20 15:30 10/21/20 23:58 Multivitamins/ Calcium (Thera-M Plus) 1 tab DAILY PO 10/10/20 09:00 10/31/20 08:40 Pantoprazole Sodium (Protonix) 40 mg DAILY PO 10/10/20 09:00 10/31/20 08:40 Sennosides (Senna) 25.8 mg HS PO 10/09/20 21:00 10/30/20 20:05 Acetaminophen (Tylenol) 650 mg PRN Q6HRS PRN PO MILD PAIN / TEMP > 100.3'F 10/09/20 17:30 10/16/20 08:51 Multi-Ingredient Ointment (Analgesic [place]) 1 ashanti PRN QID PRN TP MUSCLE PAIN 10/09/20 17:30 Al Hydroxide/Mg Hydroxide (Mylanta Plus Xs) 15 ml PRN AFTMEALHC PRN PO DYSPEPSIA 10/09/20 17:30 Magnesium Hydroxide (Milk Of Magnesia) 2,400 mg PRN QHS PRN PO CONSTIPATION 10/09/20 17:30 Olanzapine (ZyPREXA ZYDIS) 2.5 mg PRN Q2HRS PRN PO PSYCHOSIS 10/09/20 17:30 10/29/20 13:32 Doxycycline Hyclate (Vibra-Tab) 100 mg BID PO 10/10/20 21:00 10/19/20 22:00 DC 10/19/20 20:35 Divalproex Sodium (Depakote Er) 500 mg QHS PO 10/11/20 21:00 10/30/20 20:06 Lactobacillus Rhamnosus (Culturelle) 1 cap BID PO 10/14/20 21:00 10/31/20 08:40 Bupropion HCl (Wellbutrin Xl) 150 mg DAILY PO 10/18/20 09:00 10/19/20 17:07 DC 10/19/20 08:22 Bupropion HCl (Wellbutrin Xl) 300 mg DAILY PO 10/20/20 09:00 10/31/20 08:39 Trazodone HCl (Desyrel) 50 mg PRN QHS PRN PO INSOMNIA, MAY REPEAT X1 10/22/20 06:00 10/30/20 20:05 Risperidone (RisperDAL) 0.5 mg QHS PO 10/22/20 18:00 10/24/20 16:15 DC 10/23/20 20:10 Mirtazapine (Remeron) 7.5 mg QHS PO 10/23/20 21:00 10/29/20 18:20 DC 10/28/20 20:19 Risperidone (RisperDAL) 0.75 mg QHS PO 10/24/20 21:00 10/25/20 11:50 DC 10/24/20 19:34 Risperidone (RisperDAL) 0.25 mg 0900,1300,1700 PO 10/25/20 13:00 10/26/20 18:31 DC 10/26/20 17:16 Risperidone (RisperDAL) 0.25 mg 0900,1300 PO 10/27/20 09:00 10/31/20 08:40 Risperidone (RisperDAL) 0.5 mg DAILYWSUP PO 10/27/20 17:00 10/30/20 17:19 Mirtazapine (Remeron) 15 mg QHS PO 10/29/20 21:00 10/30/20 20:05 Melatonin (Melatonin) 3 mg PRN QHS PRN PO INSOMNIA 10/29/20 18:30 10/30/20 20:06 I have reviewed the current psychotropics carefully including drug interactions. Risk benefit ratio favors no change other than as noted in my dictated progress note. Diagnosis: Problems: (1) Impulse control disorder, unspecified (2) Mild cognitive impairment (3) Anxiety disorder, unspecified (4) Bipolar disorder, current episode mixed, severe, with psychotic features SAEID NUNEZ MD Oct 31, 2020 08:49
--- NOTE | 2020-10-31 09:22 | NUR ---
Pt is confused and disorganized today. A&O to self only, responds to name. She is compliant with medications floated in pudding, however she was observed to be attempting to chew the tablets. Assessment was difficult at the time d/t her preoccupation with bruising on her L hand. Circumstances surrounding bruising is unknown, and pt is unable to give account of events regarding bruising. She denies pain in the hand when asked and was able to demonstrate full ROM. Pt absent of SI/HI/VH/AH/delusions at this time, no verbal/physical aggression displayed. Plan of care continues, will pass to next shift.
--- NOTE | 2020-10-31 10:46 | NUR ---
Pt intermittently crying and praying in tongues, she has not elevated into high anxiety/agitation. She appears to be more sad in presentation. Encouragement, redirection, and support provided by staff.
--- NOTE | 2020-10-31 11:47 | NUR ---
NICA received call from pt , Donnell, who wanted to set up a visit. NICA informed Donnell that as of this morning, the hospital will be ceasing all visitors at this time with the rising numbers seen in Covid cases. If anything is to change or come up with this, NICA will make sure to contact Donnell with those updates.
--- NOTE | 2020-10-31 13:16 | NUR ---
NICA contacted Filomena to let her know that as of this morning, the hospital has ceased all visits starting tomorrow due to an increasing number of Covid cases being admitted. NICA would still like to hold the meeting for Thursday at 0900 as planned so that all parties are on the same page on pt care and placement. Filomena agrees and noted that her animal caretaker supervisor at [facility] in [place] has guaranteed a bed for pt there. NICA will be able to send those notes over tomorrow and let them know after treatment team on when a discharge would be possible.
[2020-10-31 15:42] VITALS: BP 121/60
[2020-10-31] MEDS: risperiDONE 0.5 MG TABLET. PO SCH (17:15)
[2020-10-31] MEDS: SENNOSIDES 8.6 MG TABLET PO SCH (20:01)
[2020-10-31] MEDS: ATORVASTATIN CALCIUM 10 MG TABLET. PO SCH (20:01)
[2020-10-31] MEDS: DIVALPROEX ER 500 MG TAB.ER.24H PO SCH (20:01)
[2020-10-31] MEDS: MELATONIN 3 MG TABLET PO PRN (20:01)
[2020-10-31] MEDS: traZODone 50 MG TABLET. PO PRN (20:02)
[2020-10-31] MEDS: MIRTAZAPINE 15 MG TABLET PO SCH (20:02)
--- NOTE | 2020-10-31 22:22 | PDOC ---
Exam Note: Tex Note: Please also refer to the separate dictated note~for this date of service dictated separately.~Patient seen individually. Discussed the patient with Nursing staff reviewed the chart.~Reviewed interim history and current functioning. Reviewed vital signs,~Labs/ Radiology~and current medications noted below. Continue current treatment with the changes noted in the dictated addendum note Assessment: Vital Signs/I&O: Vital Signs Date Time Temp Pulse Resp B/P (MAP) Pulse Ox O2 Delivery O2 Flow Rate FiO2 10/31/20 20:02 94 121/60 10/31/20 15:42 97.9 18 93 10/28/20 16:00 Room Air I & O 10/30/20 10/30/20 10/31/20 15:00 23:00 07:00 Intake Total 880 ml 360 ml Balance 880 ml 360 ml Current Medications: Meds: Current Medications Medications (Trade) Dose Ordered Sig/Chidi Route PRN Reason Start Time Stop Time Status Last Admin Dose Admin Aspirin (Aspirin Enteric Coated) 81 mg DAILY PO 10/10/20 09:00 10/31/20 08:40 Atorvastatin Calcium (Lipitor) 10 mg QHS PO 10/09/20 21:00 10/31/20 20:01 Calcium Polycarbophil (Fibercon) 1,250 mg BID PO 10/09/20 21:00 10/31/20 20:03 Vitamin D (Vitamin D3) 50,000 unit WEEKLY PO 10/16/20 09:00 10/30/20 08:16 Vitamin D (Vitamin D3) 2,000 unit DAILY PO 10/10/20 09:00 10/17/20 14:27 DC 10/17/20 08:17 Denosumab (Prolia) 60 mg 1X SQ 10/09/20 15:30 10/17/20 17:10 DC Diltiazem HCl (Cardizem) 30 mg BID PO 10/09/20 21:00 10/31/20 20:02 Levothyroxine Sodium (Synthroid) 25 mcg DAILY06 PO 10/10/20 07:30 10/31/20 05:51 Pramipexole Dihydrochloride (miraPEX) 1 mg [id number] PO 10/09/20 21:00 10/31/20 20:03 Tizanidine HCl (Zanaflex) 4 mg PRN Q8HRS PRN PO MUSCLE SPASMS 10/09/20 15:30 10/21/20 23:58 Multivitamins/ Calcium (Thera-M Plus) 1 tab DAILY PO 10/10/20 09:00 10/31/20 08:40 Pantoprazole Sodium (Protonix) 40 mg DAILY PO 10/10/20 09:00 10/31/20 08:40 Sennosides (Senna) 25.8 mg HS PO 10/09/20 21:00 10/31/20 20:01 Acetaminophen (Tylenol) 650 mg PRN Q6HRS PRN PO MILD PAIN / TEMP > 100.3'F 10/09/20 17:30 10/16/20 08:51 Multi-Ingredient Ointment (Analgesic [place]) 1 ashanti PRN QID PRN TP MUSCLE PAIN 10/09/20 17:30 Al Hydroxide/Mg Hydroxide (Mylanta Plus Xs) 15 ml PRN AFTMEALHC PRN PO DYSPEPSIA 10/09/20 17:30 Magnesium Hydroxide (Milk Of Magnesia) 2,400 mg PRN QHS PRN PO CONSTIPATION 10/09/20 17:30 Olanzapine (ZyPREXA ZYDIS) 2.5 mg PRN Q2HRS PRN PO PSYCHOSIS 10/09/20 17:30 10/29/20 13:32 Doxycycline Hyclate (Vibra-Tab) 100 mg BID PO 10/10/20 21:00 10/19/20 22:00 DC 10/19/20 20:35 Divalproex Sodium (Depakote Er) 500 mg QHS PO 10/11/20 21:00 10/31/20 20:01 Lactobacillus Rhamnosus (Culturelle) 1 cap BID PO 10/14/20 21:00 10/31/20 20:03 Bupropion HCl (Wellbutrin Xl) 150 mg DAILY PO 10/18/20 09:00 10/19/20 17:07 DC 10/19/20 08:22 Bupropion HCl (Wellbutrin Xl) 300 mg DAILY PO 10/20/20 09:00 10/31/20 08:39 Trazodone HCl (Desyrel) 50 mg PRN QHS PRN PO INSOMNIA, MAY REPEAT X1 10/22/20 06:00 10/31/20 20:02 Risperidone (RisperDAL) 0.5 mg QHS PO 10/22/20 18:00 10/24/20 16:15 DC 10/23/20 20:10 Mirtazapine (Remeron) 7.5 mg QHS PO 10/23/20 21:00 10/29/20 18:20 DC 10/28/20 20:19 Risperidone (RisperDAL) 0.75 mg QHS PO 10/24/20 21:00 10/25/20 11:50 DC 10/24/20 19:34 Risperidone (RisperDAL) 0.25 mg 0900,1300,1700 PO 10/25/20 13:00 10/26/20 18:31 DC 10/26/20 17:16 Risperidone (RisperDAL) 0.25 mg 0900,1300 PO 10/27/20 09:00 10/31/20 12:02 Risperidone (RisperDAL) 0.5 mg DAILYWSUP PO 10/27/20 17:00 10/31/20 17:15 Mirtazapine (Remeron) 15 mg QHS PO 10/29/20 21:00 10/31/20 20:02 Melatonin (Melatonin) 3 mg PRN QHS PRN PO INSOMNIA 10/29/20 18:30 10/31/20 20:01 I have reviewed the current psychotropics carefully including drug interactions. Risk benefit ratio favors no change other than as noted in my dictated progress note. Diagnosis: Problems: (1) Impulse control disorder, unspecified (2) Mild cognitive impairment (3) Anxiety disorder, unspecified (4) Bipolar disorder, current episode mixed, severe, with psychotic features SAEID NUNEZ MD Oct 31, 2020 22:22
--- NOTE | 2020-10-31 23:22 | NUR ---
Pt calmer and interactive this evening. Pt disorganized. Compliant with whole medications. No tearfulness, less anxious.
[2020-11-01 05:48] VITALS: BP 114/68
[2020-11-01] MEDS: LEVOTHYROXINE 25 MCG TABLET. PO SCH (06:04)
[2020-11-01] MEDS: risperiDONE 0.25 MG TABLET. PO SCH ×2 (08:46→12:28)
[2020-11-01] MEDS: CALCIUM POLYCARBOPHIL 625 MG TABLET PO SCH ×2 (08:46→20:28)
[2020-11-01] MEDS: ASPIRIN ENTERIC COATED 81 MG TABLET.DR. PO SCH (08:47)
[2020-11-01] MEDS: dilTIAZem HCL 30 MG TABLET PO SCH ×2 (08:47→20:29)
[2020-11-01] MEDS: PANTOPRAZOLE 40 MG TABLET. PO SCH (08:47)
[2020-11-01] MEDS: buPROPion XL 300 MG TAB.ER.24H. PO SCH (08:47)
[2020-11-01] MEDS: PRAMIPEXOLE 0.5 MG TABLET. PO SCH ×3 (08:47→20:28)
[2020-11-01] MEDS: MULTIVITAMIN with MINERAL TABLET. PO SCH (08:47)
[2020-11-01] MEDS: LACTOBACILLUS RHAMNOSUS GG 1 CAPSULE. PO SCH ×2 (08:47→20:28)
--- NOTE | 2020-11-01 10:56 | NUR ---
Treatment team note: Pt is eating anywhere between 50-75% of meals and sleeping 5 hours per night. Pt compliant with medications; however, does seem to be a little labile as evidenced by her anxiety, tearfulness and speaking in tongues multiple times throughout the day. Pt is more disorganized and exhibiting delusions per the family; a head CT will be completed if one has not been completed. During the visits with her she stated that "her boyfriend is here and so the visit needs to hurry up" and then left the visit to "tend to her boyfriend". Pt has been accepted to [facility] [place] once stable. [facility]OS is for the end of next week. SW will continue to work with pt family in finalizing discharge plans.
--- NOTE | 2020-11-01 11:05 | TX PLAN ---
Interdisciplinary Tx Plan Admission Information Oct 09, 2020 at 16:45 Legal Status (on Admission): Voluntary DPOA/Guardian Name: Filomena Armas Contact Other Contact Name: Donnell Amras Other Contact Verified Code Status: Full Code Allergies: Coded Allergies: Sulfa (Sulfonamide Antibiotics) (Verified Allergy, Unknown, 10/09/20) cat dander (Verified Allergy, Unknown, 10/09/20) egg (Verified Allergy, Unknown, 10/09/20) gluten (Verified Allergy, Unknown, 10/09/20) Uncoded Allergies: air freshener (Allergy, Severe, Rash, 10/09/20) Diagnoses Primary Diagnosis: Major Neurocognitive D/O, vascular Alzheimers with delusions, depression 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 Pt picked up a hammer to defend herself when she doesn't recognize people, poor self-care within the last week, running off, poor meal intake, wishing she was , delusional, anxious. Problems Active Problems: labile delusional Inactive Problems: medication compliant Pt Strengths/Limitations Ability for [place]: Fair Cognitive Functioning/Ability: Poor Communication Skills/Ability: Fair Financial Resources: Fair Insight/Judgement: Poor Intellectual Ability: Fair Physical Health: Poor Social Skills: Fair Stability in Family: Good Stability in School/Work: Poor Verbal Skills: Fair Discharge Criteria Discharge Criteria: Adequate arrangements @DC, Improved behavior, Improved mood/thought Preliminary Discharge Plan Preliminary DC Plan: Current Living Arrange. Special Precautions Fall Risk: Low Initial D/C Plan Pt to return back home with Identified Discharge Needs: continued psychiatric services Currently Utilized Resources Currently Utilized Resources/P: Primary Care Physician Referrals Community Resources: Psychiatric services Identified Problems/Hx/Goals Objectives/Short-Term Goals Short Term Goals: Dec. Hallucination/Delus, Dec. Outbursts, Medication Stabilization, Promote Coping Skill Short Term Goals in Patient's: N/A Interventions/Frequency Staff Interventions/Frequency&: Psychiatrist to assess pt at least 3x per week for medication management. Social Work to assess pt at least 2x per week to identify barriers to care and discharge planning goals. Nursing to assess medication effects, behavior modification and completion of 15 minute checks. Encourage participation in group activities (if applicable) or 1:1 interaction based off Activity Dept goals. 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 Education: Pt graduated high school (12th grade) Community Follow-up PCP Mental Health follow-up Treatment Plan Explained Patient/Mold Press Operator had this treatment plan explained to him/her as indicated by the signature below and has been given the opportunity to ask questions and make suggestions: Date: Patient/Mold Press Operator Signature: Status Update Update Pt is eating anywhere between 50-75% of meals and sleeping 5 hours per night. Pt compliant with medications; however, does seem to be a little labile as evidenced by her anxiety, tearfulness and speaking in tongues multiple times throughout the day. Pt is more disorganized and exhibiting delusions per the family; a head CT will be completed if one has not been completed. During the visits with her she stated that "her boyfriend is here and so the visit needs to hurry up" and then left the visit to "tend to her boyfriend". Pt has been [facility] to [facility] [place] once stable. [facility]OS is for the end of next week. NICA will continue to work with pt family in finalizing discharge plans. INDER DANIEL Nov 01, 2020 11:05
--- NOTE | 2020-11-01 12:10 | NUR ---
WEEKLY ACTIVITY THERAPY NOTE Date of Admission: 10/09/20 Date of AT Assessment: 10/11 Precipitating behaviors that initiated intake and admission: Patient admitted from home via [place] ED for reportedly being paranoid, accusing of sleeping with daughter, eloping from home, stating family members holding her hostage, refusing to eat or bathe, picked up a hammer and made a tool out of wire to defend herself, and accusing family of lying to hospital staff. Goal aimed: increase stress management and relaxation skills Initial Goal: Pt will participate in at least five individual or group Activity Therapy session per week. Weekly progress towards goal: did not achieve, 3/5 Group participation level: 3 min Weekly highlights: exercise afternoon, attempting picture puzzles Thursday Behaviors observed: irritable and distracting Thursday Plan: no change to goal Beneficial adaptations: redirection
--- NOTE | 2020-11-01 13:47 | NUR ---
Patient wandering in hallway at times. Patient confused and disorganized. Patient was not teary today. Speaking in tongues while walking down hallway. Patient is cooperative with staff no aggression shown towards staff or other patient's. Medication compliant.Last CT was 10/07/20. New order for CT of head without contrast per Dr. Parsons.
--- NOTE | 2020-11-01 14:42 | NUR ---
Nurse was attempting to give patient 1400 medication when patient began to swing at nurse and speaking in tongue. Patient was redirected by nursing staff but was unsuccessful. Patient continue to swing , kick and bite at staff. Patient received Zydis PRN 2.5 mg. Patient has new order for a CT to be done today per Dr. Parsons.
[2020-11-01 15:48] VITALS: BP 125/81
[2020-11-01] MEDS: risperiDONE 0.5 MG TABLET. PO SCH (17:24)
[2020-11-01] MEDS: ATORVASTATIN CALCIUM 10 MG TABLET. PO SCH (20:27)
[2020-11-01] MEDS: SENNOSIDES 8.6 MG TABLET PO SCH (20:27)
[2020-11-01] MEDS: DIVALPROEX ER 500 MG TAB.ER.24H PO SCH (20:28)
[2020-11-01] MEDS: MIRTAZAPINE 15 MG TABLET PO SCH (20:28)
--- NOTE | 2020-11-01 22:00 | PDOC ---
Exam Note: Tex Note: Please also refer to the separate dictated note~for this date of service dictated separately.~Patient seen individually. Discussed the patient with Nursing staff reviewed the chart.~Reviewed interim history and current functioning. Reviewed vital signs,~Labs/ Radiology~and current medications noted below. Continue current treatment with the changes noted in the dictated addendum note Assessment: Vital Signs/I&O: Vital Signs Date Time Temp Pulse Resp B/P (MAP) Pulse Ox O2 Delivery O2 Flow Rate FiO2 11/01/20 20:29 92 125/81 11/01/20 15:48 98.2 18 98 10/28/20 16:00 Room Air I & O 10/31/20 10/31/20 11/01/20 15:00 23:00 07:00 Intake Total 360 ml 360 ml Balance 360 ml 360 ml Current Medications: Meds: Current Medications Medications (Trade) Dose Ordered Sig/Chidi Route PRN Reason Start Time Stop Time Status Last Admin Dose Admin Aspirin (Aspirin Enteric Coated) 81 mg DAILY PO 10/10/20 09:00 11/01/20 08:47 Atorvastatin Calcium (Lipitor) 10 mg QHS PO 10/09/20 21:00 11/01/20 20:27 Calcium Polycarbophil (Fibercon) 1,250 mg BID PO 10/09/20 21:00 11/01/20 20:28 Vitamin D (Vitamin D3) 50,000 unit WEEKLY PO 10/16/20 09:00 10/30/20 08:16 Vitamin D (Vitamin D3) 2,000 unit DAILY PO 10/10/20 09:00 10/17/20 14:27 DC 10/17/20 08:17 Denosumab (Prolia) 60 mg 1X SQ 10/09/20 15:30 10/17/20 17:10 DC Diltiazem HCl (Cardizem) 30 mg BID PO 10/09/20 21:00 11/01/20 20:29 Levothyroxine Sodium (Synthroid) 25 mcg DAILY06 PO 10/10/20 07:30 11/01/20 06:04 Pramipexole Dihydrochloride (miraPEX) 1 mg [id number] PO 10/09/20 21:00 11/01/20 20:28 Tizanidine HCl (Zanaflex) 4 mg PRN Q8HRS PRN PO MUSCLE SPASMS 10/09/20 15:30 10/21/20 23:58 Multivitamins/ Calcium (Thera-M Plus) 1 tab DAILY PO 10/10/20 09:00 11/01/20 08:47 Pantoprazole Sodium (Protonix) 40 mg DAILY PO 10/10/20 09:00 11/01/20 08:47 Sennosides (Senna) 25.8 mg HS PO 10/09/20 21:00 11/01/20 20:27 Acetaminophen (Tylenol) 650 mg PRN Q6HRS PRN PO MILD PAIN / TEMP > 100.3'F 10/09/20 17:30 10/16/20 08:51 Multi-Ingredient Ointment (Analgesic [place]) 1 ashanti PRN QID PRN TP MUSCLE PAIN 10/09/20 17:30 Al Hydroxide/Mg Hydroxide (Mylanta Plus Xs) 15 ml PRN AFTMEALHC PRN PO DYSPEPSIA 10/09/20 17:30 Magnesium Hydroxide (Milk Of Magnesia) 2,400 mg PRN QHS PRN PO CONSTIPATION 10/09/20 17:30 Olanzapine (ZyPREXA ZYDIS) 2.5 mg PRN Q2HRS PRN PO PSYCHOSIS 10/09/20 17:30 11/01/20 17:24 Doxycycline Hyclate (Vibra-Tab) 100 mg BID PO 10/10/20 21:00 10/19/20 22:00 DC 10/19/20 20:35 Divalproex Sodium (Depakote Er) 500 mg QHS PO 10/11/20 21:00 11/01/20 20:28 Lactobacillus Rhamnosus (Culturelle) 1 cap BID PO 10/14/20 21:00 11/01/20 20:28 Bupropion HCl (Wellbutrin Xl) 150 mg DAILY PO 10/18/20 09:00 10/19/20 17:07 DC 10/19/20 08:22 Bupropion HCl (Wellbutrin Xl) 300 mg DAILY PO 10/20/20 09:00 11/01/20 08:47 Trazodone HCl (Desyrel) 50 mg PRN QHS PRN PO INSOMNIA, MAY REPEAT X1 10/22/20 06:00 10/31/20 20:02 Risperidone (RisperDAL) 0.5 mg QHS PO 10/22/20 18:00 10/24/20 16:15 DC 10/23/20 20:10 Mirtazapine (Remeron) 7.5 mg QHS PO 10/23/20 21:00 10/29/20 18:20 DC 10/28/20 20:19 Risperidone (RisperDAL) 0.75 mg QHS PO 10/24/20 21:00 10/25/20 11:50 DC 10/24/20 19:34 Risperidone (RisperDAL) 0.25 mg 0900,1300,1700 PO 10/25/20 13:00 10/26/20 18:31 DC 10/26/20 17:16 Risperidone (RisperDAL) 0.25 mg 0900,1300 PO 10/27/20 09:00 11/01/20 12:28 Risperidone (RisperDAL) 0.5 mg DAILYWSUP PO 10/27/20 17:00 11/01/20 17:24 Mirtazapine (Remeron) 15 mg QHS PO 10/29/20 21:00 11/01/20 20:28 Melatonin (Melatonin) 3 mg PRN QHS PRN PO INSOMNIA 10/29/20 18:30 10/31/20 20:01 I have reviewed the current psychotropics carefully including drug interactions. Risk benefit ratio favors no change other than as noted in my dictated progress note. Diagnosis: Problems: (1) Impulse control disorder, unspecified (2) Mild cognitive impairment (3) Anxiety disorder, unspecified (4) Bipolar disorder, current episode mixed, severe, with psychotic features SAEID NUNEZ MD Nov 01, 2020 22:00
--- NOTE | 2020-11-02 01:47 | NUR ---
Nursing note Pt in dayroom, calm and cooperative, compliant with meds, no behaviors at this time.
[2020-11-02] MEDS: LEVOTHYROXINE 25 MCG TABLET. PO SCH (05:59)
[2020-11-02 06:43] VITALS: BP 166/92
[2020-11-02] MEDS: ASPIRIN ENTERIC COATED 81 MG TABLET.DR. PO SCH (08:35)
[2020-11-02] MEDS: PRAMIPEXOLE 0.5 MG TABLET. PO SCH ×3 (08:35→21:31)
[2020-11-02] MEDS: buPROPion XL 300 MG TAB.ER.24H. PO SCH (08:36)
[2020-11-02] MEDS: LACTOBACILLUS RHAMNOSUS GG 1 CAPSULE. PO SCH ×2 (08:36→21:11)
[2020-11-02] MEDS: MULTIVITAMIN with MINERAL TABLET. PO SCH (08:36)
[2020-11-02] MEDS: dilTIAZem HCL 30 MG TABLET PO SCH ×2 (08:36→21:11)
[2020-11-02] MEDS: PANTOPRAZOLE 40 MG TABLET. PO SCH (08:36)
[2020-11-02] MEDS: CALCIUM POLYCARBOPHIL 625 MG TABLET PO SCH ×2 (08:36→21:12)
[2020-11-02] MEDS: risperiDONE 0.25 MG TABLET. PO SCH ×2 (08:36→13:20)
--- NOTE | 2020-11-02 08:39 | PDOC ---
Exam Note: Tex Note: This note is a late entry for 10/31/2020 covers elements not covered in my initial note. Subjective: The patient was seen individually in the evening of 10/31/2020 with Jennifer FAGAN, discussed and reviewed the chart. She slept for 7 hours previous night. The patient did well in the morning. She has been compliant, pleasant. In the evening she was tearful, praying in tongues. She appeared sad as I met with him in the evening. Review of Systems: No CV, , pulmonary, eye, ENT system symptoms on review. Mental Status Exam: The patient is oriented to herself and at times situation. Speech coherent, has some latency. Abstraction fair. Computation impaired. Language function intact. Attention span short. Mood and affect somewhat anxious, labile, depressed. No suicidal or homicidal ideation. Laboratory Data: Reviewed. Impression: Bipolar disorder mixed with psychotic features. Anxiety disorder unspecified. Impulse control disorder unspecified. Mild cognitive impairment. Plan: Continue psychotropics from initial note. If psychotic symptoms persists, we may adjust the Risperdal further. Assessment: Vital Signs/I&O: Vital Signs Date Time Temp Pulse Resp B/P (MAP) Pulse Ox O2 Delivery O2 Flow Rate FiO2 11/02/20 06:43 97.5 94 16 166/92 (116) 94 Room Air I & O 11/01/20 11/01/20 11/02/20 15:00 23:00 07:00 Intake Total 600 ml 660 ml Balance 600 ml 660 ml Current Medications: Meds: Current Medications Medications (Trade) Dose Ordered Sig/Chidi Route PRN Reason Start Time Stop Time Status Last Admin Dose Admin Aspirin (Aspirin Enteric Coated) 81 mg DAILY PO 10/10/20 09:00 11/01/20 08:47 Atorvastatin Calcium (Lipitor) 10 mg QHS PO 10/09/20 21:00 11/01/20 20:27 Calcium Polycarbophil (Fibercon) 1,250 mg BID PO 10/09/20 21:00 11/01/20 20:28 Vitamin D (Vitamin D3) 50,000 unit WEEKLY PO 10/16/20 09:00 10/30/20 08:16 Vitamin D (Vitamin D3) 2,000 unit DAILY PO 10/10/20 09:00 10/17/20 14:27 DC 10/17/20 08:17 Denosumab (Prolia) 60 mg 1X SQ 10/09/20 15:30 10/17/20 17:10 DC Diltiazem HCl (Cardizem) 30 mg BID PO 10/09/20 21:00 11/01/20 20:29 Levothyroxine Sodium (Synthroid) 25 mcg DAILY06 PO 10/10/20 07:30 11/02/20 05:59 Pramipexole Dihydrochloride (miraPEX) 1 mg [id number] PO 10/09/20 21:00 11/01/20 20:28 Tizanidine HCl (Zanaflex) 4 mg PRN Q8HRS PRN PO MUSCLE SPASMS 10/09/20 15:30 10/21/20 23:58 Multivitamins/ Calcium (Thera-M Plus) 1 tab DAILY PO 10/10/20 09:00 11/01/20 08:47 Pantoprazole Sodium (Protonix) 40 mg DAILY PO 10/10/20 09:00 11/01/20 08:47 Sennosides (Senna) 25.8 mg HS PO 10/09/20 21:00 11/01/20 20:27 Acetaminophen (Tylenol) 650 mg PRN Q6HRS PRN PO MILD PAIN / TEMP > 100.3'F 10/09/20 17:30 10/16/20 08:51 Multi-Ingredient Ointment (Analgesic [place]) 1 ashanti PRN QID PRN TP MUSCLE PAIN 10/09/20 17:30 Al Hydroxide/Mg Hydroxide (Mylanta Plus Xs) 15 ml PRN AFTMEALHC PRN PO DYSPEPSIA 10/09/20 17:30 Magnesium Hydroxide (Milk Of Magnesia) 2,400 mg PRN QHS PRN PO CONSTIPATION 10/09/20 17:30 Olanzapine (ZyPREXA ZYDIS) 2.5 mg PRN Q2HRS PRN PO PSYCHOSIS 10/09/20 17:30 11/01/20 17:24 Doxycycline Hyclate (Vibra-Tab) 100 mg BID PO 10/10/20 21:00 10/19/20 22:00 DC 10/19/20 20:35 Divalproex Sodium (Depakote Er) 500 mg QHS PO 10/11/20 21:00 11/01/20 20:28 Lactobacillus Rhamnosus (Culturelle) 1 cap BID PO 10/14/20 21:00 11/01/20 20:28 Bupropion HCl (Wellbutrin Xl) 150 mg DAILY PO 10/18/20 09:00 10/19/20 17:07 DC 10/19/20 08:22 Bupropion HCl (Wellbutrin Xl) 300 mg DAILY PO 10/20/20 09:00 11/01/20 08:47 Trazodone HCl (Desyrel) 50 mg PRN QHS PRN PO INSOMNIA, MAY REPEAT X1 10/22/20 06:00 10/31/20 20:02 Risperidone (RisperDAL) 0.5 mg QHS PO 10/22/20 18:00 10/24/20 16:15 DC 10/23/20 20:10 Mirtazapine (Remeron) 7.5 mg QHS PO 10/23/20 21:00 10/29/20 18:20 DC 10/28/20 20:19 Risperidone (RisperDAL) 0.75 mg QHS PO 10/24/20 21:00 10/25/20 11:50 DC 10/24/20 19:34 Risperidone (RisperDAL) 0.25 mg 0900,1300,1700 PO 10/25/20 13:00 10/26/20 18:31 DC 10/26/20 17:16 Risperidone (RisperDAL) 0.25 mg 0900,1300 PO 10/27/20 09:00 11/01/20 12:28 Risperidone (RisperDAL) 0.5 mg DAILYWSUP PO 10/27/20 17:00 11/01/20 17:24 Mirtazapine (Remeron) 15 mg QHS PO 10/29/20 21:00 11/01/20 20:28 Melatonin (Melatonin) 3 mg PRN QHS PRN PO INSOMNIA 10/29/20 18:30 10/31/20 20:01 I have reviewed the current psychotropics carefully including drug interactions. Risk benefit ratio favors no change other than as noted in my dictated progress note. Diagnosis: Problems: (1) Impulse control disorder, unspecified (2) Mild cognitive impairment (3) Anxiety disorder, unspecified (4) Bipolar disorder, current episode mixed, severe, with psychotic features SAEID NUNEZ MD Nov 02, 2020 08:39
--- NOTE | 2020-11-02 09:09 | PDOC ---
Exam Note: Tex Note: This note is a late entry for 11/01/2020 covers elements not covered in my initial note. Subjective: The patient was seen individually in the morning of 11/01/2020 for a treatment team meeting with Bethanie Rain, Maria G Esteves (psych social worker), Ifrah, activity therapy and Jayla FAGAN, discussed and reviewed the chart. She slept for 7-1/2 hours previous night. Overall the patient has been calmer, somewhat disorganized, tearful at times. Plan is for her to transition to [facility] where the daughter works as well. CT head was last done on 10/07 and we will not repeat it. Around 2 p.m. she got agitated when her meds were being administered and she was hitting and kicking staff. I addressed this with her individually in the evening with limited insight. Review of Systems: No CV, , pulmonary, eye, ENT system symptoms on review. Mental Status Exam: The patient is oriented to herself and at times situation. Speech coherent, has some latency. Abstraction fair. Computation impaired. Language function intact. Attention span short. Mood and affect somewhat anxious, labile, depressed. No suicidal or homicidal ideation. Laboratory Data: Reviewed. Impression: Bipolar disorder mixed with psychotic features. Anxiety disorder unspecified. Impulse control disorder unspecified. Mild cognitive impairment. Plan: Continue Wellbutrin, Zyprexa p.r.n., Depakote, trazodone, Risperdal, Remeron, melatonin. Adjust further as clinically indicated. Assessment: Vital Signs/I&O: Vital Signs Date Time Temp Pulse Resp B/P (MAP) Pulse Ox O2 Delivery O2 Flow Rate FiO2 11/02/20 08:36 94 166/92 11/02/20 06:43 97.5 16 94 Room Air I & O 11/01/20 11/01/20 11/02/20 15:00 23:00 07:00 Intake Total 600 ml 660 ml Balance 600 ml 660 ml Current Medications: Meds: Current Medications Medications (Trade) Dose Ordered Sig/Chidi Route PRN Reason Start Time Stop Time Status Last Admin Dose Admin Aspirin (Aspirin Enteric Coated) 81 mg DAILY PO 10/10/20 09:00 11/02/20 08:35 Atorvastatin Calcium (Lipitor) 10 mg QHS PO 10/09/20 21:00 11/01/20 20:27 Calcium Polycarbophil (Fibercon) 1,250 mg BID PO 10/09/20 21:00 11/02/20 08:36 Vitamin D (Vitamin D3) 50,000 unit WEEKLY PO 10/16/20 09:00 10/30/20 08:16 Vitamin D (Vitamin D3) 2,000 unit DAILY PO 10/10/20 09:00 10/17/20 14:27 DC 10/17/20 08:17 Denosumab (Prolia) 60 mg 1X SQ 10/09/20 15:30 10/17/20 17:10 DC Diltiazem HCl (Cardizem) 30 mg BID PO 10/09/20 21:00 11/02/20 08:36 Levothyroxine Sodium (Synthroid) 25 mcg DAILY06 PO 10/10/20 07:30 11/02/20 05:59 Pramipexole Dihydrochloride (miraPEX) 1 mg [id number] PO 10/09/20 21:00 11/02/20 08:35 Tizanidine HCl (Zanaflex) 4 mg PRN Q8HRS PRN PO MUSCLE SPASMS 10/09/20 15:30 10/21/20 23:58 Multivitamins/ Calcium (Thera-M Plus) 1 tab DAILY PO 10/10/20 09:00 11/02/20 08:36 Pantoprazole Sodium (Protonix) 40 mg DAILY PO 10/10/20 09:00 11/02/20 08:36 Sennosides (Senna) 25.8 mg HS PO 10/09/20 21:00 11/01/20 20:27 Acetaminophen (Tylenol) 650 mg PRN Q6HRS PRN PO MILD PAIN / TEMP > 100.3'F 10/09/20 17:30 10/16/20 08:51 Multi-Ingredient Ointment (Analgesic [place]) 1 ashanti PRN QID PRN TP MUSCLE PAIN 10/09/20 17:30 Al Hydroxide/Mg Hydroxide (Mylanta Plus Xs) 15 ml PRN AFTMEALHC PRN PO DYSPEPSIA 10/09/20 17:30 Magnesium Hydroxide (Milk Of Magnesia) 2,400 mg PRN QHS PRN PO CONSTIPATION 10/09/20 17:30 Olanzapine (ZyPREXA ZYDIS) 2.5 mg PRN Q2HRS PRN PO PSYCHOSIS 10/09/20 17:30 11/01/20 17:24 Doxycycline Hyclate (Vibra-Tab) 100 mg BID PO 10/10/20 21:00 10/19/20 22:00 DC 10/19/20 20:35 Divalproex Sodium (Depakote Er) 500 mg QHS PO 10/11/20 21:00 11/01/20 20:28 Lactobacillus Rhamnosus (Culturelle) 1 cap BID PO 10/14/20 21:00 11/02/20 08:36 Bupropion HCl (Wellbutrin Xl) 150 mg DAILY PO 10/18/20 09:00 10/19/20 17:07 DC 10/19/20 08:22 Bupropion HCl (Wellbutrin Xl) 300 mg DAILY PO 10/20/20 09:00 11/02/20 08:36 Trazodone HCl (Desyrel) 50 mg PRN QHS PRN PO INSOMNIA, MAY REPEAT X1 10/22/20 06:00 10/31/20 20:02 Risperidone (RisperDAL) 0.5 mg QHS PO 10/22/20 18:00 10/24/20 16:15 DC 10/23/20 20:10 Mirtazapine (Remeron) 7.5 mg QHS PO 10/23/20 21:00 10/29/20 18:20 DC 10/28/20 20:19 Risperidone (RisperDAL) 0.75 mg QHS PO 10/24/20 21:00 10/25/20 11:50 DC 10/24/20 19:34 Risperidone (RisperDAL) 0.25 mg 0900,1300,1700 PO 10/25/20 13:00 10/26/20 18:31 DC 10/26/20 17:16 Risperidone (RisperDAL) 0.25 mg 0900,1300 PO 10/27/20 09:00 11/02/20 08:36 Risperidone (RisperDAL) 0.5 mg DAILYWSUP PO 10/27/20 17:00 11/01/20 17:24 Mirtazapine (Remeron) 15 mg QHS PO 10/29/20 21:00 11/01/20 20:28 Melatonin (Melatonin) 3 mg PRN QHS PRN PO INSOMNIA 10/29/20 18:30 10/31/20 20:01 I have reviewed the current psychotropics carefully including drug interactions. Risk benefit ratio favors no change other than as noted in my dictated progress note. Diagnosis: Problems: (1) Impulse control disorder, unspecified (2) Mild cognitive impairment (3) Anxiety disorder, unspecified (4) Bipolar disorder, current episode mixed, severe, with psychotic features SAEID NUNEZ MD Nov 02, 2020 09:09
--- NOTE | 2020-11-02 09:47 | NUR ---
NICA had a conference call with pt dtr/guardianFilomena, pt Luke and pt other dtr Bibiana. SW gave an update on pt behaviors in which pt is not consistent in behaviors. Pt has days where she does great and little to no physical aggression is shown. Other times, pt is delusional and agitated often speaking in tongues during these episodes. NICA explained that in evaluating pt behaviors, she is exhibiting more signs of Dementia than she is Bipolar with psychotic features. In saying this if the family chose to take pt home, they will need to understand pt confusion and delusions will continue and pt will not be able to be home alone. Pt does not believe they can maintain pt at home in this current state. Pt dtrFilomena reports that pt will be accepted to [facility] once pt is allowed to discharge. NICA explained that pt would more than likely look at discharge in the first week of November. NICA went over the team decision to have pt complete another head CT; however, at the time it was to be completed, pt was actually attempting to be aggressive with the nurse passing out her medications. Pt family will follow up with nursing on the results of the head CT. NICA was asked to send the referral to [facility] this week and also asked to send a copy of the med list to Filomena who works at [facility].
[2020-11-02] MEDS: ACETAMINOPHEN 325 MG TABLET PO PRN (10:41)
[2020-11-02 16:00] VITALS: BP 136/82
[2020-11-02] MEDS: risperiDONE 0.5 MG TABLET. PO SCH (17:24)
[2020-11-02] MEDS: SENNOSIDES 8.6 MG TABLET PO SCH (21:12)
[2020-11-02] MEDS: DIVALPROEX ER 500 MG TAB.ER.24H PO SCH (21:12)
[2020-11-02] MEDS: ATORVASTATIN CALCIUM 10 MG TABLET. PO SCH (21:12)
[2020-11-02] MEDS: MIRTAZAPINE 15 MG TABLET PO SCH (21:12)
--- NOTE | 2020-11-02 22:06 | PDOC ---
Exam Note: Tex Note: Please also refer to the separate dictated note~for this date of service dictated separately.~Patient seen individually. Discussed the patient with Nursing staff reviewed the chart.~Reviewed interim history and current functioning. Reviewed vital signs,~Labs/ Radiology~and current medications noted below. Continue current treatment with the changes noted in the dictated addendum note Assessment: Vital Signs/I&O: Vital Signs Date Time Temp Pulse Resp B/P (MAP) Pulse Ox O2 Delivery O2 Flow Rate FiO2 11/02/20 21:11 91 136/82 11/02/20 16:00 97.8 18 94 Room Air I & O 11/01/20 11/01/20 11/02/20 15:00 23:00 07:00 Intake Total 600 ml 660 ml Balance 600 ml 660 ml Current Medications: Meds: Current Medications Medications (Trade) Dose Ordered Sig/Chidi Route PRN Reason Start Time Stop Time Status Last Admin Dose Admin Aspirin (Aspirin Enteric Coated) 81 mg DAILY PO 10/10/20 09:00 11/02/20 08:35 Atorvastatin Calcium (Lipitor) 10 mg QHS PO 10/09/20 21:00 11/02/20 21:12 Calcium Polycarbophil (Fibercon) 1,250 mg BID PO 10/09/20 21:00 11/02/20 21:12 Vitamin D (Vitamin D3) 50,000 unit WEEKLY PO 10/16/20 09:00 10/30/20 08:16 Vitamin D (Vitamin D3) 2,000 unit DAILY PO 10/10/20 09:00 10/17/20 14:27 DC 10/17/20 08:17 Denosumab (Prolia) 60 mg 1X SQ 10/09/20 15:30 10/17/20 17:10 DC Diltiazem HCl (Cardizem) 30 mg BID PO 10/09/20 21:00 11/02/20 21:11 Levothyroxine Sodium (Synthroid) 25 mcg DAILY06 PO 10/10/20 07:30 11/02/20 05:59 Pramipexole Dihydrochloride (miraPEX) 1 mg [id number] PO 10/09/20 21:00 11/02/20 21:31 Tizanidine HCl (Zanaflex) 4 mg PRN Q8HRS PRN PO MUSCLE SPASMS 10/09/20 15:30 10/21/20 23:58 Multivitamins/ Calcium (Thera-M Plus) 1 tab DAILY PO 10/10/20 09:00 11/02/20 08:36 Pantoprazole Sodium (Protonix) 40 mg DAILY PO 10/10/20 09:00 11/02/20 08:36 Sennosides (Senna) 25.8 mg HS PO 10/09/20 21:00 11/02/20 21:12 Acetaminophen (Tylenol) 650 mg PRN Q6HRS PRN PO MILD PAIN / TEMP > 100.3'F 10/09/20 17:30 11/02/20 10:41 Multi-Ingredient Ointment (Analgesic [place]) 1 ashanti PRN QID PRN TP MUSCLE PAIN 10/09/20 17:30 Al Hydroxide/Mg Hydroxide (Mylanta Plus Xs) 15 ml PRN AFTMEALHC PRN PO DYSPEPSIA 10/09/20 17:30 Magnesium Hydroxide (Milk Of Magnesia) 2,400 mg PRN QHS PRN PO CONSTIPATION 10/09/20 17:30 Olanzapine (ZyPREXA ZYDIS) 2.5 mg PRN Q2HRS PRN PO PSYCHOSIS 10/09/20 17:30 11/02/20 17:24 Doxycycline Hyclate (Vibra-Tab) 100 mg BID PO 10/10/20 21:00 10/19/20 22:00 DC 10/19/20 20:35 Divalproex Sodium (Depakote Er) 500 mg QHS PO 10/11/20 21:00 11/02/20 21:12 Lactobacillus Rhamnosus (Culturelle) 1 cap BID PO 10/14/20 21:00 11/02/20 21:11 Bupropion HCl (Wellbutrin Xl) 150 mg DAILY PO 10/18/20 09:00 10/19/20 17:07 DC 10/19/20 08:22 Bupropion HCl (Wellbutrin Xl) 300 mg DAILY PO 10/20/20 09:00 11/02/20 08:36 Trazodone HCl (Desyrel) 50 mg PRN QHS PRN PO INSOMNIA, MAY REPEAT X1 10/22/20 06:00 10/31/20 20:02 Risperidone (RisperDAL) 0.5 mg QHS PO 10/22/20 18:00 10/24/20 16:15 DC 10/23/20 20:10 Mirtazapine (Remeron) 7.5 mg QHS PO 10/23/20 21:00 10/29/20 18:20 DC 10/28/20 20:19 Risperidone (RisperDAL) 0.75 mg QHS PO 10/24/20 21:00 10/25/20 11:50 DC 10/24/20 19:34 Risperidone (RisperDAL) 0.25 mg 0900,1300,1700 PO 10/25/20 13:00 10/26/20 18:31 DC 10/26/20 17:16 Risperidone (RisperDAL) 0.25 mg 0900,1300 PO 10/27/20 09:00 11/02/20 13:20 Risperidone (RisperDAL) 0.5 mg DAILYWSUP PO 10/27/20 17:00 11/02/20 17:24 Mirtazapine (Remeron) 15 mg QHS PO 10/29/20 21:00 11/02/20 21:12 Melatonin (Melatonin) 3 mg PRN QHS PRN PO INSOMNIA 10/29/20 18:30 10/31/20 20:01 I have reviewed the current psychotropics carefully including drug interactions. Risk benefit ratio favors no change other than as noted in my dictated progress note. Diagnosis: Problems: (1) Impulse control disorder, unspecified (2) Mild cognitive impairment (3) Anxiety disorder, unspecified (4) Bipolar disorder, current episode mixed, severe, with psychotic features SAEID NUNEZ MD Nov 02, 2020 22:06
--- NOTE | 2020-11-03 00:26 | NUR ---
Nursing Note Pt in bed at shift change, awakens to voice med compliant, no behaviors. Pleasant and cooperative.
[2020-11-03 05:07] VITALS: BP 148/84
[2020-11-03] MEDS: LEVOTHYROXINE 25 MCG TABLET. PO SCH (06:00)
[2020-11-03] MEDS: PANTOPRAZOLE 40 MG TABLET. PO SCH (08:23)
[2020-11-03] MEDS: CALCIUM POLYCARBOPHIL 625 MG TABLET PO SCH ×2 (08:23→19:59)
[2020-11-03] MEDS: ASPIRIN ENTERIC COATED 81 MG TABLET.DR. PO SCH (08:24)
[2020-11-03] MEDS: buPROPion XL 300 MG TAB.ER.24H. PO SCH (08:24)
[2020-11-03] MEDS: PRAMIPEXOLE 0.5 MG TABLET. PO SCH ×3 (08:24→19:59)
[2020-11-03] MEDS: dilTIAZem HCL 30 MG TABLET PO SCH ×2 (08:24→20:00)
[2020-11-03] MEDS: LACTOBACILLUS RHAMNOSUS GG 1 CAPSULE. PO SCH ×2 (08:24→19:59)
[2020-11-03] MEDS: MULTIVITAMIN with MINERAL TABLET. PO SCH (08:24)
[2020-11-03] MEDS: risperiDONE 0.25 MG TABLET. PO SCH ×2 (08:24→13:06)
--- NOTE | 2020-11-03 10:49 | NUR ---
Pt remains confused and disorganized today. She does not interact much with others today, however she has been appropriate on the unit. She is compliant with whole medications floated in pudding, however she will chew the pills despite encouragement not to. Absent of SI/HI/VH/AH/delusions, PAINAD score 0. Absent of speaking in tongues and pentecostal-based obsessions so far this shift. Plan fo care continues, will pass to next shift.
[2020-11-03 15:51] VITALS: BP 149/93
[2020-11-03] MEDS: risperiDONE 0.5 MG TABLET. PO SCH (15:59)
[2020-11-03] MEDS: MIRTAZAPINE 15 MG TABLET PO SCH (19:59)
[2020-11-03] MEDS: ATORVASTATIN CALCIUM 10 MG TABLET. PO SCH (19:59)
[2020-11-03] MEDS: SENNOSIDES 8.6 MG TABLET PO SCH (19:59)
[2020-11-03] MEDS: DIVALPROEX ER 500 MG TAB.ER.24H PO SCH (20:00)
--- NOTE | 2020-11-03 21:43 | NUR ---
Nursing Note Pt is wandering the unit confused, took off her clothing and was wearing a bath blanket as a toga of sorts. Walking in and out of halls easily redirected. Calm and cooperative compliant with meds.
--- NOTE | 2020-11-03 21:59 | PDOC ---
Exam Note: Tex Note: Please also refer to the separate dictated note~for this date of service dictated separately.~Patient seen individually. Discussed the patient with Nursing staff reviewed the chart.~Reviewed interim history and current functioning. Reviewed vital signs,~Labs/ Radiology~and current medications noted below. Continue current treatment with the changes noted in the dictated addendum note Assessment: Vital Signs/I&O: Vital Signs Date Time Temp Pulse Resp B/P (MAP) Pulse Ox O2 Delivery O2 Flow Rate FiO2 11/03/20 20:00 98 149/93 11/03/20 15:51 98.4 18 97 11/02/20 16:00 Room Air I & O 11/02/20 11/02/20 11/03/20 15:00 23:00 07:00 Intake Total 600 ml 360 ml Balance 600 ml 360 ml Current Medications: Meds: Current Medications Medications (Trade) Dose Ordered Sig/Chidi Route PRN Reason Start Time Stop Time Status Last Admin Dose Admin Aspirin (Aspirin Enteric Coated) 81 mg DAILY PO 10/10/20 09:00 11/03/20 08:24 Atorvastatin Calcium (Lipitor) 10 mg QHS PO 10/09/20 21:00 11/03/20 19:59 Calcium Polycarbophil (Fibercon) 1,250 mg BID PO 10/09/20 21:00 11/03/20 19:59 Vitamin D (Vitamin D3) 50,000 unit WEEKLY PO 10/16/20 09:00 10/30/20 08:16 Vitamin D (Vitamin D3) 2,000 unit DAILY PO 10/10/20 09:00 10/17/20 14:27 DC 10/17/20 08:17 Denosumab (Prolia) 60 mg 1X SQ 10/09/20 15:30 10/17/20 17:10 DC Diltiazem HCl (Cardizem) 30 mg BID PO 10/09/20 21:00 11/03/20 20:00 Levothyroxine Sodium (Synthroid) 25 mcg DAILY06 PO 10/10/20 07:30 11/03/20 06:00 Pramipexole Dihydrochloride (miraPEX) 1 mg [id number] PO 10/09/20 21:00 11/03/20 19:59 Tizanidine HCl (Zanaflex) 4 mg PRN Q8HRS PRN PO MUSCLE SPASMS 10/09/20 15:30 10/21/20 23:58 Multivitamins/ Calcium (Thera-M Plus) 1 tab DAILY PO 10/10/20 09:00 11/03/20 08:24 Pantoprazole Sodium (Protonix) 40 mg DAILY PO 10/10/20 09:00 11/03/20 08:23 Sennosides (Senna) 25.8 mg HS PO 10/09/20 21:00 11/03/20 19:59 Acetaminophen (Tylenol) 650 mg PRN Q6HRS PRN PO MILD PAIN / TEMP > 100.3'F 10/09/20 17:30 11/02/20 10:41 Multi-Ingredient Ointment (Analgesic [place]) 1 ashanti PRN QID PRN TP MUSCLE PAIN 10/09/20 17:30 Al Hydroxide/Mg Hydroxide (Mylanta Plus Xs) 15 ml PRN AFTMEALHC PRN PO DYSPEPSIA 10/09/20 17:30 Magnesium Hydroxide (Milk Of Magnesia) 2,400 mg PRN QHS PRN PO CONSTIPATION 10/09/20 17:30 Olanzapine (ZyPREXA ZYDIS) 2.5 mg PRN Q2HRS PRN PO PSYCHOSIS 10/09/20 17:30 11/02/20 17:24 Doxycycline Hyclate (Vibra-Tab) 100 mg BID PO 10/10/20 21:00 10/19/20 22:00 DC 10/19/20 20:35 Divalproex Sodium (Depakote Er) 500 mg QHS PO 10/11/20 21:00 11/03/20 20:00 Lactobacillus Rhamnosus (Culturelle) 1 cap BID PO 10/14/20 21:00 11/03/20 19:59 Bupropion HCl (Wellbutrin Xl) 150 mg DAILY PO 10/18/20 09:00 10/19/20 17:07 DC 10/19/20 08:22 Bupropion HCl (Wellbutrin Xl) 300 mg DAILY PO 10/20/20 09:00 11/03/20 08:24 Trazodone HCl (Desyrel) 50 mg PRN QHS PRN PO INSOMNIA, MAY REPEAT X1 10/22/20 06:00 10/31/20 20:02 Risperidone (RisperDAL) 0.5 mg QHS PO 10/22/20 18:00 10/24/20 16:15 DC 10/23/20 20:10 Mirtazapine (Remeron) 7.5 mg QHS PO 10/23/20 21:00 10/29/20 18:20 DC 10/28/20 20:19 Risperidone (RisperDAL) 0.75 mg QHS PO 10/24/20 21:00 10/25/20 11:50 DC 10/24/20 19:34 Risperidone (RisperDAL) 0.25 mg 0900,1300,1700 PO 10/25/20 13:00 10/26/20 18:31 DC 10/26/20 17:16 Risperidone (RisperDAL) 0.25 mg 0900,1300 PO 10/27/20 09:00 11/03/20 13:06 Risperidone (RisperDAL) 0.5 mg DAILYWSUP PO 10/27/20 17:00 11/03/20 15:59 Mirtazapine (Remeron) 15 mg QHS PO 10/29/20 21:00 11/03/20 19:59 Melatonin (Melatonin) 3 mg PRN QHS PRN PO INSOMNIA 10/29/20 18:30 10/31/20 20:01 I have reviewed the current psychotropics carefully including drug interactions. Risk benefit ratio favors no change other than as noted in my dictated progress note. Diagnosis: Problems: (1) Impulse control disorder, unspecified (2) Mild cognitive impairment (3) Anxiety disorder, unspecified (4) Bipolar disorder, current episode mixed, severe, with psychotic features SAEID NUNEZ MD Nov 03, 2020 21:59
[2020-11-04] MEDS: PRAMIPEXOLE 0.5 MG TABLET. PO SCH ×3 (04:59→19:55)
[2020-11-04] MEDS: buPROPion XL 300 MG TAB.ER.24H. PO SCH (04:59)
[2020-11-04] MEDS: ASPIRIN ENTERIC COATED 81 MG TABLET.DR. PO SCH (04:59)
[2020-11-04] MEDS: dilTIAZem HCL 30 MG TABLET PO SCH ×2 (05:00→19:54)
[2020-11-04] MEDS: CALCIUM POLYCARBOPHIL 625 MG TABLET PO SCH ×2 (05:00→19:55)
[2020-11-04] MEDS: risperiDONE 0.25 MG TABLET. PO SCH ×2 (05:01→13:28)
[2020-11-04] MEDS: LACTOBACILLUS RHAMNOSUS GG 1 CAPSULE. PO SCH ×2 (05:01→19:54)
[2020-11-04] MEDS: LEVOTHYROXINE 25 MCG TABLET. PO SCH (05:01)
[2020-11-04] MEDS: MULTIVITAMIN with MINERAL TABLET. PO SCH (05:01)
[2020-11-04] MEDS: PANTOPRAZOLE 40 MG TABLET. PO SCH (05:01)
[2020-11-04 06:19] VITALS: BP 119/73
--- NOTE | 2020-11-04 07:41 | PDOC ---
Exam Note: Tex Note: This note is a late entry for 11/02/2020 covers elements not covered in my initial note. Subjective: The patient was reviewed on telehealth rounds on 11/02/2020 due to the COVID-19 pandemic. There have been 3 patients on the unit that have turned up positive today, 11/02 and they are being transitioned to the [facility] floor per Dr. Patel. There have also been 2 staff members that have turned up positive for COVID-19 and all the patients are going to be tested weekly for the COVID-19 along with every staff member going forward. I had not had the opportunity to be tested myself and will await completing this before considering [id number] rounds on the unit. Discussed with Fan FAGAN and reviewed the chart. She slept for 7-1/4 hours previous night. The patient has been tearful in the evening. He was up till dinner time. Later in the evening she did better with improved mood lability. Review of Systems: No CV, , pulmonary, eye, ENT system symptoms on review. Mental Status Exam: The patient is alert and oriented to situation. She is somewhat withdrawn, verbally interactive. Speech moderate latency. Often response is monosyllabic. Abstraction fair. Computation impaired. Language function intact. Mood and affect somewhat withdrawn. No suicidal or homicidal ideation. Laboratory Data: Reviewed. Impression: Bipolar disorder mixed with psychotic features. Anxiety disorder unspecified. Impulse control disorder unspecified. Mild cognitive impairment. Plan: No change from initial note. Assessment: Vital Signs/I&O: Vital Signs Date Time Temp Pulse Resp B/P (MAP) Pulse Ox O2 Delivery O2 Flow Rate FiO2 11/04/20 06:19 97.9 99 18 119/73 (88) 96 11/02/20 16:00 Room Air I & O 11/03/20 11/03/20 11/04/20 15:00 23:00 07:00 Intake Total 600 ml 600 ml Balance 600 ml 600 ml Current Medications: Meds: Current Medications Medications (Trade) Dose Ordered Sig/Chidi Route PRN Reason Start Time Stop Time Status Last Admin Dose Admin Aspirin (Aspirin Enteric Coated) 81 mg DAILY PO 10/10/20 09:00 11/04/20 04:59 Atorvastatin Calcium (Lipitor) 10 mg QHS PO 10/09/20 21:00 11/03/20 19:59 Calcium Polycarbophil (Fibercon) 1,250 mg BID PO 10/09/20 21:00 11/04/20 05:00 Vitamin D (Vitamin D3) 50,000 unit WEEKLY PO 10/16/20 09:00 10/30/20 08:16 Vitamin D (Vitamin D3) 2,000 unit DAILY PO 10/10/20 09:00 10/17/20 14:27 DC 10/17/20 08:17 Denosumab (Prolia) 60 mg 1X SQ 10/09/20 15:30 10/17/20 17:10 DC Diltiazem HCl (Cardizem) 30 mg BID PO 10/09/20 21:00 11/04/20 05:00 Levothyroxine Sodium (Synthroid) 25 mcg DAILY06 PO 10/10/20 07:30 11/04/20 05:01 Pramipexole Dihydrochloride (miraPEX) 1 mg [id number] PO 10/09/20 21:00 11/04/20 04:59 Tizanidine HCl (Zanaflex) 4 mg PRN Q8HRS PRN PO MUSCLE SPASMS 10/09/20 15:30 10/21/20 23:58 Multivitamins/ Calcium (Thera-M Plus) 1 tab DAILY PO 10/10/20 09:00 11/04/20 05:01 Pantoprazole Sodium (Protonix) 40 mg DAILY PO 10/10/20 09:00 11/04/20 05:01 Sennosides (Senna) 25.8 mg HS PO 10/09/20 21:00 11/03/20 19:59 Acetaminophen (Tylenol) 650 mg PRN Q6HRS PRN PO MILD PAIN / TEMP > 100.3'F 10/09/20 17:30 11/02/20 10:41 Multi-Ingredient Ointment (Analgesic [place]) 1 ashanti PRN QID PRN TP MUSCLE PAIN 10/09/20 17:30 Al Hydroxide/Mg Hydroxide (Mylanta Plus Xs) 15 ml PRN AFTMEALHC PRN PO DYSPEPSIA 10/09/20 17:30 Magnesium Hydroxide (Milk Of Magnesia) 2,400 mg PRN QHS PRN PO CONSTIPATION 10/09/20 17:30 Olanzapine (ZyPREXA ZYDIS) 2.5 mg PRN Q2HRS PRN PO PSYCHOSIS 10/09/20 17:30 11/02/20 17:24 Doxycycline Hyclate (Vibra-Tab) 100 mg BID PO 10/10/20 21:00 10/19/20 22:00 DC 10/19/20 20:35 Divalproex Sodium (Depakote Er) 500 mg QHS PO 10/11/20 21:00 11/03/20 20:00 Lactobacillus Rhamnosus (Culturelle) 1 cap BID PO 10/14/20 21:00 11/04/20 05:01 Bupropion HCl (Wellbutrin Xl) 150 mg DAILY PO 10/18/20 09:00 10/19/20 17:07 DC 10/19/20 08:22 Bupropion HCl (Wellbutrin Xl) 300 mg DAILY PO 10/20/20 09:00 11/04/20 04:59 Trazodone HCl (Desyrel) 50 mg PRN QHS PRN PO INSOMNIA, MAY REPEAT X1 10/22/20 06:00 10/31/20 20:02 Risperidone (RisperDAL) 0.5 mg QHS PO 10/22/20 18:00 10/24/20 16:15 DC 10/23/20 20:10 Mirtazapine (Remeron) 7.5 mg QHS PO 10/23/20 21:00 10/29/20 18:20 DC 10/28/20 20:19 Risperidone (RisperDAL) 0.75 mg QHS PO 10/24/20 21:00 10/25/20 11:50 DC 10/24/20 19:34 Risperidone (RisperDAL) 0.25 mg 0900,1300,1700 PO 10/25/20 13:00 10/26/20 18:31 DC 10/26/20 17:16 Risperidone (RisperDAL) 0.25 mg 0900,1300 PO 10/27/20 09:00 11/04/20 05:01 Risperidone (RisperDAL) 0.5 mg DAILYWSUP PO 10/27/20 17:00 11/03/20 15:59 Mirtazapine (Remeron) 15 mg QHS PO 10/29/20 21:00 11/03/20 19:59 Melatonin (Melatonin) 3 mg PRN QHS PRN PO INSOMNIA 10/29/20 18:30 10/31/20 20:01 I have reviewed the current psychotropics carefully including drug interactions. Risk benefit ratio favors no change other than as noted in my dictated progress note. Diagnosis: Problems: (1) Impulse control disorder, unspecified (2) Mild cognitive impairment (3) Anxiety disorder, unspecified (4) Bipolar disorder, current episode mixed, severe, with psychotic features SAEID NUNEZ MD Nov 04, 2020 07:41
--- NOTE | 2020-11-04 08:29 | PDOC ---
Exam Note: Tex Note: This note is a late entry for 11/03/2020 covers elements not covered in my initial note. Subjective: The patient was reviewed on telehealth rounds on 11/03/2020 due to the COVID-19 pandemic. Discussed with Jennifer FAGAN and reviewed the chart. She slept for 7 hours previous night. She was somewhat withdrawn, not talking in tongues. Review of Systems: No CV, , pulmonary, eye, ENT system symptoms on review. Mental Status Exam: The patient is oriented to herself and at times situation. She was seen on telehealth rounds in the evening. She is verbal, little more interactive though verbal responses were monosyllabic. Abstraction fair. Computation impaired. Language function intact. Attention span short. Mood and affect somewhat withdrawn. Laboratory Data: Reviewed. Impression: Bipolar disorder mixed with psychotic features. Anxiety disorder unspecified. Impulse control disorder unspecified. Mild cognitive impairment. Plan: Continue current psychotropics and follow labs level on Depakote. Adjust further as clinically indicated. Assessment: Vital Signs/I&O: Vital Signs Date Time Temp Pulse Resp B/P (MAP) Pulse Ox O2 Delivery O2 Flow Rate FiO2 11/04/20 06:19 97.9 99 18 119/73 (88) 96 11/02/20 16:00 Room Air I & O 11/03/20 11/03/20 11/04/20 15:00 23:00 07:00 Intake Total 600 ml 600 ml Balance 600 ml 600 ml Current Medications: Meds: Current Medications Medications (Trade) Dose Ordered Sig/Chidi Route PRN Reason Start Time Stop Time Status Last Admin Dose Admin Aspirin (Aspirin Enteric Coated) 81 mg DAILY PO 10/10/20 09:00 11/04/20 04:59 Atorvastatin Calcium (Lipitor) 10 mg QHS PO 10/09/20 21:00 11/03/20 19:59 Calcium Polycarbophil (Fibercon) 1,250 mg BID PO 10/09/20 21:00 11/04/20 05:00 Vitamin D (Vitamin D3) 50,000 unit WEEKLY PO 10/16/20 09:00 10/30/20 08:16 Vitamin D (Vitamin D3) 2,000 unit DAILY PO 10/10/20 09:00 10/17/20 14:27 DC 10/17/20 08:17 Denosumab (Prolia) 60 mg 1X SQ 10/09/20 15:30 10/17/20 17:10 DC Diltiazem HCl (Cardizem) 30 mg BID PO 10/09/20 21:00 11/04/20 05:00 Levothyroxine Sodium (Synthroid) 25 mcg DAILY06 PO 10/10/20 07:30 11/04/20 05:01 Pramipexole Dihydrochloride (miraPEX) 1 mg [id number] PO 10/09/20 21:00 11/04/20 04:59 Tizanidine HCl (Zanaflex) 4 mg PRN Q8HRS PRN PO MUSCLE SPASMS 10/09/20 15:30 10/21/20 23:58 Multivitamins/ Calcium (Thera-M Plus) 1 tab DAILY PO 10/10/20 09:00 11/04/20 05:01 Pantoprazole Sodium (Protonix) 40 mg DAILY PO 10/10/20 09:00 11/04/20 05:01 Sennosides (Senna) 25.8 mg HS PO 10/09/20 21:00 11/03/20 19:59 Acetaminophen (Tylenol) 650 mg PRN Q6HRS PRN PO MILD PAIN / TEMP > 100.3'F 10/09/20 17:30 11/02/20 10:41 Multi-Ingredient Ointment (Analgesic [place]) 1 ashanti PRN QID PRN TP MUSCLE PAIN 10/09/20 17:30 Al Hydroxide/Mg Hydroxide (Mylanta Plus Xs) 15 ml PRN AFTMEALHC PRN PO DYSPEPSIA 10/09/20 17:30 Magnesium Hydroxide (Milk Of Magnesia) 2,400 mg PRN QHS PRN PO CONSTIPATION 10/09/20 17:30 Olanzapine (ZyPREXA ZYDIS) 2.5 mg PRN Q2HRS PRN PO PSYCHOSIS 10/09/20 17:30 11/02/20 17:24 Doxycycline Hyclate (Vibra-Tab) 100 mg BID PO 10/10/20 21:00 10/19/20 22:00 DC 10/19/20 20:35 Divalproex Sodium (Depakote Er) 500 mg QHS PO 10/11/20 21:00 11/03/20 20:00 Lactobacillus Rhamnosus (Culturelle) 1 cap BID PO 10/14/20 21:00 11/04/20 05:01 Bupropion HCl (Wellbutrin Xl) 150 mg DAILY PO 10/18/20 09:00 10/19/20 17:07 DC 10/19/20 08:22 Bupropion HCl (Wellbutrin Xl) 300 mg DAILY PO 10/20/20 09:00 11/04/20 04:59 Trazodone HCl (Desyrel) 50 mg PRN QHS PRN PO INSOMNIA, MAY REPEAT X1 10/22/20 06:00 10/31/20 20:02 Risperidone (RisperDAL) 0.5 mg QHS PO 10/22/20 18:00 10/24/20 16:15 DC 10/23/20 20:10 Mirtazapine (Remeron) 7.5 mg QHS PO 10/23/20 21:00 10/29/20 18:20 DC 10/28/20 20:19 Risperidone (RisperDAL) 0.75 mg QHS PO 10/24/20 21:00 10/25/20 11:50 DC 10/24/20 19:34 Risperidone (RisperDAL) 0.25 mg 0900,1300,1700 PO 10/25/20 13:00 10/26/20 18:31 DC 10/26/20 17:16 Risperidone (RisperDAL) 0.25 mg 0900,1300 PO 10/27/20 09:00 11/04/20 05:01 Risperidone (RisperDAL) 0.5 mg DAILYWSUP PO 10/27/20 17:00 11/03/20 15:59 Mirtazapine (Remeron) 15 mg QHS PO 10/29/20 21:00 11/03/20 19:59 Melatonin (Melatonin) 3 mg PRN QHS PRN PO INSOMNIA 10/29/20 18:30 10/31/20 20:01 I have reviewed the current psychotropics carefully including drug interactions. Risk benefit ratio favors no change other than as noted in my dictated progress note. Diagnosis: Problems: (1) Impulse control disorder, unspecified (2) Mild cognitive impairment (3) Anxiety disorder, unspecified (4) Bipolar disorder, current episode mixed, severe, with psychotic features SAEID NUNEZ MD Nov 04, 2020 08:29
[2020-11-04 11:58] LABS: BASO % 1 % (0-3); EOS # 0.1 x10^3/uL (0.0-0.7); EOS % 2 % (0-3); HEMOGLOBIN 13.9 g/dL (12.0-15.5); LYMPH # 1.4 x10^3/uL (1.0-4.8); LYMPH % 18 % (24-48); MEAN CORPUSCULAR HEMOGLOBIN 31 pg (25-35); MEAN CORPUSCULAR HGB CONC 33 g/dL (31-37); MEAN CORPUSCULAR VOLUME 93 fL (79-100); MONO # 0.9 x10^3/uL (0.0-1.1); MONO % 12 % (0-9); NEUT # 5.3 x10^3uL (1.8-7.7); NEUT % 69 % (31-73); PLATELET COUNT 188 x10^3/uL (140-400); RED BLOOD COUNT 4.53 x10^6/uL (3.50-5.40); RED CELL DISTRIBUTION WIDTH 14.3 % (11.5-14.5); WHITE BLOOD COUNT 7.7 x10^3/uL (4.0-11.0)
[2020-11-04 12:13] LABS: ALBUMIN 3.5 g/dL (3.4-5.0); ALBUMIN/GLOBULIN RATIO 0.9 (1.0-1.7); CALCIUM 8.7 mg/dL (8.5-10.1); GFR 53.9; POTASSIUM 4.7 mmol/L (3.5-5.1); TOTAL BILIRUBIN 0.3 mg/dL (0.2-1.0); TOTAL PROTEIN 7.2 g/dL (6.4-8.2)
--- NOTE | 2020-11-04 15:39 | NUR ---
Assumed pt care this am. Pt was calm, cooperative, and pleasant for assessment and medication this morning. Pt has been calm all day; she has been out in the day room and has come down for all meals so far this shift. Pt has taken medications whole without difficulty. Pt is alert to name only but is pleasantly confused and easily redirected. Will continue to monitor.
[2020-11-04 16:16] VITALS: BP 156/83
[2020-11-04] MEDS: risperiDONE 0.5 MG TABLET. PO SCH (17:10)
[2020-11-04] MEDS: ATORVASTATIN CALCIUM 10 MG TABLET. PO SCH (19:54)
[2020-11-04] MEDS: MIRTAZAPINE 15 MG TABLET PO SCH (19:54)
[2020-11-04] MEDS: DIVALPROEX ER 500 MG TAB.ER.24H PO SCH (19:55)
[2020-11-04] MEDS: SENNOSIDES 8.6 MG TABLET PO SCH (19:55)
--- NOTE | 2020-11-04 21:55 | PDOC ---
Exam Note: Tex Note: Please also refer to the separate dictated note~for this date of service dictated separately.~Patient seen individually. Discussed the patient with Nursing staff reviewed the chart.~Reviewed interim history and current functioning. Reviewed vital signs,~Labs/ Radiology~and current medications noted below. Continue current treatment with the changes noted in the dictated addendum note Assessment: Vital Signs/I&O: Vital Signs Date Time Temp Pulse Resp B/P (MAP) Pulse Ox O2 Delivery O2 Flow Rate FiO2 11/04/20 19:54 94 156/83 11/04/20 16:16 97.1 20 97 11/02/20 16:00 Room Air I & O 11/03/20 11/03/20 11/04/20 15:00 23:00 07:00 Intake Total 600 ml 600 ml Balance 600 ml 600 ml Labs: Laboratory Tests Test 11/04/20 11:45 White Blood Count 7.7 x10^3/uL (4.0-11.0) Red Blood Count 4.53 x10^6/uL (3.50-5.40) Hemoglobin 13.9 g/dL (12.0-15.5) Hematocrit 42.0 % (36.0-47.0) Mean Corpuscular Volume 93 fL (79-100) Mean Corpuscular Hemoglobin 31 pg (25-35) Mean Corpuscular Hemoglobin Concent 33 g/dL (31-37) Red Cell Distribution Width 14.3 % (11.5-14.5) Platelet Count 188 x10^3/uL (140-400) Neutrophils (%) (Auto) 69 % (31-73) Lymphocytes (%) (Auto) 18 % (24-48) L Monocytes (%) (Auto) 12 % (0-9) H Eosinophils (%) (Auto) 2 % (0-3) Basophils (%) (Auto) 1 % (0-3) Neutrophils # (Auto) 5.3 x10^3uL (1.8-7.7) Lymphocytes # (Auto) 1.4 x10^3/uL (1.0-4.8) Monocytes # (Auto) 0.9 x10^3/uL (0.0-1.1) Eosinophils # (Auto) 0.1 x10^3/uL (0.0-0.7) Basophils # (Auto) 0.0 x10^3/uL (0.0-0.2) Sodium Level 144 mmol/L (136-145) Potassium Level 4.7 mmol/L (3.5-5.1) Chloride Level 107 mmol/L (98-107) Carbon Dioxide Level 28 mmol/L (21-32) Anion Gap 9 (6-14) Blood Urea Nitrogen 16 mg/dL (7-20) Creatinine 1.0 mg/dL (0.6-1.0) Estimated GFR (Cockcroft-Gault) 53.9 BUN/Creatinine Ratio 16 (6-20) Glucose Level 84 mg/dL (70-99) Calcium Level 8.7 mg/dL (8.5-10.1) Total Bilirubin 0.3 mg/dL (0.2-1.0) Aspartate Amino Transferase (AST) 22 U/L (15-37) Alanine Aminotransferase (ALT) 26 U/L (14-59) Alkaline Phosphatase 85 U/L (46-116) Total Protein 7.2 g/dL (6.4-8.2) Albumin 3.5 g/dL (3.4-5.0) Albumin/Globulin Ratio 0.9 (1.0-1.7) L Current Medications: Meds: Laboratory Tests Test 11/04/20 11:45 White Blood Count 7.7 x10^3/uL Red Blood Count 4.53 x10^6/uL Hemoglobin 13.9 g/dL Hematocrit 42.0 % Mean Corpuscular Volume 93 fL Mean Corpuscular Hemoglobin 31 pg Mean Corpuscular Hemoglobin Concent 33 g/dL Red Cell Distribution Width 14.3 % Platelet Count 188 x10^3/uL Neutrophils (%) (Auto) 69 % Lymphocytes (%) (Auto) 18 % Monocytes (%) (Auto) 12 % Eosinophils (%) (Auto) 2 % Basophils (%) (Auto) 1 % Neutrophils # (Auto) 5.3 x10^3uL Lymphocytes # (Auto) 1.4 x10^3/uL Monocytes # (Auto) 0.9 x10^3/uL Eosinophils # (Auto) 0.1 x10^3/uL Basophils # (Auto) 0.0 x10^3/uL Sodium Level 144 mmol/L Potassium Level 4.7 mmol/L Chloride Level 107 mmol/L Carbon Dioxide Level 28 mmol/L Anion Gap 9 Blood Urea Nitrogen 16 mg/dL Creatinine 1.0 mg/dL Estimated GFR (Cockcroft-Gault) 53.9 BUN/Creatinine Ratio 16 Glucose Level 84 mg/dL Calcium Level 8.7 mg/dL Total Bilirubin 0.3 mg/dL Aspartate Amino Transf (AST/SGOT) 22 U/L Alanine Aminotransferase (ALT/SGPT) 26 U/L Alkaline Phosphatase 85 U/L Total Protein 7.2 g/dL Albumin 3.5 g/dL Albumin/Globulin Ratio 0.9 Current Medications Medications (Trade) Dose Ordered Sig/Chidi Route PRN Reason Start Time Stop Time Status Last Admin Dose Admin Aspirin (Aspirin Enteric Coated) 81 mg DAILY PO 10/10/20 09:00 11/04/20 04:59 Atorvastatin Calcium (Lipitor) 10 mg QHS PO 10/09/20 21:00 11/04/20 19:54 Calcium Polycarbophil (Fibercon) 1,250 mg BID PO 10/09/20 21:00 11/04/20 19:55 Vitamin D (Vitamin D3) 50,000 unit WEEKLY PO 10/16/20 09:00 10/30/20 08:16 Vitamin D (Vitamin D3) 2,000 unit DAILY PO 10/10/20 09:00 10/17/20 14:27 DC 10/17/20 08:17 Denosumab (Prolia) 60 mg 1X SQ 10/09/20 15:30 10/17/20 17:10 DC Diltiazem HCl (Cardizem) 30 mg BID PO 10/09/20 21:00 11/04/20 19:54 Levothyroxine Sodium (Synthroid) 25 mcg DAILY06 PO 10/10/20 07:30 11/04/20 05:01 Pramipexole Dihydrochloride (miraPEX) 1 mg [id number] PO 10/09/20 21:00 11/04/20 19:55 Tizanidine HCl (Zanaflex) 4 mg PRN Q8HRS PRN PO MUSCLE SPASMS 10/09/20 15:30 10/21/20 23:58 Multivitamins/ Calcium (Thera-M Plus) 1 tab DAILY PO 10/10/20 09:00 11/04/20 05:01 Pantoprazole Sodium (Protonix) 40 mg DAILY PO 10/10/20 09:00 11/04/20 05:01 Sennosides (Senna) 25.8 mg HS PO 10/09/20 21:00 11/04/20 19:55 Acetaminophen (Tylenol) 650 mg PRN Q6HRS PRN PO MILD PAIN / TEMP > 100.3'F 10/09/20 17:30 11/02/20 10:41 Multi-Ingredient Ointment (Analgesic [place]) 1 ashanti PRN QID PRN TP MUSCLE PAIN 10/09/20 17:30 Al Hydroxide/Mg Hydroxide (Mylanta Plus Xs) 15 ml PRN AFTMEALHC PRN PO DYSPEPSIA 10/09/20 17:30 Magnesium Hydroxide (Milk Of Magnesia) 2,400 mg PRN QHS PRN PO CONSTIPATION 10/09/20 17:30 Olanzapine (ZyPREXA ZYDIS) 2.5 mg PRN Q2HRS PRN PO PSYCHOSIS 10/09/20 17:30 11/04/20 18:15 Doxycycline Hyclate (Vibra-Tab) 100 mg BID PO 10/10/20 21:00 10/19/20 22:00 DC 10/19/20 20:35 Divalproex Sodium (Depakote Er) 500 mg QHS PO 10/11/20 21:00 11/04/20 19:55 Lactobacillus Rhamnosus (Culturelle) 1 cap BID PO 10/14/20 21:00 11/04/20 19:54 Bupropion HCl (Wellbutrin Xl) 150 mg DAILY PO 10/18/20 09:00 10/19/20 17:07 DC 10/19/20 08:22 Bupropion HCl (Wellbutrin Xl) 300 mg DAILY PO 10/20/20 09:00 11/04/20 04:59 Trazodone HCl (Desyrel) 50 mg PRN QHS PRN PO INSOMNIA, MAY REPEAT X1 10/22/20 06:00 10/31/20 20:02 Risperidone (RisperDAL) 0.5 mg QHS PO 10/22/20 18:00 10/24/20 16:15 DC 10/23/20 20:10 Mirtazapine (Remeron) 7.5 mg QHS PO 10/23/20 21:00 10/29/20 18:20 DC 10/28/20 20:19 Risperidone (RisperDAL) 0.75 mg QHS PO 10/24/20 21:00 10/25/20 11:50 DC 10/24/20 19:34 Risperidone (RisperDAL) 0.25 mg 0900,1300,1700 PO 10/25/20 13:00 10/26/20 18:31 DC 10/26/20 17:16 Risperidone (RisperDAL) 0.25 mg 0900,1300 PO 10/27/20 09:00 11/04/20 13:28 Risperidone (RisperDAL) 0.5 mg DAILYWSUP PO 10/27/20 17:00 11/04/20 17:10 Mirtazapine (Remeron) 15 mg QHS PO 10/29/20 21:00 11/04/20 19:54 Melatonin (Melatonin) 3 mg PRN QHS PRN PO INSOMNIA 10/29/20 18:30 10/31/20 20:01 I have reviewed the current psychotropics carefully including drug interactions. Risk benefit ratio favors no change other than as noted in my dictated progress note. Diagnosis: Problems: (1) Impulse control disorder, unspecified (2) Mild cognitive impairment (3) Anxiety disorder, unspecified (4) Bipolar disorder, current episode mixed, severe, with psychotic features SAEID NUNEZ MD Nov 04, 2020 21:55
--- NOTE | 2020-11-04 23:26 | NUR ---
Pt walking in the day room when approached. Pt calm, pleasantly confused, and disorganized. Pt interactive with myself and peers this evening. Pt cooperative with assessment and compliant with medications administered whole. No paranoia or delusions noted thus far this shift.
[2020-11-05] MEDS: LEVOTHYROXINE 25 MCG TABLET. PO SCH (05:38)
[2020-11-05 05:48] VITALS: BP 157/81
--- NOTE | 2020-11-05 06:31 | PDOC ---
Exam Note: Tex Note: This note is a late entry for 11/04/2020 covers elements not covered in my initial note. Subjective: The patient was seen individually in the evening of 11/04/2020 with Bibiana FAGAN, discussed and reviewed the chart. She slept for 7-1/2 hours previous night. She has been out of the dayroom and mixing with other patients, fairly calm, not disruptive. We will repeat valproic acid level. Last level checked on 10/16 was 64 therapeutic but not repeated since then. No behaviors noted. We will also check CBC and CMP. Review of Systems: No CV, , pulmonary, eye, ENT system symptoms on review. Mental Status Exam: The patient is oriented to herself and at times situation. I met with her in the dayroom. She is somewhat withdrawn, but interactive as I met with her individually. NO suicidal or homicidal ideation. She is less paranoid, not aggressive or disruptive. Abstraction fair. Computation impaired. Language function intact. Attention span short. Mood and affect somewhat withdrawn. Laboratory Data: Reviewed. Impression: Bipolar disorder mixed with psychotic features. Anxiety disorder unspecified. Impulse control disorder unspecified. Mild cognitive impairment. Plan: Continue current psychotropics and follow labs level. Assessment: Vital Signs/I&O: Vital Signs Date Time Temp Pulse Resp B/P (MAP) Pulse Ox O2 Delivery O2 Flow Rate FiO2 11/05/20 05:48 97.6 88 14 157/81 (106) 95 11/02/20 16:00 Room Air I & O 11/04/20 11/04/20 11/05/20 15:00 23:00 07:00 Intake Total 480 ml 600 ml Balance 480 ml 600 ml Labs: Laboratory Tests Test 11/04/20 11:45 White Blood Count 7.7 x10^3/uL (4.0-11.0) Red Blood Count 4.53 x10^6/uL (3.50-5.40) Hemoglobin 13.9 g/dL (12.0-15.5) Hematocrit 42.0 % (36.0-47.0) Mean Corpuscular Volume 93 fL (79-100) Mean Corpuscular Hemoglobin 31 pg (25-35) Mean Corpuscular Hemoglobin Concent 33 g/dL (31-37) Red Cell Distribution Width 14.3 % (11.5-14.5) Platelet Count 188 x10^3/uL (140-400) Neutrophils (%) (Auto) 69 % (31-73) Lymphocytes (%) (Auto) 18 % (24-48) L Monocytes (%) (Auto) 12 % (0-9) H Eosinophils (%) (Auto) 2 % (0-3) Basophils (%) (Auto) 1 % (0-3) Neutrophils # (Auto) 5.3 x10^3uL (1.8-7.7) Lymphocytes # (Auto) 1.4 x10^3/uL (1.0-4.8) Monocytes # (Auto) 0.9 x10^3/uL (0.0-1.1) Eosinophils # (Auto) 0.1 x10^3/uL (0.0-0.7) Basophils # (Auto) 0.0 x10^3/uL (0.0-0.2) Sodium Level 144 mmol/L (136-145) Potassium Level 4.7 mmol/L (3.5-5.1) Chloride Level 107 mmol/L (98-107) Carbon Dioxide Level 28 mmol/L (21-32) Anion Gap 9 (6-14) Blood Urea Nitrogen 16 mg/dL (7-20) Creatinine 1.0 mg/dL (0.6-1.0) Estimated GFR (Cockcroft-Gault) 53.9 BUN/Creatinine Ratio 16 (6-20) Glucose Level 84 mg/dL (70-99) Calcium Level 8.7 mg/dL (8.5-10.1) Total Bilirubin 0.3 mg/dL (0.2-1.0) Aspartate Amino Transferase (AST) 22 U/L (15-37) Alanine Aminotransferase (ALT) 26 U/L (14-59) Alkaline Phosphatase 85 U/L (46-116) Total Protein 7.2 g/dL (6.4-8.2) Albumin 3.5 g/dL (3.4-5.0) Albumin/Globulin Ratio 0.9 (1.0-1.7) L Current Medications: Meds: Laboratory Tests Test 11/04/20 11:45 White Blood Count 7.7 x10^3/uL Red Blood Count 4.53 x10^6/uL Hemoglobin 13.9 g/dL Hematocrit 42.0 % Mean Corpuscular Volume 93 fL Mean Corpuscular Hemoglobin 31 pg Mean Corpuscular Hemoglobin Concent 33 g/dL Red Cell Distribution Width 14.3 % Platelet Count 188 x10^3/uL Neutrophils (%) (Auto) 69 % Lymphocytes (%) (Auto) 18 % Monocytes (%) (Auto) 12 % Eosinophils (%) (Auto) 2 % Basophils (%) (Auto) 1 % Neutrophils # (Auto) 5.3 x10^3uL Lymphocytes # (Auto) 1.4 x10^3/uL Monocytes # (Auto) 0.9 x10^3/uL Eosinophils # (Auto) 0.1 x10^3/uL Basophils # (Auto) 0.0 x10^3/uL Sodium Level 144 mmol/L Potassium Level 4.7 mmol/L Chloride Level 107 mmol/L Carbon Dioxide Level 28 mmol/L Anion Gap 9 Blood Urea Nitrogen 16 mg/dL Creatinine 1.0 mg/dL Estimated GFR (Cockcroft-Gault) 53.9 BUN/Creatinine Ratio 16 Glucose Level 84 mg/dL Calcium Level 8.7 mg/dL Total Bilirubin 0.3 mg/dL Aspartate Amino Transf (AST/SGOT) 22 U/L Alanine Aminotransferase (ALT/SGPT) 26 U/L Alkaline Phosphatase 85 U/L Total Protein 7.2 g/dL Albumin 3.5 g/dL Albumin/Globulin Ratio 0.9 Current Medications Medications (Trade) Dose Ordered Sig/Chidi Route PRN Reason Start Time Stop Time Status Last Admin Dose Admin Aspirin (Aspirin Enteric Coated) 81 mg DAILY PO 10/10/20 09:00 11/04/20 04:59 Atorvastatin Calcium (Lipitor) 10 mg QHS PO 10/09/20 21:00 11/04/20 19:54 Calcium Polycarbophil (Fibercon) 1,250 mg BID PO 10/09/20 21:00 11/04/20 19:55 Vitamin D (Vitamin D3) 50,000 unit WEEKLY PO 10/16/20 09:00 10/30/20 08:16 Vitamin D (Vitamin D3) 2,000 unit DAILY PO 10/10/20 09:00 10/17/20 14:27 DC 10/17/20 08:17 Denosumab (Prolia) 60 mg 1X SQ 10/09/20 15:30 10/17/20 17:10 DC Diltiazem HCl (Cardizem) 30 mg BID PO 10/09/20 21:00 11/04/20 19:54 Levothyroxine Sodium (Synthroid) 25 mcg DAILY06 PO 10/10/20 07:30 11/05/20 05:38 Pramipexole Dihydrochloride (miraPEX) 1 mg [id number] PO 10/09/20 21:00 11/04/20 19:55 Tizanidine HCl (Zanaflex) 4 mg PRN Q8HRS PRN PO MUSCLE SPASMS 10/09/20 15:30 10/21/20 23:58 Multivitamins/ Calcium (Thera-M Plus) 1 tab DAILY PO 10/10/20 09:00 11/04/20 05:01 Pantoprazole Sodium (Protonix) 40 mg DAILY PO 10/10/20 09:00 11/04/20 05:01 Sennosides (Senna) 25.8 mg HS PO 10/09/20 21:00 11/04/20 19:55 Acetaminophen (Tylenol) 650 mg PRN Q6HRS PRN PO MILD PAIN / TEMP > 100.3'F 10/09/20 17:30 11/02/20 10:41 Multi-Ingredient Ointment (Analgesic [place]) 1 ashanti PRN QID PRN TP MUSCLE PAIN 10/09/20 17:30 Al Hydroxide/Mg Hydroxide (Mylanta Plus Xs) 15 ml PRN AFTMEALHC PRN PO DYSPEPSIA 10/09/20 17:30 Magnesium Hydroxide (Milk Of Magnesia) 2,400 mg PRN QHS PRN PO CONSTIPATION 10/09/20 17:30 Olanzapine (ZyPREXA ZYDIS) 2.5 mg PRN Q2HRS PRN PO PSYCHOSIS 10/09/20 17:30 11/04/20 18:15 Doxycycline Hyclate (Vibra-Tab) 100 mg BID PO 10/10/20 21:00 10/19/20 22:00 DC 10/19/20 20:35 Divalproex Sodium (Depakote Er) 500 mg QHS PO 10/11/20 21:00 11/04/20 19:55 Lactobacillus Rhamnosus (Culturelle) 1 cap BID PO 10/14/20 21:00 11/04/20 19:54 Bupropion HCl (Wellbutrin Xl) 150 mg DAILY PO 10/18/20 09:00 10/19/20 17:07 DC 10/19/20 08:22 Bupropion HCl (Wellbutrin Xl) 300 mg DAILY PO 10/20/20 09:00 11/04/20 04:59 Trazodone HCl (Desyrel) 50 mg PRN QHS PRN PO INSOMNIA, MAY REPEAT X1 10/22/20 06:00 10/31/20 20:02 Risperidone (RisperDAL) 0.5 mg QHS PO 10/22/20 18:00 10/24/20 16:15 DC 10/23/20 20:10 Mirtazapine (Remeron) 7.5 mg QHS PO 10/23/20 21:00 10/29/20 18:20 DC 10/28/20 20:19 Risperidone (RisperDAL) 0.75 mg QHS PO 10/24/20 21:00 10/25/20 11:50 DC 10/24/20 19:34 Risperidone (RisperDAL) 0.25 mg 0900,1300,1700 PO 10/25/20 13:00 10/26/20 18:31 DC 10/26/20 17:16 Risperidone (RisperDAL) 0.25 mg 0900,1300 PO 10/27/20 09:00 11/04/20 13:28 Risperidone (RisperDAL) 0.5 mg DAILYWSUP PO 10/27/20 17:00 11/04/20 17:10 Mirtazapine (Remeron) 15 mg QHS PO 10/29/20 21:00 11/04/20 19:54 Melatonin (Melatonin) 3 mg PRN QHS PRN PO INSOMNIA 10/29/20 18:30 10/31/20 20:01 I have reviewed the current psychotropics carefully including drug interactions. Risk benefit ratio favors no change other than as noted in my dictated progress note. Diagnosis: Problems: (1) Impulse control disorder, unspecified (2) Mild cognitive impairment (3) Anxiety disorder, unspecified (4) Bipolar disorder, current episode mixed, severe, with psychotic features SAEID NUNEZ MD Nov 05, 2020 06:31
[2020-11-05] MEDS: CALCIUM POLYCARBOPHIL 625 MG TABLET PO SCH ×2 (07:59→20:07)
[2020-11-05] MEDS: MULTIVITAMIN with MINERAL TABLET. PO SCH (07:59)
[2020-11-05] MEDS: risperiDONE 0.25 MG TABLET. PO SCH ×2 (07:59→12:43)
[2020-11-05] MEDS: PRAMIPEXOLE 0.5 MG TABLET. PO SCH ×4 (07:59→20:08)
[2020-11-05] MEDS: PANTOPRAZOLE 40 MG TABLET. PO SCH (07:59)
[2020-11-05] MEDS: dilTIAZem HCL 30 MG TABLET PO SCH ×2 (08:00→20:08)
[2020-11-05] MEDS: buPROPion XL 300 MG TAB.ER.24H. PO SCH (08:00)
[2020-11-05] MEDS: ASPIRIN ENTERIC COATED 81 MG TABLET.DR. PO SCH (08:00)
[2020-11-05] MEDS: LACTOBACILLUS RHAMNOSUS GG 1 CAPSULE. PO SCH ×2 (08:01→20:08)
--- NOTE | 2020-11-05 12:45 | NUR ---
Patient has been increasingly aggressive and agitated. She is being intrusive with her roommate and refusing medications. She is praying outloud and saying things like 'Esvin, please kill these people for what they are doing to me' and 'Esvin, please just let me go home'. PRN and scheduled medications provide per eMAR
[2020-11-05 15:43] VITALS: BP 125/83
[2020-11-05 15:52] LABS: VAL ACID 39 mcg/mL (50-100)
[2020-11-05] MEDS: risperiDONE 0.5 MG TABLET. PO SCH (16:25)
[2020-11-05] MEDS: MIRTAZAPINE 15 MG TABLET PO SCH (20:07)
[2020-11-05] MEDS: MELATONIN 3 MG TABLET PO PRN (20:07)
[2020-11-05] MEDS: SENNOSIDES 8.6 MG TABLET PO SCH (20:07)
[2020-11-05] MEDS: DIVALPROEX ER 250 MG TAB.ER.24H. PO SCH (20:07)
[2020-11-05] MEDS: ATORVASTATIN CALCIUM 10 MG TABLET. PO SCH (20:07)
[2020-11-05] MEDS: traZODone 50 MG TABLET. PO PRN (20:08)
--- NOTE | 2020-11-05 22:14 | PDOC ---
Exam Note: Tex Note: Please also refer to the separate dictated note~for this date of service dictated separately.~Patient seen individually. Discussed the patient with Nursing staff reviewed the chart.~Reviewed interim history and current functioning. Reviewed vital signs,~Labs/ Radiology~and current medications noted below. Continue current treatment with the changes noted in the dictated addendum note Assessment: Vital Signs/I&O: Vital Signs Date Time Temp Pulse Resp B/P (MAP) Pulse Ox O2 Delivery O2 Flow Rate FiO2 11/05/20 20:08 109 125/83 11/05/20 15:43 98.4 20 95 11/02/20 16:00 Room Air I & O 11/04/20 11/04/20 11/05/20 15:00 23:00 07:00 Intake Total 480 ml 600 ml Balance 480 ml 600 ml Labs: Laboratory Tests Test 11/05/20 14:55 Valproic Acid Level 39 mcg/mL (50-100) L Valproic Acid Last Dose Date 11/04/20 Valproic Acid Last Dose Time 2100 Current Medications: Meds: Laboratory Tests Test 11/05/20 14:55 Valproic Acid (Depakene) Level 39 mcg/mL Valproic Acid Last Dose Date 11/04/20 Valproic Acid Last Dose Time 2100 Current Medications Medications (Trade) Dose Ordered Sig/Chidi Route PRN Reason Start Time Stop Time Status Last Admin Dose Admin Aspirin (Aspirin Enteric Coated) 81 mg DAILY PO 10/10/20 09:00 11/05/20 08:00 Atorvastatin Calcium (Lipitor) 10 mg QHS PO 10/09/20 21:00 11/05/20 20:07 Calcium Polycarbophil (Fibercon) 1,250 mg BID PO 10/09/20 21:00 11/05/20 20:07 Vitamin D (Vitamin D3) 50,000 unit WEEKLY PO 10/16/20 09:00 10/30/20 08:16 Vitamin D (Vitamin D3) 2,000 unit DAILY PO 10/10/20 09:00 10/17/20 14:27 DC 10/17/20 08:17 Denosumab (Prolia) 60 mg 1X SQ 10/09/20 15:30 10/17/20 17:10 DC Diltiazem HCl (Cardizem) 30 mg BID PO 10/09/20 21:00 11/05/20 20:08 Levothyroxine Sodium (Synthroid) 25 mcg DAILY06 PO 10/10/20 07:30 11/05/20 05:38 Pramipexole Dihydrochloride (miraPEX) 1 mg [id number] PO 10/09/20 21:00 11/05/20 20:08 Tizanidine HCl (Zanaflex) 4 mg PRN Q8HRS PRN PO MUSCLE SPASMS 10/09/20 15:30 10/21/20 23:58 Multivitamins/ Calcium (Thera-M Plus) 1 tab DAILY PO 10/10/20 09:00 11/05/20 07:59 Pantoprazole Sodium (Protonix) 40 mg DAILY PO 10/10/20 09:00 11/05/20 07:59 Sennosides (Senna) 25.8 mg HS PO 10/09/20 21:00 11/05/20 20:07 Acetaminophen (Tylenol) 650 mg PRN Q6HRS PRN PO MILD PAIN / TEMP > 100.3'F 10/09/20 17:30 11/02/20 10:41 Multi-Ingredient Ointment (Analgesic [place]) 1 ashanti PRN QID PRN TP MUSCLE PAIN 10/09/20 17:30 Al Hydroxide/Mg Hydroxide (Mylanta Plus Xs) 15 ml PRN AFTMEALHC PRN PO DYSPEPSIA 10/09/20 17:30 Magnesium Hydroxide (Milk Of Magnesia) 2,400 mg PRN QHS PRN PO CONSTIPATION 10/09/20 17:30 Olanzapine (ZyPREXA ZYDIS) 2.5 mg PRN Q2HRS PRN PO PSYCHOSIS 10/09/20 17:30 11/05/20 16:25 Doxycycline Hyclate (Vibra-Tab) 100 mg BID PO 10/10/20 21:00 10/19/20 22:00 DC 10/19/20 20:35 Divalproex Sodium (Depakote Er) 500 mg QHS PO 10/11/20 21:00 11/05/20 19:02 DC 11/04/20 19:55 Lactobacillus Rhamnosus (Culturelle) 1 cap BID PO 10/14/20 21:00 11/05/20 20:08 Bupropion HCl (Wellbutrin Xl) 150 mg DAILY PO 10/18/20 09:00 10/19/20 17:07 DC 10/19/20 08:22 Bupropion HCl (Wellbutrin Xl) 300 mg DAILY PO 10/20/20 09:00 11/05/20 08:00 Trazodone HCl (Desyrel) 50 mg PRN QHS PRN PO INSOMNIA, MAY REPEAT X1 10/22/20 06:00 11/05/20 20:08 Risperidone (RisperDAL) 0.5 mg QHS PO 10/22/20 18:00 10/24/20 16:15 DC 10/23/20 20:10 Mirtazapine (Remeron) 7.5 mg QHS PO 10/23/20 21:00 10/29/20 18:20 DC 10/28/20 20:19 Risperidone (RisperDAL) 0.75 mg QHS PO 10/24/20 21:00 10/25/20 11:50 DC 10/24/20 19:34 Risperidone (RisperDAL) 0.25 mg 0900,1300,1700 PO 10/25/20 13:00 10/26/20 18:31 DC 10/26/20 17:16 Risperidone (RisperDAL) 0.25 mg 0900,1300 PO 10/27/20 09:00 11/05/20 12:43 Risperidone (RisperDAL) 0.5 mg DAILYWSUP PO 10/27/20 17:00 11/05/20 16:25 Mirtazapine (Remeron) 15 mg QHS PO 10/29/20 21:00 11/05/20 20:07 Melatonin (Melatonin) 3 mg PRN QHS PRN PO INSOMNIA 10/29/20 18:30 11/05/20 20:07 Divalproex Sodium (Depakote Er) 750 mg QHS PO 11/05/20 21:00 11/05/20 20:07 Current Medications Medications (Trade) Dose Ordered Sig/Chidi Route PRN Reason Start Time Stop Time Status Last Admin Dose Admin Divalproex Sodium (Depakote Er) 750 mg QHS PO 11/05/20 21:00 11/05/20 20:07 I have reviewed the current psychotropics carefully including drug interactions. Risk benefit ratio favors no change other than as noted in my dictated progress note. Diagnosis: Problems: (1) Impulse control disorder, unspecified (2) Mild cognitive impairment (3) Anxiety disorder, unspecified (4) Bipolar disorder, current episode mixed, severe, with psychotic features SAEID NUNEZ MD Nov 05, 2020 22:14
--- NOTE | 2020-11-05 22:19 | NUR ---
Pt sitting in the day room, interacting with peer when approached. Pt has been wandering in the hallway and day room this evening, restless, confused, and disorganized. Pt having VH, carrying something around in her hands and asking, "can we get some plastic openers for these?", while holding her cupped hands out towards me. Pt cooperative with assessment and compliant with medications administered whole. PRN Trazodone and PRN Melatonin administered with HS medications.
[2020-11-06] MEDS: LEVOTHYROXINE 25 MCG TABLET. PO SCH (05:26)
[2020-11-06 05:52] VITALS: BP 151/83
[2020-11-06] MEDS: dilTIAZem HCL 30 MG TABLET PO SCH ×2 (09:08→20:00)
[2020-11-06] MEDS: LACTOBACILLUS RHAMNOSUS GG 1 CAPSULE. PO SCH ×2 (09:08→19:59)
[2020-11-06] MEDS: risperiDONE 0.25 MG TABLET. PO SCH ×2 (09:08→13:14)
[2020-11-06] MEDS: ASPIRIN ENTERIC COATED 81 MG TABLET.DR. PO SCH (09:08)
[2020-11-06] MEDS: CHOLECALCIFEROL (VITAMIN D3) 50,000 UNIT CAPSULE PO SCH (09:08)
[2020-11-06] MEDS: CALCIUM POLYCARBOPHIL 625 MG TABLET PO SCH ×2 (09:09→19:59)
[2020-11-06] MEDS: MULTIVITAMIN with MINERAL TABLET. PO SCH (09:09)
[2020-11-06] MEDS: PRAMIPEXOLE 0.5 MG TABLET. PO SCH ×3 (09:09→19:59)
[2020-11-06] MEDS: PANTOPRAZOLE 40 MG TABLET. PO SCH (09:09)
[2020-11-06] MEDS: buPROPion XL 300 MG TAB.ER.24H. PO SCH (09:09)
--- NOTE | 2020-11-06 15:27 | NUR ---
NICA attempted to return call to Filomena pt dtr/guardian, and left her a message to call SW back when possible. SW faxed the referral over on the and wanted to clarify if they wanted updated notes or if the whole packet needed to be re-sent.
[2020-11-06 15:30] VITALS: BP 136/83
--- NOTE | 2020-11-06 16:10 | NUR ---
NICA received call back from Filomena who reports that the fax did not go through to [facility] and asked SW to fax it to a different fax number of . Filomena reports that she spoke to pt last night and she sounded good. Pt did ask Filomena if she could call her again and Filomena told her that she could call her anytime she wanted. NICA and Filomena will be in touch later this week to discuss discharge for next week.
[2020-11-06] MEDS: risperiDONE 0.5 MG TABLET. PO SCH (16:38)
--- NOTE | 2020-11-06 18:08 | NUR ---
Patient has been calm, compliant, and pleasantly confused throughout this shift. She has occasionally been responding to visual hallucinations, including picking at invisible items on the floor and trying to hand invisible objects to people. Will continue to monitor and report to oncoming shift.
[2020-11-06] MEDS: MELATONIN 3 MG TABLET PO PRN (19:59)
[2020-11-06] MEDS: SENNOSIDES 8.6 MG TABLET PO SCH (19:59)
[2020-11-06] MEDS: DIVALPROEX ER 250 MG TAB.ER.24H. PO SCH (19:59)
[2020-11-06] MEDS: traZODone 50 MG TABLET. PO PRN (19:59)
[2020-11-06] MEDS: ATORVASTATIN CALCIUM 10 MG TABLET. PO SCH (20:00)
[2020-11-06] MEDS: MIRTAZAPINE 15 MG TABLET PO SCH (20:00)
--- NOTE | 2020-11-06 21:43 | NUR ---
Pt sitting in the day room when approached. Pt restless, confused, and disorganized. Pt cooperative with assessment and compliant with medications administered whole. No paranoia, delusions, or hallucinations noted thus far this shift.
--- NOTE | 2020-11-06 22:11 | PDOC ---
Exam Note: Tex Note: Please also refer to the separate dictated note~for this date of service dictated separately.~Patient seen individually. Discussed the patient with Nursing staff reviewed the chart.~Reviewed interim history and current functioning. Reviewed vital signs,~Labs/ Radiology~and current medications noted below. Continue current treatment with the changes noted in the dictated addendum note Assessment: Vital Signs/I&O: Vital Signs Date Time Temp Pulse Resp B/P (MAP) Pulse Ox O2 Delivery O2 Flow Rate FiO2 11/06/20 20:00 93 136/83 11/06/20 15:30 97.6 20 98 11/02/20 16:00 Room Air I & O 11/05/20 11/05/20 11/06/20 15:00 23:00 07:00 Intake Total 240 ml 480 ml Balance 240 ml 480 ml Current Medications: Meds: Current Medications Medications (Trade) Dose Ordered Sig/Chidi Route PRN Reason Start Time Stop Time Status Last Admin Dose Admin Aspirin (Aspirin Enteric Coated) 81 mg DAILY PO 10/10/20 09:00 11/06/20 09:08 Atorvastatin Calcium (Lipitor) 10 mg QHS PO 10/09/20 21:00 11/06/20 20:00 Calcium Polycarbophil (Fibercon) 1,250 mg BID PO 10/09/20 21:00 11/06/20 19:59 Vitamin D (Vitamin D3) 50,000 unit WEEKLY PO 10/16/20 09:00 11/06/20 09:08 Vitamin D (Vitamin D3) 2,000 unit DAILY PO 10/10/20 09:00 10/17/20 14:27 DC 10/17/20 08:17 Denosumab (Prolia) 60 mg 1X SQ 10/09/20 15:30 10/17/20 17:10 DC Diltiazem HCl (Cardizem) 30 mg BID PO 10/09/20 21:00 11/06/20 20:00 Levothyroxine Sodium (Synthroid) 25 mcg DAILY06 PO 10/10/20 07:30 11/06/20 05:26 Pramipexole Dihydrochloride (miraPEX) 1 mg [id number] PO 10/09/20 21:00 11/06/20 19:59 Tizanidine HCl (Zanaflex) 4 mg PRN Q8HRS PRN PO MUSCLE SPASMS 10/09/20 15:30 10/21/20 23:58 Multivitamins/ Calcium (Thera-M Plus) 1 tab DAILY PO 10/10/20 09:00 11/06/20 09:09 Pantoprazole Sodium (Protonix) 40 mg DAILY PO 10/10/20 09:00 11/06/20 09:09 Sennosides (Senna) 25.8 mg HS PO 10/09/20 21:00 11/06/20 19:59 Acetaminophen (Tylenol) 650 mg PRN Q6HRS PRN PO MILD PAIN / TEMP > 100.3'F 10/09/20 17:30 11/02/20 10:41 Multi-Ingredient Ointment (Analgesic [place]) 1 ashanti PRN QID PRN TP MUSCLE PAIN 10/09/20 17:30 Al Hydroxide/Mg Hydroxide (Mylanta Plus Xs) 15 ml PRN AFTMEALHC PRN PO DYSPEPSIA 10/09/20 17:30 Magnesium Hydroxide (Milk Of Magnesia) 2,400 mg PRN QHS PRN PO CONSTIPATION 10/09/20 17:30 Olanzapine (ZyPREXA ZYDIS) 2.5 mg PRN Q2HRS PRN PO PSYCHOSIS 10/09/20 17:30 11/05/20 16:25 Doxycycline Hyclate (Vibra-Tab) 100 mg BID PO 10/10/20 21:00 10/19/20 22:00 DC 10/19/20 20:35 Divalproex Sodium (Depakote Er) 500 mg QHS PO 10/11/20 21:00 11/05/20 19:02 DC 11/04/20 19:55 Lactobacillus Rhamnosus (Culturelle) 1 cap BID PO 10/14/20 21:00 11/06/20 19:59 Bupropion HCl (Wellbutrin Xl) 150 mg DAILY PO 10/18/20 09:00 10/19/20 17:07 DC 10/19/20 08:22 Bupropion HCl (Wellbutrin Xl) 300 mg DAILY PO 10/20/20 09:00 11/06/20 09:09 Trazodone HCl (Desyrel) 50 mg PRN QHS PRN PO INSOMNIA, MAY REPEAT X1 10/22/20 06:00 11/06/20 19:59 Risperidone (RisperDAL) 0.5 mg QHS PO 10/22/20 18:00 10/24/20 16:15 DC 10/23/20 20:10 Mirtazapine (Remeron) 7.5 mg QHS PO 10/23/20 21:00 10/29/20 18:20 DC 10/28/20 20:19 Risperidone (RisperDAL) 0.75 mg QHS PO 10/24/20 21:00 10/25/20 11:50 DC 10/24/20 19:34 Risperidone (RisperDAL) 0.25 mg 0900,1300,1700 PO 10/25/20 13:00 10/26/20 18:31 DC 10/26/20 17:16 Risperidone (RisperDAL) 0.25 mg 0900,1300 PO 10/27/20 09:00 11/06/20 13:14 Risperidone (RisperDAL) 0.5 mg DAILYWSUP PO 10/27/20 17:00 11/06/20 16:38 Mirtazapine (Remeron) 15 mg QHS PO 10/29/20 21:00 11/06/20 20:00 Melatonin (Melatonin) 3 mg PRN QHS PRN PO INSOMNIA 10/29/20 18:30 11/06/20 19:59 Divalproex Sodium (Depakote Er) 750 mg QHS PO 11/05/20 21:00 11/06/20 19:59 I have reviewed the current psychotropics carefully including drug interactions. Risk benefit ratio favors no change other than as noted in my dictated progress note. Diagnosis: Problems: (1) Impulse control disorder, unspecified (2) Mild cognitive impairment (3) Anxiety disorder, unspecified (4) Bipolar disorder, current episode mixed, severe, with psychotic features SAEID NUNEZ MD Nov 06, 2020 22:11
[2020-11-07] MEDS: LEVOTHYROXINE 25 MCG TABLET. PO SCH (05:38)
[2020-11-07 05:44] VITALS: BP 113/70
[2020-11-07] MEDS: PANTOPRAZOLE 40 MG TABLET. PO SCH (08:28)
[2020-11-07] MEDS: MULTIVITAMIN with MINERAL TABLET. PO SCH (08:28)
[2020-11-07] MEDS: ASPIRIN ENTERIC COATED 81 MG TABLET.DR. PO SCH (08:28)
[2020-11-07] MEDS: PRAMIPEXOLE 0.5 MG TABLET. PO SCH ×3 (08:28→19:18)
[2020-11-07] MEDS: LACTOBACILLUS RHAMNOSUS GG 1 CAPSULE. PO SCH ×2 (08:28→19:17)
[2020-11-07] MEDS: CALCIUM POLYCARBOPHIL 625 MG TABLET PO SCH ×2 (08:28→19:17)
[2020-11-07] MEDS: dilTIAZem HCL 30 MG TABLET PO SCH ×2 (08:29→19:18)
[2020-11-07] MEDS: buPROPion XL 300 MG TAB.ER.24H. PO SCH (08:29)
[2020-11-07] MEDS: risperiDONE 0.25 MG TABLET. PO SCH ×2 (08:29→13:25)
--- NOTE | 2020-11-07 08:58 | PDOC ---
Exam Note: Tex Note: This note is a late entry for 11/05/2020 covers elements not covered in my initial note. Subjective: The patient was seen individually in the evening of 11/05/2020 with Vignesh FAGAN, discussed and reviewed the chart. She slept for 7-1/2 hours previous night. She had a difficult day, quite agitated in the afternoon. Her medications had to be syringed including Zyprexa p.r.n. and then she was agitated, labile, crying at 16.25 p.m., quite intrusive. She is making statements that Esvin will kill them for treating me the way they do referring to nursing staff. Review of Systems: No CV, , pulmonary, eye, ENT system symptoms on review. Mental Status Exam: The patient is oriented to herself and at times situation. She was not very verbal, interactive but pleasant, cooperative with short-term memory deficits as I met with hr individually. Abstraction fair. Computation impaired. Language function intact. Attention span short. Mood and affect somewhat withdrawn. Laboratory Data: Reviewed. Impression: Bipolar disorder mixed with psychotic features. Anxiety disorder unspecified. Impulse control disorder unspecified. Mild cognitive impairment. Plan: Continue current psychotropics. Valproic acid level is 39. The patient is currently on Depakote ER 500 mg h.s. We will increase to 750 mg p.o. h.s. Check CBC, CMP, valproic acid level in 3 days. Adjust further as clinically indicated. Assessment: Vital Signs/I&O: Vital Signs Date Time Temp Pulse Resp B/P (MAP) Pulse Ox O2 Delivery O2 Flow Rate FiO2 11/07/20 08:29 82 113/70 11/07/20 05:44 98.1 18 96 Room Air I & O 11/06/20 11/06/20 11/07/20 15:00 23:00 07:00 Intake Total 600 ml 840 ml Balance 600 ml 840 ml Current Medications: Meds: Current Medications Medications (Trade) Dose Ordered Sig/Chidi Route PRN Reason Start Time Stop Time Status Last Admin Dose Admin Aspirin (Aspirin Enteric Coated) 81 mg DAILY PO 10/10/20 09:00 11/07/20 08:28 Atorvastatin Calcium (Lipitor) 10 mg QHS PO 10/09/20 21:00 11/06/20 20:00 Calcium Polycarbophil (Fibercon) 1,250 mg BID PO 10/09/20 21:00 11/07/20 08:28 Vitamin D (Vitamin D3) 50,000 unit WEEKLY PO 10/16/20 09:00 11/06/20 09:08 Vitamin D (Vitamin D3) 2,000 unit DAILY PO 10/10/20 09:00 10/17/20 14:27 DC 10/17/20 08:17 Denosumab (Prolia) 60 mg 1X SQ 10/09/20 15:30 10/17/20 17:10 DC Diltiazem HCl (Cardizem) 30 mg BID PO 10/09/20 21:00 11/07/20 08:29 Levothyroxine Sodium (Synthroid) 25 mcg DAILY06 PO 10/10/20 07:30 11/07/20 05:38 Pramipexole Dihydrochloride (miraPEX) 1 mg [id number] PO 10/09/20 21:00 11/07/20 08:28 Tizanidine HCl (Zanaflex) 4 mg PRN Q8HRS PRN PO MUSCLE SPASMS 10/09/20 15:30 10/21/20 23:58 Multivitamins/ Calcium (Thera-M Plus) 1 tab DAILY PO 10/10/20 09:00 11/07/20 08:28 Pantoprazole Sodium (Protonix) 40 mg DAILY PO 10/10/20 09:00 11/07/20 08:28 Sennosides (Senna) 25.8 mg HS PO 10/09/20 21:00 11/06/20 19:59 Acetaminophen (Tylenol) 650 mg PRN Q6HRS PRN PO MILD PAIN / TEMP > 100.3'F 10/09/20 17:30 11/02/20 10:41 Multi-Ingredient Ointment (Analgesic [place]) 1 ashanti PRN QID PRN TP MUSCLE PAIN 10/09/20 17:30 Al Hydroxide/Mg Hydroxide (Mylanta Plus Xs) 15 ml PRN AFTMEALHC PRN PO DYSPEPSIA 10/09/20 17:30 Magnesium Hydroxide (Milk Of Magnesia) 2,400 mg PRN QHS PRN PO CONSTIPATION 10/09/20 17:30 Olanzapine (ZyPREXA ZYDIS) 2.5 mg PRN Q2HRS PRN PO PSYCHOSIS 10/09/20 17:30 11/05/20 16:25 Doxycycline Hyclate (Vibra-Tab) 100 mg BID PO 10/10/20 21:00 10/19/20 22:00 DC 10/19/20 20:35 Divalproex Sodium (Depakote Er) 500 mg QHS PO 10/11/20 21:00 11/05/20 19:02 DC 11/04/20 19:55 Lactobacillus Rhamnosus (Culturelle) 1 cap BID PO 10/14/20 21:00 11/07/20 08:28 Bupropion HCl (Wellbutrin Xl) 150 mg DAILY PO 10/18/20 09:00 10/19/20 17:07 DC 10/19/20 08:22 Bupropion HCl (Wellbutrin Xl) 300 mg DAILY PO 10/20/20 09:00 11/07/20 08:29 Trazodone HCl (Desyrel) 50 mg PRN QHS PRN PO INSOMNIA, MAY REPEAT X1 10/22/20 06:00 11/06/20 19:59 Risperidone (RisperDAL) 0.5 mg QHS PO 10/22/20 18:00 10/24/20 16:15 DC 10/23/20 20:10 Mirtazapine (Remeron) 7.5 mg QHS PO 10/23/20 21:00 10/29/20 18:20 DC 10/28/20 20:19 Risperidone (RisperDAL) 0.75 mg QHS PO 10/24/20 21:00 10/25/20 11:50 DC 10/24/20 19:34 Risperidone (RisperDAL) 0.25 mg 0900,1300,1700 PO 10/25/20 13:00 10/26/20 18:31 DC 10/26/20 17:16 Risperidone (RisperDAL) 0.25 mg 0900,1300 PO 10/27/20 09:00 11/07/20 08:29 Risperidone (RisperDAL) 0.5 mg DAILYWSUP PO 10/27/20 17:00 11/06/20 16:38 Mirtazapine (Remeron) 15 mg QHS PO 10/29/20 21:00 11/06/20 20:00 Melatonin (Melatonin) 3 mg PRN QHS PRN PO INSOMNIA 10/29/20 18:30 11/06/20 19:59 Divalproex Sodium (Depakote Er) 750 mg QHS PO 11/05/20 21:00 11/06/20 19:59 I have reviewed the current psychotropics carefully including drug interactions. Risk benefit ratio favors no change other than as noted in my dictated progress note. Diagnosis: Problems: (1) Impulse control disorder, unspecified (2) Mild cognitive impairment (3) Anxiety disorder, unspecified (4) Bipolar disorder, current episode mixed, severe, with psychotic features SAEID NUNEZ MD Nov 07, 2020 08:58
--- NOTE | 2020-11-07 09:25 | PDOC ---
Exam Note: Tex Note: This note is a late entry for 11/06/2020 covers elements not covered in my initial note. Subjective: The patient was seen individually in the evening of 11/06/2020 with Vignesh FAGAN, discussed and reviewed the chart. She slept for 7 hours previous night. No p.r.n.s given. She remains disorganized, has intermittent visual hallucinations. I met with her in the dayroom. Review of Systems: No CV, , pulmonary, eye, ENT system symptoms on review. Mental Status Exam: The patient is oriented to herself and at times situation. Speech coherent. Abstraction fair. Computation impaired. Language function intact. Attention span short. Mood and affect somewhat withdrawn. Laboratory Data: Reviewed. Impression: Bipolar disorder mixed with psychotic features. Anxiety disorder unspecified. Impulse control disorder unspecified. Mild cognitive impairment. Plan: Continue current psychotropics. We have increased the patients Depakote to reach therapeutic level. Assessment: Vital Signs/I&O: Vital Signs Date Time Temp Pulse Resp B/P (MAP) Pulse Ox O2 Delivery O2 Flow Rate FiO2 11/07/20 08:29 82 113/70 11/07/20 05:44 98.1 18 96 Room Air I & O 11/06/20 11/06/20 11/07/20 15:00 23:00 07:00 Intake Total 600 ml 840 ml Balance 600 ml 840 ml Current Medications: Meds: Current Medications Medications (Trade) Dose Ordered Sig/Chidi Route PRN Reason Start Time Stop Time Status Last Admin Dose Admin Aspirin (Aspirin Enteric Coated) 81 mg DAILY PO 10/10/20 09:00 11/07/20 08:28 Atorvastatin Calcium (Lipitor) 10 mg QHS PO 10/09/20 21:00 11/06/20 20:00 Calcium Polycarbophil (Fibercon) 1,250 mg BID PO 10/09/20 21:00 11/07/20 08:28 Vitamin D (Vitamin D3) 50,000 unit WEEKLY PO 10/16/20 09:00 11/06/20 09:08 Vitamin D (Vitamin D3) 2,000 unit DAILY PO 10/10/20 09:00 10/17/20 14:27 DC 10/17/20 08:17 Denosumab (Prolia) 60 mg 1X SQ 10/09/20 15:30 10/17/20 17:10 DC Diltiazem HCl (Cardizem) 30 mg BID PO 10/09/20 21:00 11/07/20 08:29 Levothyroxine Sodium (Synthroid) 25 mcg DAILY06 PO 10/10/20 07:30 11/07/20 05:38 Pramipexole Dihydrochloride (miraPEX) 1 mg [id number] PO 10/09/20 21:00 11/07/20 08:28 Tizanidine HCl (Zanaflex) 4 mg PRN Q8HRS PRN PO MUSCLE SPASMS 10/09/20 15:30 10/21/20 23:58 Multivitamins/ Calcium (Thera-M Plus) 1 tab DAILY PO 10/10/20 09:00 11/07/20 08:28 Pantoprazole Sodium (Protonix) 40 mg DAILY PO 10/10/20 09:00 11/07/20 08:28 Sennosides (Senna) 25.8 mg HS PO 10/09/20 21:00 11/06/20 19:59 Acetaminophen (Tylenol) 650 mg PRN Q6HRS PRN PO MILD PAIN / TEMP > 100.3'F 10/09/20 17:30 11/02/20 10:41 Multi-Ingredient Ointment (Analgesic [place]) 1 ashanti PRN QID PRN TP MUSCLE PAIN 10/09/20 17:30 Al Hydroxide/Mg Hydroxide (Mylanta Plus Xs) 15 ml PRN AFTMEALHC PRN PO DYSPEPSIA 10/09/20 17:30 Magnesium Hydroxide (Milk Of Magnesia) 2,400 mg PRN QHS PRN PO CONSTIPATION 10/09/20 17:30 Olanzapine (ZyPREXA ZYDIS) 2.5 mg PRN Q2HRS PRN PO PSYCHOSIS 10/09/20 17:30 11/05/20 16:25 Doxycycline Hyclate (Vibra-Tab) 100 mg BID PO 10/10/20 21:00 10/19/20 22:00 DC 10/19/20 20:35 Divalproex Sodium (Depakote Er) 500 mg QHS PO 10/11/20 21:00 11/05/20 19:02 DC 11/04/20 19:55 Lactobacillus Rhamnosus (Culturelle) 1 cap BID PO 10/14/20 21:00 11/07/20 08:28 Bupropion HCl (Wellbutrin Xl) 150 mg DAILY PO 10/18/20 09:00 10/19/20 17:07 DC 10/19/20 08:22 Bupropion HCl (Wellbutrin Xl) 300 mg DAILY PO 10/20/20 09:00 11/07/20 08:29 Trazodone HCl (Desyrel) 50 mg PRN QHS PRN PO INSOMNIA, MAY REPEAT X1 10/22/20 06:00 11/06/20 19:59 Risperidone (RisperDAL) 0.5 mg QHS PO 10/22/20 18:00 10/24/20 16:15 DC 10/23/20 20:10 Mirtazapine (Remeron) 7.5 mg QHS PO 10/23/20 21:00 10/29/20 18:20 DC 10/28/20 20:19 Risperidone (RisperDAL) 0.75 mg QHS PO 10/24/20 21:00 10/25/20 11:50 DC 10/24/20 19:34 Risperidone (RisperDAL) 0.25 mg 0900,1300,1700 PO 10/25/20 13:00 10/26/20 18:31 DC 10/26/20 17:16 Risperidone (RisperDAL) 0.25 mg 0900,1300 PO 10/27/20 09:00 11/07/20 08:29 Risperidone (RisperDAL) 0.5 mg DAILYWSUP PO 10/27/20 17:00 11/06/20 16:38 Mirtazapine (Remeron) 15 mg QHS PO 10/29/20 21:00 11/06/20 20:00 Melatonin (Melatonin) 3 mg PRN QHS PRN PO INSOMNIA 10/29/20 18:30 11/06/20 19:59 Divalproex Sodium (Depakote Er) 750 mg QHS PO 11/05/20 21:00 11/06/20 19:59 I have reviewed the current psychotropics carefully including drug interactions. Risk benefit ratio favors no change other than as noted in my dictated progress note. Diagnosis: Problems: (1) Impulse control disorder, unspecified (2) Mild cognitive impairment (3) Anxiety disorder, unspecified (4) Bipolar disorder, current episode mixed, severe, with psychotic features SAEID NUNEZ MD Nov 07, 2020 09:25
[2020-11-07 15:40] VITALS: BP 100/67
[2020-11-07] MEDS: risperiDONE 0.5 MG TABLET. PO SCH (17:10)
--- NOTE | 2020-11-07 18:29 | NUR ---
Patient has been calm, compliant, and pleasantly confused throughout this shift. She has spent most of the shift wandering and just standing in random places such as the corner of another patient's bathroom or behind the door to another patient's room. Will continue to monitor and report to oncoming shift.
[2020-11-07] MEDS: DIVALPROEX ER 250 MG TAB.ER.24H. PO SCH (19:17)
[2020-11-07] MEDS: ATORVASTATIN CALCIUM 10 MG TABLET. PO SCH (19:17)
[2020-11-07] MEDS: SENNOSIDES 8.6 MG TABLET PO SCH (19:18)
[2020-11-07] MEDS: MIRTAZAPINE 15 MG TABLET PO SCH (19:18)
--- NOTE | 2020-11-07 21:01 | NUR ---
Patient was compliant with medications, she was sitting on the couch in the day room watching tv with her peers. Patient is delusional and makes odd comments. She is disorganized and oriented only to self.
[2020-11-08 06:07] VITALS: BP 109/60
[2020-11-08] MEDS: LEVOTHYROXINE 25 MCG TABLET. PO SCH (06:28)
--- NOTE | 2020-11-08 06:42 | PDOC ---
Exam Note: Tex Note: Late entry for 11/07/2020. Please also refer to the separate dictated note~for this date of service dictated separately.~Patient seen individually. Discussed the patient with Nursing staff reviewed the chart.~Reviewed interim history and current functioning. Reviewed vital signs,~Labs/ Radiology~and current medic ations noted below. Continue current treatment with the changes noted in the dictated addendum note Assessment: Vital Signs/I&O: Vital Signs Date Time Temp Pulse Resp B/P (MAP) Pulse Ox O2 Delivery O2 Flow Rate FiO2 11/08/20 06:07 97.2 76 16 109/60 (76) 95 Room Air I & O 11/07/20 11/07/20 11/08/20 14:59 22:59 06:59 Intake Total 840 ml 600 ml Balance 840 ml 600 ml Current Medications: Meds: Current Medications Medications (Trade) Dose Ordered Sig/Chidi Route PRN Reason Start Time Stop Time Status Last Admin Dose Admin Aspirin (Aspirin Enteric Coated) 81 mg DAILY PO 10/10/20 09:00 11/07/20 08:28 Atorvastatin Calcium (Lipitor) 10 mg QHS PO 10/09/20 21:00 11/07/20 19:17 Calcium Polycarbophil (Fibercon) 1,250 mg BID PO 10/09/20 21:00 11/07/20 19:17 Vitamin D (Vitamin D3) 50,000 unit WEEKLY PO 10/16/20 09:00 11/06/20 09:08 Vitamin D (Vitamin D3) 2,000 unit DAILY PO 10/10/20 09:00 10/17/20 14:27 DC 10/17/20 08:17 Denosumab (Prolia) 60 mg 1X SQ 10/09/20 15:30 10/17/20 17:10 DC Diltiazem HCl (Cardizem) 30 mg BID PO 10/09/20 21:00 11/07/20 19:18 Levothyroxine Sodium (Synthroid) 25 mcg DAILY06 PO 10/10/20 07:30 11/08/20 06:28 Pramipexole Dihydrochloride (miraPEX) 1 mg [id number] PO 10/09/20 21:00 11/07/20 19:18 Tizanidine HCl (Zanaflex) 4 mg PRN Q8HRS PRN PO MUSCLE SPASMS 10/09/20 15:30 10/21/20 23:58 Multivitamins/ Calcium (Thera-M Plus) 1 tab DAILY PO 10/10/20 09:00 11/07/20 08:28 Pantoprazole Sodium (Protonix) 40 mg DAILY PO 10/10/20 09:00 11/07/20 08:28 Sennosides (Senna) 25.8 mg HS PO 10/09/20 21:00 11/07/20 19:18 Acetaminophen (Tylenol) 650 mg PRN Q6HRS PRN PO MILD PAIN / TEMP > 100.3'F 10/09/20 17:30 11/02/20 10:41 Multi-Ingredient Ointment (Analgesic [place]) 1 ashanti PRN QID PRN TP MUSCLE PAIN 10/09/20 17:30 Al Hydroxide/Mg Hydroxide (Mylanta Plus Xs) 15 ml PRN AFTMEALHC PRN PO DYSPEPSIA 10/09/20 17:30 Magnesium Hydroxide (Milk Of Magnesia) 2,400 mg PRN QHS PRN PO CONSTIPATION 10/09/20 17:30 Olanzapine (ZyPREXA ZYDIS) 2.5 mg PRN Q2HRS PRN PO PSYCHOSIS 10/09/20 17:30 11/05/20 16:25 Doxycycline Hyclate (Vibra-Tab) 100 mg BID PO 10/10/20 21:00 10/19/20 22:00 DC 10/19/20 20:35 Divalproex Sodium (Depakote Er) 500 mg QHS PO 10/11/20 21:00 11/05/20 19:02 DC 11/04/20 19:55 Lactobacillus Rhamnosus (Culturelle) 1 cap BID PO 10/14/20 21:00 11/07/20 19:17 Bupropion HCl (Wellbutrin Xl) 150 mg DAILY PO 10/18/20 09:00 10/19/20 17:07 DC 10/19/20 08:22 Bupropion HCl (Wellbutrin Xl) 300 mg DAILY PO 10/20/20 09:00 11/07/20 08:29 Trazodone HCl (Desyrel) 50 mg PRN QHS PRN PO INSOMNIA, MAY REPEAT X1 10/22/20 06:00 11/06/20 19:59 Risperidone (RisperDAL) 0.5 mg QHS PO 10/22/20 18:00 10/24/20 16:15 DC 10/23/20 20:10 Mirtazapine (Remeron) 7.5 mg QHS PO 10/23/20 21:00 10/29/20 18:20 DC 10/28/20 20:19 Risperidone (RisperDAL) 0.75 mg QHS PO 10/24/20 21:00 10/25/20 11:50 DC 10/24/20 19:34 Risperidone (RisperDAL) 0.25 mg 0900,1300,1700 PO 10/25/20 13:00 10/26/20 18:31 DC 10/26/20 17:16 Risperidone (RisperDAL) 0.25 mg 0900,1300 PO 10/27/20 09:00 11/07/20 13:25 Risperidone (RisperDAL) 0.5 mg DAILYWSUP PO 10/27/20 17:00 11/07/20 17:10 Mirtazapine (Remeron) 15 mg QHS PO 10/29/20 21:00 11/07/20 19:18 Melatonin (Melatonin) 3 mg PRN QHS PRN PO INSOMNIA 10/29/20 18:30 11/06/20 19:59 Divalproex Sodium (Depakote Er) 750 mg QHS PO 11/05/20 21:00 11/07/20 19:17 I have reviewed the current psychotropics carefully including drug interactions. Risk benefit ratio favors no change other than as noted in my dictated progress note. Diagnosis: Problems: (1) Impulse control disorder, unspecified (2) Mild cognitive impairment (3) Anxiety disorder, unspecified (4) Bipolar disorder, current episode mixed, severe, with psychotic features SAEID NUNEZ MD Nov 08, 2020 06:42
[2020-11-08 07:47] LABS: BASO # 0.1 x10^3/uL (0.0-0.2); BASO % 1 % (0-3); EOS # 0.2 x10^3/uL (0.0-0.7); EOS % 3 % (0-3); HEMATOCRIT 38.7 % (36.0-47.0); HEMOGLOBIN 12.9 g/dL (12.0-15.5); LYMPH # 1.5 x10^3/uL (1.0-4.8); LYMPH % 25 % (24-48); MEAN CORPUSCULAR HEMOGLOBIN 31 pg (25-35); MEAN CORPUSCULAR HGB CONC 33 g/dL (31-37); MEAN CORPUSCULAR VOLUME 93 fL (79-100); MONO # 0.8 x10^3/uL (0.0-1.1); MONO % 13 % (0-9); NEUT # 3.5 x10^3uL (1.8-7.7); NEUT % 58 % (31-73); PLATELET COUNT 182 x10^3/uL (140-400); RED BLOOD COUNT 4.17 x10^6/uL (3.50-5.40); RED CELL DISTRIBUTION WIDTH 14.8 % (11.5-14.5)
[2020-11-08 08:03] LABS: ALBUMIN/GLOBULIN RATIO 0.9 (1.0-1.7); ALK PHOS 76 U/L (46-116); ALT (SGPT) 21 U/L (14-59); ANION GAP 7 (6-14); AST (SGOT) 20 U/L (15-37); BLOOD UREA NITROGEN 23 mg/dL (7-20); BUN/CREATININE RATIO 21 (6-20); CALCIUM 8.5 mg/dL (8.5-10.1); CARBON DIOXIDE 28 mmol/L (21-32); CHLORIDE 107 mmol/L (98-107); CREATININE 1.1 mg/dL (0.6-1.0); GFR 48.3; GLUCOSE 89 mg/dL (70-99); POTASSIUM 4.1 mmol/L (3.5-5.1); SODIUM 142 mmol/L (136-145); TOTAL BILIRUBIN 0.4 mg/dL (0.2-1.0); TOTAL PROTEIN 6.4 g/dL (6.4-8.2)
[2020-11-08 08:06] LABS: VAL ACID 78 mcg/mL (50-100)
[2020-11-08] MEDS: risperiDONE 0.25 MG TABLET. PO SCH ×2 (08:28→13:42)
[2020-11-08] MEDS: MULTIVITAMIN with MINERAL TABLET. PO SCH (08:28)
[2020-11-08] MEDS: PANTOPRAZOLE 40 MG TABLET. PO SCH (08:28)
[2020-11-08] MEDS: CALCIUM POLYCARBOPHIL 625 MG TABLET PO SCH ×2 (08:28→21:26)
[2020-11-08] MEDS: ASPIRIN ENTERIC COATED 81 MG TABLET.DR. PO SCH (08:28)
[2020-11-08] MEDS: LACTOBACILLUS RHAMNOSUS GG 1 CAPSULE. PO SCH ×2 (08:29→21:28)
[2020-11-08] MEDS: buPROPion XL 300 MG TAB.ER.24H. PO SCH (08:29)
[2020-11-08] MEDS: PRAMIPEXOLE 0.5 MG TABLET. PO SCH ×3 (08:29→21:28)
[2020-11-08] MEDS: dilTIAZem HCL 30 MG TABLET PO SCH ×2 (08:29→21:27)
--- NOTE | 2020-11-08 11:02 | NUR ---
Treatment team update: Pt is eating roughly 75% of meals and sleeping on average 7.25 hours per night. Pt is mostly cooperative and pleasant, at times disorganized and delusional. Pt did have a little conflict with her roommate due to her delusion, but was redirectable. Pt has attended 2 groups within the last week with moderate participation. Pt continues to speak in tongues but appears to be overall better. Pt has been accepted to [facility]; ELOS is Monday 11/13.
--- NOTE | 2020-11-08 11:11 | TX PLAN ---
Interdisciplinary Tx Plan Admission Information Oct 09, 2020 at 16:45 Legal Status (on Admission): Voluntary DPOA/Guardian Name: Filomena Armas Contact Other Contact Name: Donnell Armas Other Contact Verified Code Status: Full Code Allergies: Coded Allergies: Sulfa (Sulfonamide Antibiotics) (Verified Allergy, Unknown, 10/09/20) cat dander (Verified Allergy, Unknown, 10/09/20) egg (Verified Allergy, Unknown, 10/09/20) gluten (Verified Allergy, Unknown, 10/09/20) Uncoded Allergies: air freshener (Allergy, Severe, Rash, 10/09/20) Diagnoses Primary Diagnosis: Major Neurocognitive D/O, vascular Alzheimers with delusions, depression 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 Pt picked up a hammer to defend herself when she doesn't recognize people, poor self-care within the last week, running off, poor meal intake, wishing she was , delusional, anxious. Problems Active Problems: labile delusional Inactive Problems: medication compliant Pt Strengths/Limitations Ability for Yates: Fair Cognitive Functioning/Ability: Poor Communication Skills/Ability: Fair Financial Resources: Fair Insight/Judgement: Poor Intellectual Ability: Fair Physical Health: Poor Social Skills: Fair Stability in Family: Good Stability in School/Work: Poor Verbal Skills: Fair Discharge Criteria Discharge Criteria: Adequate arrangements @DC, Improved behavior, Improved mood/thought Preliminary Discharge Plan Preliminary DC Plan: Current Living Arrange. Special Precautions Fall Risk: Low Initial D/C Plan Pt to return back home with Identified Discharge Needs: continued psychiatric services Currently Utilized Resources Currently Utilized Resources/P: Primary Care Physician Referrals Community Resources: Psychiatric services Identified Problems/Hx/Goals Objectives/Short-Term Goals Short Term Goals: Dec. Hallucination/Delus, Dec. Outbursts, Medication Stabilization, Promote Coping Skill Short Term Goals in Patient's: N/A Interventions/Frequency Staff Interventions/Frequency&: Psychiatrist to assess pt at least 3x per week for medication management. Social Work to assess pt at least 2x per week to identify barriers to care and discharge planning goals. Nursing to assess medication effects, behavior modification and completion of 15 minute checks. Encourage participation in group activities (if applicable) or 1:1 interaction based off Activity Dept goals. 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 Education: Pt graduated high school (12th grade) Community Follow-up PCP Mental Health follow-up Treatment Plan Explained Patient/Drum Drier had this treatment plan explained to him/her as indicated by the signature below and has been given the opportunity to ask questions and make suggestions: Date: Patient/Drum Drier Signature: Status Update Update Pt is eating roughly 75% of meals and sleeping on average 7.25 hours per night. Pt is mostly cooperative and pleasant, at times disorganized and delusional. Pt did have a little conflict with her roommate due to her delusion, but was redirectable. Pt has attended 2 groups within the last week with moderate participation. Pt continues to speak in tongues but appears to be overall better. Pt has been accepted to [facility]; ELOS is Monday 11/13. INDER DANIEL Nov 08, 2020 11:11
--- NOTE | 2020-11-08 12:41 | NUR ---
WEEKLY ACTIVITY THERAPY NOTE Date of Admission: 10/09/20 Date of AT Assessment: 10/11 Precipitating behaviors that initiated intake and admission: Patient admitted from home via [facility] for reportedly being paranoid, accusing of sleeping with daughter, eloping from home, stating family members holding her hostage, refusing to eat or bathe, picked up a hammer and made a tool out of wire to defend herself, and accusing family of lying to hospital staff. Goal aimed: increase stress management and relaxation skills Initial Goal: Pt will participate in at least five individual or group Activity Therapy session per week. Weekly progress towards goal: did not achieve, 2/5 Group participation level: 2 min Weekly highlights: accepted punch Thursday, danced during Thursday afternoon group Behaviors observed: withdrawn to room, wandering at times, picking up imaginary objects off the floor, handed imaginary object to AT Plan: no change to goal Beneficial adaptations: music, prompting
[2020-11-08 15:35] VITALS: BP 131/84
--- NOTE | 2020-11-08 15:53 | NUR ---
Nsg note; Leatha has been awake and alert today. she is confused, asking for a phone book to get her father's phone number so she can call him. she stated that she doesn't have any money and will give me some tomorrow. she acts like she is picking up something then attempts to give it to staff and yet nothing is there. she has been walking the halls some, and looks sad and worried at times
[2020-11-08] MEDS: risperiDONE 0.5 MG TABLET. PO SCH (17:30)
[2020-11-08] MEDS: DIVALPROEX ER 250 MG TAB.ER.24H. PO SCH (21:26)
[2020-11-08] MEDS: ATORVASTATIN CALCIUM 10 MG TABLET. PO SCH (21:27)
[2020-11-08] MEDS: SENNOSIDES 8.6 MG TABLET PO SCH (21:27)
[2020-11-08] MEDS: MIRTAZAPINE 15 MG TABLET PO SCH (21:27)
--- NOTE | 2020-11-08 22:03 | PDOC ---
Exam Note: Tex Note: Please also refer to the separate dictated note~for this date of service dictated separately.~Patient seen individually. Discussed the patient with Nursing staff reviewed the chart.~Reviewed interim history and current functioning. Reviewed vital signs,~Labs/ Radiology~and current medications noted below. Continue current treatment with the changes noted in the dictated addendum note Assessment: Vital Signs/I&O: Vital Signs Date Time Temp Pulse Resp B/P (MAP) Pulse Ox O2 Delivery O2 Flow Rate FiO2 11/08/20 21:27 82 131/84 11/08/20 15:35 97.9 18 94 11/08/20 06:07 Room Air I & O 11/07/20 11/07/20 11/08/20 14:59 22:59 06:59 Intake Total 840 ml 600 ml Balance 840 ml 600 ml Labs: Laboratory Tests Test 11/08/20 07:22 White Blood Count 6.0 x10^3/uL (4.0-11.0) Red Blood Count 4.17 x10^6/uL (3.50-5.40) Hemoglobin 12.9 g/dL (12.0-15.5) Hematocrit 38.7 % (36.0-47.0) Mean Corpuscular Volume 93 fL (79-100) Mean Corpuscular Hemoglobin 31 pg (25-35) Mean Corpuscular Hemoglobin Concent 33 g/dL (31-37) Red Cell Distribution Width 14.8 % (11.5-14.5) H Platelet Count 182 x10^3/uL (140-400) Neutrophils (%) (Auto) 58 % (31-73) Lymphocytes (%) (Auto) 25 % (24-48) Monocytes (%) (Auto) 13 % (0-9) H Eosinophils (%) (Auto) 3 % (0-3) Basophils (%) (Auto) 1 % (0-3) Neutrophils # (Auto) 3.5 x10^3uL (1.8-7.7) Lymphocytes # (Auto) 1.5 x10^3/uL (1.0-4.8) Monocytes # (Auto) 0.8 x10^3/uL (0.0-1.1) Eosinophils # (Auto) 0.2 x10^3/uL (0.0-0.7) Basophils # (Auto) 0.1 x10^3/uL (0.0-0.2) Sodium Level 142 mmol/L (136-145) Potassium Level 4.1 mmol/L (3.5-5.1) Chloride Level 107 mmol/L (98-107) Carbon Dioxide Level 28 mmol/L (21-32) Anion Gap 7 (6-14) Blood Urea Nitrogen 23 mg/dL (7-20) H Creatinine 1.1 mg/dL (0.6-1.0) H Estimated GFR (Cockcroft-Gault) 48.3 BUN/Creatinine Ratio 21 (6-20) H Glucose Level 89 mg/dL (70-99) Calcium Level 8.5 mg/dL (8.5-10.1) Total Bilirubin 0.4 mg/dL (0.2-1.0) Aspartate Amino Transferase (AST) 20 U/L (15-37) Alanine Aminotransferase (ALT) 21 U/L (14-59) Alkaline Phosphatase 76 U/L (46-116) Total Protein 6.4 g/dL (6.4-8.2) Albumin 3.0 g/dL (3.4-5.0) L Albumin/Globulin Ratio 0.9 (1.0-1.7) L Valproic Acid Level 78 mcg/mL (50-100) Valproic Acid Last Dose Date 11/07/20 Valproic Acid Last Dose Time 2100 Current Medications: Meds: Laboratory Tests Test 11/08/20 07:22 White Blood Count 6.0 x10^3/uL Red Blood Count 4.17 x10^6/uL Hemoglobin 12.9 g/dL Hematocrit 38.7 % Mean Corpuscular Volume 93 fL Mean Corpuscular Hemoglobin 31 pg Mean Corpuscular Hemoglobin Concent 33 g/dL Red Cell Distribution Width 14.8 % Platelet Count 182 x10^3/uL Neutrophils (%) (Auto) 58 % Lymphocytes (%) (Auto) 25 % Monocytes (%) (Auto) 13 % Eosinophils (%) (Auto) 3 % Basophils (%) (Auto) 1 % Neutrophils # (Auto) 3.5 x10^3uL Lymphocytes # (Auto) 1.5 x10^3/uL Monocytes # (Auto) 0.8 x10^3/uL Eosinophils # (Auto) 0.2 x10^3/uL Basophils # (Auto) 0.1 x10^3/uL Sodium Level 142 mmol/L Potassium Level 4.1 mmol/L Chloride Level 107 mmol/L Carbon Dioxide Level 28 mmol/L Anion Gap 7 Blood Urea Nitrogen 23 mg/dL Creatinine 1.1 mg/dL Estimated GFR (Cockcroft-Gault) 48.3 BUN/Creatinine Ratio 21 Glucose Level 89 mg/dL Calcium Level 8.5 mg/dL Total Bilirubin 0.4 mg/dL Aspartate Amino Transf (AST/SGOT) 20 U/L Alanine Aminotransferase (ALT/SGPT) 21 U/L Alkaline Phosphatase 76 U/L Total Protein 6.4 g/dL Albumin 3.0 g/dL Albumin/Globulin Ratio 0.9 Valproic Acid (Depakene) Level 78 mcg/mL Valproic Acid Last Dose Date 11/07/20 Valproic Acid Last Dose Time 2100 Current Medications Medications (Trade) Dose Ordered Sig/Chidi Route PRN Reason Start Time Stop Time Status Last Admin Dose Admin Aspirin (Aspirin Enteric Coated) 81 mg DAILY PO 10/10/20 09:00 11/08/20 08:28 Atorvastatin Calcium (Lipitor) 10 mg QHS PO 10/09/20 21:00 11/08/20 21:27 Calcium Polycarbophil (Fibercon) 1,250 mg BID PO 10/09/20 21:00 11/08/20 21:26 Vitamin D (Vitamin D3) 50,000 unit WEEKLY PO 10/16/20 09:00 11/06/20 09:08 Vitamin D (Vitamin D3) 2,000 unit DAILY PO 10/10/20 09:00 10/17/20 14:27 DC 10/17/20 08:17 Denosumab (Prolia) 60 mg 1X SQ 10/09/20 15:30 10/17/20 17:10 DC Diltiazem HCl (Cardizem) 30 mg BID PO 10/09/20 21:00 11/08/20 21:27 Levothyroxine Sodium (Synthroid) 25 mcg DAILY06 PO 10/10/20 07:30 11/08/20 06:28 Pramipexole Dihydrochloride (miraPEX) 1 mg [id number] PO 10/09/20 21:00 11/08/20 21:28 Tizanidine HCl (Zanaflex) 4 mg PRN Q8HRS PRN PO MUSCLE SPASMS 10/09/20 15:30 10/21/20 23:58 Multivitamins/ Calcium (Thera-M Plus) 1 tab DAILY PO 10/10/20 09:00 11/08/20 08:28 Pantoprazole Sodium (Protonix) 40 mg DAILY PO 10/10/20 09:00 11/08/20 08:28 Sennosides (Senna) 25.8 mg HS PO 10/09/20 21:00 11/08/20 21:27 Acetaminophen (Tylenol) 650 mg PRN Q6HRS PRN PO MILD PAIN / TEMP > 100.3'F 10/09/20 17:30 11/02/20 10:41 Multi-Ingredient Ointment (Analgesic [place]) 1 ashanti PRN QID PRN TP MUSCLE PAIN 10/09/20 17:30 Al Hydroxide/Mg Hydroxide (Mylanta Plus Xs) 15 ml PRN AFTMEALHC PRN PO DYSPEPSIA 10/09/20 17:30 Magnesium Hydroxide (Milk Of Magnesia) 2,400 mg PRN QHS PRN PO CONSTIPATION 10/09/20 17:30 Olanzapine (ZyPREXA ZYDIS) 2.5 mg PRN Q2HRS PRN PO PSYCHOSIS 10/09/20 17:30 11/05/20 16:25 Doxycycline Hyclate (Vibra-Tab) 100 mg BID PO 10/10/20 21:00 10/19/20 22:00 DC 10/19/20 20:35 Divalproex Sodium (Depakote Er) 500 mg QHS PO 10/11/20 21:00 11/05/20 19:02 DC 11/04/20 19:55 Lactobacillus Rhamnosus (Culturelle) 1 cap BID PO 10/14/20 21:00 11/08/20 21:28 Bupropion HCl (Wellbutrin Xl) 150 mg DAILY PO 10/18/20 09:00 10/19/20 17:07 DC 10/19/20 08:22 Bupropion HCl (Wellbutrin Xl) 300 mg DAILY PO 10/20/20 09:00 11/08/20 08:29 Trazodone HCl (Desyrel) 50 mg PRN QHS PRN PO INSOMNIA, MAY REPEAT X1 10/22/20 06:00 11/06/20 19:59 Risperidone (RisperDAL) 0.5 mg QHS PO 10/22/20 18:00 10/24/20 16:15 DC 10/23/20 20:10 Mirtazapine (Remeron) 7.5 mg QHS PO 10/23/20 21:00 10/29/20 18:20 DC 10/28/20 20:19 Risperidone (RisperDAL) 0.75 mg QHS PO 10/24/20 21:00 10/25/20 11:50 DC 10/24/20 19:34 Risperidone (RisperDAL) 0.25 mg 0900,1300,1700 PO 10/25/20 13:00 10/26/20 18:31 DC 10/26/20 17:16 Risperidone (RisperDAL) 0.25 mg 0900,1300 PO 10/27/20 09:00 11/08/20 13:42 Risperidone (RisperDAL) 0.5 mg DAILYWSUP PO 10/27/20 17:00 11/08/20 17:30 Mirtazapine (Remeron) 15 mg QHS PO 10/29/20 21:00 11/08/20 21:27 Melatonin (Melatonin) 3 mg PRN QHS PRN PO INSOMNIA 10/29/20 18:30 11/06/20 19:59 Divalproex Sodium (Depakote Er) 750 mg QHS PO 11/05/20 21:00 11/08/20 21:26 I have reviewed the current psychotropics carefully including drug interactions. Risk benefit ratio favors no change other than as noted in my dictated progress note. Diagnosis: Problems: (1) Impulse control disorder, unspecified (2) Mild cognitive impairment (3) Anxiety disorder, unspecified (4) Bipolar disorder, current episode mixed, severe, with psychotic features SAEID NUNEZ MD Nov 08, 2020 22:03
--- NOTE | 2020-11-09 00:26 | NUR ---
Patient went to bed early. When nurse approached patient for med administration, patient was naked in bed. Nurse asked patient where her hospital gown was but patient seemed unable to answer the question. Staff assisted patient to get her gown back on. Patient compliant with medications and cooperative with assessment. No behaviors noted at this time.
--- NOTE | 2020-11-09 04:58 | NUR ---
Patient was up during the night and was Paranoid and delusional. Patients bed alarm went off. When staff came to room she stated she needed to go to the bathroom. FURNACE COMBUSTION TESTER attempted to open the bathroom door for her and she began accusing the FURNACE COMBUSTION TESTER of trying to kill her and all of the others. Nurse approached patient and she stated that both FURNACE COMBUSTION TESTER and Nurse were going to kill her. She wouldn't enter the bathroom and was watching staff in her doorway, eventually she laid back down in bed.
[2020-11-09] MEDS: LEVOTHYROXINE 25 MCG TABLET. PO SCH (05:45)
[2020-11-09 06:12] VITALS: BP 126/76
--- NOTE | 2020-11-09 06:19 | PDOC ---
Exam Note: Tex Note: This note is a late entry for 11/07/2020 covers elements not covered in my initial note. Subjective: The patient was seen individually in the evening of 11/07/2020 with Vignesh FAGAN, discussed and reviewed the chart. She slept for 6-3/4 hours previous night. The patient has been wandering, at times appears confused but does interact with other patients and spends much time in the dayroom. Mood swings and agitation are improved. Review of Systems: No CV, , pulmonary, eye, ENT system symptoms on review. Mental Status Exam: The patient is oriented to herself and at times situation. Speech coherent. Abstraction fair. Computation impaired. Language function intact. Attention span short. Mood and affect somewhat withdrawn. Laboratory Data: Reviewed. Impression: Bipolar disorder mixed with psychotic features. Anxiety disorder unspecified. Impulse control disorder unspecified. Mild cognitive impairment. Plan: Continue current psychotropics. She is tolerating the increased Risperdal. Valproic acid level is awaited on 11/08. Continue Depakote unchange d. Assessment: Vital Signs/I&O: Vital Signs Date Time Temp Pulse Resp B/P (MAP) Pulse Ox O2 Delivery O2 Flow Rate FiO2 11/09/20 06:12 97.5 79 20 126/76 (93) 97 Room Air I & O 11/08/20 11/08/20 11/09/20 15:00 23:00 07:00 Intake Total 600 ml 120 ml Balance 600 ml 120 ml Labs: Laboratory Tests Test 11/08/20 07:22 White Blood Count 6.0 x10^3/uL (4.0-11.0) Red Blood Count 4.17 x10^6/uL (3.50-5.40) Hemoglobin 12.9 g/dL (12.0-15.5) Hematocrit 38.7 % (36.0-47.0) Mean Corpuscular Volume 93 fL (79-100) Mean Corpuscular Hemoglobin 31 pg (25-35) Mean Corpuscular Hemoglobin Concent 33 g/dL (31-37) Red Cell Distribution Width 14.8 % (11.5-14.5) H Platelet Count 182 x10^3/uL (140-400) Neutrophils (%) (Auto) 58 % (31-73) Lymphocytes (%) (Auto) 25 % (24-48) Monocytes (%) (Auto) 13 % (0-9) H Eosinophils (%) (Auto) 3 % (0-3) Basophils (%) (Auto) 1 % (0-3) Neutrophils # (Auto) 3.5 x10^3uL (1.8-7.7) Lymphocytes # (Auto) 1.5 x10^3/uL (1.0-4.8) Monocytes # (Auto) 0.8 x10^3/uL (0.0-1.1) Eosinophils # (Auto) 0.2 x10^3/uL (0.0-0.7) Basophils # (Auto) 0.1 x10^3/uL (0.0-0.2) Sodium Level 142 mmol/L (136-145) Potassium Level 4.1 mmol/L (3.5-5.1) Chloride Level 107 mmol/L (98-107) Carbon Dioxide Level 28 mmol/L (21-32) Anion Gap 7 (6-14) Blood Urea Nitrogen 23 mg/dL (7-20) H Creatinine 1.1 mg/dL (0.6-1.0) H Estimated GFR (Cockcroft-Gault) 48.3 BUN/Creatinine Ratio 21 (6-20) H Glucose Level 89 mg/dL (70-99) Calcium Level 8.5 mg/dL (8.5-10.1) Total Bilirubin 0.4 mg/dL (0.2-1.0) Aspartate Amino Transferase (AST) 20 U/L (15-37) Alanine Aminotransferase (ALT) 21 U/L (14-59) Alkaline Phosphatase 76 U/L (46-116) Total Protein 6.4 g/dL (6.4-8.2) Albumin 3.0 g/dL (3.4-5.0) L Albumin/Globulin Ratio 0.9 (1.0-1.7) L Valproic Acid Level 78 mcg/mL (50-100) Valproic Acid Last Dose Date 11/07/20 Valproic Acid Last Dose Time 2100 Current Medications: Meds: Laboratory Tests Test 11/08/20 07:22 White Blood Count 6.0 x10^3/uL Red Blood Count 4.17 x10^6/uL Hemoglobin 12.9 g/dL Hematocrit 38.7 % Mean Corpuscular Volume 93 fL Mean Corpuscular Hemoglobin 31 pg Mean Corpuscular Hemoglobin Concent 33 g/dL Red Cell Distribution Width 14.8 % Platelet Count 182 x10^3/uL Neutrophils (%) (Auto) 58 % Lymphocytes (%) (Auto) 25 % Monocytes (%) (Auto) 13 % Eosinophils (%) (Auto) 3 % Basophils (%) (Auto) 1 % Neutrophils # (Auto) 3.5 x10^3uL Lymphocytes # (Auto) 1.5 x10^3/uL Monocytes # (Auto) 0.8 x10^3/uL Eosinophils # (Auto) 0.2 x10^3/uL Basophils # (Auto) 0.1 x10^3/uL Sodium Level 142 mmol/L Potassium Level 4.1 mmol/L Chloride Level 107 mmol/L Carbon Dioxide Level 28 mmol/L Anion Gap 7 Blood Urea Nitrogen 23 mg/dL Creatinine 1.1 mg/dL Estimated GFR (Cockcroft-Gault) 48.3 BUN/Creatinine Ratio 21 Glucose Level 89 mg/dL Calcium Level 8.5 mg/dL Total Bilirubin 0.4 mg/dL Aspartate Amino Transf (AST/SGOT) 20 U/L Alanine Aminotransferase (ALT/SGPT) 21 U/L Alkaline Phosphatase 76 U/L Total Protein 6.4 g/dL Albumin 3.0 g/dL Albumin/Globulin Ratio 0.9 Valproic Acid (Depakene) Level 78 mcg/mL Valproic Acid Last Dose Date 11/07/20 Valproic Acid Last Dose Time 2100 Current Medications Medications (Trade) Dose Ordered Sig/Chidi Route PRN Reason Start Time Stop Time Status Last Admin Dose Admin Aspirin (Aspirin Enteric Coated) 81 mg DAILY PO 10/10/20 09:00 11/08/20 08:28 Atorvastatin Calcium (Lipitor) 10 mg QHS PO 10/09/20 21:00 11/08/20 21:27 Calcium Polycarbophil (Fibercon) 1,250 mg BID PO 10/09/20 21:00 11/08/20 21:26 Vitamin D (Vitamin D3) 50,000 unit WEEKLY PO 10/16/20 09:00 11/06/20 09:08 Vitamin D (Vitamin D3) 2,000 unit DAILY PO 10/10/20 09:00 10/17/20 14:27 DC 10/17/20 08:17 Denosumab (Prolia) 60 mg 1X SQ 10/09/20 15:30 10/17/20 17:10 DC Diltiazem HCl (Cardizem) 30 mg BID PO 10/09/20 21:00 11/08/20 21:27 Levothyroxine Sodium (Synthroid) 25 mcg DAILY06 PO 10/10/20 07:30 11/09/20 05:45 Pramipexole Dihydrochloride (miraPEX) 1 mg [id number] PO 10/09/20 21:00 11/08/20 21:28 Tizanidine HCl (Zanaflex) 4 mg PRN Q8HRS PRN PO MUSCLE SPASMS 10/09/20 15:30 10/21/20 23:58 Multivitamins/ Calcium (Thera-M Plus) 1 tab DAILY PO 10/10/20 09:00 11/08/20 08:28 Pantoprazole Sodium (Protonix) 40 mg DAILY PO 10/10/20 09:00 11/08/20 08:28 Sennosides (Senna) 25.8 mg HS PO 10/09/20 21:00 11/08/20 21:27 Acetaminophen (Tylenol) 650 mg PRN Q6HRS PRN PO MILD PAIN / TEMP > 100.3'F 10/09/20 17:30 11/02/20 10:41 Multi-Ingredient Ointment (Analgesic [place]) 1 ashanti PRN QID PRN TP MUSCLE PAIN 10/09/20 17:30 Al Hydroxide/Mg Hydroxide (Mylanta Plus Xs) 15 ml PRN AFTMEALHC PRN PO DYSPEPSIA 10/09/20 17:30 Magnesium Hydroxide (Milk Of Magnesia) 2,400 mg PRN QHS PRN PO CONSTIPATION 10/09/20 17:30 Olanzapine (ZyPREXA ZYDIS) 2.5 mg PRN Q2HRS PRN PO PSYCHOSIS 10/09/20 17:30 11/05/20 16:25 Doxycycline Hyclate (Vibra-Tab) 100 mg BID PO 10/10/20 21:00 10/19/20 22:00 DC 10/19/20 20:35 Divalproex Sodium (Depakote Er) 500 mg QHS PO 10/11/20 21:00 11/05/20 19:02 DC 11/04/20 19:55 Lactobacillus Rhamnosus (Culturelle) 1 cap BID PO 10/14/20 21:00 11/08/20 21:28 Bupropion HCl (Wellbutrin Xl) 150 mg DAILY PO 10/18/20 09:00 10/19/20 17:07 DC 10/19/20 08:22 Bupropion HCl (Wellbutrin Xl) 300 mg DAILY PO 10/20/20 09:00 11/08/20 08:29 Trazodone HCl (Desyrel) 50 mg PRN QHS PRN PO INSOMNIA, MAY REPEAT X1 10/22/20 06:00 11/06/20 19:59 Risperidone (RisperDAL) 0.5 mg QHS PO 10/22/20 18:00 10/24/20 16:15 DC 10/23/20 20:10 Mirtazapine (Remeron) 7.5 mg QHS PO 10/23/20 21:00 10/29/20 18:20 DC 10/28/20 20:19 Risperidone (RisperDAL) 0.75 mg QHS PO 10/24/20 21:00 10/25/20 11:50 DC 10/24/20 19:34 Risperidone (RisperDAL) 0.25 mg 0900,1300,1700 PO 10/25/20 13:00 10/26/20 18:31 DC 10/26/20 17:16 Risperidone (RisperDAL) 0.25 mg 0900,1300 PO 10/27/20 09:00 11/08/20 13:42 Risperidone (RisperDAL) 0.5 mg DAILYWSUP PO 10/27/20 17:00 11/08/20 17:30 Mirtazapine (Remeron) 15 mg QHS PO 10/29/20 21:00 11/08/20 21:27 Melatonin (Melatonin) 3 mg PRN QHS PRN PO INSOMNIA 10/29/20 18:30 11/06/20 19:59 Divalproex Sodium (Depakote Er) 750 mg QHS PO 11/05/20 21:00 11/08/20 21:26 I have reviewed the current psychotropics carefully including drug interactions. Risk benefit ratio favors no change other than as noted in my dictated progress note. Diagnosis: Problems: (1) Impulse control disorder, unspecified (2) Mild cognitive impairment (3) Anxiety disorder, unspecified (4) Bipolar disorder, current episode mixed, severe, with psychotic features SAEID NUNEZ MD Nov 09, 2020 06:19
--- NOTE | 2020-11-09 06:47 | PDOC ---
Exam Note: Tex Note: This note is a late entry for 11/08/2020overs elements not covered in my initial note. Subjective: The patient was seen individually in the morning of 11/08/2020 for a treatment team meeting with Bethanie Rain, Maria G Esteves (social services specialist), Ifrah, activity therapy and Jaylin FAGAN, discussed and reviewed the chart. She slept for 7 hours previous night. Appetite is 75%. We reviewed the patients history, diagnoses, treatment, labs and discharge plans at some length. Her family would like her transition to [facility] since the daughter works there. Her would like her home but understands she may need further period of stabilization. We reviewed her history. Three days ago she was somewhat aggressive with her roommate, gets obsessed about wanting to go home. She gets agitated and then calmer later. She is compliant with medications. Valproic acid level is therapeutic at 78 and she gets little delusional at times. I met with her in the dayroom. Review of Systems: No CV, , pulmonary, eye, ENT system symptoms on review. Mental Status Exam: The patient is oriented to herself and at times situation. Speech coherent. Abstraction fair. Computation impaired. Language function intact. Attention span short. Mood and affect somewhat withdrawn. Laboratory Data: Reviewed. Impression: Bipolar disorder mixed with psychotic features. Anxiety disorder unspecified. Impulse control disorder unspecified. Mild cognitive impairment. Plan: Continue current psychotropics. Since the patients valproic acid level is therapeutic, we will keep Depakote unchanged. Maintain Risperdal at current dosage. Rest unchanged for now including Wellbutrin and Remeron. Assessment: Vital Signs/I&O: Vital Signs Date Time Temp Pulse Resp B/P (MAP) Pulse Ox O2 Delivery O2 Flow Rate FiO2 11/09/20 06:12 97.5 79 20 126/76 (93) 97 Room Air I & O 11/08/20 11/08/20 11/09/20 15:00 23:00 07:00 Intake Total 600 ml 120 ml Balance 600 ml 120 ml Labs: Laboratory Tests Test 11/08/20 07:22 White Blood Count 6.0 x10^3/uL (4.0-11.0) Red Blood Count 4.17 x10^6/uL (3.50-5.40) Hemoglobin 12.9 g/dL (12.0-15.5) Hematocrit 38.7 % (36.0-47.0) Mean Corpuscular Volume 93 fL (79-100) Mean Corpuscular Hemoglobin 31 pg (25-35) Mean Corpuscular Hemoglobin Concent 33 g/dL (31-37) Red Cell Distribution Width 14.8 % (11.5-14.5) H Platelet Count 182 x10^3/uL (140-400) Neutrophils (%) (Auto) 58 % (31-73) Lymphocytes (%) (Auto) 25 % (24-48) Monocytes (%) (Auto) 13 % (0-9) H Eosinophils (%) (Auto) 3 % (0-3) Basophils (%) (Auto) 1 % (0-3) Neutrophils # (Auto) 3.5 x10^3uL (1.8-7.7) Lymphocytes # (Auto) 1.5 x10^3/uL (1.0-4.8) Monocytes # (Auto) 0.8 x10^3/uL (0.0-1.1) Eosinophils # (Auto) 0.2 x10^3/uL (0.0-0.7) Basophils # (Auto) 0.1 x10^3/uL (0.0-0.2) Sodium Level 142 mmol/L (136-145) Potassium Level 4.1 mmol/L (3.5-5.1) Chloride Level 107 mmol/L (98-107) Carbon Dioxide Level 28 mmol/L (21-32) Anion Gap 7 (6-14) Blood Urea Nitrogen 23 mg/dL (7-20) H Creatinine 1.1 mg/dL (0.6-1.0) H Estimated GFR (Cockcroft-Gault) 48.3 BUN/Creatinine Ratio 21 (6-20) H Glucose Level 89 mg/dL (70-99) Calcium Level 8.5 mg/dL (8.5-10.1) Total Bilirubin 0.4 mg/dL (0.2-1.0) Aspartate Amino Transferase (AST) 20 U/L (15-37) Alanine Aminotransferase (ALT) 21 U/L (14-59) Alkaline Phosphatase 76 U/L (46-116) Total Protein 6.4 g/dL (6.4-8.2) Albumin 3.0 g/dL (3.4-5.0) L Albumin/Globulin Ratio 0.9 (1.0-1.7) L Valproic Acid Level 78 mcg/mL (50-100) Valproic Acid Last Dose Date 11/07/20 Valproic Acid Last Dose Time 2100 Current Medications: Meds: Laboratory Tests Test 11/08/20 07:22 White Blood Count 6.0 x10^3/uL Red Blood Count 4.17 x10^6/uL Hemoglobin 12.9 g/dL Hematocrit 38.7 % Mean Corpuscular Volume 93 fL Mean Corpuscular Hemoglobin 31 pg Mean Corpuscular Hemoglobin Concent 33 g/dL Red Cell Distribution Width 14.8 % Platelet Count 182 x10^3/uL Neutrophils (%) (Auto) 58 % Lymphocytes (%) (Auto) 25 % Monocytes (%) (Auto) 13 % Eosinophils (%) (Auto) 3 % Basophils (%) (Auto) 1 % Neutrophils # (Auto) 3.5 x10^3uL Lymphocytes # (Auto) 1.5 x10^3/uL Monocytes # (Auto) 0.8 x10^3/uL Eosinophils # (Auto) 0.2 x10^3/uL Basophils # (Auto) 0.1 x10^3/uL Sodium Level 142 mmol/L Potassium Level 4.1 mmol/L Chloride Level 107 mmol/L Carbon Dioxide Level 28 mmol/L Anion Gap 7 Blood Urea Nitrogen 23 mg/dL Creatinine 1.1 mg/dL Estimated GFR (Cockcroft-Gault) 48.3 BUN/Creatinine Ratio 21 Glucose Level 89 mg/dL Calcium Level 8.5 mg/dL Total Bilirubin 0.4 mg/dL Aspartate Amino Transf (AST/SGOT) 20 U/L Alanine Aminotransferase (ALT/SGPT) 21 U/L Alkaline Phosphatase 76 U/L Total Protein 6.4 g/dL Albumin 3.0 g/dL Albumin/Globulin Ratio 0.9 Valproic Acid (Depakene) Level 78 mcg/mL Valproic Acid Last Dose Date 11/07/20 Valproic Acid Last Dose Time 2100 Current Medications Medications (Trade) Dose Ordered Sig/Chidi Route PRN Reason Start Time Stop Time Status Last Admin Dose Admin Aspirin (Aspirin Enteric Coated) 81 mg DAILY PO 10/10/20 09:00 11/08/20 08:28 Atorvastatin Calcium (Lipitor) 10 mg QHS PO 10/09/20 21:00 11/08/20 21:27 Calcium Polycarbophil (Fibercon) 1,250 mg BID PO 10/09/20 21:00 11/08/20 21:26 Vitamin D (Vitamin D3) 50,000 unit WEEKLY PO 10/16/20 09:00 11/06/20 09:08 Vitamin D (Vitamin D3) 2,000 unit DAILY PO 10/10/20 09:00 10/17/20 14:27 DC 10/17/20 08:17 Denosumab (Prolia) 60 mg 1X SQ 10/09/20 15:30 10/17/20 17:10 DC Diltiazem HCl (Cardizem) 30 mg BID PO 10/09/20 21:00 11/08/20 21:27 Levothyroxine Sodium (Synthroid) 25 mcg DAILY06 PO 10/10/20 07:30 11/09/20 05:45 Pramipexole Dihydrochloride (miraPEX) 1 mg [id number] PO 10/09/20 21:00 11/08/20 21:28 Tizanidine HCl (Zanaflex) 4 mg PRN Q8HRS PRN PO MUSCLE SPASMS 10/09/20 15:30 10/21/20 23:58 Multivitamins/ Calcium (Thera-M Plus) 1 tab DAILY PO 10/10/20 09:00 11/08/20 08:28 Pantoprazole Sodium (Protonix) 40 mg DAILY PO 10/10/20 09:00 11/08/20 08:28 Sennosides (Senna) 25.8 mg HS PO 10/09/20 21:00 11/08/20 21:27 Acetaminophen (Tylenol) 650 mg PRN Q6HRS PRN PO MILD PAIN / TEMP > 100.3'F 10/09/20 17:30 11/02/20 10:41 Multi-Ingredient Ointment (Analgesic [place]) 1 ashanti PRN QID PRN TP MUSCLE PAIN 10/09/20 17:30 Al Hydroxide/Mg Hydroxide (Mylanta Plus Xs) 15 ml PRN AFTMEALHC PRN PO DYSPEPSIA 10/09/20 17:30 Magnesium Hydroxide (Milk Of Magnesia) 2,400 mg PRN QHS PRN PO CONSTIPATION 10/09/20 17:30 Olanzapine (ZyPREXA ZYDIS) 2.5 mg PRN Q2HRS PRN PO PSYCHOSIS 10/09/20 17:30 11/05/20 16:25 Doxycycline Hyclate (Vibra-Tab) 100 mg BID PO 10/10/20 21:00 10/19/20 22:00 DC 10/19/20 20:35 Divalproex Sodium (Depakote Er) 500 mg QHS PO 10/11/20 21:00 11/05/20 19:02 DC 11/04/20 19:55 Lactobacillus Rhamnosus (Culturelle) 1 cap BID PO 10/14/20 21:00 11/08/20 21:28 Bupropion HCl (Wellbutrin Xl) 150 mg DAILY PO 10/18/20 09:00 10/19/20 17:07 DC 10/19/20 08:22 Bupropion HCl (Wellbutrin Xl) 300 mg DAILY PO 10/20/20 09:00 11/08/20 08:29 Trazodone HCl (Desyrel) 50 mg PRN QHS PRN PO INSOMNIA, MAY REPEAT X1 10/22/20 06:00 11/06/20 19:59 Risperidone (RisperDAL) 0.5 mg QHS PO 10/22/20 18:00 10/24/20 16:15 DC 10/23/20 20:10 Mirtazapine (Remeron) 7.5 mg QHS PO 10/23/20 21:00 10/29/20 18:20 DC 10/28/20 20:19 Risperidone (RisperDAL) 0.75 mg QHS PO 10/24/20 21:00 10/25/20 11:50 DC 10/24/20 19:34 Risperidone (RisperDAL) 0.25 mg 0900,1300,1700 PO 10/25/20 13:00 10/26/20 18:31 DC 10/26/20 17:16 Risperidone (RisperDAL) 0.25 mg 0900,1300 PO 10/27/20 09:00 11/08/20 13:42 Risperidone (RisperDAL) 0.5 mg DAILYWSUP PO 10/27/20 17:00 11/08/20 17:30 Mirtazapine (Remeron) 15 mg QHS PO 10/29/20 21:00 11/08/20 21:27 Melatonin (Melatonin) 3 mg PRN QHS PRN PO INSOMNIA 10/29/20 18:30 11/06/20 19:59 Divalproex Sodium (Depakote Er) 750 mg QHS PO 11/05/20 21:00 11/08/20 21:26 I have reviewed the current psychotropics carefully including drug interactions. Risk benefit ratio favors no change other than as noted in my dictated progress note. Diagnosis: Problems: (1) Impulse control disorder, unspecified (2) Mild cognitive impairment (3) Anxiety disorder, unspecified (4) Bipolar disorder, current episode mixed, severe, with psychotic features SAEID NUNEZ MD Nov 09, 2020 06:47
[2020-11-09] MEDS: buPROPion XL 300 MG TAB.ER.24H. PO SCH (09:43)
[2020-11-09] MEDS: CALCIUM POLYCARBOPHIL 625 MG TABLET PO SCH ×2 (09:43→20:19)
[2020-11-09] MEDS: MULTIVITAMIN with MINERAL TABLET. PO SCH (09:43)
[2020-11-09] MEDS: PANTOPRAZOLE 40 MG TABLET. PO SCH (09:43)
[2020-11-09] MEDS: LACTOBACILLUS RHAMNOSUS GG 1 CAPSULE. PO SCH ×2 (09:43→20:20)
[2020-11-09] MEDS: PRAMIPEXOLE 0.5 MG TABLET. PO SCH ×3 (09:43→20:20)
[2020-11-09] MEDS: dilTIAZem HCL 30 MG TABLET PO SCH ×2 (09:44→20:19)
[2020-11-09] MEDS: ASPIRIN ENTERIC COATED 81 MG TABLET.DR. PO SCH (09:44)
[2020-11-09] MEDS: risperiDONE 0.25 MG TABLET. PO SCH ×2 (09:44→12:24)
--- NOTE | 2020-11-09 10:19 | NUR ---
Pt remains confused and disorganized today. She is compliant with whole medications floated in pudding, however group home through she became resistant and refused the rest of the medications (swearing and insulting staff in the process) and the remaining medications were administered SL. Absent of SI/HI/VH/AH/delusions, PAINAD score 0. Absent of speaking in tongues and holiness-based obsessions so far this shift. Plan fo care continues, will pass to next shift.
[2020-11-09 15:43] VITALS: BP 121/80
[2020-11-09] MEDS: risperiDONE 0.5 MG TABLET. PO SCH (17:00)
[2020-11-09] MEDS: ATORVASTATIN CALCIUM 10 MG TABLET. PO SCH (20:18)
[2020-11-09] MEDS: MIRTAZAPINE 15 MG TABLET PO SCH (20:20)
[2020-11-09] MEDS: SENNOSIDES 8.6 MG TABLET PO SCH (20:21)
[2020-11-09] MEDS: DIVALPROEX ER 250 MG TAB.ER.24H. PO SCH (20:21)
--- NOTE | 2020-11-09 22:06 | PDOC ---
Exam Note: Tex Note: Please also refer to the separate dictated note~for this date of service dictated separately.~Patient seen individually. Discussed the patient with Nursing staff reviewed the chart.~Reviewed interim history and current functioning. Reviewed vital signs,~Labs/ Radiology~and current medications noted below. Continue current treatment with the changes noted in the dictated addendum note Assessment: Vital Signs/I&O: Vital Signs Date Time Temp Pulse Resp B/P (MAP) Pulse Ox O2 Delivery O2 Flow Rate FiO2 11/09/20 20:19 102 121/80 11/09/20 15:43 97.2 18 98 11/09/20 06:12 Room Air I & O 11/08/20 11/08/20 11/09/20 15:00 23:00 07:00 Intake Total 600 ml 120 ml Balance 600 ml 120 ml Current Medications: Meds: Current Medications Medications (Trade) Dose Ordered Sig/Chidi Route PRN Reason Start Time Stop Time Status Last Admin Dose Admin Aspirin (Aspirin Enteric Coated) 81 mg DAILY PO 10/10/20 09:00 11/09/20 09:44 Atorvastatin Calcium (Lipitor) 10 mg QHS PO 10/09/20 21:00 11/09/20 20:18 Calcium Polycarbophil (Fibercon) 1,250 mg BID PO 10/09/20 21:00 11/09/20 20:19 Vitamin D (Vitamin D3) 50,000 unit WEEKLY PO 10/16/20 09:00 11/06/20 09:08 Vitamin D (Vitamin D3) 2,000 unit DAILY PO 10/10/20 09:00 10/17/20 14:27 DC 10/17/20 08:17 Denosumab (Prolia) 60 mg 1X SQ 10/09/20 15:30 10/17/20 17:10 DC Diltiazem HCl (Cardizem) 30 mg BID PO 10/09/20 21:00 11/09/20 20:19 Levothyroxine Sodium (Synthroid) 25 mcg DAILY06 PO 10/10/20 07:30 11/09/20 05:45 Pramipexole Dihydrochloride (miraPEX) 1 mg [id number] PO 10/09/20 21:00 11/09/20 20:20 Tizanidine HCl (Zanaflex) 4 mg PRN Q8HRS PRN PO MUSCLE SPASMS 10/09/20 15:30 10/21/20 23:58 Multivitamins/ Calcium (Thera-M Plus) 1 tab DAILY PO 10/10/20 09:00 11/09/20 09:43 Pantoprazole Sodium (Protonix) 40 mg DAILY PO 10/10/20 09:00 11/09/20 09:43 Sennosides (Senna) 25.8 mg HS PO 10/09/20 21:00 11/09/20 20:21 Acetaminophen (Tylenol) 650 mg PRN Q6HRS PRN PO MILD PAIN / TEMP > 100.3'F 10/09/20 17:30 11/02/20 10:41 Multi-Ingredient Ointment (Analgesic [place]) 1 ashanti PRN QID PRN TP MUSCLE PAIN 10/09/20 17:30 Al Hydroxide/Mg Hydroxide (Mylanta Plus Xs) 15 ml PRN AFTMEALHC PRN PO DYSPEPSIA 10/09/20 17:30 Magnesium Hydroxide (Milk Of Magnesia) 2,400 mg PRN QHS PRN PO CONSTIPATION 10/09/20 17:30 Olanzapine (ZyPREXA ZYDIS) 2.5 mg PRN Q2HRS PRN PO PSYCHOSIS 10/09/20 17:30 11/05/20 16:25 Doxycycline Hyclate (Vibra-Tab) 100 mg BID PO 10/10/20 21:00 10/19/20 22:00 DC 10/19/20 20:35 Divalproex Sodium (Depakote Er) 500 mg QHS PO 10/11/20 21:00 11/05/20 19:02 DC 11/04/20 19:55 Lactobacillus Rhamnosus (Culturelle) 1 cap BID PO 10/14/20 21:00 11/09/20 20:20 Bupropion HCl (Wellbutrin Xl) 150 mg DAILY PO 10/18/20 09:00 10/19/20 17:07 DC 10/19/20 08:22 Bupropion HCl (Wellbutrin Xl) 300 mg DAILY PO 10/20/20 09:00 11/09/20 09:43 Trazodone HCl (Desyrel) 50 mg PRN QHS PRN PO INSOMNIA, MAY REPEAT X1 10/22/20 06:00 11/06/20 19:59 Risperidone (RisperDAL) 0.5 mg QHS PO 10/22/20 18:00 10/24/20 16:15 DC 10/23/20 20:10 Mirtazapine (Remeron) 7.5 mg QHS PO 10/23/20 21:00 10/29/20 18:20 DC 10/28/20 20:19 Risperidone (RisperDAL) 0.75 mg QHS PO 10/24/20 21:00 10/25/20 11:50 DC 10/24/20 19:34 Risperidone (RisperDAL) 0.25 mg 0900,1300,1700 PO 10/25/20 13:00 10/26/20 18:31 DC 10/26/20 17:16 Risperidone (RisperDAL) 0.25 mg 0900,1300 PO 10/27/20 09:00 11/09/20 12:24 Risperidone (RisperDAL) 0.5 mg DAILYWSUP PO 10/27/20 17:00 11/09/20 17:00 Mirtazapine (Remeron) 15 mg QHS PO 10/29/20 21:00 11/09/20 20:20 Melatonin (Melatonin) 3 mg PRN QHS PRN PO INSOMNIA 10/29/20 18:30 11/06/20 19:59 Divalproex Sodium (Depakote Er) 750 mg QHS PO 11/05/20 21:00 11/09/20 20:21 I have reviewed the current psychotropics carefully including drug interactions. Risk benefit ratio favors no change other than as noted in my dictated progress note. Diagnosis: Problems: (1) Impulse control disorder, unspecified (2) Mild cognitive impairment (3) Anxiety disorder, unspecified (4) Bipolar disorder, current episode mixed, severe, with psychotic features SAEID NUNEZ MD Nov 09, 2020 22:06
--- NOTE | 2020-11-09 23:28 | NUR ---
Patient is located in the day room for assessments and medications. She is in pleasant spirits, disorganized, forgetful. Interactive with staff and peers. Compliant with assessments and medications whole. No agitation, no delusions voiced this shift. She denies any pain or discomfort. She appears to be sleeping comfortably at present time. Will continue to monitor.
[2020-11-10 05:16] VITALS: BP 129/77
[2020-11-10] MEDS: LEVOTHYROXINE 25 MCG TABLET. PO SCH (05:59)
--- NOTE | 2020-11-10 07:00 | PDOC ---
Exam Note: Tex Note: This note is a late entry for 11/09/2020overs elements not covered in my initial note. Subjective: The patient was seen on telehealth rounds in the evening of 11/09/2020 due to COVID-19 exposure on the unit with Jennifer RN, discussed and reviewed the chart. She slept for 8-1/4 hours previous night. The patient remains confused, little forgetful, withdrawn, less delusional, compliant with medications. She often chews her medication. At one point she was insulting to a staff and swearing to a staff when they were trying to encourage her to take her medications. She has done better rest of the day. Review of Systems: No CV, , pulmonary, eye, ENT system symptoms on review. Mental Status Exam: The patient is oriented to herself and situation. She is not very verbal but otherwise pleasant. Speech coherent. Abstraction fair. Computation impaired. Language function intact. Mood and affect somewhat withdrawn. Laboratory Data: Reviewed. Impression: Bipolar disorder mixed with psychotic features. Anxiety disorder unspecified. Impulse control disorder unspecified. Mild cognitive impairment. Plan: No change from initial note. Assessment: Vital Signs/I&O: Vital Signs Date Time Temp Pulse Resp B/P (MAP) Pulse Ox O2 Delivery O2 Flow Rate FiO2 11/10/20 05:16 97.6 89 16 129/77 (94) 95 11/09/20 06:12 Room Air I & O 11/09/20 11/09/20 11/10/20 15:00 23:00 07:00 Intake Total 200 ml 780 ml Balance 200 ml 780 ml Current Medications: Meds: Current Medications Medications (Trade) Dose Ordered Sig/Chidi Route PRN Reason Start Time Stop Time Status Last Admin Dose Admin Aspirin (Aspirin Enteric Coated) 81 mg DAILY PO 10/10/20 09:00 11/09/20 09:44 Atorvastatin Calcium (Lipitor) 10 mg QHS PO 10/09/20 21:00 11/09/20 20:18 Calcium Polycarbophil (Fibercon) 1,250 mg BID PO 10/09/20 21:00 11/09/20 20:19 Vitamin D (Vitamin D3) 50,000 unit WEEKLY PO 10/16/20 09:00 11/06/20 09:08 Vitamin D (Vitamin D3) 2,000 unit DAILY PO 10/10/20 09:00 10/17/20 14:27 DC 10/17/20 08:17 Denosumab (Prolia) 60 mg 1X SQ 10/09/20 15:30 10/17/20 17:10 DC Diltiazem HCl (Cardizem) 30 mg BID PO 10/09/20 21:00 11/09/20 20:19 Levothyroxine Sodium (Synthroid) 25 mcg DAILY06 PO 10/10/20 07:30 11/10/20 05:59 Pramipexole Dihydrochloride (miraPEX) 1 mg [id number] PO 10/09/20 21:00 11/09/20 20:20 Tizanidine HCl (Zanaflex) 4 mg PRN Q8HRS PRN PO MUSCLE SPASMS 10/09/20 15:30 10/21/20 23:58 Multivitamins/ Calcium (Thera-M Plus) 1 tab DAILY PO 10/10/20 09:00 11/09/20 09:43 Pantoprazole Sodium (Protonix) 40 mg DAILY PO 10/10/20 09:00 11/09/20 09:43 Sennosides (Senna) 25.8 mg HS PO 10/09/20 21:00 11/09/20 20:21 Acetaminophen (Tylenol) 650 mg PRN Q6HRS PRN PO MILD PAIN / TEMP > 100.3'F 10/09/20 17:30 11/02/20 10:41 Multi-Ingredient Ointment (Analgesic [place]) 1 ashanti PRN QID PRN TP MUSCLE PAIN 10/09/20 17:30 Al Hydroxide/Mg Hydroxide (Mylanta Plus Xs) 15 ml PRN AFTMEALHC PRN PO DYSPEPSIA 10/09/20 17:30 Magnesium Hydroxide (Milk Of Magnesia) 2,400 mg PRN QHS PRN PO CONSTIPATION 10/09/20 17:30 Olanzapine (ZyPREXA ZYDIS) 2.5 mg PRN Q2HRS PRN PO PSYCHOSIS 10/09/20 17:30 11/05/20 16:25 Doxycycline Hyclate (Vibra-Tab) 100 mg BID PO 10/10/20 21:00 10/19/20 22:00 DC 10/19/20 20:35 Divalproex Sodium (Depakote Er) 500 mg QHS PO 10/11/20 21:00 11/05/20 19:02 DC 11/04/20 19:55 Lactobacillus Rhamnosus (Culturelle) 1 cap BID PO 10/14/20 21:00 11/09/20 20:20 Bupropion HCl (Wellbutrin Xl) 150 mg DAILY PO 10/18/20 09:00 10/19/20 17:07 DC 10/19/20 08:22 Bupropion HCl (Wellbutrin Xl) 300 mg DAILY PO 10/20/20 09:00 11/09/20 09:43 Trazodone HCl (Desyrel) 50 mg PRN QHS PRN PO INSOMNIA, MAY REPEAT X1 10/22/20 06:00 11/06/20 19:59 Risperidone (RisperDAL) 0.5 mg QHS PO 10/22/20 18:00 10/24/20 16:15 DC 10/23/20 20:10 Mirtazapine (Remeron) 7.5 mg QHS PO 10/23/20 21:00 10/29/20 18:20 DC 10/28/20 20:19 Risperidone (RisperDAL) 0.75 mg QHS PO 10/24/20 21:00 10/25/20 11:50 DC 10/24/20 19:34 Risperidone (RisperDAL) 0.25 mg 0900,1300,1700 PO 10/25/20 13:00 10/26/20 18:31 DC 10/26/20 17:16 Risperidone (RisperDAL) 0.25 mg 0900,1300 PO 10/27/20 09:00 11/09/20 12:24 Risperidone (RisperDAL) 0.5 mg DAILYWSUP PO 10/27/20 17:00 11/09/20 17:00 Mirtazapine (Remeron) 15 mg QHS PO 10/29/20 21:00 11/09/20 20:20 Melatonin (Melatonin) 3 mg PRN QHS PRN PO INSOMNIA 10/29/20 18:30 11/06/20 19:59 Divalproex Sodium (Depakote Er) 750 mg QHS PO 11/05/20 21:00 11/09/20 20:21 I have reviewed the current psychotropics carefully including drug interactions. Risk benefit ratio favors no change other than as noted in my dictated progress note. Diagnosis: Problems: (1) Impulse control disorder, unspecified (2) Mild cognitive impairment (3) Anxiety disorder, unspecified (4) Bipolar disorder, current episode mixed, severe, with psychotic features SAEID NUNEZ MD Nov 10, 2020 07:00
[2020-11-10] MEDS: LACTOBACILLUS RHAMNOSUS GG 1 CAPSULE. PO SCH ×2 (08:05→19:47)
[2020-11-10] MEDS: risperiDONE 0.25 MG TABLET. PO SCH ×2 (08:05→12:01)
[2020-11-10] MEDS: buPROPion XL 300 MG TAB.ER.24H. PO SCH (08:05)
[2020-11-10] MEDS: ASPIRIN ENTERIC COATED 81 MG TABLET.DR. PO SCH (08:05)
[2020-11-10] MEDS: dilTIAZem HCL 30 MG TABLET PO SCH ×2 (08:06→19:48)
[2020-11-10] MEDS: MULTIVITAMIN with MINERAL TABLET. PO SCH (08:06)
[2020-11-10] MEDS: PANTOPRAZOLE 40 MG TABLET. PO SCH (08:06)
[2020-11-10] MEDS: CALCIUM POLYCARBOPHIL 625 MG TABLET PO SCH ×2 (08:06→19:46)
[2020-11-10] MEDS: PRAMIPEXOLE 0.5 MG TABLET. PO SCH ×3 (08:06→19:47)
--- NOTE | 2020-11-10 10:30 | NUR ---
Pt is confused and disorganized today. She is appropriate with her interactions with others, absent of verbal/physical aggression at this time. She is compliant with medications crushed/mixed with yogurt. Absent of SI/HI/VH/AH/delusions, PAINAD score 0. Plan fo care continues, will pass to next shift.
[2020-11-10 16:00] VITALS: BP 148/87
[2020-11-10] MEDS: risperiDONE 0.5 MG TABLET. PO SCH (17:00)
[2020-11-10] MEDS: MIRTAZAPINE 15 MG TABLET PO SCH (19:46)
[2020-11-10] MEDS: ATORVASTATIN CALCIUM 10 MG TABLET. PO SCH (19:48)
[2020-11-10] MEDS: DIVALPROEX ER 250 MG TAB.ER.24H. PO SCH (19:49)
[2020-11-10] MEDS: SENNOSIDES 8.6 MG TABLET PO SCH (19:49)
--- NOTE | 2020-11-10 21:22 | NUR ---
Patient is located in the day room for assessments and medications. She is in pleasant spirits, disorganized, forgetful. Interactive and social with staff and peers. Compliant with assessments and medications whole. No agitation, no delusions voiced this shift. She denies any pain or discomfort. She appears to be sleeping comfortably at present time. Will continue to monitor.
[2020-11-11] MEDS: LEVOTHYROXINE 25 MCG TABLET. PO SCH (05:38)
[2020-11-11 05:46] VITALS: BP 143/82
[2020-11-11] MEDS: CALCIUM POLYCARBOPHIL 625 MG TABLET PO SCH ×2 (08:18→19:53)
[2020-11-11] MEDS: ASPIRIN ENTERIC COATED 81 MG TABLET.DR. PO SCH (08:18)
[2020-11-11] MEDS: MULTIVITAMIN with MINERAL TABLET. PO SCH (08:18)
[2020-11-11] MEDS: dilTIAZem HCL 30 MG TABLET PO SCH ×2 (08:18→19:54)
[2020-11-11] MEDS: LACTOBACILLUS RHAMNOSUS GG 1 CAPSULE. PO SCH ×2 (08:18→19:55)
[2020-11-11] MEDS: buPROPion XL 300 MG TAB.ER.24H. PO SCH (08:18)
[2020-11-11] MEDS: PANTOPRAZOLE 40 MG TABLET. PO SCH (08:19)
[2020-11-11] MEDS: risperiDONE 0.25 MG TABLET. PO SCH ×2 (08:19→12:24)
[2020-11-11] MEDS: PRAMIPEXOLE 0.5 MG TABLET. PO SCH ×3 (08:19→19:55)
--- NOTE | 2020-11-11 13:52 | NUR ---
Nursing Note Pt confused, but alert and pleasant. Wanders the unit no agitation, no anxiety. Cooperative with assessment and meds. No behaviors.
[2020-11-11 15:44] VITALS: BP 126/84
[2020-11-11] MEDS: risperiDONE 0.5 MG TABLET. PO SCH (17:29)
[2020-11-11] MEDS: SENNOSIDES 8.6 MG TABLET PO SCH (19:54)
[2020-11-11] MEDS: ATORVASTATIN CALCIUM 10 MG TABLET. PO SCH (19:54)
[2020-11-11] MEDS: DIVALPROEX ER 250 MG TAB.ER.24H. PO SCH (19:55)
[2020-11-11] MEDS: MIRTAZAPINE 15 MG TABLET PO SCH (19:55)
--- NOTE | 2020-11-11 21:15 | NUR ---
Patient is located in her room for assessments and medications, awake in bed. She is in pleasant spirits, disorganized, forgetful. Compliant with assessments and medications whole. No agitation, no delusions voiced this shift. She denies any pain or discomfort. She appears to be sleeping comfortably at present time. Will continue to monitor.
--- NOTE | 2020-11-11 21:59 | PDOC ---
Exam Note: Tex Note: Please also refer to the separate dictated note~for this date of service dictated separately.~Patient seen individually. Discussed the patient with Nursing staff reviewed the chart.~Reviewed interim history and current functioning. Reviewed vital signs,~Labs/ Radiology~and current medications noted below. Continue current treatment with the changes noted in the dictated addendum note Assessment: Vital Signs/I&O: Vital Signs Date Time Temp Pulse Resp B/P (MAP) Pulse Ox O2 Delivery O2 Flow Rate FiO2 11/11/20 19:54 98 126/84 11/11/20 15:44 97.6 18 97 11/09/20 06:12 Room Air I & O 11/10/20 11/10/20 11/11/20 15:00 23:00 07:00 Intake Total 600 ml 480 ml Balance 600 ml 480 ml Current Medications: Meds: Current Medications Medications (Trade) Dose Ordered Sig/Chidi Route PRN Reason Start Time Stop Time Status Last Admin Dose Admin Aspirin (Aspirin Enteric Coated) 81 mg DAILY PO 10/10/20 09:00 11/11/20 08:18 Atorvastatin Calcium (Lipitor) 10 mg QHS PO 10/09/20 21:00 11/11/20 19:54 Calcium Polycarbophil (Fibercon) 1,250 mg BID PO 10/09/20 21:00 11/11/20 19:53 Vitamin D (Vitamin D3) 50,000 unit WEEKLY PO 10/16/20 09:00 11/06/20 09:08 Vitamin D (Vitamin D3) 2,000 unit DAILY PO 10/10/20 09:00 10/17/20 14:27 DC 10/17/20 08:17 Denosumab (Prolia) 60 mg 1X SQ 10/09/20 15:30 10/17/20 17:10 DC Diltiazem HCl (Cardizem) 30 mg BID PO 10/09/20 21:00 11/11/20 19:54 Levothyroxine Sodium (Synthroid) 25 mcg DAILY06 PO 10/10/20 07:30 11/11/20 05:38 Pramipexole Dihydrochloride (miraPEX) 1 mg [id number] PO 10/09/20 21:00 11/11/20 19:55 Tizanidine HCl (Zanaflex) 4 mg PRN Q8HRS PRN PO MUSCLE SPASMS 10/09/20 15:30 10/21/20 23:58 Multivitamins/ Calcium (Thera-M Plus) 1 tab DAILY PO 10/10/20 09:00 11/11/20 08:18 Pantoprazole Sodium (Protonix) 40 mg DAILY PO 10/10/20 09:00 11/11/20 08:19 Sennosides (Senna) 25.8 mg HS PO 10/09/20 21:00 11/11/20 19:54 Acetaminophen (Tylenol) 650 mg PRN Q6HRS PRN PO MILD PAIN / TEMP > 100.3'F 10/09/20 17:30 11/02/20 10:41 Multi-Ingredient Ointment (Analgesic [place]) 1 ashanti PRN QID PRN TP MUSCLE PAIN 10/09/20 17:30 Al Hydroxide/Mg Hydroxide (Mylanta Plus Xs) 15 ml PRN AFTMEALHC PRN PO DYSPEPSIA 10/09/20 17:30 Magnesium Hydroxide (Milk Of Magnesia) 2,400 mg PRN QHS PRN PO CONSTIPATION 10/09/20 17:30 Olanzapine (ZyPREXA ZYDIS) 2.5 mg PRN Q2HRS PRN PO PSYCHOSIS 10/09/20 17:30 11/11/20 14:53 Doxycycline Hyclate (Vibra-Tab) 100 mg BID PO 10/10/20 21:00 10/19/20 22:00 DC 10/19/20 20:35 Divalproex Sodium (Depakote Er) 500 mg QHS PO 10/11/20 21:00 11/05/20 19:02 DC 11/04/20 19:55 Lactobacillus Rhamnosus (Culturelle) 1 cap BID PO 10/14/20 21:00 11/11/20 19:55 Bupropion HCl (Wellbutrin Xl) 150 mg DAILY PO 10/18/20 09:00 10/19/20 17:07 DC 10/19/20 08:22 Bupropion HCl (Wellbutrin Xl) 300 mg DAILY PO 10/20/20 09:00 11/11/20 08:18 Trazodone HCl (Desyrel) 50 mg PRN QHS PRN PO 2ND CHOICE INSOMNIA, MRx1 10/22/20 06:00 11/06/20 19:59 Risperidone (RisperDAL) 0.5 mg QHS PO 10/22/20 18:00 10/24/20 16:15 DC 10/23/20 20:10 Mirtazapine (Remeron) 7.5 mg QHS PO 10/23/20 21:00 10/29/20 18:20 DC 10/28/20 20:19 Risperidone (RisperDAL) 0.75 mg QHS PO 10/24/20 21:00 10/25/20 11:50 DC 10/24/20 19:34 Risperidone (RisperDAL) 0.25 mg 0900,1300,1700 PO 10/25/20 13:00 10/26/20 18:31 DC 10/26/20 17:16 Risperidone (RisperDAL) 0.25 mg 0900,1300 PO 10/27/20 09:00 11/11/20 12:24 Risperidone (RisperDAL) 0.5 mg DAILYWSUP PO 10/27/20 17:00 11/11/20 17:29 Mirtazapine (Remeron) 15 mg QHS PO 10/29/20 21:00 11/11/20 19:55 Melatonin (Melatonin) 3 mg PRN QHS PRN PO 1ST CHOICE INSOMNIA 10/29/20 18:30 11/06/20 19:59 Divalproex Sodium (Depakote Er) 750 mg QHS PO 11/05/20 21:00 11/11/20 19:55 I have reviewed the current psychotropics carefully including drug interactions. Risk benefit ratio favors no change other than as noted in my dictated progress note. Diagnosis: Problems: (1) Impulse control disorder, unspecified (2) Mild cognitive impairment (3) Anxiety disorder, unspecified (4) Bipolar disorder, current episode mixed, severe, with psychotic features SAEID NUNEZ MD Nov 11, 2020 21:59
[2020-11-12] MEDS: LEVOTHYROXINE 25 MCG TABLET. PO SCH (05:54)
[2020-11-12 06:14] VITALS: BP 116/72
[2020-11-12] MEDS: CALCIUM POLYCARBOPHIL 625 MG TABLET PO SCH ×2 (08:04→20:11)
[2020-11-12] MEDS: LACTOBACILLUS RHAMNOSUS GG 1 CAPSULE. PO SCH ×2 (08:04→20:12)
[2020-11-12] MEDS: dilTIAZem HCL 30 MG TABLET PO SCH ×2 (08:04→20:12)
[2020-11-12] MEDS: risperiDONE 0.25 MG TABLET. PO SCH ×2 (08:04→13:00)
[2020-11-12] MEDS: ASPIRIN ENTERIC COATED 81 MG TABLET.DR. PO SCH (08:04)
[2020-11-12] MEDS: MULTIVITAMIN with MINERAL TABLET. PO SCH (08:04)
[2020-11-12] MEDS: PANTOPRAZOLE 40 MG TABLET. PO SCH (08:04)
[2020-11-12] MEDS: buPROPion XL 300 MG TAB.ER.24H. PO SCH (08:05)
[2020-11-12] MEDS: PRAMIPEXOLE 0.5 MG TABLET. PO SCH ×3 (08:05→20:11)
--- NOTE | 2020-11-12 13:26 | NUR ---
NICA attempted to contact [facility] to discuss pt discharge for tomorrow. The phone rang until NICA was hung up on. NICA waited a minute then attempted to call [facility] again with the same result. NICA to attempt to contact SON Bellamy, on his cell phone.
--- NOTE | 2020-11-12 13:29 | NUR ---
NICA attempted to contact Josesito at [facility] on his cell phone to make arrangements for pt discharge. NICA was not able to leave a message as his voicemail is full and messages cannot be left. SW to try Josesito back again.
--- NOTE | 2020-11-12 13:29 | NUR ---
Nursing Note Pt wanders the unit confused, speaking in tongues, makes comments that we are breaking laws, that we are not doing what we say, that we are worshiping the devil. Pt refused 1300 meds, states "Im not taking anymore of anything from the likes of you, law breaking rotten human that you are can beat it and get away from me!" Pt paces irritable and angry.
--- NOTE | 2020-11-12 14:18 | NUR ---
NICA attempted to contact Josesito at [facility] on his cell phone. No message could be left as Josesito's voicemail is full. NICA will attempt to contact Josesito again.
--- NOTE | 2020-11-12 15:22 | NUR ---
NICA contacted Filomena, pt dtr/guardian, and informed her that NICA has attempted on multiple occasions tried to reach Josesito with no luck to finalize discharge for tomorrow. Filomena reports that they are wanting to push the discharge back a few days as they received an emergency admission and hit a few snags. Filomena gave NICA the cell phone number of the Tiffany HERNANDEZ, and thinks she may have more answers.
--- NOTE | 2020-11-12 15:24 | NUR ---
NICA contacted DAVID Allen at [facility], who reports that Josesito's cell phone has and is currently charging. NICA enquired about pt discharge plans for tomorrow. Tiffany reports that they had an emergency admission and hit a few bumps along with way. She believed they would need another day or 2 in order to prepare for Leatha to be admitted. She will talk to Josesito and have him call NICA back with an appropriate discharge date for admission.
[2020-11-12 15:54] VITALS: BP 117/74
--- NOTE | 2020-11-12 15:54 | NUR ---
NICA received a call from SON Bellamy at [facility], who confirmed that he would like to have pt discharged to them Thursday. Josesito spoke with pt dtr and confirmed that was okay. NICA and Josesito will talk again tomorrow to make sure all plans for admission to be finalized at that time.
[2020-11-12] MEDS: risperiDONE 0.5 MG TABLET. PO SCH (17:00)
[2020-11-12] MEDS: SENNOSIDES 8.6 MG TABLET PO SCH (20:11)
[2020-11-12] MEDS: ATORVASTATIN CALCIUM 10 MG TABLET. PO SCH (20:11)
[2020-11-12] MEDS: MIRTAZAPINE 15 MG TABLET PO SCH (20:12)
[2020-11-12] MEDS: DIVALPROEX ER 250 MG TAB.ER.24H. PO SCH (20:12)
--- NOTE | 2020-11-12 21:49 | PDOC ---
Exam Note: Tex Note: Please also refer to the separate dictated note~for this date of service dictated separately.~Patient seen individually. Discussed the patient with Nursing staff reviewed the chart.~Reviewed interim history and current functioning. Reviewed vital signs,~Labs/ Radiology~and current medications noted below. Continue current treatment with the changes noted in the dictated addendum note Assessment: Vital Signs/I&O: Vital Signs Date Time Temp Pulse Resp B/P (MAP) Pulse Ox O2 Delivery O2 Flow Rate FiO2 11/12/20 20:12 106 117/74 11/12/20 15:54 98.0 20 93 11/09/20 06:12 Room Air I & O 11/11/20 11/11/20 11/12/20 15:00 23:00 07:00 Intake Total 720 ml 200 ml Balance 720 ml 200 ml Current Medications: Meds: Current Medications Medications (Trade) Dose Ordered Sig/Chidi Route PRN Reason Start Time Stop Time Status Last Admin Dose Admin Aspirin (Aspirin Enteric Coated) 81 mg DAILY PO 10/10/20 09:00 11/12/20 08:04 Atorvastatin Calcium (Lipitor) 10 mg QHS PO 10/09/20 21:00 11/12/20 20:11 Calcium Polycarbophil (Fibercon) 1,250 mg BID PO 10/09/20 21:00 11/12/20 20:11 Vitamin D (Vitamin D3) 50,000 unit WEEKLY PO 10/16/20 09:00 11/06/20 09:08 Vitamin D (Vitamin D3) 2,000 unit DAILY PO 10/10/20 09:00 10/17/20 14:27 DC 10/17/20 08:17 Denosumab (Prolia) 60 mg 1X SQ 10/09/20 15:30 10/17/20 17:10 DC Diltiazem HCl (Cardizem) 30 mg BID PO 10/09/20 21:00 11/12/20 20:12 Levothyroxine Sodium (Synthroid) 25 mcg DAILY06 PO 10/10/20 07:30 11/12/20 05:54 Pramipexole Dihydrochloride (miraPEX) 1 mg [id number] PO 10/09/20 21:00 11/12/20 20:11 Tizanidine HCl (Zanaflex) 4 mg PRN Q8HRS PRN PO MUSCLE SPASMS 10/09/20 15:30 10/21/20 23:58 Multivitamins/ Calcium (Thera-M Plus) 1 tab DAILY PO 10/10/20 09:00 11/12/20 08:04 Pantoprazole Sodium (Protonix) 40 mg DAILY PO 10/10/20 09:00 11/12/20 08:04 Sennosides (Senna) 25.8 mg HS PO 10/09/20 21:00 11/12/20 20:11 Acetaminophen (Tylenol) 650 mg PRN Q6HRS PRN PO MILD PAIN / TEMP > 100.3'F 10/09/20 17:30 11/02/20 10:41 Multi-Ingredient Ointment (Analgesic [place]) 1 ashanti PRN QID PRN TP MUSCLE PAIN 10/09/20 17:30 Al Hydroxide/Mg Hydroxide (Mylanta Plus Xs) 15 ml PRN AFTMEALHC PRN PO DYSPEPSIA 10/09/20 17:30 Magnesium Hydroxide (Milk Of Magnesia) 2,400 mg PRN QHS PRN PO CONSTIPATION 10/09/20 17:30 Olanzapine (ZyPREXA ZYDIS) 2.5 mg PRN Q2HRS PRN PO PSYCHOSIS 10/09/20 17:30 11/11/20 14:53 Doxycycline Hyclate (Vibra-Tab) 100 mg BID PO 10/10/20 21:00 10/19/20 22:00 DC 10/19/20 20:35 Divalproex Sodium (Depakote Er) 500 mg QHS PO 10/11/20 21:00 11/05/20 19:02 DC 11/04/20 19:55 Lactobacillus Rhamnosus (Culturelle) 1 cap BID PO 10/14/20 21:00 11/12/20 20:12 Bupropion HCl (Wellbutrin Xl) 150 mg DAILY PO 10/18/20 09:00 10/19/20 17:07 DC 10/19/20 08:22 Bupropion HCl (Wellbutrin Xl) 300 mg DAILY PO 10/20/20 09:00 11/12/20 08:05 Trazodone HCl (Desyrel) 50 mg PRN QHS PRN PO 2ND CHOICE INSOMNIA, MRx1 10/22/20 06:00 11/06/20 19:59 Risperidone (RisperDAL) 0.5 mg QHS PO 10/22/20 18:00 10/24/20 16:15 DC 10/23/20 20:10 Mirtazapine (Remeron) 7.5 mg QHS PO 10/23/20 21:00 10/29/20 18:20 DC 10/28/20 20:19 Risperidone (RisperDAL) 0.75 mg QHS PO 10/24/20 21:00 10/25/20 11:50 DC 10/24/20 19:34 Risperidone (RisperDAL) 0.25 mg 0900,1300,1700 PO 10/25/20 13:00 10/26/20 18:31 DC 10/26/20 17:16 Risperidone (RisperDAL) 0.25 mg 0900,1300 PO 10/27/20 09:00 11/12/20 08:04 Risperidone (RisperDAL) 0.5 mg DAILYWSUP PO 10/27/20 17:00 11/12/20 17:00 Mirtazapine (Remeron) 15 mg QHS PO 10/29/20 21:00 11/12/20 20:12 Melatonin (Melatonin) 3 mg PRN QHS PRN PO 1ST CHOICE INSOMNIA 10/29/20 18:30 11/06/20 19:59 Divalproex Sodium (Depakote Er) 750 mg QHS PO 11/05/20 21:00 11/12/20 20:12 I have reviewed the current psychotropics carefully including drug interactions. Risk benefit ratio favors no change other than as noted in my dictated progress note. Diagnosis: Problems: (1) Impulse control disorder, unspecified (2) Mild cognitive impairment (3) Anxiety disorder, unspecified (4) Bipolar disorder, current episode mixed, severe, with psychotic features SAEID NUNEZ MD Nov 12, 2020 21:48
--- NOTE | 2020-11-12 22:50 | NUR ---
Pt withdrawn to her room, lying in bed when approached. Pt calm, confused, and disorganized. Pt cooperative with assessment and compliant with medications administered whole. No paranoia or delusions noted thus far this shift.
[2020-11-13] MEDS: LEVOTHYROXINE 25 MCG TABLET. PO SCH (05:40)
[2020-11-13 05:45] VITALS: BP 95/57
--- NOTE | 2020-11-13 07:25 | PDOC ---
Exam Note: Tex Note: This note is a late entry for 11/11/2020overs elements not covered in my initial note. Subjective: The patient was seen on telehealth rounds in the evening of 11/11/2020 due to COVID-19 exposure on the unit with Valery FAGAN, discussed and reviewed the chart. She slept for 6-3/4 hours previous night. Overall the patient did reasonably well till 4 p.m., then was pacing, anxious. Received Zyprexa p.r.n. and then did better. She seemed a little more agitated and confused in the evening. During the individual visit, she was pleasant, had a gentle smile, verbally interactive, confused. Review of Systems: No CV, , pulmonary, eye, ENT system symptoms on review. Mental Status Exam: The patient is oriented to herself and situation. She verbally interactive, pleasant. Speech coherent. Abstraction fair. Computat ion impaired. Language function intact. Mood and affect somewhat withdrawn. Laboratory Data: Reviewed. Impression: Bipolar disorder mixed with psychotic features. Anxiety disorder unspecified. Impulse control disorder unspecified. Mild cognitive impairment. Plan: No change from initial note. Assessment: Vital Signs/I&O: Vital Signs Date Time Temp Pulse Resp B/P (MAP) Pulse Ox O2 Delivery O2 Flow Rate FiO2 11/13/20 05:45 97.8 75 22 95/57 (70) 95 Room Air I & O 11/12/20 11/12/20 11/13/20 14:59 22:59 06:59 Intake Total 720 ml 360 ml Balance 720 ml 360 ml Current Medications: Meds: Current Medications Medications (Trade) Dose Ordered Sig/Chidi Route PRN Reason Start Time Stop Time Status Last Admin Dose Admin Aspirin (Aspirin Enteric Coated) 81 mg DAILY PO 10/10/20 09:00 11/12/20 08:04 Atorvastatin Calcium (Lipitor) 10 mg QHS PO 10/09/20 21:00 11/12/20 20:11 Calcium Polycarbophil (Fibercon) 1,250 mg BID PO 10/09/20 21:00 11/12/20 20:11 Vitamin D (Vitamin D3) 50,000 unit WEEKLY PO 10/16/20 09:00 11/06/20 09:08 Vitamin D (Vitamin D3) 2,000 unit DAILY PO 10/10/20 09:00 10/17/20 14:27 DC 10/17/20 08:17 Denosumab (Prolia) 60 mg 1X SQ 10/09/20 15:30 10/17/20 17:10 DC Diltiazem HCl (Cardizem) 30 mg BID PO 10/09/20 21:00 11/12/20 20:12 Levothyroxine Sodium (Synthroid) 25 mcg DAILY06 PO 10/10/20 07:30 11/13/20 05:40 Pramipexole Dihydrochloride (miraPEX) 1 mg [id number] PO 10/09/20 21:00 11/12/20 20:11 Tizanidine HCl (Zanaflex) 4 mg PRN Q8HRS PRN PO MUSCLE SPASMS 10/09/20 15:30 10/21/20 23:58 Multivitamins/ Calcium (Thera-M Plus) 1 tab DAILY PO 10/10/20 09:00 11/12/20 08:04 Pantoprazole Sodium (Protonix) 40 mg DAILY PO 10/10/20 09:00 11/12/20 08:04 Sennosides (Senna) 25.8 mg HS PO 10/09/20 21:00 11/12/20 20:11 Acetaminophen (Tylenol) 650 mg PRN Q6HRS PRN PO MILD PAIN / TEMP > 100.3'F 10/09/20 17:30 11/02/20 10:41 Multi-Ingredient Ointment (Analgesic [place]) 1 ashanti PRN QID PRN TP MUSCLE PAIN 10/09/20 17:30 Al Hydroxide/Mg Hydroxide (Mylanta Plus Xs) 15 ml PRN AFTMEALHC PRN PO DYSPEPSIA 10/09/20 17:30 Magnesium Hydroxide (Milk Of Magnesia) 2,400 mg PRN QHS PRN PO CONSTIPATION 10/09/20 17:30 Olanzapine (ZyPREXA ZYDIS) 2.5 mg PRN Q2HRS PRN PO PSYCHOSIS 10/09/20 17:30 11/11/20 14:53 Doxycycline Hyclate (Vibra-Tab) 100 mg BID PO 10/10/20 21:00 10/19/20 22:00 DC 10/19/20 20:35 Divalproex Sodium (Depakote Er) 500 mg QHS PO 10/11/20 21:00 11/05/20 19:02 DC 11/04/20 19:55 Lactobacillus Rhamnosus (Culturelle) 1 cap BID PO 10/14/20 21:00 11/12/20 20:12 Bupropion HCl (Wellbutrin Xl) 150 mg DAILY PO 10/18/20 09:00 10/19/20 17:07 DC 10/19/20 08:22 Bupropion HCl (Wellbutrin Xl) 300 mg DAILY PO 10/20/20 09:00 11/12/20 08:05 Trazodone HCl (Desyrel) 50 mg PRN QHS PRN PO 2ND CHOICE INSOMNIA, MRx1 10/22/20 06:00 11/06/20 19:59 Risperidone (RisperDAL) 0.5 mg QHS PO 10/22/20 18:00 10/24/20 16:15 DC 10/23/20 20:10 Mirtazapine (Remeron) 7.5 mg QHS PO 10/23/20 21:00 10/29/20 18:20 DC 10/28/20 20:19 Risperidone (RisperDAL) 0.75 mg QHS PO 10/24/20 21:00 10/25/20 11:50 DC 10/24/20 19:34 Risperidone (RisperDAL) 0.25 mg 0900,1300,1700 PO 10/25/20 13:00 10/26/20 18:31 DC 10/26/20 17:16 Risperidone (RisperDAL) 0.25 mg 0900,1300 PO 10/27/20 09:00 11/12/20 08:04 Risperidone (RisperDAL) 0.5 mg DAILYWSUP PO 10/27/20 17:00 11/12/20 17:00 Mirtazapine (Remeron) 15 mg QHS PO 10/29/20 21:00 11/12/20 20:12 Melatonin (Melatonin) 3 mg PRN QHS PRN PO 1ST CHOICE INSOMNIA 10/29/20 18:30 11/06/20 19:59 Divalproex Sodium (Depakote Er) 750 mg QHS PO 11/05/20 21:00 11/12/20 20:12 I have reviewed the current psychotropics carefully including drug interactions. Risk benefit ratio favors no change other than as noted in my dictated progress note. Diagnosis: Problems: (1) Impulse control disorder, unspecified (2) Mild cognitive impairment (3) Anxiety disorder, unspecified (4) Bipolar disorder, current episode mixed, severe, with psychotic features SAEID NUNEZ MD Nov 13, 2020 07:25
--- NOTE | 2020-11-13 07:40 | PDOC ---
Exam Note: Tex Note: This note is a late entry for 11/12/2020overs elements not covered in my initial note. Subjective: The patient was seen on telehealth rounds in the evening of 11/12/2020 due to COVID-19 exposure on the unit with Valery FAGAN, discussed and reviewed the chart. She slept for 7 hours previous night. Earlier in the day, the patient was reportedly talking in tongues and was asking to call the police. She was agitated, irritable, seemed to settle down after a little while and was quite pleasant as I met with her in the evening. Review of Systems: No CV, , pulmonary, eye, ENT system symptoms on review. Mental Status Exam: The patient is oriented to herself and situation. She is pleasant. Speech has some latency, coherent. Abstraction fair. Computation impaired. Language function intact. Attention span short. Mood and affect at times withdrawn but more interactive as I met with her this evening. Laboratory Data: Reviewed. Impression: Bipolar disorder mixed with psychotic features. Anxiety disorder unspecified. Impulse control disorder unspecified. Mild cognitive impairment. Plan: No change from initial note. The patients valproic acid level is therapeutic at 78. Maintain rest of her psychotropics including Risperdal and do not quite see a reason to increase the Risperdal just yet. Assessment: Vital Signs/I&O: Vital Signs Date Time Temp Pulse Resp B/P (MAP) Pulse Ox O2 Delivery O2 Flow Rate FiO2 11/13/20 05:45 97.8 75 22 95/57 (70) 95 Room Air I & O 11/12/20 11/12/20 11/13/20 15:00 23:00 07:00 Intake Total 720 ml 360 ml Balance 720 ml 360 ml Current Medications: Meds: Current Medications Medications (Trade) Dose Ordered Sig/Chidi Route PRN Reason Start Time Stop Time Status Last Admin Dose Admin Aspirin (Aspirin Enteric Coated) 81 mg DAILY PO 10/10/20 09:00 11/12/20 08:04 Atorvastatin Calcium (Lipitor) 10 mg QHS PO 10/09/20 21:00 11/12/20 20:11 Calcium Polycarbophil (Fibercon) 1,250 mg BID PO 10/09/20 21:00 11/12/20 20:11 Vitamin D (Vitamin D3) 50,000 unit WEEKLY PO 10/16/20 09:00 11/06/20 09:08 Vitamin D (Vitamin D3) 2,000 unit DAILY PO 10/10/20 09:00 10/17/20 14:27 DC 10/17/20 08:17 Denosumab (Prolia) 60 mg 1X SQ 10/09/20 15:30 10/17/20 17:10 DC Diltiazem HCl (Cardizem) 30 mg BID PO 10/09/20 21:00 11/12/20 20:12 Levothyroxine Sodium (Synthroid) 25 mcg DAILY06 PO 10/10/20 07:30 11/13/20 05:40 Pramipexole Dihydrochloride (miraPEX) 1 mg [id number] PO 10/09/20 21:00 11/12/20 20:11 Tizanidine HCl (Zanaflex) 4 mg PRN Q8HRS PRN PO MUSCLE SPASMS 10/09/20 15:30 10/21/20 23:58 Multivitamins/ Calcium (Thera-M Plus) 1 tab DAILY PO 10/10/20 09:00 11/12/20 08:04 Pantoprazole Sodium (Protonix) 40 mg DAILY PO 10/10/20 09:00 11/12/20 08:04 Sennosides (Senna) 25.8 mg HS PO 10/09/20 21:00 11/12/20 20:11 Acetaminophen (Tylenol) 650 mg PRN Q6HRS PRN PO MILD PAIN / TEMP > 100.3'F 10/09/20 17:30 11/02/20 10:41 Multi-Ingredient Ointment (Analgesic [place]) 1 ashanti PRN QID PRN TP MUSCLE PAIN 10/09/20 17:30 Al Hydroxide/Mg Hydroxide (Mylanta Plus Xs) 15 ml PRN AFTMEALHC PRN PO DYSPEPSIA 10/09/20 17:30 Magnesium Hydroxide (Milk Of Magnesia) 2,400 mg PRN QHS PRN PO CONSTIPATION 10/09/20 17:30 Olanzapine (ZyPREXA ZYDIS) 2.5 mg PRN Q2HRS PRN PO PSYCHOSIS 10/09/20 17:30 11/11/20 14:53 Doxycycline Hyclate (Vibra-Tab) 100 mg BID PO 10/10/20 21:00 10/19/20 22:00 DC 10/19/20 20:35 Divalproex Sodium (Depakote Er) 500 mg QHS PO 10/11/20 21:00 11/05/20 19:02 DC 11/04/20 19:55 Lactobacillus Rhamnosus (Culturelle) 1 cap BID PO 10/14/20 21:00 11/12/20 20:12 Bupropion HCl (Wellbutrin Xl) 150 mg DAILY PO 10/18/20 09:00 10/19/20 17:07 DC 10/19/20 08:22 Bupropion HCl (Wellbutrin Xl) 300 mg DAILY PO 10/20/20 09:00 11/12/20 08:05 Trazodone HCl (Desyrel) 50 mg PRN QHS PRN PO 2ND CHOICE INSOMNIA, MRx1 10/22/20 06:00 11/06/20 19:59 Risperidone (RisperDAL) 0.5 mg QHS PO 10/22/20 18:00 10/24/20 16:15 DC 10/23/20 20:10 Mirtazapine (Remeron) 7.5 mg QHS PO 10/23/20 21:00 10/29/20 18:20 DC 10/28/20 20:19 Risperidone (RisperDAL) 0.75 mg QHS PO 10/24/20 21:00 10/25/20 11:50 DC 10/24/20 19:34 Risperidone (RisperDAL) 0.25 mg 0900,1300,1700 PO 10/25/20 13:00 10/26/20 18:31 DC 10/26/20 17:16 Risperidone (RisperDAL) 0.25 mg 0900,1300 PO 10/27/20 09:00 11/12/20 08:04 Risperidone (RisperDAL) 0.5 mg DAILYWSUP PO 10/27/20 17:00 11/12/20 17:00 Mirtazapine (Remeron) 15 mg QHS PO 10/29/20 21:00 11/12/20 20:12 Melatonin (Melatonin) 3 mg PRN QHS PRN PO 1ST CHOICE INSOMNIA 10/29/20 18:30 11/06/20 19:59 Divalproex Sodium (Depakote Er) 750 mg QHS PO 11/05/20 21:00 11/12/20 20:12 I have reviewed the current psychotropics carefully including drug interactions. Risk benefit ratio favors no change other than as noted in my dictated progress note. Diagnosis: Problems: (1) Impulse control disorder, unspecified (2) Mild cognitive impairment (3) Anxiety disorder, unspecified (4) Bipolar disorder, current episode mixed, severe, with psychotic features SAEID NUNEZ MD Nov 13, 2020 07:40
[2020-11-13] MEDS: ASPIRIN ENTERIC COATED 81 MG TABLET.DR. PO SCH (08:18)
[2020-11-13] MEDS: LACTOBACILLUS RHAMNOSUS GG 1 CAPSULE. PO SCH ×2 (08:18→19:57)
[2020-11-13] MEDS: dilTIAZem HCL 30 MG TABLET PO SCH ×2 (08:18→19:57)
[2020-11-13] MEDS: MULTIVITAMIN with MINERAL TABLET. PO SCH (08:18)
[2020-11-13] MEDS: PRAMIPEXOLE 0.5 MG TABLET. PO SCH ×3 (08:18→19:56)
[2020-11-13] MEDS: CHOLECALCIFEROL (VITAMIN D3) 50,000 UNIT CAPSULE PO SCH (08:19)
[2020-11-13] MEDS: CALCIUM POLYCARBOPHIL 625 MG TABLET PO SCH ×2 (08:19→19:56)
[2020-11-13] MEDS: risperiDONE 0.25 MG TABLET. PO SCH ×2 (08:19→12:50)
[2020-11-13] MEDS: PANTOPRAZOLE 40 MG TABLET. PO SCH (08:19)
[2020-11-13] MEDS: buPROPion XL 300 MG TAB.ER.24H. PO SCH (08:19)
--- NOTE | 2020-11-13 14:47 | NUR ---
NICA contacted Josesito, ED at [facility], to ensure that pt would be discharging to them tomorrow. Josesito believes that they are able to take pt tomorrow but does not have a transportation time as of yet. Josesito will plan to call NICA in the morning and requested that NICA call by 11 if he has not contacted her yet.
[2020-11-13 15:58] VITALS: BP 135/82
--- NOTE | 2020-11-13 15:58 | NUR ---
[facility] Social Work Discharge Planning Form Patient Name ASIF SOLARES Admit Date: 09 October 2020 DISCHARGE PLAN Discharge Destination: Pt to discharge to [facility] Assessment: N/A Level II Assessment: N/A Transportation: Pt facility to coordinate transportation first thing Thursday. Special Instructions/Notes: Please fax discharge orders, discharge medication list and discharge summary to the fax number listed below. DISCHARGE TO FACILITY Facility: [facility] [place] Address: [address] [place] [address] Contact Name: Josesito Solano, Scrub Woman: Contact Name: DAVID Allen: PCP: Dr. Pascual
[2020-11-13] MEDS: risperiDONE 0.5 MG TABLET. PO SCH ×2 (17:43→19:58)
--- NOTE | 2020-11-13 19:11 | NUR ---
According to day nurse, patient refused her 1700 risperdal. Will give with HS meds. Addendum: 11/13/20 at 2226 by BEATA GARCIA RN Patient took 1700 risperdal with HS meds.
[2020-11-13] MEDS: SENNOSIDES 8.6 MG TABLET PO SCH (19:56)
[2020-11-13] MEDS: MIRTAZAPINE 15 MG TABLET PO SCH (19:57)
[2020-11-13] MEDS: ATORVASTATIN CALCIUM 10 MG TABLET. PO SCH (19:57)
[2020-11-13] MEDS: DIVALPROEX ER 250 MG TAB.ER.24H. PO SCH (19:59)
--- NOTE | 2020-11-13 21:52 | PDOC ---
Exam Note: Tex Note: Please also refer to the separate dictated note~for this date of service dictated separately.~Patient seen individually. Discussed the patient with Nursing staff reviewed the chart.~Reviewed interim history and current functioning. Reviewed vital signs,~Labs/ Radiology~and current medications noted below. Continue current treatment with the changes noted in the dictated addendum note Assessment: Vital Signs/I&O: Vital Signs Date Time Temp Pulse Resp B/P (MAP) Pulse Ox O2 Delivery O2 Flow Rate FiO2 11/13/20 19:57 106 135/82 11/13/20 15:58 97.5 16 95 11/13/20 05:45 Room Air I & O 11/12/20 11/12/20 11/13/20 15:00 23:00 07:00 Intake Total 720 ml 360 ml Balance 720 ml 360 ml Current Medications: Meds: Current Medications Medications (Trade) Dose Ordered Sig/Chidi Route PRN Reason Start Time Stop Time Status Last Admin Dose Admin Aspirin (Aspirin Enteric Coated) 81 mg DAILY PO 10/10/20 09:00 11/13/20 08:18 Atorvastatin Calcium (Lipitor) 10 mg QHS PO 10/09/20 21:00 11/13/20 19:57 Calcium Polycarbophil (Fibercon) 1,250 mg BID PO 10/09/20 21:00 11/13/20 19:56 Vitamin D (Vitamin D3) 50,000 unit WEEKLY PO 10/16/20 09:00 11/13/20 08:19 Vitamin D (Vitamin D3) 2,000 unit DAILY PO 10/10/20 09:00 10/17/20 14:27 DC 10/17/20 08:17 Denosumab (Prolia) 60 mg 1X SQ 10/09/20 15:30 10/17/20 17:10 DC Diltiazem HCl (Cardizem) 30 mg BID PO 10/09/20 21:00 11/13/20 19:57 Levothyroxine Sodium (Synthroid) 25 mcg DAILY06 PO 10/10/20 07:30 11/13/20 05:40 Pramipexole Dihydrochloride (miraPEX) 1 mg [id number] PO 10/09/20 21:00 11/13/20 19:56 Tizanidine HCl (Zanaflex) 4 mg PRN Q8HRS PRN PO MUSCLE SPASMS 10/09/20 15:30 10/21/20 23:58 Multivitamins/ Calcium (Thera-M Plus) 1 tab DAILY PO 10/10/20 09:00 11/13/20 08:18 Pantoprazole Sodium (Protonix) 40 mg DAILY PO 10/10/20 09:00 11/13/20 08:19 Sennosides (Senna) 25.8 mg HS PO 10/09/20 21:00 11/13/20 19:56 Acetaminophen (Tylenol) 650 mg PRN Q6HRS PRN PO MILD PAIN / TEMP > 100.3'F 10/09/20 17:30 11/02/20 10:41 Multi-Ingredient Ointment (Analgesic [place]) 1 ashanti PRN QID PRN TP MUSCLE PAIN 10/09/20 17:30 Al Hydroxide/Mg Hydroxide (Mylanta Plus Xs) 15 ml PRN AFTMEALHC PRN PO DYSPEPSIA 10/09/20 17:30 Magnesium Hydroxide (Milk Of Magnesia) 2,400 mg PRN QHS PRN PO CONSTIPATION 10/09/20 17:30 Olanzapine (ZyPREXA ZYDIS) 2.5 mg PRN Q2HRS PRN PO PSYCHOSIS 10/09/20 17:30 11/11/20 14:53 Doxycycline Hyclate (Vibra-Tab) 100 mg BID PO 10/10/20 21:00 10/19/20 22:00 DC 10/19/20 20:35 Divalproex Sodium (Depakote Er) 500 mg QHS PO 10/11/20 21:00 11/05/20 19:02 DC 11/04/20 19:55 Lactobacillus Rhamnosus (Culturelle) 1 cap BID PO 10/14/20 21:00 11/13/20 19:57 Bupropion HCl (Wellbutrin Xl) 150 mg DAILY PO 10/18/20 09:00 10/19/20 17:07 DC 10/19/20 08:22 Bupropion HCl (Wellbutrin Xl) 300 mg DAILY PO 10/20/20 09:00 11/13/20 08:19 Trazodone HCl (Desyrel) 50 mg PRN QHS PRN PO 2ND CHOICE INSOMNIA, MRx1 10/22/20 06:00 11/06/20 19:59 Risperidone (RisperDAL) 0.5 mg QHS PO 10/22/20 18:00 10/24/20 16:15 DC 10/23/20 20:10 Mirtazapine (Remeron) 7.5 mg QHS PO 10/23/20 21:00 10/29/20 18:20 DC 10/28/20 20:19 Risperidone (RisperDAL) 0.75 mg QHS PO 10/24/20 21:00 10/25/20 11:50 DC 10/24/20 19:34 Risperidone (RisperDAL) 0.25 mg 0900,1300,1700 PO 10/25/20 13:00 10/26/20 18:31 DC 10/26/20 17:16 Risperidone (RisperDAL) 0.25 mg 0900,1300 PO 10/27/20 09:00 11/13/20 12:50 Risperidone (RisperDAL) 0.5 mg DAILYWSUP PO 10/27/20 17:00 11/13/20 19:58 Mirtazapine (Remeron) 15 mg QHS PO 10/29/20 21:00 11/13/20 19:57 Melatonin (Melatonin) 3 mg PRN QHS PRN PO 1ST CHOICE INSOMNIA 10/29/20 18:30 11/06/20 19:59 Divalproex Sodium (Depakote Er) 750 mg QHS PO 11/05/20 21:00 11/13/20 19:59 I have reviewed the current psychotropics carefully including drug interactions. Risk benefit ratio favors no change other than as noted in my dictated progress note. Diagnosis: Problems: (1) Impulse control disorder, unspecified (2) Mild cognitive impairment (3) Anxiety disorder, unspecified (4) Bipolar disorder, current episode mixed, severe, with psychotic features SAEID NUNEZ MD Nov 13, 2020 21:52
--- NOTE | 2020-11-13 22:26 | NUR ---
Patient was sitting on the floor in the hallway at the beginning of the shift and did not speak to nurse when greeted. Later, patient was in the day room sitting with peers, watching television, interactive and calm. Patient pleasant when nurse approached her with HS medications and she took them whole. Patient has been cooperative with staff this shift. Patient is scheduled to discharge to [facility] tomorrow.
[2020-11-13] MEDS ORDERED: SENN8.8S13 PO (23:37)
[2020-11-13] MEDS ORDERED: ACET325T9 PO (23:41)
[2020-11-13] MEDS ORDERED: LACT1CAP21 PO (23:42)
[2020-11-13] MEDS ORDERED: DIVA250T PO (23:42)
[2020-11-13] MEDS ORDERED: MELA3TAB4 PO (23:43)
[2020-11-13] MEDS ORDERED: MAGN24003 PO (23:44)
[2020-11-13] MEDS ORDERED: MAG-124 PO (23:44)
[2020-11-13] MEDS ORDERED: METH57CR17 TP (23:45)
[2020-11-13] MEDS ORDERED: MIRT-37 PO (23:46)
[2020-11-13] MEDS ORDERED: OLAN5TAB7 PO (23:47)
[2020-11-13] MEDS ORDERED: BUPR300T92 PO (23:49)
[2020-11-13] MEDS ORDERED: PANT40TA6 PO (23:49)
[2020-11-13] MEDS ORDERED: RISP0.5T24 PO ×2 (23:50→23:51)
[2020-11-13] MEDS ORDERED: TRAZ-120 PO (23:51)
[2020-11-14 05:34] VITALS: BP 115/75
[2020-11-14] MEDS: LEVOTHYROXINE 25 MCG TABLET. PO SCH (05:49)
--- NOTE | 2020-11-14 06:41 | PDOC ---
Exam Note: Tex Note: This note is a late entry for 11/13/2020overs elements not covered in my initial note. Subjective: The patient was seen face to face in the evening of 11/13/2020 with Jayla FAGAN, discussed and reviewed the chart. She slept for 7-1/4 hours previous night. The patient remains somewhat confused, wandering but not aggressive. She is quite pleasant, verbal, interactive and smiling as I met with her. Review of Systems: No CV, , pulmonary, eye, ENT system symptoms on review. Mental Status Exam: The patient is oriented to herself and situation. Speech has some latency, coherent. Abstraction fair. Computation impaired. Language function intact. Attention span short. Mood and affect at times withdrawn. Laboratory Data: Reviewed. Impression: Bipolar disorder mixed with psychotic features. Anxiety disorder unspecified. Impulse control disorder unspecified. Mild cognitive impairment. Plan: No change from initial note. Assessment: Vital Signs/I&O: Vital Signs Date Time Temp Pulse Resp B/P (MAP) Pulse Ox O2 Delivery O2 Flow Rate FiO2 11/14/20 05:34 98.4 79 16 115/75 (88) 95 Room Air I & O 11/13/20 11/13/20 11/14/20 15:00 23:00 07:00 Intake Total 480 ml 360 ml Balance 480 ml 360 ml Current Medications: Meds: Current Medications Medications (Trade) Dose Ordered Sig/Chidi Route PRN Reason Start Time Stop Time Status Last Admin Dose Admin Aspirin (Aspirin Enteric Coated) 81 mg DAILY PO 10/10/20 09:00 11/13/20 08:18 Atorvastatin Calcium (Lipitor) 10 mg QHS PO 10/09/20 21:00 11/13/20 19:57 Calcium Polycarbophil (Fibercon) 1,250 mg BID PO 10/09/20 21:00 11/13/20 19:56 Vitamin D (Vitamin D3) 50,000 unit WEEKLY PO 10/16/20 09:00 11/13/20 08:19 Vitamin D (Vitamin D3) 2,000 unit DAILY PO 10/10/20 09:00 10/17/20 14:27 DC 10/17/20 08:17 Denosumab (Prolia) 60 mg 1X SQ 10/09/20 15:30 10/17/20 17:10 DC Diltiazem HCl (Cardizem) 30 mg BID PO 10/09/20 21:00 11/13/20 19:57 Levothyroxine Sodium (Synthroid) 25 mcg DAILY06 PO 10/10/20 07:30 11/14/20 05:49 Pramipexole Dihydrochloride (miraPEX) 1 mg [id number] PO 10/09/20 21:00 11/13/20 19:56 Tizanidine HCl (Zanaflex) 4 mg PRN Q8HRS PRN PO MUSCLE SPASMS 10/09/20 15:30 10/21/20 23:58 Multivitamins/ Calcium (Thera-M Plus) 1 tab DAILY PO 10/10/20 09:00 11/13/20 08:18 Pantoprazole Sodium (Protonix) 40 mg DAILY PO 10/10/20 09:00 11/13/20 08:19 Sennosides (Senna) 25.8 mg HS PO 10/09/20 21:00 11/13/20 19:56 Acetaminophen (Tylenol) 650 mg PRN Q6HRS PRN PO MILD PAIN / TEMP > 100.3'F 10/09/20 17:30 11/02/20 10:41 Multi-Ingredient Ointment (Analgesic [place]) 1 ashanti PRN QID PRN TP MUSCLE PAIN 10/09/20 17:30 Al Hydroxide/Mg Hydroxide (Mylanta Plus Xs) 15 ml PRN AFTMEALHC PRN PO DYSPEPSIA 10/09/20 17:30 Magnesium Hydroxide (Milk Of Magnesia) 2,400 mg PRN QHS PRN PO CONSTIPATION 10/09/20 17:30 Olanzapine (ZyPREXA ZYDIS) 2.5 mg PRN Q2HRS PRN PO PSYCHOSIS 10/09/20 17:30 11/11/20 14:53 Doxycycline Hyclate (Vibra-Tab) 100 mg BID PO 10/10/20 21:00 10/19/20 22:00 DC 10/19/20 20:35 Divalproex Sodium (Depakote Er) 500 mg QHS PO 10/11/20 21:00 11/05/20 19:02 DC 11/04/20 19:55 Lactobacillus Rhamnosus (Culturelle) 1 cap BID PO 10/14/20 21:00 11/13/20 19:57 Bupropion HCl (Wellbutrin Xl) 150 mg DAILY PO 10/18/20 09:00 10/19/20 17:07 DC 10/19/20 08:22 Bupropion HCl (Wellbutrin Xl) 300 mg DAILY PO 10/20/20 09:00 11/13/20 08:19 Trazodone HCl (Desyrel) 50 mg PRN QHS PRN PO 2ND CHOICE INSOMNIA, MRx1 10/22/20 06:00 11/06/20 19:59 Risperidone (RisperDAL) 0.5 mg QHS PO 10/22/20 18:00 10/24/20 16:15 DC 10/23/20 20:10 Mirtazapine (Remeron) 7.5 mg QHS PO 10/23/20 21:00 10/29/20 18:20 DC 10/28/20 20:19 Risperidone (RisperDAL) 0.75 mg QHS PO 10/24/20 21:00 10/25/20 11:50 DC 10/24/20 19:34 Risperidone (RisperDAL) 0.25 mg 0900,1300,1700 PO 10/25/20 13:00 10/26/20 18:31 DC 10/26/20 17:16 Risperidone (RisperDAL) 0.25 mg 0900,1300 PO 10/27/20 09:00 11/13/20 12:50 Risperidone (RisperDAL) 0.5 mg DAILYWSUP PO 10/27/20 17:00 11/13/20 19:58 Mirtazapine (Remeron) 15 mg QHS PO 10/29/20 21:00 11/13/20 19:57 Melatonin (Melatonin) 3 mg PRN QHS PRN PO 1ST CHOICE INSOMNIA 10/29/20 18:30 11/06/20 19:59 Divalproex Sodium (Depakote Er) 750 mg QHS PO 11/05/20 21:00 11/13/20 19:59 I have reviewed the current psychotropics carefully including drug interactions. Risk benefit ratio favors no change other than as noted in my dictated progress note. Diagnosis: Problems: (1) Impulse control disorder, unspecified (2) Mild cognitive impairment (3) Anxiety disorder, unspecified (4) Bipolar disorder, current episode mixed, severe, with psychotic features (5) Major neurocognitive disorder SAEID NUNEZ MD Nov 14, 2020 06:41
[2020-11-14] MEDS: CALCIUM POLYCARBOPHIL 625 MG TABLET PO SCH ×2 (08:19→20:20)
[2020-11-14] MEDS: ASPIRIN ENTERIC COATED 81 MG TABLET.DR. PO SCH (08:19)
[2020-11-14] MEDS: PANTOPRAZOLE 40 MG TABLET. PO SCH (08:20)
[2020-11-14] MEDS: MULTIVITAMIN with MINERAL TABLET. PO SCH (08:20)
[2020-11-14] MEDS: LACTOBACILLUS RHAMNOSUS GG 1 CAPSULE. PO SCH ×2 (08:20→20:21)
[2020-11-14] MEDS: buPROPion XL 300 MG TAB.ER.24H. PO SCH (08:20)
[2020-11-14] MEDS: PRAMIPEXOLE 0.5 MG TABLET. PO SCH ×3 (08:20→20:21)
[2020-11-14] MEDS: dilTIAZem HCL 30 MG TABLET PO SCH ×2 (08:20→20:21)
[2020-11-14] MEDS: risperiDONE 0.25 MG TABLET. PO SCH ×2 (08:20→13:01)
[2020-11-14 15:58] VITALS: BP 118/79
--- NOTE | 2020-11-14 17:06 | NUR ---
nsg note; an has been calm, cooperative, social with peers and staff, and med compliant today. she prefers to stay in the dayroom or hallway with other peers between meals. she is confused, making odd statements about random things. she was awake and alert with no napping today
[2020-11-14] MEDS: risperiDONE 0.5 MG TABLET. PO SCH (17:28)
[2020-11-14] MEDS: DIVALPROEX ER 250 MG TAB.ER.24H. PO SCH (20:20)
[2020-11-14] MEDS: ATORVASTATIN CALCIUM 10 MG TABLET. PO SCH (20:20)
[2020-11-14] MEDS: SENNOSIDES 8.6 MG TABLET PO SCH (20:21)
[2020-11-14] MEDS: MIRTAZAPINE 15 MG TABLET PO SCH (20:21)
--- NOTE | 2020-11-14 21:40 | NUR ---
Patient was wandering in the hallways and checking door knobs, she stated she was "looking for the sewing room so she could finish up before bed". Patient cooperative with staff and compliant with medications. Patient is delusional, stating she has been working on making (sewing) some things and is just "finishing the bindings" Patient is pleasant and is oriented to herself only.
--- NOTE | 2020-11-14 21:52 | PDOC ---
Exam Note: Tex Note: Please also refer to the separate dictated note~for this date of service dictated separately.~Patient seen individually. Discussed the patient with Nursing staff reviewed the chart.~Reviewed interim history and current functioning. Reviewed vital signs,~Labs/ Radiology~and current medications noted below. Continue current treatment with the changes noted in the dictated addendum note Assessment: Vital Signs/I&O: Vital Signs Date Time Temp Pulse Resp B/P (MAP) Pulse Ox O2 Delivery O2 Flow Rate FiO2 11/14/20 20:21 101 118/79 11/14/20 15:58 97.8 20 99 11/14/20 05:34 Room Air I & O 11/13/20 11/13/20 11/14/20 14:59 22:59 06:59 Intake Total 480 ml 360 ml Balance 480 ml 360 ml Current Medications: Meds: Current Medications Medications (Trade) Dose Ordered Sig/Chidi Route PRN Reason Start Time Stop Time Status Last Admin Dose Admin Aspirin (Aspirin Enteric Coated) 81 mg DAILY PO 10/10/20 09:00 11/14/20 08:19 Atorvastatin Calcium (Lipitor) 10 mg QHS PO 10/09/20 21:00 11/14/20 20:20 Calcium Polycarbophil (Fibercon) 1,250 mg BID PO 10/09/20 21:00 11/14/20 20:20 Vitamin D (Vitamin D3) 50,000 unit WEEKLY PO 10/16/20 09:00 11/13/20 08:19 Vitamin D (Vitamin D3) 2,000 unit DAILY PO 10/10/20 09:00 10/17/20 14:27 DC 10/17/20 08:17 Denosumab (Prolia) 60 mg 1X SQ 10/09/20 15:30 10/17/20 17:10 DC Diltiazem HCl (Cardizem) 30 mg BID PO 10/09/20 21:00 11/14/20 20:21 Levothyroxine Sodium (Synthroid) 25 mcg DAILY06 PO 10/10/20 07:30 11/14/20 05:49 Pramipexole Dihydrochloride (miraPEX) 1 mg [id number] PO 10/09/20 21:00 11/14/20 20:21 Tizanidine HCl (Zanaflex) 4 mg PRN Q8HRS PRN PO MUSCLE SPASMS 10/09/20 15:30 10/21/20 23:58 Multivitamins/ Calcium (Thera-M Plus) 1 tab DAILY PO 10/10/20 09:00 11/14/20 08:20 Pantoprazole Sodium (Protonix) 40 mg DAILY PO 10/10/20 09:00 11/14/20 08:20 Sennosides (Senna) 25.8 mg HS PO 10/09/20 21:00 11/14/20 20:21 Acetaminophen (Tylenol) 650 mg PRN Q6HRS PRN PO MILD PAIN / TEMP > 100.3'F 10/09/20 17:30 11/02/20 10:41 Multi-Ingredient Ointment (Analgesic [place]) 1 ashanti PRN QID PRN TP MUSCLE PAIN 10/09/20 17:30 Al Hydroxide/Mg Hydroxide (Mylanta Plus Xs) 15 ml PRN AFTMEALHC PRN PO DYSPEPSIA 10/09/20 17:30 Magnesium Hydroxide (Milk Of Magnesia) 2,400 mg PRN QHS PRN PO CONSTIPATION 10/09/20 17:30 Olanzapine (ZyPREXA ZYDIS) 2.5 mg PRN Q2HRS PRN PO PSYCHOSIS 10/09/20 17:30 11/11/20 14:53 Doxycycline Hyclate (Vibra-Tab) 100 mg BID PO 10/10/20 21:00 10/19/20 22:00 DC 10/19/20 20:35 Divalproex Sodium (Depakote Er) 500 mg QHS PO 10/11/20 21:00 11/05/20 19:02 DC 11/04/20 19:55 Lactobacillus Rhamnosus (Culturelle) 1 cap BID PO 10/14/20 21:00 11/14/20 20:21 Bupropion HCl (Wellbutrin Xl) 150 mg DAILY PO 10/18/20 09:00 10/19/20 17:07 DC 10/19/20 08:22 Bupropion HCl (Wellbutrin Xl) 300 mg DAILY PO 10/20/20 09:00 11/14/20 08:20 Trazodone HCl (Desyrel) 50 mg PRN QHS PRN PO 2ND CHOICE INSOMNIA, MRx1 10/22/20 06:00 11/06/20 19:59 Risperidone (RisperDAL) 0.5 mg QHS PO 10/22/20 18:00 10/24/20 16:15 DC 10/23/20 20:10 Mirtazapine (Remeron) 7.5 mg QHS PO 10/23/20 21:00 10/29/20 18:20 DC 10/28/20 20:19 Risperidone (RisperDAL) 0.75 mg QHS PO 10/24/20 21:00 10/25/20 11:50 DC 10/24/20 19:34 Risperidone (RisperDAL) 0.25 mg 0900,1300,1700 PO 10/25/20 13:00 10/26/20 18:31 DC 10/26/20 17:16 Risperidone (RisperDAL) 0.25 mg 0900,1300 PO 10/27/20 09:00 11/14/20 13:01 Risperidone (RisperDAL) 0.5 mg DAILYWSUP PO 10/27/20 17:00 11/14/20 17:28 Mirtazapine (Remeron) 15 mg QHS PO 10/29/20 21:00 11/14/20 20:21 Melatonin (Melatonin) 3 mg PRN QHS PRN PO 1ST CHOICE INSOMNIA 10/29/20 18:30 11/06/20 19:59 Divalproex Sodium (Depakote Er) 750 mg QHS PO 11/05/20 21:00 11/14/20 20:20 I have reviewed the current psychotropics carefully including drug interactions. Risk benefit ratio favors no change other than as noted in my dictated progress note. Diagnosis: Problems: (1) Mild cognitive impairment (2) Anxiety disorder, unspecified (3) Bipolar disorder, current episode mixed, severe, with psychotic features (4) Impulse control disorder, unspecified SAEID NUNEZ MD Nov 14, 2020 21:52
[2020-11-15 06:06] LABS: BASO % 1 % (0-3); EOS # 0.2 x10^3/uL (0.0-0.7); EOS % 5 % (0-3); HEMATOCRIT 37.4 % (36.0-47.0); HEMOGLOBIN 12.5 g/dL (12.0-15.5); LYMPH # 1.7 x10^3/uL (1.0-4.8); LYMPH % 35 % (24-48); MEAN CORPUSCULAR HEMOGLOBIN 31 pg (25-35); MEAN CORPUSCULAR HGB CONC 33 g/dL (31-37); MEAN CORPUSCULAR VOLUME 92 fL (79-100); MONO # 0.9 x10^3/uL (0.0-1.1); MONO % 18 % (0-9); NEUT % 41 % (31-73); PLATELET COUNT 198 x10^3/uL (140-400); RED BLOOD COUNT 4.08 x10^6/uL (3.50-5.40); RED CELL DISTRIBUTION WIDTH 14.9 % (11.5-14.5); WHITE BLOOD COUNT 4.7 x10^3/uL (4.0-11.0)
[2020-11-15] MEDS: LEVOTHYROXINE 25 MCG TABLET. PO SCH (06:13)
[2020-11-15 06:17] LABS: ALBUMIN 2.8 g/dL (3.4-5.0); ALBUMIN/GLOBULIN RATIO 0.9 (1.0-1.7); CALCIUM 8.1 mg/dL (8.5-10.1); GFR 53.9; POTASSIUM 3.9 mmol/L (3.5-5.1); TOTAL BILIRUBIN 0.3 mg/dL (0.2-1.0); TOTAL PROTEIN 5.9 g/dL (6.4-8.2)
[2020-11-15 06:46] VITALS: BP 134/82
[2020-11-15] MEDS: PANTOPRAZOLE 40 MG TABLET. PO SCH (08:05)
[2020-11-15] MEDS: ASPIRIN ENTERIC COATED 81 MG TABLET.DR. PO SCH (08:05)
[2020-11-15] MEDS: dilTIAZem HCL 30 MG TABLET PO SCH ×2 (08:05→20:27)
[2020-11-15] MEDS: LACTOBACILLUS RHAMNOSUS GG 1 CAPSULE. PO SCH ×2 (08:05→20:26)
[2020-11-15] MEDS: buPROPion XL 300 MG TAB.ER.24H. PO SCH (08:05)
[2020-11-15] MEDS: MULTIVITAMIN with MINERAL TABLET. PO SCH (08:05)
[2020-11-15] MEDS: CALCIUM POLYCARBOPHIL 625 MG TABLET PO SCH ×2 (08:05→20:27)
[2020-11-15] MEDS: risperiDONE 0.25 MG TABLET. PO SCH ×2 (08:05→14:02)
[2020-11-15] MEDS: PRAMIPEXOLE 0.5 MG TABLET. PO SCH ×3 (08:05→20:27)
--- NOTE | 2020-11-15 12:01 | NUR ---
WEEKLY ACTIVITY THERAPY NOTE Date of Admission: 10/09/20 Date of AT Assessment: 10/11 Precipitating behaviors that initiated intake and admission: Patient admitted from home via [facility] for reportedly being paranoid, accusing of sleeping with daughter, eloping from home, stating family members holding her hostage, refusing to eat or bathe, picked up a hammer and made a tool out of wire to defend herself, and accusing family of lying to hospital staff. Goal aimed: increase stress management and relaxation skills Initial Goal: Pt will participate in at least five individual or group Activity Therapy session per week. Weekly progress towards goal: did not achieve, / Group participation level: 1 min Weekly highlights: some stretches and social with peers morning Behaviors observed: limited interest in group Plan: no change to goal Beneficial adaptations: encouragement
--- NOTE | 2020-11-15 13:18 | NUR ---
Treatment team note: Pt is eating 75% of meals and sleeping 7.25 hours per night. Pt continues to be confused, and disorganized; but mostly compliant with all medications and cares. Pt does wander the unit but not attempting to exit seek. Pt is delusional but does not appear to be upset or in turmoil. Pt has been seen making hand-motions as though she is knitting but with no materials. Pt was to discharge to [facility] today; however, her bed is no longer available until Thursday. NICA will continue to work with pt family and [facility] to finalize all discharge plans.
--- NOTE | 2020-11-15 13:25 | TX PLAN ---
Interdisciplinary Tx Plan Admission Information Oct 09, 2020 at 16:45 Legal Status (on Admission): Voluntary DPOA/Guardian Name: Filomena Armas Contact Other Contact Name: Donnell Armas Other Contact Verified Code Status: Full Code Allergies: Coded Allergies: Sulfa (Sulfonamide Antibiotics) (Verified Allergy, Unknown, 10/09/20) cat dander (Verified Allergy, Unknown, 10/09/20) egg (Verified Allergy, Unknown, 10/09/20) gluten (Verified Allergy, Unknown, 10/09/20) Uncoded Allergies: air freshener (Allergy, Severe, Rash, 10/09/20) Diagnoses Primary Diagnosis: Major Neurocognitive D/O, vascular Alzheimers with delusions, depression 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 Pt picked up a hammer to defend herself when she doesn't recognize people, poor self-care within the last week, running off, poor meal intake, wishing she was , delusional, anxious. Problems Active Problems: labile delusional Inactive Problems: medication compliant Pt Strengths/Limitations Ability for [place]: Fair Cognitive Functioning/Ability: Poor Communication Skills/Ability: Fair Financial Resources: Fair Insight/Judgement: Poor Intellectual Ability: Fair Physical Health: Poor Social Skills: Fair Stability in Family: Good Stability in School/Work: Poor Verbal Skills: Fair Discharge Criteria Discharge Criteria: Adequate arrangements @DC, Improved behavior, Improved mood/thought Preliminary Discharge Plan Preliminary DC Plan: Current Living Arrange. Special Precautions Fall Risk: Low Initial D/C Plan Pt to return back home with Identified Discharge Needs: continued psychiatric services Currently Utilized Resources Currently Utilized Resources/P: Primary Care Physician Referrals Community Resources: Psychiatric services Identified Problems/Hx/Goals Objectives/Short-Term Goals Short Term Goals: Dec. Hallucination/Delus, Dec. Outbursts, Medication Stabilization, Promote Coping Skill Short Term Goals in Patient's: N/A Interventions/Frequency Staff Interventions/Frequency&: Psychiatrist to assess pt at least 3x per week for medication management. Social Work to assess pt at least 2x per week to identify barriers to care and discharge planning goals. Nursing to assess medication effects, behavior modification and completion of 15 minute checks. Encourage participation in group activities (if applicable) or 1:1 interaction based off Activity Dept goals. 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 Pt continues to be confused, and disorganized; but mostly compliant with all medications and cares. Pt does wander the unit but not attempting to exit seek. Pt is delusional but does not appear to be upset or in turmoil. Pt has been seen making hand-motions as though she is knitting but with no materials. Pt was to discharge to [facility] today; however, her bed is no longer available until Thursday. [facility]. INDER DANIEL Nov 15, 2020 13:25
--- NOTE | 2020-11-15 15:00 | NUR ---
nsg note; an has been calm and cooperative today. she stays in the dayroom and does occ wander the hallways. no delusions noted
[2020-11-15 15:43] VITALS: BP 150/83
[2020-11-15] MEDS: risperiDONE 0.5 MG TABLET. PO SCH (17:17)
[2020-11-15] MEDS: ATORVASTATIN CALCIUM 10 MG TABLET. PO SCH (20:26)
[2020-11-15] MEDS: MIRTAZAPINE 15 MG TABLET PO SCH (20:26)
[2020-11-15] MEDS: DIVALPROEX ER 250 MG TAB.ER.24H. PO SCH (20:26)
[2020-11-15] MEDS: SENNOSIDES 8.6 MG TABLET PO SCH (20:27)
--- NOTE | 2020-11-15 22:10 | PDOC ---
Exam Note: Tex Note: Please also refer to the separate dictated note~for this date of service dictated separately.~Patient seen individually. Discussed the patient with Nursing staff reviewed the chart.~Reviewed interim history and current functioning. Reviewed vital signs,~Labs/ Radiology~and current medications noted below. Continue current treatment with the changes noted in the dictated addendum note Assessment: Vital Signs/I&O: Vital Signs Date Time Temp Pulse Resp B/P (MAP) Pulse Ox O2 Delivery O2 Flow Rate FiO2 11/15/20 20:27 96 150/83 11/15/20 15:43 97.9 19 98 11/15/20 06:46 Room Air I & O 11/14/20 11/14/20 11/15/20 15:00 23:00 07:00 Intake Total 360 ml 360 ml Balance 360 ml 360 ml Labs: Laboratory Tests Test 11/15/20 05:52 White Blood Count 4.7 x10^3/uL (4.0-11.0) Red Blood Count 4.08 x10^6/uL (3.50-5.40) Hemoglobin 12.5 g/dL (12.0-15.5) Hematocrit 37.4 % (36.0-47.0) Mean Corpuscular Volume 92 fL (79-100) Mean Corpuscular Hemoglobin 31 pg (25-35) Mean Corpuscular Hemoglobin Concent 33 g/dL (31-37) Red Cell Distribution Width 14.9 % (11.5-14.5) H Platelet Count 198 x10^3/uL (140-400) Neutrophils (%) (Auto) 41 % (31-73) Lymphocytes (%) (Auto) 35 % (24-48) Monocytes (%) (Auto) 18 % (0-9) H Eosinophils (%) (Auto) 5 % (0-3) H Basophils (%) (Auto) 1 % (0-3) Neutrophils # (Auto) 2.0 x10^3uL (1.8-7.7) Lymphocytes # (Auto) 1.7 x10^3/uL (1.0-4.8) Monocytes # (Auto) 0.9 x10^3/uL (0.0-1.1) Eosinophils # (Auto) 0.2 x10^3/uL (0.0-0.7) Basophils # (Auto) 0.0 x10^3/uL (0.0-0.2) Sodium Level 144 mmol/L (136-145) Potassium Level 3.9 mmol/L (3.5-5.1) Chloride Level 109 mmol/L (98-107) H Carbon Dioxide Level 28 mmol/L (21-32) Anion Gap 7 (6-14) Blood Urea Nitrogen 17 mg/dL (7-20) Creatinine 1.0 mg/dL (0.6-1.0) Estimated GFR (Cockcroft-Gault) 53.9 BUN/Creatinine Ratio 17 (6-20) Glucose Level 83 mg/dL (70-99) Calcium Level 8.1 mg/dL (8.5-10.1) L Total Bilirubin 0.3 mg/dL (0.2-1.0) Aspartate Amino Transferase (AST) 17 U/L (15-37) Alanine Aminotransferase (ALT) 21 U/L (14-59) Alkaline Phosphatase 73 U/L (46-116) Total Protein 5.9 g/dL (6.4-8.2) L Albumin 2.8 g/dL (3.4-5.0) L Albumin/Globulin Ratio 0.9 (1.0-1.7) L Current Medications: Meds: Laboratory Tests Test 11/15/20 05:52 White Blood Count 4.7 x10^3/uL Red Blood Count 4.08 x10^6/uL Hemoglobin 12.5 g/dL Hematocrit 37.4 % Mean Corpuscular Volume 92 fL Mean Corpuscular Hemoglobin 31 pg Mean Corpuscular Hemoglobin Concent 33 g/dL Red Cell Distribution Width 14.9 % Platelet Count 198 x10^3/uL Neutrophils (%) (Auto) 41 % Lymphocytes (%) (Auto) 35 % Monocytes (%) (Auto) 18 % Eosinophils (%) (Auto) 5 % Basophils (%) (Auto) 1 % Neutrophils # (Auto) 2.0 x10^3uL Lymphocytes # (Auto) 1.7 x10^3/uL Monocytes # (Auto) 0.9 x10^3/uL Eosinophils # (Auto) 0.2 x10^3/uL Basophils # (Auto) 0.0 x10^3/uL Sodium Level 144 mmol/L Potassium Level 3.9 mmol/L Chloride Level 109 mmol/L Carbon Dioxide Level 28 mmol/L Anion Gap 7 Blood Urea Nitrogen 17 mg/dL Creatinine 1.0 mg/dL Estimated GFR (Cockcroft-Gault) 53.9 BUN/Creatinine Ratio 17 Glucose Level 83 mg/dL Calcium Level 8.1 mg/dL Total Bilirubin 0.3 mg/dL Aspartate Amino Transf (AST/SGOT) 17 U/L Alanine Aminotransferase (ALT/SGPT) 21 U/L Alkaline Phosphatase 73 U/L Total Protein 5.9 g/dL Albumin 2.8 g/dL Albumin/Globulin Ratio 0.9 Current Medications Medications (Trade) Dose Ordered Sig/Chidi Route PRN Reason Start Time Stop Time Status Last Admin Dose Admin Aspirin (Aspirin Enteric Coated) 81 mg DAILY PO 10/10/20 09:00 11/15/20 08:05 Atorvastatin Calcium (Lipitor) 10 mg QHS PO 10/09/20 21:00 11/15/20 20:26 Calcium Polycarbophil (Fibercon) 1,250 mg BID PO 10/09/20 21:00 11/15/20 20:27 Vitamin D (Vitamin D3) 50,000 unit WEEKLY PO 10/16/20 09:00 11/13/20 08:19 Vitamin D (Vitamin D3) 2,000 unit DAILY PO 10/10/20 09:00 10/17/20 14:27 DC 10/17/20 08:17 Denosumab (Prolia) 60 mg 1X SQ 10/09/20 15:30 10/17/20 17:10 DC Diltiazem HCl (Cardizem) 30 mg BID PO 10/09/20 21:00 11/15/20 20:27 Levothyroxine Sodium (Synthroid) 25 mcg DAILY06 PO 10/10/20 07:30 11/15/20 06:13 Pramipexole Dihydrochloride (miraPEX) 1 mg [id number] PO 10/09/20 21:00 11/15/20 20:27 Tizanidine HCl (Zanaflex) 4 mg PRN Q8HRS PRN PO MUSCLE SPASMS 10/09/20 15:30 10/21/20 23:58 Multivitamins/ Calcium (Thera-M Plus) 1 tab DAILY PO 10/10/20 09:00 11/15/20 08:05 Pantoprazole Sodium (Protonix) 40 mg DAILY PO 10/10/20 09:00 11/15/20 08:05 Sennosides (Senna) 25.8 mg HS PO 10/09/20 21:00 11/15/20 20:27 Acetaminophen (Tylenol) 650 mg PRN Q6HRS PRN PO MILD PAIN / TEMP > 100.3'F 10/09/20 17:30 11/02/20 10:41 Multi-Ingredient Ointment (Analgesic [place]) 1 ashanti PRN QID PRN TP MUSCLE PAIN 10/09/20 17:30 Al Hydroxide/Mg Hydroxide (Mylanta Plus Xs) 15 ml PRN AFTMEALHC PRN PO DYSPEPSIA 10/09/20 17:30 Magnesium Hydroxide (Milk Of Magnesia) 2,400 mg PRN QHS PRN PO CONSTIPATION 10/09/20 17:30 Olanzapine (ZyPREXA ZYDIS) 2.5 mg PRN Q2HRS PRN PO PSYCHOSIS 10/09/20 17:30 11/11/20 14:53 Doxycycline Hyclate (Vibra-Tab) 100 mg BID PO 10/10/20 21:00 10/19/20 22:00 DC 10/19/20 20:35 Divalproex Sodium (Depakote Er) 500 mg QHS PO 10/11/20 21:00 11/05/20 19:02 DC 11/04/20 19:55 Lactobacillus Rhamnosus (Culturelle) 1 cap BID PO 10/14/20 21:00 11/15/20 20:26 Bupropion HCl (Wellbutrin Xl) 150 mg DAILY PO 10/18/20 09:00 10/19/20 17:07 DC 10/19/20 08:22 Bupropion HCl (Wellbutrin Xl) 300 mg DAILY PO 10/20/20 09:00 11/15/20 08:05 Trazodone HCl (Desyrel) 50 mg PRN QHS PRN PO 2ND CHOICE INSOMNIA, MRx1 10/22/20 06:00 11/06/20 19:59 Risperidone (RisperDAL) 0.5 mg QHS PO 10/22/20 18:00 10/24/20 16:15 DC 10/23/20 20:10 Mirtazapine (Remeron) 7.5 mg QHS PO 10/23/20 21:00 10/29/20 18:20 DC 10/28/20 20:19 Risperidone (RisperDAL) 0.75 mg QHS PO 10/24/20 21:00 10/25/20 11:50 DC 10/24/20 19:34 Risperidone (RisperDAL) 0.25 mg 0900,1300,1700 PO 10/25/20 13:00 10/26/20 18:31 DC 10/26/20 17:16 Risperidone (RisperDAL) 0.25 mg 0900,1300 PO 10/27/20 09:00 11/15/20 14:02 Risperidone (RisperDAL) 0.5 mg DAILYWSUP PO 10/27/20 17:00 11/15/20 17:17 Mirtazapine (Remeron) 15 mg QHS PO 10/29/20 21:00 11/15/20 20:26 Melatonin (Melatonin) 3 mg PRN QHS PRN PO 1ST CHOICE INSOMNIA 10/29/20 18:30 11/06/20 19:59 Divalproex Sodium (Depakote Er) 750 mg QHS PO 11/05/20 21:00 11/15/20 20:26 I have reviewed the current psychotropics carefully including drug interactions. Risk benefit ratio favors no change other than as noted in my dictated progress note. Diagnosis: Problems: (1) Mild cognitive impairment (2) Anxiety disorder, unspecified (3) Bipolar disorder, current episode mixed, severe, with psychotic features (4) Major neurocognitive disorder SAEID NUNEZ MD Nov 15, 2020 22:10
--- NOTE | 2020-11-15 22:36 | NUR ---
Patient was calm and cooperative with staff. She was wandering in the hallway and then was in her room folding blankets from her bed. Patient compliant with medications taken whole. Patient went to bed early and has been sleeping soundly, no s/s pain noted. No anxiety or paranoia noted this shift.
[2020-11-16] MEDS: LEVOTHYROXINE 25 MCG TABLET. PO SCH (06:00)
[2020-11-16 06:17] VITALS: BP 151/85
--- NOTE | 2020-11-16 06:38 | PDOC ---
Exam Note: Tex Note: This note is a late entry for 11/14/2020overs elements not covered in my initial note. Subjective: The patient was seen face to face in the evening of 11/14/2020 with Jaylin FAGAN, discussed and reviewed the chart. She slept for 7 hours previous night. Overall the patient has some short-term memory deficits. Confusion is worsening in the evening but the bipolar symptoms, amparo, paranoia are much improved and she is not aggressive. [facility] but was refused by that facility at the last moment and the discharge is postponed awaiting placement. She has been less irritable. Review of Systems: No CV, , pulmonary, eye, ENT system symptoms on review. Mental Status Exam: The patient is oriented to herself and situation. Speech has some latency, coherent. Abstraction fair. Computation impaired. Language function intact. Attention span short. Mood and affect at times withdrawn. Laboratory Data: Reviewed. Impression: Bipolar disorder mixed with psychotic features. Anxiety disorder unspecified. Impulse control disorder unspecified. Mild cognitive impairment. Plan: No change from initial note. Assessment: Vital Signs/I&O: Vital Signs Date Time Temp Pulse Resp B/P (MAP) Pulse Ox O2 Delivery O2 Flow Rate FiO2 11/16/20 06:17 97.8 83 16 151/85 (107) 96 Room Air I & O 11/15/20 11/15/20 11/16/20 14:59 22:59 06:59 Intake Total 420 ml 480 ml Balance 420 ml 480 ml Current Medications: Meds: Current Medications Medications (Trade) Dose Ordered Sig/Chidi Route PRN Reason Start Time Stop Time Status Last Admin Dose Admin Aspirin (Aspirin Enteric Coated) 81 mg DAILY PO 10/10/20 09:00 11/15/20 08:05 Atorvastatin Calcium (Lipitor) 10 mg QHS PO 10/09/20 21:00 11/15/20 20:26 Calcium Polycarbophil (Fibercon) 1,250 mg BID PO 10/09/20 21:00 11/15/20 20:27 Vitamin D (Vitamin D3) 50,000 unit WEEKLY PO 10/16/20 09:00 11/13/20 08:19 Vitamin D (Vitamin D3) 2,000 unit DAILY PO 10/10/20 09:00 10/17/20 14:27 DC 10/17/20 08:17 Denosumab (Prolia) 60 mg 1X SQ 10/09/20 15:30 10/17/20 17:10 DC Diltiazem HCl (Cardizem) 30 mg BID PO 10/09/20 21:00 11/15/20 20:27 Levothyroxine Sodium (Synthroid) 25 mcg DAILY06 PO 10/10/20 07:30 11/16/20 06:00 Pramipexole Dihydrochloride (miraPEX) 1 mg [id number] PO 10/09/20 21:00 11/15/20 20:27 Tizanidine HCl (Zanaflex) 4 mg PRN Q8HRS PRN PO MUSCLE SPASMS 10/09/20 15:30 10/21/20 23:58 Multivitamins/ Calcium (Thera-M Plus) 1 tab DAILY PO 10/10/20 09:00 11/15/20 08:05 Pantoprazole Sodium (Protonix) 40 mg DAILY PO 10/10/20 09:00 11/15/20 08:05 Sennosides (Senna) 25.8 mg HS PO 10/09/20 21:00 11/15/20 20:27 Acetaminophen (Tylenol) 650 mg PRN Q6HRS PRN PO MILD PAIN / TEMP > 100.3'F 10/09/20 17:30 11/02/20 10:41 Multi-Ingredient Ointment (Analgesic [place]) 1 ashanti PRN QID PRN TP MUSCLE PAIN 10/09/20 17:30 Al Hydroxide/Mg Hydroxide (Mylanta Plus Xs) 15 ml PRN AFTMEALHC PRN PO DYSPEPSIA 10/09/20 17:30 Magnesium Hydroxide (Milk Of Magnesia) 2,400 mg PRN QHS PRN PO CONSTIPATION 10/09/20 17:30 Olanzapine (ZyPREXA ZYDIS) 2.5 mg PRN Q2HRS PRN PO PSYCHOSIS 10/09/20 17:30 11/11/20 14:53 Doxycycline Hyclate (Vibra-Tab) 100 mg BID PO 10/10/20 21:00 10/19/20 22:00 DC 10/19/20 20:35 Divalproex Sodium (Depakote Er) 500 mg QHS PO 10/11/20 21:00 11/05/20 19:02 DC 11/04/20 19:55 Lactobacillus Rhamnosus (Culturelle) 1 cap BID PO 10/14/20 21:00 11/15/20 20:26 Bupropion HCl (Wellbutrin Xl) 150 mg DAILY PO 10/18/20 09:00 10/19/20 17:07 DC 10/19/20 08:22 Bupropion HCl (Wellbutrin Xl) 300 mg DAILY PO 10/20/20 09:00 11/15/20 08:05 Trazodone HCl (Desyrel) 50 mg PRN QHS PRN PO 2ND CHOICE INSOMNIA, MRx1 10/22/20 06:00 11/06/20 19:59 Risperidone (RisperDAL) 0.5 mg QHS PO 10/22/20 18:00 10/24/20 16:15 DC 10/23/20 20:10 Mirtazapine (Remeron) 7.5 mg QHS PO 10/23/20 21:00 10/29/20 18:20 DC 10/28/20 20:19 Risperidone (RisperDAL) 0.75 mg QHS PO 10/24/20 21:00 10/25/20 11:50 DC 10/24/20 19:34 Risperidone (RisperDAL) 0.25 mg 0900,1300,1700 PO 10/25/20 13:00 10/26/20 18:31 DC 10/26/20 17:16 Risperidone (RisperDAL) 0.25 mg 0900,1300 PO 10/27/20 09:00 11/15/20 14:02 Risperidone (RisperDAL) 0.5 mg DAILYWSUP PO 10/27/20 17:00 11/15/20 17:17 Mirtazapine (Remeron) 15 mg QHS PO 10/29/20 21:00 11/15/20 20:26 Melatonin (Melatonin) 3 mg PRN QHS PRN PO 1ST CHOICE INSOMNIA 10/29/20 18:30 11/06/20 19:59 Divalproex Sodium (Depakote Er) 750 mg QHS PO 11/05/20 21:00 11/15/20 20:26 I have reviewed the current psychotropics carefully including drug interactions. Risk benefit ratio favors no change other than as noted in my dictated progress note. Diagnosis: Problems: (1) Mild cognitive impairment (2) Anxiety disorder, unspecified (3) Bipolar disorder, current episode mixed, severe, with psychotic features (4) Major neurocognitive disorder (5) Impulse control disorder, unspecified SAEID NUNEZ MD Nov 16, 2020 06:38
--- NOTE | 2020-11-16 06:59 | PDOC ---
Exam Note: Tex Note: This note is a late entry for 11/15/2020overs elements not covered in my initial note. Subjective: The patient was reviewed at treatment team meeting individually in the morning on 11/15/2020 with Bethanie Rain, Maria G Esteves (drug abuse social worker), Ifrah activity therapy and Jaylin FAGAN, discussed and reviewed the chart. She slept for 6-3/4 hours previous night. The patient attended one group in the past week as discussed by sarah Rg. Appetite is 75%. She is pleasant. Previous evening she was somewhat delusional. She is talking about liking to sew dresses, less hyper-judaism, compliant with medications. Review of Systems: No CV, , pulmonary, eye, ENT system symptoms on review. Mental Status Exam: The patient is oriented to herself and situation. I met with her in the dayroom. She was eating ice-cream and able to comment on this appropriately interacting with others around her. Speech coherent. Abstraction fair. Computation impaired. Language function intact. Attention span short. Mood and affect at times withdrawn. Laboratory Data: Reviewed. Impression: Bipolar disorder mixed with psychotic features. Anxiety disorder unspecified. Impulse control disorder unspecified. Mild cognitive impairment. Plan: No change from initial note. Assessment: Vital Signs/I&O: Vital Signs Date Time Temp Pulse Resp B/P (MAP) Pulse Ox O2 Delivery O2 Flow Rate FiO2 11/16/20 06:17 97.8 83 16 151/85 (107) 96 Room Air I & O 11/15/20 11/15/20 11/16/20 15:00 23:00 07:00 Intake Total 420 ml 480 ml Balance 420 ml 480 ml Current Medications: Meds: Current Medications Medications (Trade) Dose Ordered Sig/Chidi Route PRN Reason Start Time Stop Time Status Last Admin Dose Admin Aspirin (Aspirin Enteric Coated) 81 mg DAILY PO 10/10/20 09:00 11/15/20 08:05 Atorvastatin Calcium (Lipitor) 10 mg QHS PO 10/09/20 21:00 11/15/20 20:26 Calcium Polycarbophil (Fibercon) 1,250 mg BID PO 10/09/20 21:00 11/15/20 20:27 Vitamin D (Vitamin D3) 50,000 unit WEEKLY PO 10/16/20 09:00 11/13/20 08:19 Vitamin D (Vitamin D3) 2,000 unit DAILY PO 10/10/20 09:00 10/17/20 14:27 DC 10/17/20 08:17 Denosumab (Prolia) 60 mg 1X SQ 10/09/20 15:30 10/17/20 17:10 DC Diltiazem HCl (Cardizem) 30 mg BID PO 10/09/20 21:00 11/15/20 20:27 Levothyroxine Sodium (Synthroid) 25 mcg DAILY06 PO 10/10/20 07:30 11/16/20 06:00 Pramipexole Dihydrochloride (miraPEX) 1 mg [id number] PO 10/09/20 21:00 11/15/20 20:27 Tizanidine HCl (Zanaflex) 4 mg PRN Q8HRS PRN PO MUSCLE SPASMS 10/09/20 15:30 10/21/20 23:58 Multivitamins/ Calcium (Thera-M Plus) 1 tab DAILY PO 10/10/20 09:00 11/15/20 08:05 Pantoprazole Sodium (Protonix) 40 mg DAILY PO 10/10/20 09:00 11/15/20 08:05 Sennosides (Senna) 25.8 mg HS PO 10/09/20 21:00 11/15/20 20:27 Acetaminophen (Tylenol) 650 mg PRN Q6HRS PRN PO MILD PAIN / TEMP > 100.3'F 10/09/20 17:30 11/02/20 10:41 Multi-Ingredient Ointment (Analgesic [place]) 1 ashanti PRN QID PRN TP MUSCLE PAIN 10/09/20 17:30 Al Hydroxide/Mg Hydroxide (Mylanta Plus Xs) 15 ml PRN AFTMEALHC PRN PO DYSPEPSIA 10/09/20 17:30 Magnesium Hydroxide (Milk Of Magnesia) 2,400 mg PRN QHS PRN PO CONSTIPATION 10/09/20 17:30 Olanzapine (ZyPREXA ZYDIS) 2.5 mg PRN Q2HRS PRN PO PSYCHOSIS 10/09/20 17:30 11/11/20 14:53 Doxycycline Hyclate (Vibra-Tab) 100 mg BID PO 10/10/20 21:00 10/19/20 22:00 DC 10/19/20 20:35 Divalproex Sodium (Depakote Er) 500 mg QHS PO 10/11/20 21:00 11/05/20 19:02 DC 11/04/20 19:55 Lactobacillus Rhamnosus (Culturelle) 1 cap BID PO 10/14/20 21:00 11/15/20 20:26 Bupropion HCl (Wellbutrin Xl) 150 mg DAILY PO 10/18/20 09:00 10/19/20 17:07 DC 10/19/20 08:22 Bupropion HCl (Wellbutrin Xl) 300 mg DAILY PO 10/20/20 09:00 11/15/20 08:05 Trazodone HCl (Desyrel) 50 mg PRN QHS PRN PO 2ND CHOICE INSOMNIA, MRx1 10/22/20 06:00 11/06/20 19:59 Risperidone (RisperDAL) 0.5 mg QHS PO 10/22/20 18:00 10/24/20 16:15 DC 10/23/20 20:10 Mirtazapine (Remeron) 7.5 mg QHS PO 10/23/20 21:00 10/29/20 18:20 DC 10/28/20 20:19 Risperidone (RisperDAL) 0.75 mg QHS PO 10/24/20 21:00 10/25/20 11:50 DC 10/24/20 19:34 Risperidone (RisperDAL) 0.25 mg 0900,1300,1700 PO 10/25/20 13:00 10/26/20 18:31 DC 10/26/20 17:16 Risperidone (RisperDAL) 0.25 mg 0900,1300 PO 10/27/20 09:00 11/15/20 14:02 Risperidone (RisperDAL) 0.5 mg DAILYWSUP PO 10/27/20 17:00 11/15/20 17:17 Mirtazapine (Remeron) 15 mg QHS PO 10/29/20 21:00 11/15/20 20:26 Melatonin (Melatonin) 3 mg PRN QHS PRN PO 1ST CHOICE INSOMNIA 10/29/20 18:30 11/06/20 19:59 Divalproex Sodium (Depakote Er) 750 mg QHS PO 11/05/20 21:00 11/15/20 20:26 I have reviewed the current psychotropics carefully including drug interactions. Risk benefit ratio favors no change other than as noted in my dictated progress note. Diagnosis: Problems: (1) Impulse control disorder, unspecified (2) Mild cognitive impairment (3) Anxiety disorder, unspecified (4) Bipolar disorder, current episode mixed, severe, with psychotic features (5) Major neurocognitive disorder SAEID NUNEZ MD Nov 16, 2020 06:59
[2020-11-16] MEDS: ASPIRIN ENTERIC COATED 81 MG TABLET.DR. PO SCH (08:12)
[2020-11-16] MEDS: MULTIVITAMIN with MINERAL TABLET. PO SCH (08:12)
[2020-11-16] MEDS: LACTOBACILLUS RHAMNOSUS GG 1 CAPSULE. PO SCH ×2 (08:12→20:35)
[2020-11-16] MEDS: buPROPion XL 300 MG TAB.ER.24H. PO SCH (08:12)
[2020-11-16] MEDS: PRAMIPEXOLE 0.5 MG TABLET. PO SCH ×3 (08:13→20:34)
[2020-11-16] MEDS: CALCIUM POLYCARBOPHIL 625 MG TABLET PO SCH ×2 (08:13→20:36)
[2020-11-16] MEDS: dilTIAZem HCL 30 MG TABLET PO SCH ×2 (08:13→20:35)
[2020-11-16] MEDS: risperiDONE 0.25 MG TABLET. PO SCH ×2 (08:13→13:07)
[2020-11-16] MEDS: PANTOPRAZOLE 40 MG TABLET. PO SCH (08:13)
[2020-11-16 15:41] VITALS: BP 154/91
[2020-11-16] MEDS: risperiDONE 0.5 MG TABLET. PO SCH (17:26)
[2020-11-16] MEDS: MIRTAZAPINE 15 MG TABLET PO SCH (20:34)
[2020-11-16] MEDS: DIVALPROEX ER 250 MG TAB.ER.24H. PO SCH (20:35)
[2020-11-16] MEDS: ATORVASTATIN CALCIUM 10 MG TABLET. PO SCH (20:35)
[2020-11-16] MEDS: SENNOSIDES 8.6 MG TABLET PO SCH (20:36)
--- NOTE | 2020-11-16 21:32 | PDOC ---
Exam Note: Tex Note: Please also refer to the separate dictated note~for this date of service dictated separately.~Patient seen individually. Discussed the patient with Nursing staff reviewed the chart.~Reviewed interim history and current functioning. Reviewed vital signs,~Labs/ Radiology~and current medications noted below. Continue current treatment with the changes noted in the dictated addendum note Assessment: Vital Signs/I&O: Vital Signs Date Time Temp Pulse Resp B/P (MAP) Pulse Ox O2 Delivery O2 Flow Rate FiO2 11/16/20 20:35 100 154/91 11/16/20 15:41 98.6 20 98 Room Air I & O 11/15/20 11/15/20 11/16/20 15:00 23:00 07:00 Intake Total 420 ml 480 ml Balance 420 ml 480 ml Current Medications: Meds: Current Medications Medications (Trade) Dose Ordered Sig/Chidi Route PRN Reason Start Time Stop Time Status Last Admin Dose Admin Aspirin (Aspirin Enteric Coated) 81 mg DAILY PO 10/10/20 09:00 11/16/20 08:12 Atorvastatin Calcium (Lipitor) 10 mg QHS PO 10/09/20 21:00 11/16/20 20:35 Calcium Polycarbophil (Fibercon) 1,250 mg BID PO 10/09/20 21:00 11/16/20 20:36 Vitamin D (Vitamin D3) 50,000 unit WEEKLY PO 10/16/20 09:00 11/13/20 08:19 Vitamin D (Vitamin D3) 2,000 unit DAILY PO 10/10/20 09:00 10/17/20 14:27 DC 10/17/20 08:17 Denosumab (Prolia) 60 mg 1X SQ 10/09/20 15:30 10/17/20 17:10 DC Diltiazem HCl (Cardizem) 30 mg BID PO 10/09/20 21:00 11/16/20 20:35 Levothyroxine Sodium (Synthroid) 25 mcg DAILY06 PO 10/10/20 07:30 11/16/20 06:00 Pramipexole Dihydrochloride (miraPEX) 1 mg [id number] PO 10/09/20 21:00 11/16/20 20:34 Tizanidine HCl (Zanaflex) 4 mg PRN Q8HRS PRN PO MUSCLE SPASMS 10/09/20 15:30 10/21/20 23:58 Multivitamins/ Calcium (Thera-M Plus) 1 tab DAILY PO 10/10/20 09:00 11/16/20 08:12 Pantoprazole Sodium (Protonix) 40 mg DAILY PO 10/10/20 09:00 11/16/20 08:13 Sennosides (Senna) 25.8 mg HS PO 10/09/20 21:00 11/16/20 20:36 Acetaminophen (Tylenol) 650 mg PRN Q6HRS PRN PO MILD PAIN / TEMP > 100.3'F 10/09/20 17:30 11/02/20 10:41 Multi-Ingredient Ointment (Analgesic [place]) 1 ashanti PRN QID PRN TP MUSCLE PAIN 10/09/20 17:30 Al Hydroxide/Mg Hydroxide (Mylanta Plus Xs) 15 ml PRN AFTMEALHC PRN PO DYSPEPSIA 10/09/20 17:30 Magnesium Hydroxide (Milk Of Magnesia) 2,400 mg PRN QHS PRN PO CONSTIPATION 10/09/20 17:30 Olanzapine (ZyPREXA ZYDIS) 2.5 mg PRN Q2HRS PRN PO PSYCHOSIS 10/09/20 17:30 11/16/20 13:06 Doxycycline Hyclate (Vibra-Tab) 100 mg BID PO 10/10/20 21:00 10/19/20 22:00 DC 10/19/20 20:35 Divalproex Sodium (Depakote Er) 500 mg QHS PO 10/11/20 21:00 11/05/20 19:02 DC 11/04/20 19:55 Lactobacillus Rhamnosus (Culturelle) 1 cap BID PO 10/14/20 21:00 11/16/20 20:35 Bupropion HCl (Wellbutrin Xl) 150 mg DAILY PO 10/18/20 09:00 10/19/20 17:07 DC 10/19/20 08:22 Bupropion HCl (Wellbutrin Xl) 300 mg DAILY PO 10/20/20 09:00 11/16/20 08:12 Trazodone HCl (Desyrel) 50 mg PRN QHS PRN PO 2ND CHOICE INSOMNIA, MRx1 10/22/20 06:00 11/06/20 19:59 Risperidone (RisperDAL) 0.5 mg QHS PO 10/22/20 18:00 10/24/20 16:15 DC 10/23/20 20:10 Mirtazapine (Remeron) 7.5 mg QHS PO 10/23/20 21:00 10/29/20 18:20 DC 10/28/20 20:19 Risperidone (RisperDAL) 0.75 mg QHS PO 10/24/20 21:00 10/25/20 11:50 DC 10/24/20 19:34 Risperidone (RisperDAL) 0.25 mg 0900,1300,1700 PO 10/25/20 13:00 10/26/20 18:31 DC 10/26/20 17:16 Risperidone (RisperDAL) 0.25 mg 0900,1300 PO 10/27/20 09:00 11/16/20 13:07 Risperidone (RisperDAL) 0.5 mg DAILYWSUP PO 10/27/20 17:00 11/16/20 17:26 Mirtazapine (Remeron) 15 mg QHS PO 10/29/20 21:00 11/16/20 20:34 Melatonin (Melatonin) 3 mg PRN QHS PRN PO 1ST CHOICE INSOMNIA 10/29/20 18:30 11/06/20 19:59 Divalproex Sodium (Depakote Er) 750 mg QHS PO 11/05/20 21:00 11/16/20 20:35 I have reviewed the current psychotropics carefully including drug interactions. Risk benefit ratio favors no change other than as noted in my dictated progress note. Diagnosis: Problems: (1) Impulse control disorder, unspecified (2) Mild cognitive impairment (3) Anxiety disorder, unspecified (4) Bipolar disorder, current episode mixed, severe, with psychotic features SAEID NUNEZ MD Nov 16, 2020 21:32
[2020-11-17] MEDS: LEVOTHYROXINE 25 MCG TABLET. PO SCH (05:33)
[2020-11-17 05:53] VITALS: BP 146/82
[2020-11-17] MEDS: risperiDONE 0.25 MG TABLET. PO SCH ×2 (08:12→13:35)
[2020-11-17] MEDS: PANTOPRAZOLE 40 MG TABLET. PO SCH (08:12)
[2020-11-17] MEDS: buPROPion XL 300 MG TAB.ER.24H. PO SCH (08:12)
[2020-11-17] MEDS: ASPIRIN ENTERIC COATED 81 MG TABLET.DR. PO SCH (08:12)
[2020-11-17] MEDS: CALCIUM POLYCARBOPHIL 625 MG TABLET PO SCH ×2 (08:12→20:03)
[2020-11-17] MEDS: MULTIVITAMIN with MINERAL TABLET. PO SCH (08:12)
[2020-11-17] MEDS: LACTOBACILLUS RHAMNOSUS GG 1 CAPSULE. PO SCH ×2 (08:12→20:02)
[2020-11-17] MEDS: dilTIAZem HCL 30 MG TABLET PO SCH ×2 (08:12→20:02)
[2020-11-17] MEDS: PRAMIPEXOLE 0.5 MG TABLET. PO SCH ×3 (08:12→20:03)
[2020-11-17 15:24] VITALS: BP 135/85
--- NOTE | 2020-11-17 15:29 | NUR ---
Nsg Note; Leatha has been alert and cooperative. she is med compliant. she has been in the dayroom between meals, conversing with peers though they both are confused.
[2020-11-17] MEDS: risperiDONE 0.5 MG TABLET. PO SCH (17:01)
[2020-11-17] MEDS: SENNOSIDES 8.6 MG TABLET PO SCH (20:04)
[2020-11-17] MEDS: MIRTAZAPINE 15 MG TABLET PO SCH (20:04)
[2020-11-17] MEDS: DIVALPROEX ER 250 MG TAB.ER.24H. PO SCH (20:05)
[2020-11-17] MEDS: ATORVASTATIN CALCIUM 10 MG TABLET. PO SCH (20:05)
--- NOTE | 2020-11-17 22:33 | PDOC ---
Exam Note: Tex Note: Please also refer to the separate dictated note~for this date of service dictated separately.~Patient seen individually. Discussed the patient with Nursing staff reviewed the chart.~Reviewed interim history and current functioning. Reviewed vital signs,~Labs/ Radiology~and current medications noted below. Continue current treatment with the changes noted in the dictated addendum note Assessment: Vital Signs/I&O: Vital Signs Date Time Temp Pulse Resp B/P (MAP) Pulse Ox O2 Delivery O2 Flow Rate FiO2 11/17/20 20:02 93 135/85 11/17/20 15:24 97.8 18 98 Room Air I & O 11/16/20 11/16/20 11/17/20 15:00 23:00 07:00 Intake Total 600 ml 360 ml Balance 600 ml 360 ml Current Medications: Meds: Current Medications Medications (Trade) Dose Ordered Sig/Chidi Route PRN Reason Start Time Stop Time Status Last Admin Dose Admin Aspirin (Aspirin Enteric Coated) 81 mg DAILY PO 10/10/20 09:00 11/17/20 08:12 Atorvastatin Calcium (Lipitor) 10 mg QHS PO 10/09/20 21:00 11/17/20 20:05 Calcium Polycarbophil (Fibercon) 1,250 mg BID PO 10/09/20 21:00 11/17/20 20:03 Vitamin D (Vitamin D3) 50,000 unit WEEKLY PO 10/16/20 09:00 11/13/20 08:19 Vitamin D (Vitamin D3) 2,000 unit DAILY PO 10/10/20 09:00 10/17/20 14:27 DC 10/17/20 08:17 Denosumab (Prolia) 60 mg 1X SQ 10/09/20 15:30 10/17/20 17:10 DC Diltiazem HCl (Cardizem) 30 mg BID PO 10/09/20 21:00 11/17/20 20:02 Levothyroxine Sodium (Synthroid) 25 mcg DAILY06 PO 10/10/20 07:30 11/17/20 05:33 Pramipexole Dihydrochloride (miraPEX) 1 mg [id number] PO 10/09/20 21:00 11/17/20 20:03 Tizanidine HCl (Zanaflex) 4 mg PRN Q8HRS PRN PO MUSCLE SPASMS 10/09/20 15:30 10/21/20 23:58 Multivitamins/ Calcium (Thera-M Plus) 1 tab DAILY PO 10/10/20 09:00 11/17/20 08:12 Pantoprazole Sodium (Protonix) 40 mg DAILY PO 10/10/20 09:00 11/17/20 08:12 Sennosides (Senna) 25.8 mg HS PO 10/09/20 21:00 11/17/20 20:04 Acetaminophen (Tylenol) 650 mg PRN Q6HRS PRN PO MILD PAIN / TEMP > 100.3'F 10/09/20 17:30 11/02/20 10:41 Multi-Ingredient Ointment (Analgesic [place]) 1 ashanti PRN QID PRN TP MUSCLE PAIN 10/09/20 17:30 Al Hydroxide/Mg Hydroxide (Mylanta Plus Xs) 15 ml PRN AFTMEALHC PRN PO DYSPEPSIA 10/09/20 17:30 Magnesium Hydroxide (Milk Of Magnesia) 2,400 mg PRN QHS PRN PO CONSTIPATION 10/09/20 17:30 Olanzapine (ZyPREXA ZYDIS) 2.5 mg PRN Q2HRS PRN PO PSYCHOSIS 10/09/20 17:30 11/16/20 13:06 Doxycycline Hyclate (Vibra-Tab) 100 mg BID PO 10/10/20 21:00 10/19/20 22:00 DC 10/19/20 20:35 Divalproex Sodium (Depakote Er) 500 mg QHS PO 10/11/20 21:00 11/05/20 19:02 DC 11/04/20 19:55 Lactobacillus Rhamnosus (Culturelle) 1 cap BID PO 10/14/20 21:00 11/17/20 20:02 Bupropion HCl (Wellbutrin Xl) 150 mg DAILY PO 10/18/20 09:00 10/19/20 17:07 DC 10/19/20 08:22 Bupropion HCl (Wellbutrin Xl) 300 mg DAILY PO 10/20/20 09:00 11/17/20 08:12 Trazodone HCl (Desyrel) 50 mg PRN QHS PRN PO 2ND CHOICE INSOMNIA, MRx1 10/22/20 06:00 11/06/20 19:59 Risperidone (RisperDAL) 0.5 mg QHS PO 10/22/20 18:00 10/24/20 16:15 DC 10/23/20 20:10 Mirtazapine (Remeron) 7.5 mg QHS PO 10/23/20 21:00 10/29/20 18:20 DC 10/28/20 20:19 Risperidone (RisperDAL) 0.75 mg QHS PO 10/24/20 21:00 10/25/20 11:50 DC 10/24/20 19:34 Risperidone (RisperDAL) 0.25 mg 0900,1300,1700 PO 10/25/20 13:00 10/26/20 18:31 DC 10/26/20 17:16 Risperidone (RisperDAL) 0.25 mg 0900,1300 PO 10/27/20 09:00 11/17/20 13:35 Risperidone (RisperDAL) 0.5 mg DAILYWSUP PO 10/27/20 17:00 11/17/20 17:01 Mirtazapine (Remeron) 15 mg QHS PO 10/29/20 21:00 11/17/20 20:04 Melatonin (Melatonin) 3 mg PRN QHS PRN PO 1ST CHOICE INSOMNIA 10/29/20 18:30 11/06/20 19:59 Divalproex Sodium (Depakote Er) 750 mg QHS PO 11/05/20 21:00 11/17/20 20:05 I have reviewed the current psychotropics carefully including drug interactions. Risk benefit ratio favors no change other than as noted in my dictated progress note. Diagnosis: Problems: (1) Impulse control disorder, unspecified (2) Mild cognitive impairment (3) Anxiety disorder, unspecified (4) Bipolar disorder, current episode mixed, severe, with psychotic features SAEID NUNEZ MD Nov 17, 2020 22:33
--- NOTE | 2020-11-17 23:18 | NUR ---
Patient is in the day room on assumption of care, watching television and conversing with a peer. She is in pleasant spirits, disorganized, forgetful. Compliant with assessments and medications whole. No agitation, no delusions voiced this shift. She denies any pain or discomfort. She appears to be sleeping comfortably at present time. Will continue to monitor.
[2020-11-17] MEDS: traZODone 50 MG TABLET. PO PRN (23:56)
[2020-11-18] MEDS: LEVOTHYROXINE 25 MCG TABLET. PO SCH (06:00)
[2020-11-18 06:23] VITALS: BP 142/79
[2020-11-18] MEDS: LACTOBACILLUS RHAMNOSUS GG 1 CAPSULE. PO SCH ×2 (08:40→20:11)
[2020-11-18] MEDS: ASPIRIN ENTERIC COATED 81 MG TABLET.DR. PO SCH (08:41)
[2020-11-18] MEDS: MULTIVITAMIN with MINERAL TABLET. PO SCH (08:41)
[2020-11-18] MEDS: PANTOPRAZOLE 40 MG TABLET. PO SCH (08:41)
[2020-11-18] MEDS: PRAMIPEXOLE 0.5 MG TABLET. PO SCH ×3 (08:41→20:12)
[2020-11-18] MEDS: CALCIUM POLYCARBOPHIL 625 MG TABLET PO SCH ×2 (08:41→20:10)
[2020-11-18] MEDS: risperiDONE 0.25 MG TABLET. PO SCH ×2 (08:41→14:00)
[2020-11-18] MEDS: dilTIAZem HCL 30 MG TABLET PO SCH ×2 (08:41→20:11)
[2020-11-18] MEDS: buPROPion XL 300 MG TAB.ER.24H. PO SCH (08:41)
--- NOTE | 2020-11-18 14:23 | NUR ---
Nursing note: Patient in dinning room at time of AM med pass and assessment, medication taken whole. She is alert & oriented to self and place. Patient forgets frequently, interacts with peers, and medication compliant. Patient denies pain or discomfort at this time. She is currently sitting in the day room. Will continue to monitor.
[2020-11-18 16:18] VITALS: BP 136/82
[2020-11-18] MEDS: risperiDONE 0.5 MG TABLET. PO SCH (17:26)
[2020-11-18] MEDS: DIVALPROEX ER 250 MG TAB.ER.24H. PO SCH (20:11)
[2020-11-18] MEDS: ATORVASTATIN CALCIUM 10 MG TABLET. PO SCH (20:12)
[2020-11-18] MEDS: MIRTAZAPINE 15 MG TABLET PO SCH (20:12)
[2020-11-18] MEDS: SENNOSIDES 8.6 MG TABLET PO SCH (20:12)
--- NOTE | 2020-11-18 21:42 | PDOC ---
Exam Note: Tex Note: Please also refer to the separate dictated note~for this date of service dictated separately.~Patient seen individually. Discussed the patient with Nursing staff reviewed the chart.~Reviewed interim history and current functioning. Reviewed vital signs,~Labs/ Radiology~and current medications noted below. Continue current treatment with the changes noted in the dictated addendum note Assessment: Vital Signs/I&O: Vital Signs Date Time Temp Pulse Resp B/P (MAP) Pulse Ox O2 Delivery O2 Flow Rate FiO2 11/18/20 20:11 98 136/82 11/18/20 16:18 97.0 18 96 11/17/20 15:24 Room Air I & O 11/17/20 11/17/20 11/18/20 14:59 22:59 06:59 Intake Total 560 ml 480 ml Balance 560 ml 480 ml Labs: Laboratory Tests Test 11/18/20 06:00 SARS-CoV-2 (PCR) Negative (NEGATIVE) Current Medications: Meds: Laboratory Tests Test 11/18/20 06:00 Coronavirus (COVID-19)(PCR) Negative Current Medications Medications (Trade) Dose Ordered Sig/Chidi Route PRN Reason Start Time Stop Time Status Last Admin Dose Admin Aspirin (Aspirin Enteric Coated) 81 mg DAILY PO 10/10/20 09:00 11/18/20 08:41 Atorvastatin Calcium (Lipitor) 10 mg QHS PO 10/09/20 21:00 11/18/20 20:12 Calcium Polycarbophil (Fibercon) 1,250 mg BID PO 10/09/20 21:00 11/18/20 20:10 Vitamin D (Vitamin D3) 50,000 unit WEEKLY PO 10/16/20 09:00 11/13/20 08:19 Vitamin D (Vitamin D3) 2,000 unit DAILY PO 10/10/20 09:00 10/17/20 14:27 DC 10/17/20 08:17 Denosumab (Prolia) 60 mg 1X SQ 10/09/20 15:30 10/17/20 17:10 DC Diltiazem HCl (Cardizem) 30 mg BID PO 10/09/20 21:00 11/18/20 20:11 Levothyroxine Sodium (Synthroid) 25 mcg DAILY06 PO 10/10/20 07:30 11/18/20 06:00 Pramipexole Dihydrochloride (miraPEX) 1 mg [id number] PO 10/09/20 21:00 11/18/20 20:12 Tizanidine HCl (Zanaflex) 4 mg PRN Q8HRS PRN PO MUSCLE SPASMS 10/09/20 15:30 10/21/20 23:58 Multivitamins/ Calcium (Thera-M Plus) 1 tab DAILY PO 10/10/20 09:00 11/18/20 08:41 Pantoprazole Sodium (Protonix) 40 mg DAILY PO 10/10/20 09:00 11/18/20 08:41 Sennosides (Senna) 25.8 mg HS PO 10/09/20 21:00 11/18/20 20:12 Acetaminophen (Tylenol) 650 mg PRN Q6HRS PRN PO MILD PAIN / TEMP > 100.3'F 10/09/20 17:30 11/02/20 10:41 Multi-Ingredient Ointment (Analgesic [place]) 1 ashanti PRN QID PRN TP MUSCLE PAIN 10/09/20 17:30 Al Hydroxide/Mg Hydroxide (Mylanta Plus Xs) 15 ml PRN AFTMEALHC PRN PO DYSPEPSIA 10/09/20 17:30 Magnesium Hydroxide (Milk Of Magnesia) 2,400 mg PRN QHS PRN PO CONSTIPATION 10/09/20 17:30 Olanzapine (ZyPREXA ZYDIS) 2.5 mg PRN Q2HRS PRN PO PSYCHOSIS 10/09/20 17:30 11/16/20 13:06 Doxycycline Hyclate (Vibra-Tab) 100 mg BID PO 10/10/20 21:00 10/19/20 22:00 DC 10/19/20 20:35 Divalproex Sodium (Depakote Er) 500 mg QHS PO 10/11/20 21:00 11/05/20 19:02 DC 11/04/20 19:55 Lactobacillus Rhamnosus (Culturelle) 1 cap BID PO 10/14/20 21:00 11/18/20 20:11 Bupropion HCl (Wellbutrin Xl) 150 mg DAILY PO 10/18/20 09:00 10/19/20 17:07 DC 10/19/20 08:22 Bupropion HCl (Wellbutrin Xl) 300 mg DAILY PO 10/20/20 09:00 11/18/20 08:41 Trazodone HCl (Desyrel) 50 mg PRN QHS PRN PO 2ND CHOICE INSOMNIA, MRx1 10/22/20 06:00 11/06/20 19:59 Risperidone (RisperDAL) 0.5 mg QHS PO 10/22/20 18:00 10/24/20 16:15 DC 10/23/20 20:10 Mirtazapine (Remeron) 7.5 mg QHS PO 10/23/20 21:00 10/29/20 18:20 DC 10/28/20 20:19 Risperidone (RisperDAL) 0.75 mg QHS PO 10/24/20 21:00 10/25/20 11:50 DC 10/24/20 19:34 Risperidone (RisperDAL) 0.25 mg 0900,1300,1700 PO 10/25/20 13:00 10/26/20 18:31 DC 10/26/20 17:16 Risperidone (RisperDAL) 0.25 mg 0900,1300 PO 10/27/20 09:00 11/18/20 14:00 Risperidone (RisperDAL) 0.5 mg DAILYWSUP PO 10/27/20 17:00 11/18/20 17:26 Mirtazapine (Remeron) 15 mg QHS PO 10/29/20 21:00 11/18/20 20:12 Melatonin (Melatonin) 3 mg PRN QHS PRN PO 1ST CHOICE INSOMNIA 10/29/20 18:30 11/06/20 19:59 Divalproex Sodium (Depakote Er) 750 mg QHS PO 11/05/20 21:00 11/18/20 20:11 I have reviewed the current psychotropics carefully including drug interactions. Risk benefit ratio favors no change other than as noted in my dictated progress note. Diagnosis: Problems: (1) Impulse control disorder, unspecified (2) Mild cognitive impairment (3) Anxiety disorder, unspecified (4) Bipolar disorder, current episode mixed, severe, with psychotic features SAEID NUNEZ MD Nov 18, 2020 21:42
--- NOTE | 2020-11-18 22:55 | NUR ---
Patient is in her room for assessments and medications. She is in pleasant spirits, disorganized, forgetful. Compliant with assessments and medications whole. No agitation, no delusions voiced this shift. She denies any pain or discomfort. She appears to be sleeping comfortably at present time. Will continue to monitor.
[2020-11-19] MEDS: LEVOTHYROXINE 25 MCG TABLET. PO SCH (05:47)
[2020-11-19 06:01] VITALS: BP 106/69
--- NOTE | 2020-11-19 06:45 | PDOC ---
Exam Note: Tex Note: This note is a late entry for 11/16/2020overs elements not covered in my initial note. Subjective: The patient was seen face to face in the evening of 11/16/2020 with Jayla FAGAN, discussed and reviewed the chart. She slept for 8 hours previous night. The patient remains confused. She was trying to pour water into a cup, somewhat disorganized. She is not speaking in tongues which is an improvement. Review of Systems: No CV, , pulmonary, eye, ENT system symptoms on review. Mental Status Exam: The patient is oriented to herself and situation. She is very pleasant, verbal, interactive as I met with her but confused. Speech coherent. Abstraction fair. Computation impaired. Language function intact. Attention span short. Mood and affect withdrawn. Laboratory Data: Reviewed. Impression: Bipolar disorder mixed with psychotic features. Anxiety disorder unspecified. Impulse control disorder unspecified. Mild cognitive impairment. Plan: Continue current psychotropics and probable transition to [facility], [place] this coming Thursday. Assessment: Vital Signs/I&O: Vital Signs Date Time Temp Pulse Resp B/P (MAP) Pulse Ox O2 Delivery O2 Flow Rate FiO2 11/19/20 06:01 97.8 77 16 106/69 (81) 97 11/17/20 15:24 Room Air I & O 11/18/20 11/18/20 11/19/20 15:00 23:00 07:00 Intake Total 240 ml 240 ml Balance 240 ml 240 ml Current Medications: Meds: Current Medications Medications (Trade) Dose Ordered Sig/Chidi Route PRN Reason Start Time Stop Time Status Last Admin Dose Admin Aspirin (Aspirin Enteric Coated) 81 mg DAILY PO 10/10/20 09:00 11/18/20 08:41 Atorvastatin Calcium (Lipitor) 10 mg QHS PO 10/09/20 21:00 11/18/20 20:12 Calcium Polycarbophil (Fibercon) 1,250 mg BID PO 10/09/20 21:00 11/18/20 20:10 Vitamin D (Vitamin D3) 50,000 unit WEEKLY PO 10/16/20 09:00 11/13/20 08:19 Vitamin D (Vitamin D3) 2,000 unit DAILY PO 10/10/20 09:00 10/17/20 14:27 DC 10/17/20 08:17 Denosumab (Prolia) 60 mg 1X SQ 10/09/20 15:30 10/17/20 17:10 DC Diltiazem HCl (Cardizem) 30 mg BID PO 10/09/20 21:00 11/18/20 20:11 Levothyroxine Sodium (Synthroid) 25 mcg DAILY06 PO 10/10/20 07:30 11/19/20 05:47 Pramipexole Dihydrochloride (miraPEX) 1 mg [id number] PO 10/09/20 21:00 11/18/20 20:12 Tizanidine HCl (Zanaflex) 4 mg PRN Q8HRS PRN PO MUSCLE SPASMS 10/09/20 15:30 10/21/20 23:58 Multivitamins/ Calcium (Thera-M Plus) 1 tab DAILY PO 10/10/20 09:00 11/18/20 08:41 Pantoprazole Sodium (Protonix) 40 mg DAILY PO 10/10/20 09:00 11/18/20 08:41 Sennosides (Senna) 25.8 mg HS PO 10/09/20 21:00 11/18/20 20:12 Acetaminophen (Tylenol) 650 mg PRN Q6HRS PRN PO MILD PAIN / TEMP > 100.3'F 10/09/20 17:30 11/02/20 10:41 Multi-Ingredient Ointment (Analgesic [place]) 1 ashanti PRN QID PRN TP MUSCLE PAIN 10/09/20 17:30 Al Hydroxide/Mg Hydroxide (Mylanta Plus Xs) 15 ml PRN AFTMEALHC PRN PO DYSPEPSIA 10/09/20 17:30 Magnesium Hydroxide (Milk Of Magnesia) 2,400 mg PRN QHS PRN PO CONSTIPATION 10/09/20 17:30 Olanzapine (ZyPREXA ZYDIS) 2.5 mg PRN Q2HRS PRN PO PSYCHOSIS 10/09/20 17:30 11/16/20 13:06 Doxycycline Hyclate (Vibra-Tab) 100 mg BID PO 10/10/20 21:00 10/19/20 22:00 DC 10/19/20 20:35 Divalproex Sodium (Depakote Er) 500 mg QHS PO 10/11/20 21:00 11/05/20 19:02 DC 11/04/20 19:55 Lactobacillus Rhamnosus (Culturelle) 1 cap BID PO 10/14/20 21:00 11/18/20 20:11 Bupropion HCl (Wellbutrin Xl) 150 mg DAILY PO 10/18/20 09:00 10/19/20 17:07 DC 10/19/20 08:22 Bupropion HCl (Wellbutrin Xl) 300 mg DAILY PO 10/20/20 09:00 11/18/20 08:41 Trazodone HCl (Desyrel) 50 mg PRN QHS PRN PO 2ND CHOICE INSOMNIA, MRx1 10/22/20 06:00 11/06/20 19:59 Risperidone (RisperDAL) 0.5 mg QHS PO 10/22/20 18:00 10/24/20 16:15 DC 10/23/20 20:10 Mirtazapine (Remeron) 7.5 mg QHS PO 10/23/20 21:00 10/29/20 18:20 DC 10/28/20 20:19 Risperidone (RisperDAL) 0.75 mg QHS PO 10/24/20 21:00 10/25/20 11:50 DC 10/24/20 19:34 Risperidone (RisperDAL) 0.25 mg 0900,1300,1700 PO 10/25/20 13:00 10/26/20 18:31 DC 10/26/20 17:16 Risperidone (RisperDAL) 0.25 mg 0900,1300 PO 10/27/20 09:00 11/18/20 14:00 Risperidone (RisperDAL) 0.5 mg DAILYWSUP PO 10/27/20 17:00 11/18/20 17:26 Mirtazapine (Remeron) 15 mg QHS PO 10/29/20 21:00 11/18/20 20:12 Melatonin (Melatonin) 3 mg PRN QHS PRN PO 1ST CHOICE INSOMNIA 10/29/20 18:30 11/06/20 19:59 Divalproex Sodium (Depakote Er) 750 mg QHS PO 11/05/20 21:00 11/18/20 20:11 I have reviewed the current psychotropics carefully including drug interactions. Risk benefit ratio favors no change other than as noted in my dictated progress note. Diagnosis: Problems: (1) Impulse control disorder, unspecified (2) Mild cognitive impairment (3) Anxiety disorder, unspecified (4) Bipolar disorder, current episode mixed, severe, with psychotic features SAEID NUNEZ MD Nov 19, 2020 06:45
--- NOTE | 2020-11-19 06:57 | PDOC ---
Exam Note: Tex Note: This note is a late entry for 11/17/2020overs elements not covered in my initial note. Subjective: The patient was seen face to face in the evening of 11/17/2020 with Jaylin FAGAN, discussed and reviewed the chart. She slept for 9-1/4 hours previous night. The patient has been cooperative, somewhat confused but the ampar[place], agitation, hyperverbal presentation has all improved. Review of Systems: No CV, , pulmonary, eye, ENT system symptoms on review. Mental Status Exam: The patient is oriented to herself and situation. Speech coherent. Abstraction fair. Computation impaired. Language function intact. Attention span short. Mood and affect at times withdrawn. Laboratory Data: Reviewed. Impression: Bipolar disorder mixed with psychotic features. Anxiety disorder unspecified. Impulse control disorder unspecified. Mild cognitive impairment. Plan: No change from initial note. Assessment: Vital Signs/I&O: Vital Signs Date Time Temp Pulse Resp B/P (MAP) Pulse Ox O2 Delivery O2 Flow Rate FiO2 11/19/20 06:01 97.8 77 16 106/69 (81) 97 11/17/20 15:24 Room Air I & O 11/18/20 11/18/20 11/19/20 15:00 23:00 07:00 Intake Total 240 ml 240 ml Balance 240 ml 240 ml Current Medications: Meds: Current Medications Medications (Trade) Dose Ordered Sig/Chidi Route PRN Reason Start Time Stop Time Status Last Admin Dose Admin Aspirin (Aspirin Enteric Coated) 81 mg DAILY PO 10/10/20 09:00 11/18/20 08:41 Atorvastatin Calcium (Lipitor) 10 mg QHS PO 10/09/20 21:00 11/18/20 20:12 Calcium Polycarbophil (Fibercon) 1,250 mg BID PO 10/09/20 21:00 11/18/20 20:10 Vitamin D (Vitamin D3) 50,000 unit WEEKLY PO 10/16/20 09:00 11/13/20 08:19 Vitamin D (Vitamin D3) 2,000 unit DAILY PO 10/10/20 09:00 10/17/20 14:27 DC 10/17/20 08:17 Denosumab (Prolia) 60 mg 1X SQ 10/09/20 15:30 10/17/20 17:10 DC Diltiazem HCl (Cardizem) 30 mg BID PO 10/09/20 21:00 11/18/20 20:11 Levothyroxine Sodium (Synthroid) 25 mcg DAILY06 PO 10/10/20 07:30 11/19/20 05:47 Pramipexole Dihydrochloride (miraPEX) 1 mg [id number] PO 10/09/20 21:00 11/18/20 20:12 Tizanidine HCl (Zanaflex) 4 mg PRN Q8HRS PRN PO MUSCLE SPASMS 10/09/20 15:30 10/21/20 23:58 Multivitamins/ Calcium (Thera-M Plus) 1 tab DAILY PO 10/10/20 09:00 11/18/20 08:41 Pantoprazole Sodium (Protonix) 40 mg DAILY PO 10/10/20 09:00 11/18/20 08:41 Sennosides (Senna) 25.8 mg HS PO 10/09/20 21:00 11/18/20 20:12 Acetaminophen (Tylenol) 650 mg PRN Q6HRS PRN PO MILD PAIN / TEMP > 100.3'F 10/09/20 17:30 11/02/20 10:41 Multi-Ingredient Ointment (Analgesic [place]) 1 ashanti PRN QID PRN TP MUSCLE PAIN 10/09/20 17:30 Al Hydroxide/Mg Hydroxide (Mylanta Plus Xs) 15 ml PRN AFTMEALHC PRN PO DYSPEPSIA 10/09/20 17:30 Magnesium Hydroxide (Milk Of Magnesia) 2,400 mg PRN QHS PRN PO CONSTIPATION 10/09/20 17:30 Olanzapine (ZyPREXA ZYDIS) 2.5 mg PRN Q2HRS PRN PO PSYCHOSIS 10/09/20 17:30 11/16/20 13:06 Doxycycline Hyclate (Vibra-Tab) 100 mg BID PO 10/10/20 21:00 10/19/20 22:00 DC 10/19/20 20:35 Divalproex Sodium (Depakote Er) 500 mg QHS PO 10/11/20 21:00 11/05/20 19:02 DC 11/04/20 19:55 Lactobacillus Rhamnosus (Culturelle) 1 cap BID PO 10/14/20 21:00 11/18/20 20:11 Bupropion HCl (Wellbutrin Xl) 150 mg DAILY PO 10/18/20 09:00 10/19/20 17:07 DC 10/19/20 08:22 Bupropion HCl (Wellbutrin Xl) 300 mg DAILY PO 10/20/20 09:00 11/18/20 08:41 Trazodone HCl (Desyrel) 50 mg PRN QHS PRN PO 2ND CHOICE INSOMNIA, MRx1 10/22/20 06:00 11/06/20 19:59 Risperidone (RisperDAL) 0.5 mg QHS PO 10/22/20 18:00 10/24/20 16:15 DC 10/23/20 20:10 Mirtazapine (Remeron) 7.5 mg QHS PO 10/23/20 21:00 10/29/20 18:20 DC 10/28/20 20:19 Risperidone (RisperDAL) 0.75 mg QHS PO 10/24/20 21:00 10/25/20 11:50 DC 10/24/20 19:34 Risperidone (RisperDAL) 0.25 mg 0900,1300,1700 PO 10/25/20 13:00 10/26/20 18:31 DC 10/26/20 17:16 Risperidone (RisperDAL) 0.25 mg 0900,1300 PO 10/27/20 09:00 11/18/20 14:00 Risperidone (RisperDAL) 0.5 mg DAILYWSUP PO 10/27/20 17:00 11/18/20 17:26 Mirtazapine (Remeron) 15 mg QHS PO 10/29/20 21:00 11/18/20 20:12 Melatonin (Melatonin) 3 mg PRN QHS PRN PO 1ST CHOICE INSOMNIA 10/29/20 18:30 11/06/20 19:59 Divalproex Sodium (Depakote Er) 750 mg QHS PO 11/05/20 21:00 11/18/20 20:11 I have reviewed the current psychotropics carefully including drug interactions. Risk benefit ratio favors no change other than as noted in my dictated progress note. Diagnosis: Problems: (1) Impulse control disorder, unspecified (2) Mild cognitive impairment (3) Anxiety disorder, unspecified (4) Bipolar disorder, current episode mixed, severe, with psychotic features SAEID NUENZ MD Nov 19, 2020 06:57
--- NOTE | 2020-11-19 07:07 | PDOC ---
Exam Note: Tex Note: This note is a late entry for 11/18/2020overs elements not covered in my initial note. Subjective: The patient was seen face to face in the evening of 11/18/2020 with Cherie FAGAN, discussed and reviewed the chart. She slept for 5-3/4 hours previous night. The patient is pleasant, cooperative. I met with her in her room. Before she was going to bed we discussed discharge plans for tomorrow but she seems somewhat oblivious of this. Review of Systems: No CV, , pulmonary, eye, ENT system symptoms on review. Mental Status Exam: The patient is oriented to herself and situation. Speech coherent. Abstraction fair. Computation impaired. Language function intact. Attention span short. Mood and affect at times withdrawn. Laboratory Data: Reviewed. Impression: Bipolar disorder mixed with psychotic features. Anxiety disorder unspecified. Impulse control disorder unspecified. Mild cognitive impairment. Plan: No change from initial note. Assessment: Vital Signs/I&O: Vital Signs Date Time Temp Pulse Resp B/P (MAP) Pulse Ox O2 Delivery O2 Flow Rate FiO2 11/19/20 06:01 97.8 77 16 106/69 (81) 97 11/17/20 15:24 Room Air I & O 11/18/20 11/18/20 11/19/20 15:00 23:00 07:00 Intake Total 240 ml 240 ml Balance 240 ml 240 ml Current Medications: Meds: Current Medications Medications (Trade) Dose Ordered Sig/Chidi Route PRN Reason Start Time Stop Time Status Last Admin Dose Admin Aspirin (Aspirin Enteric Coated) 81 mg DAILY PO 10/10/20 09:00 11/18/20 08:41 Atorvastatin Calcium (Lipitor) 10 mg QHS PO 10/09/20 21:00 11/18/20 20:12 Calcium Polycarbophil (Fibercon) 1,250 mg BID PO 10/09/20 21:00 11/18/20 20:10 Vitamin D (Vitamin D3) 50,000 unit WEEKLY PO 10/16/20 09:00 11/13/20 08:19 Vitamin D (Vitamin D3) 2,000 unit DAILY PO 10/10/20 09:00 10/17/20 14:27 DC 10/17/20 08:17 Denosumab (Prolia) 60 mg 1X SQ 10/09/20 15:30 10/17/20 17:10 DC Diltiazem HCl (Cardizem) 30 mg BID PO 10/09/20 21:00 11/18/20 20:11 Levothyroxine Sodium (Synthroid) 25 mcg DAILY06 PO 10/10/20 07:30 11/19/20 05:47 Pramipexole Dihydrochloride (miraPEX) 1 mg [id number] PO 10/09/20 21:00 11/18/20 20:12 Tizanidine HCl (Zanaflex) 4 mg PRN Q8HRS PRN PO MUSCLE SPASMS 10/09/20 15:30 10/21/20 23:58 Multivitamins/ Calcium (Thera-M Plus) 1 tab DAILY PO 10/10/20 09:00 11/18/20 08:41 Pantoprazole Sodium (Protonix) 40 mg DAILY PO 10/10/20 09:00 11/18/20 08:41 Sennosides (Senna) 25.8 mg HS PO 10/09/20 21:00 11/18/20 20:12 Acetaminophen (Tylenol) 650 mg PRN Q6HRS PRN PO MILD PAIN / TEMP > 100.3'F 10/09/20 17:30 11/02/20 10:41 Multi-Ingredient Ointment (Analgesic [place]) 1 ashanti PRN QID PRN TP MUSCLE PAIN 10/09/20 17:30 Al Hydroxide/Mg Hydroxide (Mylanta Plus Xs) 15 ml PRN AFTMEALHC PRN PO DYSPEPSIA 10/09/20 17:30 Magnesium Hydroxide (Milk Of Magnesia) 2,400 mg PRN QHS PRN PO CONSTIPATION 10/09/20 17:30 Olanzapine (ZyPREXA ZYDIS) 2.5 mg PRN Q2HRS PRN PO PSYCHOSIS 10/09/20 17:30 11/16/20 13:06 Doxycycline Hyclate (Vibra-Tab) 100 mg BID PO 10/10/20 21:00 10/19/20 22:00 DC 10/19/20 20:35 Divalproex Sodium (Depakote Er) 500 mg QHS PO 10/11/20 21:00 11/05/20 19:02 DC 11/04/20 19:55 Lactobacillus Rhamnosus (Culturelle) 1 cap BID PO 10/14/20 21:00 11/18/20 20:11 Bupropion HCl (Wellbutrin Xl) 150 mg DAILY PO 10/18/20 09:00 10/19/20 17:07 DC 10/19/20 08:22 Bupropion HCl (Wellbutrin Xl) 300 mg DAILY PO 10/20/20 09:00 11/18/20 08:41 Trazodone HCl (Desyrel) 50 mg PRN QHS PRN PO 2ND CHOICE INSOMNIA, MRx1 10/22/20 06:00 11/06/20 19:59 Risperidone (RisperDAL) 0.5 mg QHS PO 10/22/20 18:00 10/24/20 16:15 DC 10/23/20 20:10 Mirtazapine (Remeron) 7.5 mg QHS PO 10/23/20 21:00 10/29/20 18:20 DC 10/28/20 20:19 Risperidone (RisperDAL) 0.75 mg QHS PO 10/24/20 21:00 10/25/20 11:50 DC 10/24/20 19:34 Risperidone (RisperDAL) 0.25 mg 0900,1300,1700 PO 10/25/20 13:00 10/26/20 18:31 DC 10/26/20 17:16 Risperidone (RisperDAL) 0.25 mg 0900,1300 PO 10/27/20 09:00 11/18/20 14:00 Risperidone (RisperDAL) 0.5 mg DAILYWSUP PO 10/27/20 17:00 11/18/20 17:26 Mirtazapine (Remeron) 15 mg QHS PO 10/29/20 21:00 11/18/20 20:12 Melatonin (Melatonin) 3 mg PRN QHS PRN PO 1ST CHOICE INSOMNIA 10/29/20 18:30 11/06/20 19:59 Divalproex Sodium (Depakote Er) 750 mg QHS PO 11/05/20 21:00 11/18/20 20:11 I have reviewed the current psychotropics carefully including drug interactions. Risk benefit ratio favors no change other than as noted in my dictated progress note. Diagnosis: Problems: (1) Impulse control disorder, unspecified (2) Mild cognitive impairment (3) Anxiety disorder, unspecified (4) Bipolar disorder, current episode mixed, severe, with psychotic features SAEID NUNEZ MD Nov 19, 2020 07:07
[2020-11-19] MEDS: MULTIVITAMIN with MINERAL TABLET. PO SCH (08:32)
[2020-11-19] MEDS: dilTIAZem HCL 30 MG TABLET PO SCH ×2 (08:32→20:12)
[2020-11-19] MEDS: risperiDONE 0.25 MG TABLET. PO SCH ×2 (08:32→13:23)
[2020-11-19] MEDS: buPROPion XL 300 MG TAB.ER.24H. PO SCH (08:33)
[2020-11-19] MEDS: LACTOBACILLUS RHAMNOSUS GG 1 CAPSULE. PO SCH ×2 (08:33→20:12)
[2020-11-19] MEDS: ASPIRIN ENTERIC COATED 81 MG TABLET.DR. PO SCH (08:33)
[2020-11-19] MEDS: PANTOPRAZOLE 40 MG TABLET. PO SCH (08:33)
[2020-11-19] MEDS: CALCIUM POLYCARBOPHIL 625 MG TABLET PO SCH ×2 (08:33→20:11)
[2020-11-19] MEDS: PRAMIPEXOLE 0.5 MG TABLET. PO SCH ×3 (08:33→20:12)
[2020-11-19 16:09] VITALS: BP 159/85
[2020-11-19] MEDS: risperiDONE 0.5 MG TABLET. PO SCH (17:04)
[2020-11-19] MEDS: SENNOSIDES 8.6 MG TABLET PO SCH (20:11)
[2020-11-19] MEDS: DIVALPROEX ER 250 MG TAB.ER.24H. PO SCH (20:12)
[2020-11-19] MEDS: ATORVASTATIN CALCIUM 10 MG TABLET. PO SCH (20:12)
[2020-11-19] MEDS: MIRTAZAPINE 15 MG TABLET PO SCH (20:12)
--- NOTE | 2020-11-19 21:56 | PDOC ---
Exam Note: Tex Note: Please also refer to the separate dictated note~for this date of service dictated separately.~Patient seen individually. Discussed the patient with Nursing staff reviewed the chart.~Reviewed interim history and current functioning. Reviewed vital signs,~Labs/ Radiology~and current medications noted below. Continue current treatment with the changes noted in the dictated addendum note Assessment: Vital Signs/I&O: Vital Signs Date Time Temp Pulse Resp B/P (MAP) Pulse Ox O2 Delivery O2 Flow Rate FiO2 11/19/20 20:12 100 159/85 11/19/20 16:09 98.5 18 95 11/17/20 15:24 Room Air I & O 11/18/20 11/18/20 11/19/20 15:00 23:00 07:00 Intake Total 240 ml 240 ml Balance 240 ml 240 ml Current Medications: Meds: Current Medications Medications (Trade) Dose Ordered Sig/Chidi Route PRN Reason Start Time Stop Time Status Last Admin Dose Admin Aspirin (Aspirin Enteric Coated) 81 mg DAILY PO 10/10/20 09:00 11/19/20 08:33 Atorvastatin Calcium (Lipitor) 10 mg QHS PO 10/09/20 21:00 11/19/20 20:12 Calcium Polycarbophil (Fibercon) 1,250 mg BID PO 10/09/20 21:00 11/19/20 20:11 Vitamin D (Vitamin D3) 50,000 unit WEEKLY PO 10/16/20 09:00 11/13/20 08:19 Vitamin D (Vitamin D3) 2,000 unit DAILY PO 10/10/20 09:00 10/17/20 14:27 DC 10/17/20 08:17 Denosumab (Prolia) 60 mg 1X SQ 10/09/20 15:30 10/17/20 17:10 DC Diltiazem HCl (Cardizem) 30 mg BID PO 10/09/20 21:00 11/19/20 20:12 Levothyroxine Sodium (Synthroid) 25 mcg DAILY06 PO 10/10/20 07:30 11/19/20 05:47 Pramipexole Dihydrochloride (miraPEX) 1 mg [id number] PO 10/09/20 21:00 11/19/20 20:12 Tizanidine HCl (Zanaflex) 4 mg PRN Q8HRS PRN PO MUSCLE SPASMS 10/09/20 15:30 10/21/20 23:58 Multivitamins/ Calcium (Thera-M Plus) 1 tab DAILY PO 10/10/20 09:00 11/19/20 08:32 Pantoprazole Sodium (Protonix) 40 mg DAILY PO 10/10/20 09:00 11/19/20 08:33 Sennosides (Senna) 25.8 mg HS PO 10/09/20 21:00 11/19/20 20:11 Acetaminophen (Tylenol) 650 mg PRN Q6HRS PRN PO MILD PAIN / TEMP > 100.3'F 10/09/20 17:30 11/02/20 10:41 Multi-Ingredient Ointment (Analgesic [place]) 1 ashanti PRN QID PRN TP MUSCLE PAIN 10/09/20 17:30 Al Hydroxide/Mg Hydroxide (Mylanta Plus Xs) 15 ml PRN AFTMEALHC PRN PO DYSPEPSIA 10/09/20 17:30 Magnesium Hydroxide (Milk Of Magnesia) 2,400 mg PRN QHS PRN PO CONSTIPATION 10/09/20 17:30 Olanzapine (ZyPREXA ZYDIS) 2.5 mg PRN Q2HRS PRN PO PSYCHOSIS 10/09/20 17:30 11/16/20 13:06 Doxycycline Hyclate (Vibra-Tab) 100 mg BID PO 10/10/20 21:00 10/19/20 22:00 DC 10/19/20 20:35 Divalproex Sodium (Depakote Er) 500 mg QHS PO 10/11/20 21:00 11/05/20 19:02 DC 11/04/20 19:55 Lactobacillus Rhamnosus (Culturelle) 1 cap BID PO 10/14/20 21:00 11/19/20 20:12 Bupropion HCl (Wellbutrin Xl) 150 mg DAILY PO 10/18/20 09:00 10/19/20 17:07 DC 10/19/20 08:22 Bupropion HCl (Wellbutrin Xl) 300 mg DAILY PO 10/20/20 09:00 11/19/20 08:33 Trazodone HCl (Desyrel) 50 mg PRN QHS PRN PO 2ND CHOICE INSOMNIA, MRx1 10/22/20 06:00 11/06/20 19:59 Risperidone (RisperDAL) 0.5 mg QHS PO 10/22/20 18:00 10/24/20 16:15 DC 10/23/20 20:10 Mirtazapine (Remeron) 7.5 mg QHS PO 10/23/20 21:00 10/29/20 18:20 DC 10/28/20 20:19 Risperidone (RisperDAL) 0.75 mg QHS PO 10/24/20 21:00 10/25/20 11:50 DC 10/24/20 19:34 Risperidone (RisperDAL) 0.25 mg 0900,1300,1700 PO 10/25/20 13:00 10/26/20 18:31 DC 10/26/20 17:16 Risperidone (RisperDAL) 0.25 mg 0900,1300 PO 10/27/20 09:00 11/19/20 13:23 Risperidone (RisperDAL) 0.5 mg DAILYWSUP PO 10/27/20 17:00 11/19/20 17:04 Mirtazapine (Remeron) 15 mg QHS PO 10/29/20 21:00 11/19/20 20:12 Melatonin (Melatonin) 3 mg PRN QHS PRN PO 1ST CHOICE INSOMNIA 10/29/20 18:30 11/06/20 19:59 Divalproex Sodium (Depakote Er) 750 mg QHS PO 11/05/20 21:00 11/19/20 20:12 I have reviewed the current psychotropics carefully including drug interactions. Risk benefit ratio favors no change other than as noted in my dictated progress note. Diagnosis: Problems: (1) Impulse control disorder, unspecified (2) Mild cognitive impairment (3) Anxiety disorder, unspecified (4) Bipolar disorder, current episode mixed, severe, with psychotic features SAEID NUNEZ MD Nov 19, 2020 21:56
--- NOTE | 2020-11-19 22:11 | NUR ---
Patient has been wandering in the hallways and entering peers rooms. She is disorganized and delusional, tonight she thinks she is waiting for an airplane. Patient is compliant with medications, she takes them whole with water. Patient has been calm and cooperative.
[2020-11-20] MEDS: LEVOTHYROXINE 25 MCG TABLET. PO SCH (06:00)
[2020-11-20 06:06] VITALS: BP 130/71
[2020-11-20 08:22] VITALS: BP 130/71
[2020-11-20] MEDS: PANTOPRAZOLE 40 MG TABLET. PO SCH (08:22)
[2020-11-20] MEDS: buPROPion XL 300 MG TAB.ER.24H. PO SCH (08:22)
[2020-11-20] MEDS: CALCIUM POLYCARBOPHIL 625 MG TABLET PO SCH (08:22)
[2020-11-20] MEDS: dilTIAZem HCL 30 MG TABLET PO SCH (08:22)
[2020-11-20] MEDS: risperiDONE 0.25 MG TABLET. PO SCH ×2 (08:22→13:14)
[2020-11-20] MEDS: MULTIVITAMIN with MINERAL TABLET. PO SCH (08:22)
[2020-11-20] MEDS: PRAMIPEXOLE 0.5 MG TABLET. PO SCH ×2 (08:22→13:14)
[2020-11-20] MEDS: LACTOBACILLUS RHAMNOSUS GG 1 CAPSULE. PO SCH (08:22)
[2020-11-20] MEDS: ASPIRIN ENTERIC COATED 81 MG TABLET.DR. PO SCH (08:22)
[2020-11-20] MEDS: CHOLECALCIFEROL (VITAMIN D3) 50,000 UNIT CAPSULE PO SCH (08:23)
--- NOTE | 2020-11-20 14:26 | NUR ---
Transition Record was faxed to follow-up provider with the following elements: Reason for admission, procedures, tests, principal diagnosis, pending studies, patient instructions, 03/11 contact information for unit, phone number to obtain pending test results, plan for follow-up care, physician follow-up, advanced directive information, and medication list with dose, duration and instructions. This information was included in the following documents: History and physical, lab results, study results, progress notes, social work planning form, DC instruction form, patient visit summary, and medication reconciliation form. Date & time record faxed: 11/14/20 @ 0015 Record faxed to: Adali @ [phone] Record discussed with/ report given to: Gayle @ [phone]
--- NOTE | 2020-11-21 06:14 | PDOC ---
Exam Note: Tex Note: This is a late entry for date of discharge 11/20/2020. Please also refer to the separate dictated note~for this date of service dictated separately.~Patient seen individually. Discussed the patient with Nursing staff reviewed the chart.~Reviewed interim history and current functioning. Reviewed vital signs,~Labs/ Radiology~and current medications noted below. Continue current treatment with the changes noted in the dictated addendum note Assessment: Vital Signs/I&O: Vital Signs Date Time Temp Pulse Resp B/P (MAP) Pulse Ox O2 Delivery O2 Flow Rate FiO2 11/20/20 08:22 82 130/71 11/20/20 06:06 97.9 18 93 11/17/20 15:24 Room Air I & O 11/20/20 11/20/20 11/21/20 15:00 23:00 07:00 Intake Total 600 ml Balance 600 ml Current Medications: Meds: Current Medications Medications (Trade) Dose Ordered Sig/Chidi Route PRN Reason Start Time Stop Time Status Last Admin Dose Admin Aspirin (Aspirin Enteric Coated) 81 mg DAILY PO 10/10/20 09:00 11/20/20 14:30 DC 11/20/20 08:22 Atorvastatin Calcium (Lipitor) 10 mg QHS PO 10/09/20 21:00 11/20/20 14:30 DC 11/19/20 20:12 Calcium Polycarbophil (Fibercon) 1,250 mg BID PO 10/09/20 21:00 11/20/20 14:30 DC 11/20/20 08:22 Vitamin D (Vitamin D3) 50,000 unit WEEKLY PO 10/16/20 09:00 11/20/20 14:30 DC 11/20/20 08:23 Vitamin D (Vitamin D3) 2,000 unit DAILY PO 10/10/20 09:00 10/17/20 14:27 DC 10/17/20 08:17 Denosumab (Prolia) 60 mg 1X SQ 10/09/20 15:30 10/17/20 17:10 DC Diltiazem HCl (Cardizem) 30 mg BID PO 10/09/20 21:00 11/20/20 14:30 DC 11/20/20 08:22 Levothyroxine Sodium (Synthroid) 25 mcg DAILY06 PO 10/10/20 07:30 11/20/20 14:30 DC 11/20/20 06:00 Pramipexole Dihydrochloride (miraPEX) 1 mg [id number] PO 10/09/20 21:00 11/20/20 14:30 DC 11/20/20 13:14 Tizanidine HCl (Zanaflex) 4 mg PRN Q8HRS PRN PO MUSCLE SPASMS 10/09/20 15:30 11/20/20 14:30 DC 10/21/20 23:58 Multivitamins/ Calcium (Thera-M Plus) 1 tab DAILY PO 10/10/20 09:00 11/20/20 14:30 DC 11/20/20 08:22 Pantoprazole Sodium (Protonix) 40 mg DAILY PO 10/10/20 09:00 11/20/20 14:30 DC 11/20/20 08:22 Sennosides (Senna) 25.8 mg HS PO 10/09/20 21:00 11/20/20 14:30 DC 11/19/20 20:11 Acetaminophen (Tylenol) 650 mg PRN Q6HRS PRN PO MILD PAIN / TEMP > 100.3'F 10/09/20 17:30 11/20/20 14:30 DC 11/02/20 10:41 Multi-Ingredient Ointment (Analgesic [place]) 1 ashanti PRN QID PRN TP MUSCLE PAIN 10/09/20 17:30 11/20/20 14:30 DC Al Hydroxide/Mg Hydroxide (Mylanta Plus Xs) 15 ml PRN AFTMEALHC PRN PO DYSPEPSIA 10/09/20 17:30 11/20/20 14:30 DC Magnesium Hydroxide (Milk Of Magnesia) 2,400 mg PRN QHS PRN PO CONSTIPATION 10/09/20 17:30 11/20/20 14:30 DC Olanzapine (ZyPREXA ZYDIS) 2.5 mg PRN Q2HRS PRN PO PSYCHOSIS 10/09/20 17:30 11/20/20 14:30 DC 11/20/20 08:23 Doxycycline Hyclate (Vibra-Tab) 100 mg BID PO 10/10/20 21:00 10/19/20 22:00 DC 10/19/20 20:35 Divalproex Sodium (Depakote Er) 500 mg QHS PO 10/11/20 21:00 11/05/20 19:02 DC 11/04/20 19:55 Lactobacillus Rhamnosus (Culturelle) 1 cap BID PO 10/14/20 21:00 11/20/20 14:30 DC 11/20/20 08:22 Bupropion HCl (Wellbutrin Xl) 150 mg DAILY PO 10/18/20 09:00 10/19/20 17:07 DC 10/19/20 08:22 Bupropion HCl (Wellbutrin Xl) 300 mg DAILY PO 10/20/20 09:00 11/20/20 14:30 DC 11/20/20 08:22 Trazodone HCl (Desyrel) 50 mg PRN QHS PRN PO 2ND CHOICE INSOMNIA, MRx1 10/22/20 06:00 11/20/20 14:30 DC 11/06/20 19:59 Risperidone (RisperDAL) 0.5 mg QHS PO 10/22/20 18:00 10/24/20 16:15 DC 10/23/20 20:10 Mirtazapine (Remeron) 7.5 mg QHS PO 10/23/20 21:00 10/29/20 18:20 DC 10/28/20 20:19 Risperidone (RisperDAL) 0.75 mg QHS PO 10/24/20 21:00 10/25/20 11:50 DC 10/24/20 19:34 Risperidone (RisperDAL) 0.25 mg 0900,1300,1700 PO 10/25/20 13:00 10/26/20 18:31 DC 10/26/20 17:16 Risperidone (RisperDAL) 0.25 mg 0900,1300 PO 10/27/20 09:00 11/20/20 14:30 DC 11/20/20 13:14 Risperidone (RisperDAL) 0.5 mg DAILYWSUP PO 10/27/20 17:00 11/20/20 14:30 DC 11/19/20 17:04 Mirtazapine (Remeron) 15 mg QHS PO 10/29/20 21:00 11/20/20 14:30 DC 11/19/20 20:12 Melatonin (Melatonin) 3 mg PRN QHS PRN PO 1ST CHOICE INSOMNIA 10/29/20 18:30 11/20/20 14:30 DC 11/06/20 19:59 Divalproex Sodium (Depakote Er) 750 mg QHS PO 11/05/20 21:00 11/20/20 14:30 DC 11/19/20 20:12 I have reviewed the current psychotropics carefully including drug interactions. Risk benefit ratio favors no change other than as noted in my dictated progress note. Diagnosis: Problems: (1) Impulse control disorder, unspecified (2) Mild cognitive impairment (3) Anxiety disorder, unspecified (4) Bipolar disorder, current episode mixed, severe, with psychotic features SAEID NUNEZ MD Nov 21, 2020 06:14
--- NOTE | 2020-11-21 06:14 | PDOC ---
Exam Note: [place] Note: This note is a late entry for 11/19/2020overs elements not covered in my initial note. Subjective: The patient was seen face to face in the evening of 11/19/2020 with rIa FAGAN, discussed and reviewed the chart. She slept for 8-1/4 hours previous night. I met with her individually. She appears somewhat confused. We discussed discharge plans. Mood lability improved. Review of Systems: No CV, , pulmonary, eye, ENT system symptoms on review. Mental Status Exam: The patient is oriented to herself and situation. Speech coherent. Abstraction fair. Computation impaired. Language function intact. Attention span short. Mood and affect improved. No psychotic symptoms, suicidal or homicidal ideation. Laboratory Data: Reviewed. Impression: Bipolar disorder mixed with psychotic features. Anxiety disorder unspecified. Impulse control disorder unspecified. Mild cognitive impairment. Plan: No change from initial note. Assessment: Vital Signs/I&O: Vital Signs Date Time Temp Pulse Resp B/P (MAP) Pulse Ox O2 Delivery O2 Flow Rate FiO2 11/20/20 08:22 82 130/71 11/20/20 06:06 97.9 18 93 11/17/20 15:24 Room Air I & O 11/20/20 11/20/20 11/21/20 15:00 23:00 07:00 Intake Total 600 ml Balance 600 ml Current Medications: Meds: Current Medications Medications (Trade) Dose Ordered Sig/Chidi Route PRN Reason Start Time Stop Time Status Last Admin Dose Admin Aspirin (Aspirin Enteric Coated) 81 mg DAILY PO 10/10/20 09:00 11/20/20 14:30 DC 11/20/20 08:22 Atorvastatin Calcium (Lipitor) 10 mg QHS PO 10/09/20 21:00 11/20/20 14:30 DC 11/19/20 20:12 Calcium Polycarbophil (Fibercon) 1,250 mg BID PO 10/09/20 21:00 11/20/20 14:30 DC 11/20/20 08:22 Vitamin D (Vitamin D3) 50,000 unit WEEKLY PO 10/16/20 09:00 11/20/20 14:30 DC 11/20/20 08:23 Vitamin D (Vitamin D3) 2,000 unit DAILY PO 10/10/20 09:00 10/17/20 14:27 DC 10/17/20 08:17 Denosumab (Prolia) 60 mg 1X SQ 10/09/20 15:30 10/17/20 17:10 DC Diltiazem HCl (Cardizem) 30 mg BID PO 10/09/20 21:00 11/20/20 14:30 DC 11/20/20 08:22 Levothyroxine Sodium (Synthroid) 25 mcg DAILY06 PO 10/10/20 07:30 11/20/20 14:30 DC 11/20/20 06:00 Pramipexole Dihydrochloride (miraPEX) 1 mg [id number] PO 10/09/20 21:00 11/20/20 14:30 DC 11/20/20 13:14 Tizanidine HCl (Zanaflex) 4 mg PRN Q8HRS PRN PO MUSCLE SPASMS 10/09/20 15:30 11/20/20 14:30 DC 10/21/20 23:58 Multivitamins/ Calcium (Thera-M Plus) 1 tab DAILY PO 10/10/20 09:00 11/20/20 14:30 DC 11/20/20 08:22 Pantoprazole Sodium (Protonix) 40 mg DAILY PO 10/10/20 09:00 11/20/20 14:30 DC 11/20/20 08:22 Sennosides (Senna) 25.8 mg HS PO 10/09/20 21:00 11/20/20 14:30 DC 11/19/20 20:11 Acetaminophen (Tylenol) 650 mg PRN Q6HRS PRN PO MILD PAIN / TEMP > 100.3'F 10/09/20 17:30 11/20/20 14:30 DC 11/02/20 10:41 Multi-Ingredient Ointment (Analgesic [place]) 1 ashanti PRN QID PRN TP MUSCLE PAIN 10/09/20 17:30 11/20/20 14:30 DC Al Hydroxide/Mg Hydroxide (Mylanta Plus Xs) 15 ml PRN AFTMEALHC PRN PO DYSPEPSIA 10/09/20 17:30 11/20/20 14:30 DC Magnesium Hydroxide (Milk Of Magnesia) 2,400 mg PRN QHS PRN PO CONSTIPATION 10/09/20 17:30 11/20/20 14:30 DC Olanzapine (ZyPREXA ZYDIS) 2.5 mg PRN Q2HRS PRN PO PSYCHOSIS 10/09/20 17:30 11/20/20 14:30 DC 11/20/20 08:23 Doxycycline Hyclate (Vibra-Tab) 100 mg BID PO 10/10/20 21:00 10/19/20 22:00 DC 10/19/20 20:35 Divalproex Sodium (Depakote Er) 500 mg QHS PO 10/11/20 21:00 11/05/20 19:02 DC 11/04/20 19:55 Lactobacillus Rhamnosus (Culturelle) 1 cap BID PO 10/14/20 21:00 11/20/20 14:30 DC 11/20/20 08:22 Bupropion HCl (Wellbutrin Xl) 150 mg DAILY PO 10/18/20 09:00 10/19/20 17:07 DC 10/19/20 08:22 Bupropion HCl (Wellbutrin Xl) 300 mg DAILY PO 10/20/20 09:00 11/20/20 14:30 DC 11/20/20 08:22 Trazodone HCl (Desyrel) 50 mg PRN QHS PRN PO 2ND CHOICE INSOMNIA, MRx1 10/22/20 06:00 11/20/20 14:30 DC 11/06/20 19:59 Risperidone (RisperDAL) 0.5 mg QHS PO 10/22/20 18:00 10/24/20 16:15 DC 10/23/20 20:10 Mirtazapine (Remeron) 7.5 mg QHS PO 10/23/20 21:00 10/29/20 18:20 DC 10/28/20 20:19 Risperidone (RisperDAL) 0.75 mg QHS PO 10/24/20 21:00 10/25/20 11:50 DC 10/24/20 19:34 Risperidone (RisperDAL) 0.25 mg 0900,1300,1700 PO 10/25/20 13:00 10/26/20 18:31 DC 10/26/20 17:16 Risperidone (RisperDAL) 0.25 mg 0900,1300 PO 10/27/20 09:00 11/20/20 14:30 DC 11/20/20 13:14 Risperidone (RisperDAL) 0.5 mg DAILYWSUP PO 10/27/20 17:00 11/20/20 14:30 DC 11/19/20 17:04 Mirtazapine (Remeron) 15 mg QHS PO 10/29/20 21:00 11/20/20 14:30 DC 11/19/20 20:12 Melatonin (Melatonin) 3 mg PRN QHS PRN PO 1ST CHOICE INSOMNIA 10/29/20 18:30 11/20/20 14:30 DC 11/06/20 19:59 Divalproex Sodium (Depakote Er) 750 mg QHS PO 11/05/20 21:00 11/20/20 14:30 DC 11/19/20 20:12 I have reviewed the current psychotropics carefully including drug interactions. Risk benefit ratio favors no change other than as noted in my dictated progress note. Diagnosis: Problems: (1) Impulse control disorder, unspecified (2) Mild cognitive impairment (3) Anxiety disorder, unspecified (4) Bipolar disorder, current episode mixed, severe, with psychotic features SAEID NUNEZ MD Nov 21, 2020 06:14
--- NOTE | 2020-11-21 17:14 | DS ---
DATE OF DISCHARGE: 11/20/2020 DISCHARGE SUMMARY/PSYCHIATRIC PROGRESS NOTE This is a late entry, date of service 11/20, covers elements not covered in my initial note of 11/20. I had started dictating the summary on this patient, but apparently the dictation was interrupted and this document is being redictated. REASON FOR ADMISSION: Please refer to the admission history for details. Briefly, the patient is a 74-year-old female referred by her primary care physician on account of an acute exacerbation of her bipolar disorder with a manic spell while she was on vacation in [place] with her . The chose to drive her right back to [place] and she was evaluated at the emergency room at [facility] and then referred to us for inpatient psychiatric stabilization. She had been paranoid, accusing her of sleeping with their daughter. She was eloping from the home, stating family members were holding her hostage. She was refusing to eat or bathe. She was having marked sleep and appetite changes, worsening confusion and memory deficits. She had failed outpatient psychiatric interventions. Behavior is deemed dangerous, unmanageable resulting in this referral. Her bipolar disorder had been fairly stable, untreated for an extended period of time until the current episode. SIGNIFICANT FINDINGS AND CLINICAL COURSE: Following admission, the patient was seen daily individually by myself from a psychiatric standpoint, medical followup with Dr. Alberto/Dr. Patel. The patient was quite confused, paranoid, frequently talking in tongues and agitated, disruptive on the unit. Adjustments were made in her psychotropics and she seemed to respond to a combination of Depakote extended release 750 mg at bedtime with a valproic acid level therapeutic at 78, Wellbutrin-XL 300 mg a day, trazodone 50 mg at bedtime p.r.n. insomnia, may repeat x 1. Later Risperdal was added and adjusted to 0.25 mg 0900, 1300, 0.5 mg at 1700. Then, she was also on Remeron 15 mg at bedtime, melatonin 3 mg at bedtime p.r.n. insomnia. Prior to discharge on 11/20, no CV, , pulmonary, eye, ENT system symptoms on review. The patient is quite verbal and interactive. Nevertheless, confused and transition plans had been made for her to go to [facility], reportedly where her daughter worked as well. MENTAL STATUS EXAMINATION AT DISCHARGE: The patient is awake, alert, oriented to herself, situation. Speech is coherent, has some latency. Abstraction fair. Computation impaired. Language function intact. Short-term memory is impaired. The amparo and psychotic symptoms appeared to have subsided. No active suicidal or homicidal ideation. LABORATORY DATA: Reviewed. FINAL DIAGNOSES: Bipolar disorder, manic with psychotic features, in partial remission. 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 There was a notation in her record of her symptoms of borderline personality disorder. Rest unchanged from admission. DISCHARGE MEDICATIONS: Please refer to the MRAD. DISCHARGE INSTRUCTIONS: Outpatient psychiatric and medical followup at the detention. She may follow up for psychiatric medication management at the [facility] in [place]. Time for discharge day management greater than [address]: Anusha TID: [id number]
== END 2020-11-20 14:00 | DRG 885 ==
LOC: GEROPSY 16:45
PROVIDERS: ADMIT Psychiatry & Neurology Psychiatry; ATTEND Psychiatry & Neurology Psychiatry
DX: F31.64 Bipolar disorder, current episode mixed, severe, with psychotic features (principal); F02.81 Dementia in other diseases classified elsewhere, unspecified severity, with behavioral disturbance; G30.9 Alzheimer's disease, unspecified; J44.9 Chronic obstructive pulmonary disease, unspecified; K21.9 Gastro-esophageal reflux disease without esophagitis; I10 Essential (primary) hypertension; Z96.659 Presence of unspecified artificial knee joint; Z96.642 Presence of left artificial hip joint; E03.9 Hypothyroidism, unspecified; E78.5 Hyperlipidemia, unspecified; F63.9 Impulse disorder, unspecified; G47.00 Insomnia, unspecified; F41.9 Anxiety disorder, unspecified; F60.9 Personality disorder, unspecified; Z20.822 Contact with and (suspected) exposure to COVID-19; Z90.710 Acquired absence of both cervix and uterus; Z90.49 Acquired absence of other specified parts of digestive tract; Z86.718 Personal history of other venous thrombosis and embolism; Z86.19 Personal history of other infectious and parasitic diseases; Z79.899 Other long term (current) drug therapy; Z88.2 Allergy status to sulfonamides; Z91.012 Allergy to eggs
CPT/HCPCS: 36415; 80053; 80061; 80164; 81001; 82140; 82306; 82607; 83036; 83540; 83550; 83735; 84436; 84443; 84480; 85025; 85379; 86592; 87086; 93005; 93970; U0003; U0005; 97530; 97535

== ENCOUNTER 2021-08-26 16:04 | Emergency (ER) | payer MEDICARE ==
[~2021-08-26] VITALS: Ht 160 cm; Wt 64.9 kg
[~2021-08-26 16:04] MED LIST: ACET325T9 PO; ASPI-889 PO; ATOR10TA60 PO; BUPR300T92 PO; CALC625T12 PO; CHOL10004 PO; CHOL500021 PO; DENO60DI SQ; DILT30TA26 PO; DIVA250T PO; LACT1CAP21 PO; LEVO25TA4 PO; MAG-124 PO; MAGN24003 PO; MELA3TAB4 PO; METH57CR17 TP; MIRT-37 PO; MULT-245 PO; OLAN5TAB7 PO; OMEP40CA7 PO; PANT40TA6 PO; PRAM0.255 PO; RISP0.5T24 PO; SENN25TA PO; SENN8.8S13 PO; TIZA-75 PO; TRAZ-120 PO
--- NOTE | 2021-08-26 16:26 | PHYS DOC ---
General Adult EDM: Chief Complaint: MECHANICAL FALL HPI: HPI: 75-year-old female presents via EMS from her care facility after a ground-level fall. Patient tells me that she thinks she slipped on the floor but is not completely sure. This is consistent with the story told by EMS. When asked if she has any pain, she states only her left big toe hurts. She denies any other significant complaints. She is COVID-positive at this time. Review of Systems: Review of Systems: Constitutional: Denies fever or chills Eyes: Denies change in visual acuity HENT: Denies nasal congestion or sore throat Respiratory: Denies cough or shortness of breath Cardiovascular: Denies chest pain or edema GI: Denies abdominal pain, nausea, vomiting, bloody stools or diarrhea : Denies dysuria Musculoskeletal: Denies back pain or joint pain Integument: Laceration left forehead Neurologic: Denies headache, focal weakness or sensory changes Endocrine: Denies polyuria or polydipsia Lymphatic: Denies swollen glands Psychiatric: Denies depression or anxiety Allergies: Allergies: Allergies Coded Allergies Type Severity Reaction Last Updated Verified Sulfa (Sulfonamide Antibiotics) Allergy Unknown 10/09/20 Yes cat dander Allergy Unknown 10/09/20 Yes egg Allergy Unknown 10/09/20 Yes gluten Allergy Unknown 10/09/20 Yes Uncoded Allergies Type Severity Reaction Last Updated Verified air freshener Allergy Severe Rash 10/09/20 Physical Exam: PE: Constitutional: Well developed, well nourished, no acute distress, non-toxic appearance. [] HENT: Normocephalic, atraumatic, bilateral external ears normal, oropharynx moist, no oral exudates, nose normal. [] Eyes: PERRLA, EOMI, conjunctiva normal, no discharge. [] Neck: Normal range of motion, no tenderness, supple, no stridor. [] Cardiovascular: Heart rate regular rhythm, no murmur [] Lungs & Thorax: Bilateral breath sounds clear to auscultation [] Abdomen: Bowel sounds normal, soft, no tenderness, no masses, no pulsatile masses. [] Skin: 2 cm linear laceration of the left forehead. [] Back: No tenderness, no CVA tenderness. [] Extremities: No tenderness, no cyanosis, no clubbing, ROM intact, no edema. [] Neurologic: Alert person and place, normal motor function, normal sensory function, no focal deficits noted. [] Psychologic: Affect normal, judgement normal, mood normal. [] EKG: EKG: [] Radiology/Procedures: Radiology/Procedures: [] Impressions: CT head without contrast PQRS statement: CT scans at this facility use dose reduction including either automated exposure control, iterative reconstructions, and /or weight based radiation dosing via mA and kV modification when appropriate to reduce radiation dose to as low as reasonably achievable. HISTORY: Fall. Altered mental status. FINDINGS: Calcified plaque of intracranial arteries. No intracranial hemorrhage, mass, hydrocephalus, extra-axial fluid collections or infarction. Mild frontal periventricular white matter hypoattenuation statistically most likely mild imaging changes of chronic microvascular ischemic disease. Left lateral periorbital soft tissue emphysema and edema with a 1 cm thickness soft tissue hematoma. Bones and mastoids intact. IMPRESSION: No acute intracranial CT abnormality. Left periorbital soft tissue hematoma. Electronically signed by: Kanu Polo MD (08/26/2021 4:43 PM) [facility] [place] BY: KANU POLO MD DATE: 08/26/211638 CC: GELA SOL DO; MILTON WELLINGTON PA-C ~ Heart Score: C/O Chest Pain: N/A Risk Factors: Risk Factors: DM, Current or recent (<one month) smoker, HTN, HLP, family history of CAD, obesity. Risk Scores: Score 0 - 3: 2.5% MACE over next 6 weeks - Discharge Home Score 4 - 6: 20.3% MACE over next 6 weeks - Admit for Clinical Observation Score 7 - 10: 72.7% MACE over next 6 weeks - Early Invasive Strategies Course & Med Decision Making: Course & Med Decision Making Pertinent Labs and Imaging studies reviewed. (See chart for details) The patient's head CT is negative for acute findings. I repaired the patient's laceration with Dermabond skin adhesive. See note below for more details. The patient's labs are unremarkable. Her urinalysis is contaminated and only shows few bacteria. I am not going to treat this as a UTI at this time. She is stable for discharge back to her care facility. [] Loli Disclaimer: Loli Disclaimer: This electronic medical record was generated, in whole or in part, using a voice recognition dictation system. Laceration Repair Lac Repair Indication: [] 2 cm laceration of the left forehead Procedure: I obtained verbal consent from the patient for tissue adhesive repair of her left forehead laceration. The wound was thoroughly cleaned with normal saline. No foreign bodies were found. No anesthesia was used. 2 layers of Dermabond tissue adhesive was placed over the wound. There was good skin approximation. No dressing was applied. Total repaired wound length: 2 cm. Other Items: None The patient tolerated the procedure well. Complications: None. Departure Departure: Impression: Primary Impression: Fall from slip, trip, or stumble Additional Impression: Forehead laceration Disposition: 01 HOME / SELF CARE / HOMELESS Condition: STABLE Referrals: MILTON WELLINGTON PA-C (PCP) Patient Instructions: Tissue Adhesive Wound Care, [id number] Additional Instructions: Please repeat urinalysis in 2 days to evaluate for infection. The results in the emergency room were inconclusive. GELA SOL DO August 26, 2021 16:26
--- NOTE | 2021-08-26 16:45 | RAD ---
CT head without contrast PQRS statement: CT scans at this facility use dose reduction including either automated exposure cont rol, iterative reconstructions, and /or weight based radiation dosing via mA and kV modification when appropriate to reduce radiation dose to as low as reasonably achievable. HISTORY: Fall. Altered mental status. FINDINGS: Calcified plaque of intracranial arteries. No intracranial hemorrhage, mass, hydrocephalus, extra-axial fluid collections or infarction. Mild frontal periventricular white matter hypoattenuati on statistically most likely mild imaging changes of chronic microvascular ischemic disease. Left lat eral periorbital soft tissue emphysema and edema with a 1 cm thickness soft tissue hematoma. Bones an d mastoids intact. IMPRESSION: No acute intracranial CT abnormality. Left periorbital soft tissue hematoma. Electronically signed by: Ravinder Polo MD (08/26/2021 4:43 PM) [facility]
[2021-08-26 17:09] VITALS: BP 135/63
[2021-08-26 17:31] LABS: BASO % 1 % (0-3); EOS % 0 % (0-3); HEMATOCRIT 38.8 % (36.0-47.0); LYMPH # 0.9 x10^3/uL (1.0-4.8); LYMPH % 20 % (24-48); MEAN CORPUSCULAR HEMOGLOBIN 31 pg (25-35); MEAN CORPUSCULAR HGB CONC 34 g/dL (31-37); MEAN CORPUSCULAR VOLUME 94 fL (79-100); MONO # 1.2 x10^3/uL (0.0-1.1); MONO % 26 % (0-9); NEUT # 2.4 x10^3uL (1.8-7.7); NEUT % 53 % (31-73); PLATELET COUNT 167 x10^3/uL (140-400); RED BLOOD COUNT 4.15 x10^6/uL (3.50-5.40); RED CELL DISTRIBUTION WIDTH 14.4 % (11.5-14.5); WHITE BLOOD COUNT 4.4 x10^3/uL (4.0-11.0)
[2021-08-26 17:40] LABS: CLARITY,URINE CLEAR; COLOR,URINE YELLOW
[2021-08-26 17:41] LABS: BACTERIA,URINE FEW /HPF (0-FEW); GLUCOSE,URINE NEG (NEG); NITRITE,URINE NEG (NEG); SQUAMOUS EPITHELIAL CELL,UR MANY /LPF; UROBILINOGEN,URINE 0.2 mg/dL (0.2 mg/dL)
[2021-08-26 18:37] LABS: CALCIUM 8.7 mg/dL (8.5-10.1); CREATININE 1.1 mg/dL (0.6-1.0); GFR 48.2; POTASSIUM 3.8 mmol/L (3.5-5.1)
[2021-08-26 18:44] LABS: ALBUMIN 3.2 g/dL (3.4-5.0); ALBUMIN/GLOBULIN RATIO 0.9 (1.0-1.7); TOTAL BILIRUBIN 0.4 mg/dL (0.2-1.0); TOTAL PROTEIN 6.8 g/dL (6.4-8.2)
== END 2021-08-26 19:11 | disposition home or self-care (01) ==
LOC: ER 16:04
DX: S01.81XA Laceration without foreign body of other part of head, initial encounter (principal); W01.0XXA Fall on same level from slipping, tripping and stumbling without subsequent striking against object, initial encounter; Y93.89 Activity, other specified; Y92.89 Other specified places as the place of occurrence of the external cause; Y99.8 Other external cause status
CPT/HCPCS: 12011; 36415; 70450; 80053; 81001; 85025; 87086; 99284-25